=== PATIENT | female | born 1955 | race Caucasian/White ===

== ENCOUNTER 2016-10-12 06:00 | Emergency (ER) | payer BC ==
[2016-10-12] MEDS ORDERED: ONDANSETRON 4 MG/2 ML VIAL IVP STA (06:48)
[2016-10-12] MEDS ORDERED: SODIUM CHLORIDE 0.9% 500 ML IV STA (06:48)
[2016-10-12] MEDS ORDERED: MORPHINE SULFATE 4 MG/ML SYRINGE IV STA (06:48)
--- NOTE | 2016-10-12 06:53 | ED ---
Abdominal Pain HPI - General Chief Complaint: Abdominal Pain Stated Complaint: abd pain, back pain Source: patient Mode of arrival: ambulatory Limitations: no limitations - History of Present Illness MD Complaint: abdominal pain Onset/Timin -: days(s) Location: epigastric Radiation: none Migration to: no migration Severity: severe Quality: other (Like gas) Consistency: constant Improves With: nothing Worsens With: nothing Associated Symptoms: nausea - Related Data Home Medications Medication Instructions Recorded Confirmed Aspirin EC [Ecotrin] 81 mg PO DAILY 11/12/13 11/11/14 Cholecalciferol [Vitamin D3] 1 tab PO DAILY 11/12/13 11/11/14 Cyanocobalamin [Vitamin B-12] 1,000 mcg PO DAILY@1200 11/12/13 11/11/14 Lisinopril [Prinivil] 5 mg PO DAILY 11/12/13 11/11/14 Multivitamins, Thera [Multivitamin] 1 each PO DAILY 11/12/13 11/11/14 Rosuvastatin Calcium [Crestor] 5 mg PO DAILY 11/12/13 11/11/14 metFORMIN HCL [Glucophage] 500 mg PO BID 11/12/13 11/11/14 Previous Rx's Medication Instructions Recorded Hydrocodone/Acetaminophen [[place] 1 - 2 each PO Q6HR PRN #60 tab 05/14/14 5-325] Acetaminophen-Codeine 300-30mg 1 each PO Q4H PRN #15 tablet 06/05/14 [Tylenol #3] Allergies Allergy/AdvReac Type Severity Reaction Status Date / Time latex Allergy Anaphylaxis Verified 10/12/16 06:08 Review of Systems ROS Statement: Those systems with pertinent positive or pertinent negative responses have been documented in the HPI. ROS Other: All systems not noted in ROS Statement are negative. Constitutional: Denies: fever, chills Respiratory: Denies: cough, dyspnea Cardiovascular: Denies: chest pain, palpitations, edema Gastrointestinal: Reports: as per HPI, abdominal pain, nausea. Denies: vomiting , diarrhea, melena, hematochezia Genitourinary: Denies: dysuria, hematuria Musculoskeletal: Denies: back pain Skin: Denies: rash Neurological: Denies: headache, weakness, numbness Past Medical History Past Medical History: Diabetes Mellitus, Hypertension Additional Past Medical History / Comment(s): cyst on kidney removed, aortic aneuryesm, History of Any Multi-Drug Resistant Organisms: None Reported Past Surgical History: Bariatric Surgery, Hysterectomy Additional Past Surgical History / Comment(s): lap band, R kidney tumor, sheyla carpal tunnel, bone spurs removed from neck, 05/14/14 port replacement. Past Anesthesia/Blood Transfusion Reactions: No Reported Reaction Past Psychological History: No Psychological Hx Reported Smoking Status: Former smoker Past Alcohol Use History: None Reported Past Drug Use History: None Reported - Past Family History Mother Family Medical History: Cancer Additional Family Medical History / Comment(s): Father Additional Family Medical History / Comment(s): from [facility] General Exam Limitations: no limitations General appearance: alert, in no apparent distress Head exam: Present: atraumatic, normocephalic Eye exam: Present: normal appearance. Absent: scleral icterus, conjunctival injection ENT exam: Present: normal oropharynx Respiratory exam: Present: normal lung sounds bilaterally. Absent: respiratory distress, wheezes, rales, rhonchi, stridor Cardiovascular Exam: Present: regular rate, normal rhythm, normal heart sounds. Absent: systolic murmur, diastolic murmur, rubs, gallop GI/Abdominal exam: Present: soft, tenderness (There is mild tenderness in the epigastric area to deep palpation), guarding, normal bowel sounds. Absent: distended, rebound, rigid, organomegaly, pulsatile mass, hernia Extremities exam: Present: normal inspection, normal capillary refill. Absent: pedal edema, calf tenderness Back exam: Present: normal inspection. Absent: CVA tenderness (R), CVA tenderness (L) Neurological exam: Present: alert Skin exam: Present: warm, dry, intact, normal color. Absent: rash Course Vital Signs 10/12/16 06:04 Temperature 98 F Pulse Rate 80 Respiratory 16 Rate Blood Pressure 131/63 O2 Sat by Pulse 98 Oximetry
[2016-10-12 07:20] VITALS: RESP 18
[2016-10-12 07:33] LABS: Basophils # (A) 0.1 k/uL (0-0.2); Basophils % (A) 1 %; CH 28.5; CHCM 33.4; Eosinophils # (A) 0.1 k/uL (0-0.7); Eosinophils % (A) 1 %; HCT 40.6 % (34.0-46.0); HDW 2.58; HGB 13.4 gm/dL (11.4-16.0); Luc # (Auto) 0.24; Luc % (Auto) 3; Lymphocytes % (A) 21 %; MCH 28.4 pg (25.0-35.0); MCHC 33.1 g/dL (31.0-37.0); MCV 85.6 fL (80.0-100.0); Monocytes # (A) 0.6 k/uL (0-1.0); Monocytes % (A) 6 %; Neutrophils # (A) 6.6 k/uL (1.3-7.7); Neutrophils % (A) 68 %; RBC 4.74 m/uL (3.80-5.40); RDW 12.8 % (11.5-15.5); WBC 9.6 k/uL (3.8-10.6); WBC (Perox) 9.71
[2016-10-12 07:45] LABS: ALT 23 U/L (9-52); AST 20 U/L (14-36); Alkaline Phosphatase 68 U/L (38-126); Amylase 80 U/L (30-110); Anion Gap 11 mmol/L; Blood Urea Nitrogen 15 mg/dL (7-17); Calcium 9.6 mg/dL (8.4-10.2); Carbon Dioxide 26 mmol/L (22-30); Chloride 104 mmol/L (98-107); Glucose 91 mg/dL (74-99); Non-African American GFR(MDRD) >60 (>60 ml/min/1.73 sqM); Potassium 5.2 mmol/L (3.5-5.1); Sodium 141 mmol/L (137-145); Total Bilirubin 0.5 mg/dL (0.2-1.3); Total Protein 8.1 g/dL (6.3-8.2)
[2016-10-12 08:27] LABS: Appearance,Urine Cloudy (Clear); Bacteria,Urine Occasional /hpf; Bilirubin,Urine Negative (Negative); Glucose,Urine (UA) Negative (Negative); Ketones,Urine Negative (Negative); Leukocyte Esterase,Urine Small (Negative); Mucus,Urine Rare /hpf; Nitrite,Urine Negative (Negative); Particle Count 15725; Protein,Urine Negative (Negative); RBC,Urine <1 /hpf (0-5); Specific Gravity,Urine 1.012 (1.001-1.035); Squamous Epithelial Cell,Urine 8 /hpf (0-4); UA Billing (MACRO vs. MICRO) MICRO; Urobilinogen,Urine <2.0 mg/dL (<2.0); WBC,Urine 4 /hpf (0-5)
--- NOTE | 2016-10-12 08:36 | CT ---
EXAMINATION TYPE: CT abdomen pelvis wo con DATE OF EXAM: 10/12/2016 8:02 AM COMPARISON: Previous study dated 01/18/2006. HISTORY: upper abd pain, radiating around back CT DLP: 1020 mGycm Automated exposure control for dose reduction was used. FINDINGS: There is a 4.7 mm noncalcified pulmonary nodule in the anterior aspect of the right middle lobe, best seen on image 7. This was not visualized on the previous study of the study did not extend as high as this. There is some scarring or atelectasis at the lung bases. There is no pleural or per icardial fluid. The heart is not enlarged. There is a lap band in place. There is evidence of mature pouch. The liver and spleen appear normal. The gallbladder is been removed. Both adrenal glands are normal. There is scarring in the upper pole of the right kidney. The left kidney is unremarkable. I do not se e evidence of hydronephrosis or nephrolithiasis. The pancreas is unremarkable. There is moderate atheromatous calcification of the arterial structures. There is no significant retr operitoneal, iliac or inguinal adenopathy. The bladder is unremarkable. The uterus and ovaries are not visualized. There is diverticulosis scattered throughout the entire colon without radiographic evidence of divert iculitis. There is inflammatory change surrounding the cecum. The appendix is not visualized with cer tainty. Small bowel loops appear normal. There is no evidence of free fluid or free air. There is mild facet arthropathy in the lower lumbar spine. IMPRESSION: 1. INFLAMMATORY CHANGE AROUND THE CECUM MAY REFLECT TYPHILITIS. ALTERNATIVELY, THIS MAY REPRESENT DIV ERTICULITIS. 2. STATUS POST LAP BAND. 3. SOLITARY RIGHT-SIDED PULMONARY NODULE. A CT SCAN OF THE CHEST WOULD BE SUGGESTED. 4. CHRONIC SCARRING OF THE RIGHT KIDNEY.
--- NOTE | 2016-10-12 08:46 | ED ---
Medical Decision Making - Medical Decision Making CAT scan shows inflammation of the cecum with associated with diverticulitis This is a 60-year-old female went back in and reinterviewed her after I got the CAT scan results she stated she felt much better and she wanted try treatment for diverticulitis at home. I also told her that she needed to follow-up with her doctor to make sure that diverticulitis resolves and that there is no other underlying problem that we can't see at this time. - Lab Data Result diagrams: 10/12/16 07:10 10/12/16 07:10 Lab Results 10/12/16 10/12/16 10/12/16 Range/Units 07:10 07:10 07:10 WBC 9.6 (3.8-10.6) k/uL RBC 4.74 (3.80-5.40) m/uL Hgb 13.4 (11.4-16.0) gm/dL Hct 40.6 (34.0-46.0) % MCV 85.6 (80.0-100.0) fL MCH 28.4 (25.0-35.0) pg MCHC 33.1 (31.0-37.0) g/dL RDW 12.8 (11.5-15.5) % Plt Count 194 (150-450) k/uL Neutrophils % 68 % Lymphocytes % 21 % Monocytes % 6 % Eosinophils % 1 % Basophils % 1 % Neutrophils # 6.6 (1.3-7.7) k/uL Lymphocytes # 2.0 (1.0-4.8) k/uL Monocytes # 0.6 (0-1.0) k/uL Eosinophils # 0.1 (0-0.7) k/uL Basophils # 0.1 (0-0.2) k/uL Sodium 141 (137-145) mmol/L Potassium 5.2 H (3.5-5.1) mmol/L Chloride 104 (98-107) mmol/L Carbon Dioxide 26 (22-30) mmol/L Anion Gap 11 mmol/L BUN 15 (7-17) mg/dL Creatinine 0.87 (0.52-1.04) mg/dL Est GFR (MDRD) Af Amer >60 (>60 ml/min/1.73 sqM) Est GFR (MDRD) Non-Af >60 (>60 ml/min/1.73 sqM) Glucose 91 (74-99) mg/dL Plasma Lactic Acid Ej 1.7 (0.7-2.0) mmol/L Calcium 9.6 (8.4-10.2) mg/dL Total Bilirubin 0.5 (0.2-1.3) mg/dL AST 20 (14-36) U/L ALT 23 (9-52) U/L Alkaline Phosphatase 68 (38-126) U/L Total Protein 8.1 (6.3-8.2) g/dL Albumin 4.5 (3.5-5.0) g/dL Amylase 80 (30-110) U/L Lipase 59 (23-300) U/L Urine Color Urine Appearance (Clear) Urine pH (5.0-8.0) Ur Specific [place] (1.001-1.035) Urine Protein (Negative) Urine Glucose (UA) (Negative) Urine Ketones (Negative) Urine Blood (Negative) Urine Nitrite (Negative) Urine Bilirubin (Negative) Urine Urobilinogen (<2.0) mg/dL Ur Leukocyte Esterase (Negative) Urine RBC (0-5) /hpf Urine WBC (0-5) /hpf Ur Squamous Epith Cells (0-4) /hpf Urine Bacteria (None) /hpf Urine Mucus (None) /hpf 10/12/16 Range/Units 07:58 WBC (3.8-10.6) k/uL RBC (3.80-5.40) m/uL Hgb (11.4-16.0) gm/dL Hct (34.0-46.0) % MCV (80.0-100.0) fL MCH (25.0-35.0) pg MCHC (31.0-37.0) g/dL RDW (11.5-15.5) % Plt Count (150-450) k/uL Neutrophils % % Lymphocytes % % Monocytes % % Eosinophils % % Basophils % % Neutrophils # (1.3-7.7) k/uL Lymphocytes # (1.0-4.8) k/uL Monocytes # (0-1.0) k/uL Eosinophils # (0-0.7) k/uL Basophils # (0-0.2) k/uL Sodium (137-145) mmol/L Potassium (3.5-5.1) mmol/L Chloride (98-107) mmol/L Carbon Dioxide (22-30) mmol/L Anion Gap mmol/L BUN (7-17) mg/dL Creatinine (0.52-1.04) mg/dL Est GFR (MDRD) Af Amer (>60 ml/min/1.73 sqM) Est GFR (MDRD) Non-Af (>60 ml/min/1.73 sqM) Glucose (74-99) mg/dL Plasma Lactic Acid Ej (0.7-2.0) mmol/L Calcium (8.4-10.2) mg/dL Total Bilirubin (0.2-1.3) mg/dL AST (14-36) U/L ALT (9-52) U/L Alkaline Phosphatase (38-126) U/L Total Protein (6.3-8.2) g/dL Albumin (3.5-5.0) g/dL Amylase (30-110) U/L Lipase (23-300) U/L Urine Color Yellow Urine Appearance Cloudy H (Clear) Urine pH 6.0 (5.0-8.0) Ur Specific [place] 1.012 (1.001-1.035) Urine Protein Negative (Negative) Urine Glucose (UA) Negative (Negative) Urine Ketones Negative (Negative) Urine Blood Negative (Negative) Urine Nitrite Negative (Negative) Urine Bilirubin Negative (Negative) Urine Urobilinogen <2.0 (<2.0) mg/dL Ur Leukocyte Esterase Small H (Negative) Urine RBC <1 (0-5) /hpf Urine WBC 4 (0-5) /hpf Ur Squamous Epith Cells 8 H (0-4) /hpf Urine Bacteria Occasional H (None) /hpf Urine Mucus Rare H (None) /hpf Disposition Clinical Impression: Diverticulitis Disposition: HOME SELF-CARE Condition: Good Instructions: Diverticulitis (ED) Prescriptions: Hydrocodone/Acetaminophen [[place] 5-325] 1 each PO Q4HR PRN #20 tab PRN Reason: Pain Levofloxacin [Levaquin] 750 mg PO DAILY #10 tab metroNIDAZOLE [Flagyl] 500 mg PO QID 10 Days Referrals: Yolanda Young MD [Primary Care Provider] - 1-2 days Time of Disposition: 08:45
[2016-10-12 08:56] VITALS: BP 113/57; PULSE 79; TEMP 98.1
== END 2016-10-12 08:58 | disposition home or self-care (01) ==
LOC: EC 06:00
DX: K57.92 Diverticulitis of intestine, part unspecified, without perforation or abscess without bleeding (principal); R11.0 Nausea; E11.9 Type 2 diabetes mellitus without complications; I10 Essential (primary) hypertension; Z87.891 Personal history of nicotine dependence; Z79.82 Long term (current) use of aspirin; Z79.899 Other long term (current) drug therapy; Z79.84 Long term (current) use of oral hypoglycemic drugs; Z91.040 Latex allergy status; Z98.84 Bariatric surgery status
CPT/HCPCS: 36415; 80053; 82150; 83605; 83690; 85025; 81001; 74176; 99284; 96374; 96375; J2270; J2405

== ENCOUNTER 2016-12-04 07:09 | Day surgery (SDC) | payer BC ==
[2016-11-30 12:07] VITALS: BMI 29.2
[~2016-12-04 07:09] MED LIST: LACTATED RINGERS 1,000 ML IV SCH
[2016-12-04 07:22] VITALS: TEMP 97.6
[2016-12-04 07:31] LABS: Glucose,Whole Blood 104 mg/dL (75-99)
[2016-12-04] MEDS ORDERED: PROPOFOL 10 MG/ML 20 ML VIAL IV ONE (08:16)
[2016-12-04] MEDS ORDERED: LIDOCAINE 1% INJ 10MG/ML (20 ML MDV) ONE (08:16)
[2016-12-04] MEDS ORDERED: MIDAZOLAM 2 MG/2 ML VIAL ONE (08:16)
[2016-12-04] MEDS ORDERED: fentaNYL (PF) 50 MCG/ML 2 ML AMP ONE (08:16)
--- NOTE | 2016-12-04 09:07 | P.PCN ---
Date of Procedure: 12/04/16 Preoperative Diagnosis: Postoperative Diagnosis: Procedure(s) Performed: Procedures: 1. Esophagogastroduodenoscopy and biopsy. 2. Total colonoscopy. Preoperative diagnosis: Chronic reflux and recent colon diverticulitis. Postoperative diagnosis: 1. Sliding hiatal hernia with short segment of Wilson' s esophagus. 2. Mild antral gastritis. 3. Sigmoid diverticulosis with no evidence of acute diverticulitis, strictures, polyps or cancer. Preparation: HalfLytely prep. Sedation: Was provided by anesthesia. Brief clinical history: The patient is a 60-year-old female who I have evaluated in the office last month after a recent bout of diverticulitis. The patient has chronic reflux disease. Her last colonoscopy was around 5 years ago and she had no prior upper endoscopy.. Procedure: With the patient on her left lateral decubitus position and after informed consent and adequate sedation, I passed the Olympus-GIF 160 video upper endoscope through the cricopharyngeus down the esophagus. The stephani-GE junction was irregular and was at around 31-32 cm from the incisors and the tubular esophagus continues for another 3 cm or so defining a segment of Wilson 's esophagus. The esophagus proximal to the GE junction did not show any erosions, ulcers or strictures. The endoscope was then passed through a 2-3 cm hiatal hernia to the rest of the stomach which was insufflated with air and inspected in detail including the retroflex view in the cardia. There was some mottling and erythema in the antrum but no ulcers or erosions. Pyloric channel , duodenal bulb, post bulbar area and descending duodenum appeared within normal limits. Because of her symptoms, I obtained biopsies from the duodenum, antrum and esophagus then I proceeded with the colonoscopy. Perianal area did not show any fissures or fistulas. There were no masses felt on digital rectal examination. The Olympus CFQ 160L video colonoscope was then inserted in the rectum in the usual fashion and advanced to the cecum. The preparation was less than ideal and there was thick fecal debris and fecal secretions that I could not suction or wash off totally. The mucosa, where visualized, appeared healthy. Multiple diverticular orifices were seen scattered in the sigmoid but I saw no evidence of acute diverticulitis or strictures. No polyps or tumors were seen or any other pathology. I retroflexed the endoscope in the rectum before the endoscope was withdrawn. The patient tolerated the procedure well. Plan: The patient was reassured. Discussed dietary measures. I anticipate repeating her upper endoscopy in around 2 years and in light of her less than ideal preparation today, I would suggest repeat colonoscopy in 5 years before going to a 10-year schedule. She will follow-up with you as planned. Implants: Indications for Procedure: Operative Findings: Description of Procedure:
[2016-12-04 09:24] VITALS: BP 114/54; PULSE 62; RESP 20
== END 2016-12-04 09:48 | disposition home or self-care (01) ==
LOC: ORWHC2ENDO 07:09
DX: K29.50 Unspecified chronic gastritis without bleeding (principal); K44.9 Diaphragmatic hernia without obstruction or gangrene; K57.30 Diverticulosis of large intestine without perforation or abscess without bleeding; E11.9 Type 2 diabetes mellitus without complications; Z79.84 Long term (current) use of oral hypoglycemic drugs; F32.9 Major depressive disorder, single episode, unspecified; Z79.891 Long term (current) use of opiate analgesic; Z79.899 Other long term (current) drug therapy; Z91.030 Bee allergy status; Z91.040 Latex allergy status
CPT/HCPCS: 88305; 88342; 45378; 43239; J2250; J2001; J3010; J2704

== ENCOUNTER → 2017-04-18 | Outpatient (CLI) | payer BC ==
[2017-04-18 10:44] VITALS: BP 120/60; PULSE 66; RESP 16; TEMP 98.4; BMI 31.3
--- NOTE | 2017-04-18 14:52 | XR ---
EXAMINATION TYPE: XR abdomen complete w decub DATE OF EXAM: 04/18/2017 COMPARISON: CT abdomen pelvis 10/12/2016, abdomen series 06/05/2014 HISTORY: Abdominal pain TECHNIQUE: Supine, upright, and left side down lateral decubitus views of the abdomen are obtained. FINDINGS: There is a lap band in place which shows a stable orientation. Surgical clips present in t he right hemiabdomen. There is no evidence for pneumoperitoneum. The bowel gas pattern is unremarkable as there is air throughout nondilated small and large bowel. No sizeable air fluid levels. No mass effects are seen. No unusual calcifications. Probable vascular calcifications in the pelvis. IMPRESSION: Postop changes.
--- NOTE | 2017-06-22 11:41 | P.PN ---
Subjective Progress Note Date: 04/18/17 DATE OF SERVICE: 04/18/2017 CHIEF COMPLAINT: Bariatric assessment. HISTORY OF PRESENT ILLNESS: Gi Bingham is a 61-year-old female with a prior history of adjustable gastric band. She was last seen in the bariatric Center 2 years ago. She has weighed as much as 207 pounds for a 5-foot, 1.5-inch frame. Her initial body mass index was 38.6. Her lowest weight was 148 pounds back in March 2014. She has past history of open port revision. She has now regained 20 pounds in the past 3 years. She now comes in with troubles with persistent epigastric abdominal pain. She also complains of severe gastroesophageal reflux disease. Despite having the adjustable gastric band, she has troubles with her band. Her percent excess weight loss is 51%. Her body mass index is down to 31.3. Her total maintained weight loss is 39 pounds. She has gained 9 pounds in2 years. Separately, she is complaining of left lower quadrant abdominal pain. PAST MEDICAL HISTORY: 1. Hypertension. 2. Diabetes type 2. 3. Dyslipidemia. 4. Morbid obesity. PAST SURGICAL HISTORY: 1. Adjustable gastric band placement in March, 2. Revision of adjustable gastric band port, 2014. 3. Colonoscopy, 2016. MEDICATIONS: 1. Aspirin 81 mg. 2. Crestor 5 mg. 3. Zestoretic 10-12.5 mg 4. Vitamin B12 500 mcg daily. 5. Vitamin D tablet daily. 6. Glucophage 500 mg BID. 7. Zoloft 50 mg BID. 8. Biotin. 9. Multivitamin. ALLERGIES: LATEX, metronidazole, Bee pollen SOCIAL HISTORY: Prior tobacco use. Denies any active alcohol use. FAMILY HISTORY: Significant for morbid obesity. REVIEW OF SYSTEMS: CONSTITUTIONAL: She has gained 20 pounds in 3 years. She has weighed as much as 207 pounds for a 5-foot, 1.5-inch frame. Her initial body mass index was 38.6. Her lowest weight was 148 pounds back in March 2014. Her percent excess weight loss is 51%. Her body mass index is down to 31.3. Her total maintained weight loss is 39 pounds. HEENT: Denies any trouble with hearing. No reports of dysphagia. ENDOCRINE: No reports of thyroid disorders; however, she does have diabetes type 2 which is well controlled with oral hypoglycemics. RESPIRATORY: No reports of pneumonia or asthma. CARDIOVASCULAR: No reports of chest pain or heart attack. GI: Had reported increased eructation including heartburn and reflux with adjustable gastric band. No blood in the stool. Recent change in bowel habits. Colonoscopy early in the year. MUSCULOSKELETAL: Has occasional joint arthritis. Denies any bilateral lower extremity edema. NEURO: No history of migraines or headaches. PSYCH: No reports of depression and suicidal ideation. HEMATOLOGIC: No reports of easy bruising or bleeding. SKIN: Has no history of rash. No skin cancer. PHYSICAL EXAM: VITAL SIGNS: 5 foot 2, 168 pounds. Body mass index of 31.3 Vital Signs Temp 98.4 F 04/18/17 11:02 Pulse 66 04/18/17 11:02 Resp 16 04/18/17 11:02 BP 120/60 04/18/17 11:02 Pulse Ox GENERAL: Well-developed female in no acute distress. ABDOMEN: Soft, nondistended. Tenderness on the epigastrium. Palpable lap band port via left upper quadrant, without erythema or swelling. MUSCULOSKELETAL: No clubbing, cyanosis, or edema. HEENT: No scleral icterus. Extraocular movements grossly intact. Moist buccal mucosa. NECK: Supple without lymphadenopathy. CHEST: Unlabored respirations. Equal bilateral excursions. CARDIOVASCULAR: Regular rate and rhythm. Pulses 2+. NEURO: No focal or lateralizing signs. Cranial nerves II-12 grossly intact. PSYCH: Appropriate affect. Alert and oriented to person, place and time. SKIN: Well perfused. Good skin turgor. STUDIES: Colonoscopy report reviewed demonstrating no evidence of colon malignancies. Features consistent with diverticulosis. ASSESSMENT: 1. History of adjustable gastric band. 2. Morbid obesity. 3. Body mass index reduced from 38.6 down to 31.3 4. Complications from adjustable gastric band. 5. Diabetes type 2, [id number]. 6. Hypertension. 7. Epigastric abdominal pain. 8. Left lower quadrant abdominal pain. 9. Gastroesophageal reflux disease. PLAN: 1. She's had prolonged problems with her adjustable gastric band. Recommend removal of adjustable gastric band and all components. 2. With a history of left lower quadrant abdominal pain and change in bowel habits, recommend CT of the abdomen pelvis to evaluate for diverticulitis. She just completed a colonoscopy demonstrating no evidence of colon malignancies. 3. She has moderate epigastric discomfort also likely from her adjustable gastric band. Also abdominal x-ray and recommend CT of the abdomen pelvis for evaluation of the band orientation. 4. Recommend full bariatric metabolic panel. 5. Alternatively, evaluation for other bariatric procedures such as sleeve or bypass may be feasible. Objective - Vital Signs Vital signs: Vital Signs Temp 98.4 F 04/18/17 11:02 Pulse 66 04/18/17 11:02 Resp 16 04/18/17 11:02 BP 120/60 04/18/17 11:02 Pulse Ox Intake & Output 04/17/17 04/18/17 04/18/17 18:59 06:59 18:59 Weight 76.374 kg
== END | disposition home or self-care (01) ==
LOC: BARWHC3 09:35
PROVIDERS: ATTEND Surgery Plastic and Reconstructive Surgery
DX: Z48.815 Encounter for surgical aftercare following surgery on the digestive system (principal); E66.01 Morbid (severe) obesity due to excess calories; K95.09 Other complications of gastric band procedure; E11.9 Type 2 diabetes mellitus without complications; I10 Essential (primary) hypertension; K21.9 Gastro-esophageal reflux disease without esophagitis; E78.5 Hyperlipidemia, unspecified; R10.84 Generalized abdominal pain; Z68.31 Body mass index [BMI] 31.0-31.9, adult; Z98.84 Bariatric surgery status; Z79.82 Long term (current) use of aspirin; Z79.899 Other long term (current) drug therapy; Z91.040 Latex allergy status; Z91.030 Bee allergy status; Z87.891 Personal history of nicotine dependence; Z98.890 Other specified postprocedural states
CPT/HCPCS: 74020; 99213

== ENCOUNTER 2017-04-29 08:48 | Inpatient (IN) | payer BC ==
[2017-04-29] MEDS ORDERED: ONDANSETRON 4 MG/2 ML VIAL IVP STA (09:37)
[2017-04-29] MEDS ORDERED: HYDROmorphone 0.5 MG/0.5 ML SYRINGE IVP STA (09:37)
--- NOTE | 2017-04-29 09:48 | ED ---
General Adult HPI - General Source: patient, RN notes reviewed Mode of arrival: ambulatory Limitations: no limitations <Lai Wesley - Last Filed: 04/29/17 14:00> <Vito Whitney - Last Filed: 04/29/17 14:14> - General Chief complaint: Abdominal Pain Stated complaint: ABDOMINAL PAIN Time Seen by Provider: 04/29/17 09:27 - History of Present Illness Initial comments: Patient 61-year-old female who presents emergency room today with lower abdominal pain over the last 10 days. Patient does admit that she's been expressing abdominal pain off-and-on over the last several months. States she has follow-up at a recent CT performed. States that today she feels like she is having some lower abdominal pain and pressure. She states she feels that she 's . Patient denies any other complaints or symptoms. Denies any vaginal bleeding or discharge. Patient denies any recent fever, chills, shortness of breath, chest pain, back pain, vomiting, numbness or tingling, dysuria or hematuria, constipation or diarrhea, headaches or visual changes, or any other complaints. (Lai Wesley) - Related Data Home Medications Medication Instructions Recorded Confirmed Aspirin EC [Ecotrin] 81 mg PO DAILY 11/12/13 04/29/17 Cholecalciferol [Vitamin D3] 1,000 unit PO DAILY 11/12/13 04/29/17 Cyanocobalamin [Vitamin B-12] 500 mcg PO DAILY 11/12/13 04/29/17 Multivitamins, Thera [Multivitamin] 1 tab PO DAILY 11/12/13 04/29/17 metFORMIN HCL [Glucophage] 500 mg PO BID 11/12/13 04/29/17 Biotin 10,000 mcg PO DAILY 10/12/16 04/29/17 Lisinopril-Hctz 10-12.5 mg 1 tab PO DAILY 10/12/16 04/29/17 [Zestoretic 10-12.5] Rosuvastatin Calcium [Crestor] 5 mg PO HS 10/12/16 04/29/17 Sertraline HCl [Zoloft] 50 mg PO BID 10/12/16 04/29/17 Hydrocodone/Acetaminophen [[place] 1 tab PO HS PRN 11/30/16 04/29/17 5-325] Allergies Allergy/AdvReac Type Severity Reaction Status Date / Time bee pollen Allergy Anaphylaxis Verified 04/29/17 09:23 latex Allergy Anaphylaxis Verified 04/29/17 09:23 Review of Systems ROS Other: All systems not noted in ROS Statement are negative. <Lai Wesley - Last Filed: 04/29/17 14:00> ROS Other: All systems not noted in ROS Statement are negative. <Vito Whitney - Last Filed: 04/29/17 14:14> ROS Statement: Those systems with pertinent positive or pertinent negative responses have been documented in the HPI. Past Medical History Past Medical History: Diabetes Mellitus, Hyperlipidemia, Hypertension Additional Past Medical History / Comment(s): diverticulitis, aortic aneuryesm, History of Any Multi-Drug Resistant Organisms: None Reported Past Surgical History: Bariatric Surgery, Hysterectomy Additional Past Surgical History / Comment(s): lap band 2010 () , R kidney tumor, sheyla carpal tunnel, bone spurs removed from neck, 05/14/14 lap band port replacement (Dr. Jenkins). Past Anesthesia/Blood Transfusion Reactions: No Reported Reaction Additional Past Anesthesia/Blood Transfusion Reaction / Comment(s): no hx blood transfusion Past Psychological History: No Psychological Hx Reported Smoking Status: Former smoker Past Alcohol Use History: None Reported Past Drug Use History: None Reported - Past Family History Mother Family Medical History: Cancer Additional Family Medical History / Comment(s): at age 67 Father Additional Family Medical History / Comment(s): from [facility] at age 62 <Lai Wesley - Last Filed: 04/29/17 14:00> General Exam Limitations: no limitations <Lai Wesley - Last Filed: 04/29/17 14:00> <Vito Whitney - Last Filed: 04/29/17 14:14> - General Exam Comments Initial Comments: General: The patient is awake and alert, in no distress, and does not appear acutely ill. Eye: Pupils are equal, round and reactive to light, extra-ocular movements are intact. No nystagmus. There is normal conjunctiva bilaterally. No signs of icterus. Ears, nose, mouth and throat: There are moist mucous membranes and no oral lesions. Neck: The neck is supple, there is no tenderness or JVD. Cardiovascular: There is a regular rate and rhythm. No murmur, rub or gallop is appreciated. Respiratory: Lungs are clear to auscultation, respirations are non-labored, breath sounds are equal. No wheezes, stridor, rales, or rhonchi. Gastrointestinal: Normal appearance abdomen. Normal bowel sounds. Abdomen soft on palpation. Patient does have mild tenderness epigastric. No rebound tenderness. no guarding. No CVA tenderness. Musculoskeletal: Normal ROM, no tenderness. Strength 5/5. Sensation intact. Pulses equal bilaterally 2+. Neurological: A&O x 3. CN II-XII intact, There are no obvious motor or sensory deficits. Coordination appears grossly intact. Speech is normal. Skin: Skin is warm and dry and no rashes or lesions are noted. Psychiatric: Cooperative, appropriate mood & affect, normal judgment. (Lai Wesley) Vital Signs 04/29/17 04/29/17 04/29/17 08:58 11:59 13:33 Temperature 98.0 F Pulse Rate 91 85 82 Respiratory 20 16 18 Rate Blood Pressure 142/65 113/56 112/54 O2 Sat by Pulse 99 95 96 Oximetry Medical Decision Making - Lab Data Result diagrams: 04/29/17 10:12 04/29/17 10:12 <Lai Wesley - Last Filed: 04/29/17 14:00> - Lab Data Result diagrams: 04/29/17 10:12 04/29/17 10:12 <Vito Whitney - Last Filed: 04/29/17 14:14> - Medical Decision Making Patient's CT reviewed does show normal limits. Sigmoid diverticulitis with intramural abscess. Sigmoid inflammatory changes. Abscess measuring 9 mm. patient's labs reviewed. Case discussed and seen by attending physician Dr. Whitney did discuss case with admitting physician Dr. Jenkins. Patient started on Zosyn here in the emergency room. (Lai Wesley) The patient was seen and examined. All diagnostics were reviewed. I have discussed the case with the PA and I agree with the findings as documented. ( Vito Whitney) - Lab Data Lab Results 04/29/17 04/29/17 04/29/17 Range/Units 10:12 10:12 10:12 WBC 8.9 (3.8-10.6) k/uL RBC 4.49 (3.80-5.40) m/uL Hgb 12.5 (11.4-16.0) gm/dL Hct 37.9 (34.0-46.0) % MCV 84.4 (80.0-100.0) fL MCH 27.8 (25.0-35.0) pg MCHC 32.9 (31.0-37.0) g/dL RDW 14.2 (11.5-15.5) % Plt Count 225 (150-450) k/uL Neutrophils % 69 % Lymphocytes % 22 % Monocytes % 6 % Eosinophils % 1 % Basophils % 0 % Neutrophils # 6.2 (1.3-7.7) k/uL Lymphocytes # 2.0 (1.0-4.8) k/uL Monocytes # 0.5 (0-1.0) k/uL Eosinophils # 0.1 (0-0.7) k/uL Basophils # 0.0 (0-0.2) k/uL PT (9.0-12.0) sec INR (<1.2) APTT (22.0-30.0) sec Sodium 141 (137-145) mmol/L Potassium 4.6 (3.5-5.1) mmol/L Chloride 102 (98-107) mmol/L Carbon Dioxide 28 (22-30) mmol/L Anion Gap 11 mmol/L BUN 14 (7-17) mg/dL Creatinine 0.90 (0.52-1.04) mg/dL Est GFR (MDRD) Af Amer >60 (>60 ml/min/1.73 sqM) Est GFR (MDRD) Non-Af >60 (>60 ml/min/1.73 sqM) Glucose 94 (74-99) mg/dL Calcium 9.7 (8.4-10.2) mg/dL Total Bilirubin 0.3 (0.2-1.3) mg/dL AST 20 (14-36) U/L ALT 30 (9-52) U/L Alkaline Phosphatase 70 (38-126) U/L Total Protein 7.5 (6.3-8.2) g/dL Albumin 4.1 (3.5-5.0) g/dL Amylase 43 (30-110) U/L Lipase 42 (23-300) U/L Urine Color Yellow Urine Appearance Clear (Clear) Urine pH 7.5 (5.0-8.0) Ur Specific [place] 1.013 (1.001-1.035) Urine Protein Negative (Negative) Urine Glucose (UA) Negative (Negative) Urine Ketones Negative (Negative) Urine Blood Negative (Negative) Urine Nitrite Negative (Negative) Urine Bilirubin Negative (Negative) Urine Urobilinogen <2.0 (<2.0) mg/dL Ur Leukocyte Esterase Negative (Negative) 04/29/17 Range/Units 10:12 WBC (3.8-10.6) k/uL RBC (3.80-5.40) m/uL Hgb (11.4-16.0) gm/dL Hct (34.0-46.0) % MCV (80.0-100.0) fL MCH (25.0-35.0) pg MCHC (31.0-37.0) g/dL RDW (11.5-15.5) % Plt Count (150-450) k/uL Neutrophils % % Lymphocytes % % Monocytes % % Eosinophils % % Basophils % % Neutrophils # (1.3-7.7) k/uL Lymphocytes # (1.0-4.8) k/uL Monocytes # (0-1.0) k/uL Eosinophils # (0-0.7) k/uL Basophils # (0-0.2) k/uL PT 10.2 (9.0-12.0) sec INR 1.0 (<1.2) APTT 23.4 (22.0-30.0) sec Sodium (137-145) mmol/L Potassium (3.5-5.1) mmol/L Chloride (98-107) mmol/L Carbon Dioxide (22-30) mmol/L Anion Gap mmol/L BUN (7-17) mg/dL Creatinine (0.52-1.04) mg/dL Est GFR (MDRD) Af Amer (>60 ml/min/1.73 sqM) Est GFR (MDRD) Non-Af (>60 ml/min/1.73 sqM) Glucose (74-99) mg/dL Calcium (8.4-10.2) mg/dL Total Bilirubin (0.2-1.3) mg/dL AST (14-36) U/L ALT (9-52) U/L Alkaline Phosphatase (38-126) U/L Total Protein (6.3-8.2) g/dL Albumin (3.5-5.0) g/dL Amylase (30-110) U/L Lipase (23-300) U/L Urine Color Urine Appearance (Clear) Urine pH (5.0-8.0) Ur Specific [place] (1.001-1.035) Urine Protein (Negative) Urine Glucose (UA) (Negative) Urine Ketones (Negative) Urine Blood (Negative) Urine Nitrite (Negative) Urine Bilirubin (Negative) Urine Urobilinogen (<2.0) mg/dL Ur Leukocyte Esterase (Negative) Disposition Time of Disposition: 14:04 <Lai Wesley - Last Filed: 04/29/17 14:00> <Vito Whitney - Last Filed: 04/29/17 14:14> Clinical Impression: Sigmoid diverticulitis, Abdominal abscess Disposition: ADMITTED IP TO THIS HOSP Condition: Stable Referrals: Yolanda Young MD [Primary Care Provider] - 1-2 days
[2017-04-29 10:41] LABS: Basophils % (A) 0 %; CHCM 33.3; Eosinophils # (A) 0.1 k/uL (0-0.7); Eosinophils % (A) 1 %; HCT 37.9 % (34.0-46.0); HDW 2.63; HGB 12.5 gm/dL (11.4-16.0); Luc # (Auto) 0.15; Luc % (Auto) 2; Lymphocytes % (A) 22 %; MCH 27.8 pg (25.0-35.0); MCHC 32.9 g/dL (31.0-37.0); MCV 84.4 fL (80.0-100.0); Mean Platelet Volume 7.8; Monocytes # (A) 0.5 k/uL (0-1.0); Monocytes % (A) 6 %; Neutrophils # (A) 6.2 k/uL (1.3-7.7); Neutrophils % (A) 69 %; RBC 4.49 m/uL (3.80-5.40); RDW 14.2 % (11.5-15.5); WBC 8.9 k/uL (3.8-10.6); WBC (Perox) 9.16
[2017-04-29 10:42] LABS: Appearance,Urine Clear (Clear); Bilirubin,Urine Negative (Negative); Glucose,Urine (UA) Negative (Negative); Ketones,Urine Negative (Negative); Leukocyte Esterase,Urine Negative (Negative); Nitrite,Urine Negative (Negative); PH, Urine 7.5 (5.0-8.0); Protein,Urine Negative (Negative); Specific Gravity,Urine 1.013 (1.001-1.035); UA Billing (MACRO vs. MICRO) CHEM; Urobilinogen,Urine <2.0 mg/dL (<2.0)
[2017-04-29 10:48] LABS: Partial Thromboplastin Time 23.4 sec (22.0-30.0); Prothrombin Time 10.2 sec (9.0-12.0)
[2017-04-29 10:54] LABS: ALT 30 U/L (9-52); AST 20 U/L (14-36); Alkaline Phosphatase 70 U/L (38-126); Amylase 43 U/L (30-110); Anion Gap 11 mmol/L; Blood Urea Nitrogen 14 mg/dL (7-17); Calcium 9.7 mg/dL (8.4-10.2); Carbon Dioxide 28 mmol/L (22-30); Chloride 102 mmol/L (98-107); Glucose 94 mg/dL (74-99); Non-African American GFR(MDRD) >60 (>60 ml/min/1.73 sqM); Potassium 4.6 mmol/L (3.5-5.1); Sodium 141 mmol/L (137-145); Total Bilirubin 0.3 mg/dL (0.2-1.3); Total Protein 7.5 g/dL (6.3-8.2)
--- NOTE | 2017-04-29 12:53 | US ---
EXAMINATION TYPE: US transvaginal DATE OF EXAM: 04/29/2017 COMPARISON: CLINICAL HISTORY: pain. Left side pain. Patient states uterus and one ovary was removed at age 26-- she believes it was her left ovary that was removed. TECHNIQUE: Transvaginal (TV) EXAM MEASUREMENTS: Left Ovary: Not seen 1. Uterus: Surgically absent 2. Endometrium: Surgically absent 3. Right Ovary: Surgically absent 4. Left Ovary: Obscured by overlying bowel gas 5. Bilateral Adnexa: Within the left adnexa there is likely a focus of bowel present. 6. Posterior cul-de-sac: no free fluid IMPRESSION: Finding of prominent bowel in the left hemipelvis, correlate to exclude inflammatory archer ge
[2017-04-29] MEDS ORDERED: RX INFO: IV CONTRAST WAS GIVEN 1 EACH MISC MISCELLANE PRN (12:58)
--- NOTE | 2017-04-29 13:39 | CT ---
EXAMINATION TYPE: CT abdomen pelvis w con DATE OF EXAM: 04/29/2017 COMPARISON: NONE HISTORY: Pelvic pain with nausea CT DLP: 620.2 mGycm CONTRAST: CT scan of the abdomen and pelvis is performed without Oral Contrast and with IV Contrast, patient in jected with 100 mL of Omnipaque 300. FINDINGS: LUNG BASES-: No visible nodule. No infiltrate. LIVER/GB: No calcified gallstones. No space occupying hepatic lesion. Biliary tree is of normal ca liber. PANCREAS: No inflammation. No distinct mass. SPLEEN: No splenic enlargement. No lesion seen. ADRENALS: No nodule. No thickening. KIDNEYS/BLADDER: No hydronephrosis. No nephrolithiasis. No disctinct renal mass. Urinary bladder g rossly unremarkable. Atrophic changes right kidney. BOWEL: Gastric banding device changes. Thickening distal esophagus. Wall thickening of the sigmoid co mellissa with perisigmoid inflammatory change. Intramural Abscess noted measuring 9 mm. Findings are consi stent with diverticulitis. No evidence for perforation at this time. Small bowel is of normal caliber . GENITAL ORGANS: No gross abnormality. LYMPH NODES: No greater than 1cm abdominal or pelvic lymph nodes are appreciated. AORTA: No significant abnormality. OSSEOUS STRUCTURES: No significant abnormality is seen. OTHER: No significant additional abnormality is seen. IMPRESSION: 1. Moderately severe sigmoid diverticulitis with intramural abscess and perisigmoid inflammatory archer ge. No evidence for free air or perforation.
[2017-04-29] MEDS ORDERED: PIPERACILLIN-TAZOBACTAM 3.375 GM in DEXTROSE/WATER 1 50ML.BAG IVPB STA (14:00)
[2017-04-29] MEDS ORDERED: NALOXONE 0.4 MG/ML 1 ML VIAL IV PRN (14:05)
[2017-04-29] MEDS ORDERED: ONDANSETRON 4 MG/2 ML VIAL IVP PRN (14:05)
[2017-04-29] MEDS: HYDROmorphone 0.5 MG/0.5 ML SYRINGE IVP PRN ×3 (14:59→22:52)
[2017-04-29 15:43] VITALS: BMI 31.7
[2017-04-29 17:13] LABS: Glucose,Whole Blood 103 mg/dL (75-99)
[2017-04-29 20:00] LABS: Glucose,Whole Blood 109 mg/dL (75-99)
[2017-04-29] MEDS ORDERED: diphenhydrAMINE 50 MG/ML 1 ML VIAL IVP PRN (20:26)
--- NOTE | 2017-04-29 21:14 | P.GSHP ---
History of Present Illness H&P Date: 04/29/17 CHIEF COMPLAINT: Bilateral lower abdominal pain over one week. HISTORY OF PRESENT ILLNESS: The patient is 61-year-old female who was recently seen in the bariatric Center less than 3 weeks ago initially complaining of epigastric abdominal pain with occasional lower abdominal pain. She does report having recent upper and lower endoscopy in October 2016 with findings of diverticulosis including lesions or esophagitis. No evidence of malignancy was found. She reports at least 3 prior episodes of diverticulitis attack in less than 1 year. She had a CT of the abdomen pelvis now demonstrating a localized intramural abscess involving the sigmoid colon. Since admission, she reports abdominal pain has improved. She does report diarrhea. PAST MEDICAL HISTORY: See list. PAST SURGICAL HISTORY: See list. CURRENT MEDICATIONS: See list. ALLERGIES: See list. SOCIAL HISTORY: Past tobacco user. FAMILY HISTORY: Pertinent for diverticulosis. REVIEW OF ORGAN SYSTEMS: CONSTITUTIONAL: Denies any fever or chills. Recent weight gain over 20 pounds in 2 years. HEENT: Denies any trouble with vision, hearing or nosebleeds. LYMPHATIC: The patient denies any lumps and bumps around the neck. ENDOCRINE: Denies any thyroid disorders. Has blood sugar glucose intolerance. RESPIRATORY: Denies shortness of breath. No dyspnea on exertion. CARDIOVASCULAR: Denies history of chest pain with exertion. No palpitations. GASTROINTESTINAL: History of diarrhea constipation including diverticulosis. GENITOURINARY: Denies any blood in urine or increased urinary frequency. Previous history of kidney tumor per CT. MUSCULOSKELETAL: Has osteoarthritis including pain along the joints. NEUROLOGIC: Denies any numbness or tingling along the distal extremities. No seizure disorders or headaches. PSYCHIATRIC: Denies any depression or suicidal ideation. HEMATOLOGIC: Denies any abnormal bleeding or bruising. PHYSICAL EXAMINATION: GENERAL: Well developed and in no acute distress. Pleasant. HEENT: No sclera icterus. Extraocular movements grossly intact. Moist buccal mucosa. Head is atraumatic, normocephalic. Hears conversational speech. No nasal drainage. NECK: Supple without lymphadenopathy. No JV distention. CHEST: Non-labored respirations and equal bilateral excursions. CARDIOVASCULAR: Regular rate and rhythm. Palpable 2+ radial pulses. ABDOMEN: Soft, tender at the bilateral lower abdomen. No peritonitis. MUSCULOSKELETAL: No clubbing, cyanosis or edema. NEUROLOGIC: No focal or lateralizing signs. PSYCH: Appropriate affect. Alert and oriented to person, place and time. SKIN: Well perfused. Good skin turgor. LABS: Reviewed. STUDIES: CT of the abdomen and pelvis reviewed demonstrating sigmoid thickening without free perforation. Incidental finding of hiatal hernia. Upper and lower endoscopy results were reviewed demonstrating Wilson's esophagus including symptomatic 3 cm diaphragmatic hernia. Moderate diverticulosis identified without large tumors as she had severe constipation at the time of her procedure. ASSESSMENT: 1. Acute diverticulitis involving the sigmoid colon with multiple prior attacks. 2. Bilateral lower abdominal pain. 3. History of epigastric abdominal pain. 4. Wilson's esophagus due to gastroesophageal reflux disease. 5. History of adjustable gastric band now with weight regain. 6. Reports dysphagia with adjustable gastric band now complications. 7. Hypertensive heart disease. 8. Diabetes type 2, [id number]. 9. Chronic constipation. PLAN: 1. Recommend IV antibiotics. Potential switch to oral antibiotics as abdominal pain improves. 2. Liquid diet only. 3. With her multiple attacks, surgical intervention with sigmoid colectomy as an elective procedure was described. 4. Will need at minimum 4-6 weeks of recovery prior to sigmoid resection. 5. Separately, patient has symptoms from her adjustable gastric band and may benefit from removal she also has Wilson's esophagus. 6. GI prophylaxis recommended. Thank you very much for allowing me to participate in the care of your patient. Past Medical History Past Medical History: Diabetes Mellitus, Hyperlipidemia, Hypertension Additional Past Medical History / Comment(s): diverticulitis, aortic aneuryesm, History of Any Multi-Drug Resistant Organisms: None Reported Past Surgical History: Bariatric Surgery, Hysterectomy Additional Past Surgical History / Comment(s): lap band 2010 () , R kidney tumor removed, sheyla carpal tunnel, bone spurs removed from neck, 05/14/14 lap band port replacement (Dr. Jenkins). Past Anesthesia/Blood Transfusion Reactions: No Reported Reaction Additional Past Anesthesia/Blood Transfusion Reaction / Comment(s): no hx blood transfusion Past Psychological History: No Psychological Hx Reported Smoking Status: Former smoker Past Alcohol Use History: None Reported Additional Past Alcohol Use History / Comment(s): quit smoking ,smoked approx 25 yrs 1 1/2 ppd Past Drug Use History: None Reported - Past Family History Mother Family Medical History: Cancer Additional Family Medical History / Comment(s): at age 67 Father Additional Family Medical History / Comment(s): from [facility] ([place] at age 62 Medications and Allergies Home Medications Medication Instructions Recorded Confirmed Type Aspirin EC [Ecotrin] 81 mg PO DAILY 11/12/13 04/29/17 History Cholecalciferol [Vitamin D3] 1,000 unit PO DAILY 11/12/13 04/29/17 History Cyanocobalamin [Vitamin B-12] 500 mcg PO DAILY 11/12/13 04/29/17 History Multivitamins, Thera [Multivitamin] 1 tab PO DAILY 11/12/13 04/29/17 History metFORMIN HCL [Glucophage] 500 mg PO BID 11/12/13 04/29/17 History Biotin 10,000 mcg PO DAILY 10/12/16 04/29/17 History Lisinopril-Hctz 10-12.5 mg 1 tab PO DAILY 10/12/16 04/29/17 History [Zestoretic 10-12.5] Rosuvastatin Calcium [Crestor] 5 mg PO HS 10/12/16 04/29/17 History Sertraline HCl [Zoloft] 50 mg PO BID 10/12/16 04/29/17 History Hydrocodone/Acetaminophen [[place] 1 tab PO HS PRN 11/30/16 04/29/17 History 5-325] Allergies Allergy/AdvReac Type Severity Reaction Status Date / Time bee pollen Allergy Anaphylaxis Verified 04/29/17 09:23 latex Allergy Anaphylaxis Verified 04/29/17 09:23 Surgical - Exam Vital Signs Temp Pulse Resp BP Pulse Ox 98.0 F 91 20 142/65 99 04/29/17 08:58 04/29/17 08:58 04/29/17 08:58 04/29/17 08:58 04/29/17 08:58 Results - Labs 04/29/17 10:12 04/29/17 10:12 Abnormal Lab Results - Last 24 Hours (Table) 04/29/17 04/29/17 Range/Units 16:43 19:53 POC Glucose (mg/dL) 103 H 109 H (75-99) mg/dL Diabetes panel 04/29/17 Range/Units 10:12 Sodium 141 (137-145) mmol/L Potassium 4.6 (3.5-5.1) mmol/L Chloride 102 (98-107) mmol/L Carbon Dioxide 28 (22-30) mmol/L BUN 14 (7-17) mg/dL Creatinine 0.90 (0.52-1.04) mg/dL Glucose 94 (74-99) mg/dL Calcium 9.7 (8.4-10.2) mg/dL AST 20 (14-36) U/L ALT 30 (9-52) U/L Alkaline Phosphatase 70 (38-126) U/L Total Protein 7.5 (6.3-8.2) g/dL Albumin 4.1 (3.5-5.0) g/dL Calcium panel 04/29/17 Range/Units 10:12 Calcium 9.7 (8.4-10.2) mg/dL Albumin 4.1 (3.5-5.0) g/dL Pituitary panel 04/29/17 Range/Units 10:12 Sodium 141 (137-145) mmol/L Potassium 4.6 (3.5-5.1) mmol/L Chloride 102 (98-107) mmol/L Carbon Dioxide 28 (22-30) mmol/L BUN 14 (7-17) mg/dL Creatinine 0.90 (0.52-1.04) mg/dL Glucose 94 (74-99) mg/dL Calcium 9.7 (8.4-10.2) mg/dL Adrenal panel 04/29/17 Range/Units 10:12 Sodium 141 (137-145) mmol/L Potassium 4.6 (3.5-5.1) mmol/L Chloride 102 (98-107) mmol/L Carbon Dioxide 28 (22-30) mmol/L BUN 14 (7-17) mg/dL Creatinine 0.90 (0.52-1.04) mg/dL Glucose 94 (74-99) mg/dL Calcium 9.7 (8.4-10.2) mg/dL Total Bilirubin 0.3 (0.2-1.3) mg/dL AST 20 (14-36) U/L ALT 30 (9-52) U/L Alkaline Phosphatase 70 (38-126) U/L Total Protein 7.5 (6.3-8.2) g/dL Albumin 4.1 (3.5-5.0) g/dL
[2017-04-29] MEDS ORDERED: HYDROcodone/APAP 5-325MG 1 EACH TAB PO PRN (21:16)
[2017-04-29] MEDS ORDERED: ACETAMINOPHEN TAB 325 MG TAB PO PRN (21:16)
[2017-04-29] MEDS ORDERED: LORazepam 2 MG/ML INJ IV PRN (21:16)
[2017-04-29] MEDS ORDERED: MAG HYDROX/AL HYDROX/SIMETH 30 ML CUP PO PRN (21:16)
[2017-04-29] MEDS ORDERED: MAGNESIUM HYDROXIDE 2,400 MG/10 ML CUP PO PRN (21:16)
[2017-04-29] MEDS ORDERED: HYDROmorphone 1 MG/ML 1 ML SYRINGE IV PRN (21:16)
[2017-04-29] MEDS ORDERED: LACTULOSE 20 GM/30 ML CUP PO PRN (21:16)
[2017-04-29] MEDS ORDERED: TEMAZEPAM 15 MG CAP PO PRN (21:16)
[2017-04-29] MEDS: ENOXAPARIN 40 MG/0.4 ML SYRINGE SQ SCH (22:50)
[2017-04-29] MEDS: SODIUM CHLORIDE 0.9% 1,000 ML IV SCH (22:50)
[2017-04-30] MEDS: PIPERACILLIN-TAZOBACTAM 3.375 GM in DEXTROSE/WATER 1 50ML.BAG IVPB SCH ×4 (01:14→23:13)
[2017-04-30] MEDS: HYDROmorphone 2 MG/ML 1 ML SYRINGE IV PRN ×3 (04:42→11:29)
[2017-04-30] MEDS: SODIUM CHLORIDE 0.9% 1,000 ML IV SCH ×2 (06:16→20:19)
[2017-04-30 07:04] LABS: Glucose,Whole Blood 86 mg/dL (75-99)
[2017-04-30] MEDS: INSULIN ASPART 100 UNIT/ML 1 ML 10 ML VIAL SQ SCH ×4 (07:24→20:30)
[2017-04-30 07:25] LABS: Basophils # (A) 0.1 k/uL (0-0.2); Basophils % (A) 1 %; CH 27.8; CHCM 32.1; Eosinophils # (A) 0.1 k/uL (0-0.7); Eosinophils % (A) 2 %; HCT 37.1 % (34.0-46.0); HDW 2.63; HGB 11.7 gm/dL (11.4-16.0); Luc # (Auto) 0.16; Luc % (Auto) 3; Lymphocytes # (A) 2.5 k/uL (1.0-4.8); Lymphocytes % (A) 39 %; MCH 27.4 pg (25.0-35.0); MCHC 31.5 g/dL (31.0-37.0); MCV 87.2 fL (80.0-100.0); Mean Platelet Volume 7.6; Monocytes # (A) 0.4 k/uL (0-1.0); Monocytes % (A) 6 %; Neutrophils # (A) 3.2 k/uL (1.3-7.7); Neutrophils % (A) 50 %; RBC 4.25 m/uL (3.80-5.40); RDW 13.7 % (11.5-15.5); WBC 6.4 k/uL (3.8-10.6); WBC (Perox) 6.41
[2017-04-30 07:40] LABS: ALT 27 U/L (9-52); AST 18 U/L (14-36); Alkaline Phosphatase 61 U/L (38-126); Anion Gap 9 mmol/L; Blood Urea Nitrogen 14 mg/dL (7-17); Carbon Dioxide 26 mmol/L (22-30); Chloride 105 mmol/L (98-107); Glucose 91 mg/dL (74-99); Non-African American GFR(MDRD) 52 (>60 ml/min/1.73 sqM); Potassium 4.4 mmol/L (3.5-5.1); Sodium 140 mmol/L (137-145); Total Bilirubin 0.4 mg/dL (0.2-1.3); Total Protein 6.6 g/dL (6.3-8.2)
[2017-04-30] MEDS: PANTOPRAZOLE 40 MG TABLET PO SCH (08:04)
[2017-04-30] MEDS: SERTRALINE 50 MG TAB PO SCH ×2 (08:04→20:29)
[2017-04-30] MEDS: ASPIRIN 81 MG PO SCH (08:04)
[2017-04-30] MEDS: LISINOPRIL-HCTZ 10-12.5 MG 1 EACH TAB PO SCH (08:05)
[2017-04-30 11:27] LABS: Glucose,Whole Blood 128 mg/dL (75-99)
--- NOTE | 2017-04-30 15:19 | P.PN ---
Subjective Progress Note Date: 04/30/17 61-year-old female seen and examined at the bedside. Patient continues to report having episodes of lower abdominal pain. Patient is receiving iv dilaudid for pain control patient's tolerating clear liquid diet reports a nausea sensation no active emesis Objective - Vital Signs Vital signs: Vital Signs Temp 97.8 F 04/30/17 14:56 Pulse 69 04/30/17 14:56 Resp 16 04/30/17 14:56 BP 100/41 04/30/17 14:56 Pulse Ox 93 L 04/30/17 14:56 Intake & Output 04/29/17 04/30/17 04/30/17 18:59 06:59 18:59 Intake Total 340 500 Balance 340 500 Weight 76.204 kg 76.204 kg Intake: IV 500 Sodium Chloride 0.9% 1, 500 000 ml @ 100 mls/hr IV . Q10H SOY Rx#:[id number] Oral 340 Other: # Voids 1 2 - Exam Physical exam 61-year-old female sitting up in bed taking a popsicle continues to report having lower abdominal pain. Reports no nausea no vomiting no frequent stooling Lungs essentially clear adequate air movement Heart S1-S2 audible regular Abdomen tenderness to the bilateral lower quadrant bowel tones present not distended Extremities no edema noted - Labs CBC & Chem 7: 04/30/17 06:42 04/30/17 06:42 Labs: Abnormal Lab Results - Last 24 Hours (Table) 04/29/17 04/29/17 04/30/17 Range/Units 16:43 19:53 06:42 Creatinine 1.08 H (0.52-1.04) mg/dL POC Glucose (mg/dL) 103 H 109 H (75-99) mg/dL 04/30/17 Range/Units 11:10 Creatinine (0.52-1.04) mg/dL POC Glucose (mg/dL) 128 H (75-99) mg/dL Assessment and Plan Assessment: Impression Present on admission lower abdominal pain likely due to acute diverticulitis involving the sigmoid colon History of multiple episodes of diverticulitis Type 2 diabetes non-insulin Chronic constipation Hypertensive heart disease Wilson's esophagus due to gastroesophageal reflux disease. History of adjustable gastric band now with weight regain. Reports dysphagia with adjustable gastric band now complications. Plan IV antibiotics as ordered liquid diet only Pain control Will need at least 4-6 weeks of recovery prior to sigmoid resection given the patient's multiple attacks surgical intervention with a sigmoid colectomy an elective procedure is recommended DVT and GI prophylaxis The above impression and plan of care have been discussed and directed by signing physician. Linnea Thomas nurse practitioner acting as scribe for signing physician.
[2017-04-30 17:02] LABS: Glucose,Whole Blood 128 mg/dL (75-99)
[2017-04-30] MEDS: HYDROcodone/APAP 7.5-325MG 1 EACH TAB PO PRN ×2 (18:32→23:09)
[2017-04-30] MEDS: ENOXAPARIN 40 MG/0.4 ML SYRINGE SQ SCH (20:30)
[2017-04-30] MEDS: HYDROmorphone 0.5 MG/0.5 ML SYRINGE IVP PRN (20:34)
[2017-04-30 20:36] LABS: Glucose,Whole Blood 125 mg/dL (75-99)
[2017-04-30] MEDS ORDERED: ATORVASTATIN 10 MG TAB PO SCH (21:00)
[2017-05-01 01:27] VITALS: RESP 16
[2017-05-01] MEDS: SODIUM CHLORIDE 0.9% 1,000 ML IV SCH ×2 (03:06→07:34)
[2017-05-01] MEDS: HYDROcodone/APAP 7.5-325MG 1 EACH TAB PO PRN ×2 (03:11→07:35)
[2017-05-01 06:59] LABS: Glucose,Whole Blood 94 mg/dL (75-99)
[2017-05-01] MEDS: PANTOPRAZOLE 40 MG TABLET PO SCH (07:33)
[2017-05-01] MEDS: INSULIN ASPART 100 UNIT/ML 1 ML 10 ML VIAL SQ SCH ×2 (07:33→15:44)
[2017-05-01] MEDS: SERTRALINE 50 MG TAB PO SCH (07:34)
[2017-05-01] MEDS: LISINOPRIL-HCTZ 10-12.5 MG 1 EACH TAB PO SCH (07:34)
[2017-05-01] MEDS: ASPIRIN 81 MG PO SCH (07:34)
[2017-05-01 07:45] VITALS: BP 125/60; PULSE 60; TEMP 98.6
[2017-05-01] MEDS: PIPERACILLIN-TAZOBACTAM 3.375 GM in DEXTROSE/WATER 1 50ML.BAG IVPB SCH (07:51)
[2017-05-01 11:27] LABS: Glucose,Whole Blood 94 mg/dL (75-99)
--- NOTE | 2017-05-01 11:32 | P.DS ---
Providers Date of admission: 04/29/17 14:55 Expected date of discharge: 05/01/17 Attending physician: Alana Jenkins Primary care physician: Yolanda Chandler [facility]: 61-year-old female who presented with a chief complaint of developing persistent epigastric abdominal pain occasionally radiated to the lower abdomen. Patient was seen in the bariatric center 3 weeks prior with the above- mentioned symptoms. Patient had a recent upper and lower endoscopic in October 2016 it did show findings of diverticulosis . CAT scan of the abdomen and pelvis this admission demonstrated a localized intramural abscess involving the sigmoid colon. Patient reports she's had at least 3 prior episodes of diverticulitis attack less than 1 year Patient was admitted to the hospital started on IV antibiotics diet was advanced pain contro l on the day of discharge patient was up ambulatory on the unit stated the abdominal pain had improved. No nausea no vomiting pain medication effective for pain control patient was felt to be appropriate to be discharged home Patient was aware of the plan patient will need at least 4-6 weeks of recovery prior to a sigmoid resection given the patient's multiple attacks with diverticulitis surgical intervention with a sigmoid colectomy has been recommended patient has agreed Impression Present on admission lower abdominal pain likely due to acute diverticulitis involving the sigmoid colon History of multiple episodes of diverticulitis Type 2 diabetes non-insulin Chronic constipation Hypertensive heart disease Wilson's esophagus due to gastroesophageal reflux disease. History of adjustable gastric band now with weight regain. Reports dysphagia with adjustable gastric band now complications. The above impression and plan of care have been discussed and directed by signing physician. Linnea Thomas nurse practitioner acting as scribe for signing physician. Patient Condition at Discharge: Stable Plan - Discharge Summary Discharge Rx Participant: Yes New Discharge Prescriptions: New Omeprazole 40 mg PO DAILY #90 capsule. Levofloxacin [Levaquin] 750 mg PO DAILY #14 tab metroNIDAZOLE [Flagyl] 500 mg PO TID #63 tab Docusate [Colace] 100 mg PO DAILY PRN #30 capsule PRN Reason: Constipation Continue Cyanocobalamin [Vitamin B-12] 500 mcg PO DAILY Aspirin EC [Ecotrin Low Dose] 81 mg PO DAILY metFORMIN HCL [Glucophage] 500 mg PO BID Multivitamins, Thera [Multivitamin (formulary)] 1 tab PO DAILY Cholecalciferol [Vitamin D3] 1,000 unit PO DAILY Biotin 10,000 mcg PO DAILY Lisinopril-Hctz 10-12.5 mg [Zestoretic 10-12.5] 1 tab PO DAILY Rosuvastatin Calcium [Crestor] 5 mg PO HS Sertraline HCl [Zoloft] 50 mg PO BID Hydrocodone/Acetaminophen [[place] 5-325] 1 tab PO HS PRN #30 tablet PRN Reason: Pain Discharge Medication List Aspirin EC [Ecotrin Low Dose] 81 mg PO DAILY 11/12/13 [History] Cholecalciferol [Vitamin D3] 1,000 unit PO DAILY 11/12/13 [History] Cyanocobalamin [Vitamin B-12] 500 mcg PO DAILY 11/12/13 [History] Multivitamins, Thera [Multivitamin (formulary)] 1 tab PO DAILY 11/12/13 [History ] metFORMIN HCL [Glucophage] 500 mg PO BID 11/12/13 [History] Biotin 10,000 mcg PO DAILY 10/12/16 [History] Lisinopril-Hctz 10-12.5 mg [Zestoretic 10-12.5] 1 tab PO DAILY 10/12/16 [History ] Rosuvastatin Calcium [Crestor] 5 mg PO HS 10/12/16 [History] Sertraline HCl [Zoloft] 50 mg PO BID 10/12/16 [History] Omeprazole 40 mg PO DAILY #90 capsule. 04/29/17 [Rx] Docusate [Colace] 100 mg PO DAILY PRN #30 capsule 05/01/17 [Rx] Hydrocodone/Acetaminophen [[place] 5-325] 1 tab PO HS PRN #30 tablet 05/01/17 [Rx] Levofloxacin [Levaquin] 750 mg PO DAILY #14 tab 05/01/17 [Rx] metroNIDAZOLE [Flagyl] 500 mg PO TID #63 tab 05/01/17 [Rx] Follow up Appointment(s)/Referral(s): Alana Jenkins MD [STAFF PHYSICIAN] - 05/14/17 Yolanda Young MD [Primary Care Provider] - 1 Week Patient Instructions/Handouts: Diverticulitis (DC), Diverticulitis (GEN), Diverticulitis Diet (DC), Full Liquid Diet (DC) Activity/Diet/Wound Care/Special Instructions: Dietary instructions diverticulitis provided Soft diet advanced as tolerated Discharge Disposition: HOME SELF-CARE
--- NOTE | 2017-05-03 12:52 | P.EN ---
Patient called stating she has hives from Flagyl. She has no difficulty in breathing. Took Benadryl and feels better. SHe had similar reaction earlier this year with Flagyl. Recommended stopping Flagul and continue with Levaquin only. She has appointment with Dr Stephan Michelle on May 14, 2017 . PAtient instructed to call [facility] on Saturday for earlier appointment. Also , she was instructed to come to ER if difficulty with breathing, worsening abdominal pain or fever.
== END 2017-05-01 13:58 | disposition home or self-care (01) | DRG 392 ==
LOC: EC 08:48 → 3SUR 14:55
PROVIDERS: ADMIT Surgery Plastic and Reconstructive Surgery; ATTEND Surgery Plastic and Reconstructive Surgery
DX: K57.32 Diverticulitis of large intestine without perforation or abscess without bleeding (principal); I11.9 Hypertensive heart disease without heart failure; R13.10 Dysphagia, unspecified; K22.70 Barrett's esophagus without dysplasia; K21.9 Gastro-esophageal reflux disease without esophagitis; E78.5 Hyperlipidemia, unspecified; E11.9 Type 2 diabetes mellitus without complications; K59.09 Other constipation; I71.9 Aortic aneurysm of unspecified site, without rupture; Z79.82 Long term (current) use of aspirin; Z79.84 Long term (current) use of oral hypoglycemic drugs; Z79.899 Other long term (current) drug therapy; Z91.030 Bee allergy status; Z91.040 Latex allergy status; Z87.891 Personal history of nicotine dependence; Z98.84 Bariatric surgery status
CPT/HCPCS: 36415; 74177; 76830; 80053; 81003; 82150; 83036; 83690; 85025; 85610; 85730; 93976; 96365; 96374; 96375; 96376; 99285

== ENCOUNTER 2017-05-09 05:31 | Emergency (ER) | payer BC ==
[2017-05-09 05:48] VITALS: RESP 18
--- NOTE | 2017-05-09 05:56 | ED ---
Abdominal Pain HPI - General Source: patient Mode of arrival: ambulatory Limitations: no limitations <Ryan Dela Cruz - Last Filed: 05/09/17 07:18> <Vito Szymanski - Last Filed: 05/09/17 08:15> - General Chief Complaint: Abdominal Pain Stated Complaint: vomiting Time Seen by Provider: 05/09/17 05:41 - History of Present Illness Initial Comments: This is a 61-year-old female who presents emergency department for epigastric abdominal pain, nausea and lightheadedness. Patient has a history of bariatric surgery and was recently admitted to the hospital for sigmoid diverticulitis with an intramural abscess. The patient states that she's been on Levaquin since her discharge however over the last couple of days has developed the epigastric abdominal pain again. She states that this epigastric abdominal pain is similar to when she previously presented however she also had left lower quadrant pain at the time. She denies any fevers or chills. No chest pain or shortness of breath. Denies any dysuria or hematuria. She denies any other acute complaints. (Ryan Dela Cruz) - Related Data Home Medications Medication Instructions Recorded Confirmed Aspirin EC [Ecotrin Low Dose] 81 mg PO DAILY 11/12/13 05/09/17 Cholecalciferol [Vitamin D3] 1,000 unit PO DAILY 11/12/13 05/09/17 Cyanocobalamin [Vitamin B-12] 500 mcg PO DAILY 11/12/13 05/09/17 Multivitamins, Thera [Multivitamin 1 tab PO DAILY 11/12/13 05/09/17 (formulary)] metFORMIN HCL [Glucophage] 500 mg PO BID 11/12/13 05/09/17 Biotin 10,000 mcg PO DAILY 10/12/16 05/09/17 Lisinopril-Hctz 10-12.5 mg 1 tab PO DAILY 10/12/16 05/09/17 [Zestoretic 10-12.5] Rosuvastatin Calcium [Crestor] 5 mg PO HS 10/12/16 05/09/17 Sertraline HCl [Zoloft] 50 mg PO BID 10/12/16 05/09/17 Previous Rx's Medication Instructions Recorded Omeprazole 40 mg PO DAILY #90 capsule. 04/29/17 Docusate [Colace] 100 mg PO DAILY PRN #30 capsule 05/01/17 Hydrocodone/Acetaminophen [[place] 1 tab PO HS PRN #30 tablet 05/01/17 5-325] Levofloxacin [Levaquin] 750 mg PO DAILY #14 tab 05/01/17 metroNIDAZOLE [Flagyl] 500 mg PO TID #63 tab 05/01/17 Ondansetron Odt [Zofran Odt] 4 mg PO Q8HR PRN #10 tab 05/09/17 Allergies Allergy/AdvReac Type Severity Reaction Status Date / Time bee pollen Allergy Anaphylaxis Verified 05/09/17 07:41 latex Allergy Anaphylaxis Verified 05/09/17 07:41 Review of Systems ROS Other: All systems not noted in ROS Statement are negative. <Ryan Dela Cruz - Last Filed: 05/09/17 07:18> ROS Other: All systems not noted in ROS Statement are negative. <Vito Szymanski - Last Filed: 05/09/17 08:15> ROS Statement: Those systems with pertinent positive or pertinent negative responses have been documented in the HPI. Past Medical History Past Medical History: Diabetes Mellitus, Hyperlipidemia, Hypertension Additional Past Medical History / Comment(s): diverticulitis, aortic aneuryesm, History of Any Multi-Drug Resistant Organisms: None Reported Past Surgical History: Bariatric Surgery, Hysterectomy Additional Past Surgical History / Comment(s): lap band 2010 () , R kidney tumor removed, sheyla carpal tunnel, bone spurs removed from neck, 05/14/14 lap band port replacement (Dr. Jenkins). Past Anesthesia/Blood Transfusion Reactions: No Reported Reaction Additional Past Anesthesia/Blood Transfusion Reaction / Comment(s): no hx blood transfusion Past Psychological History: No Psychological Hx Reported Smoking Status: Former smoker Past Alcohol Use History: None Reported Past Drug Use History: None Reported - Past Family History Mother Family Medical History: Cancer Additional Family Medical History / Comment(s): at age 67 Father Additional Family Medical History / Comment(s): from [facility] at age 62 <Ryan Dela Cruz - Last Filed: 05/09/17 07:18> General Exam Limitations: no limitations <Ryan Dela Cruz - Last Filed: 05/09/17 07:18> <Vito Szymanski - Last Filed: 05/09/17 08:15> - General Exam Comments Initial Comments: Constitutional: Awake alert Appears comfortable Head: Normocephalic atraumatic Eyes: no conjunctival injection No scleral icterus EOMI Neck: No JVD Supple Heart: Regular rate rhythm normal S1-S2 no murmurs Lungs: Clear to auscultation bilaterally No wheezing No rales Abdomen: Soft nondistended very mild tenderness in the epigastric area without rebound or guarding Extremities: Non edematous DP pulses intact Radial pulses intact Neuro: A&Ox3 No focal neurologic deficits Psych: Appropriate mood and affect (Ryan Dela Cruz) Course <Ryan Dela Cruz - Last Filed: 05/09/17 07:18> <Vito Szymanski - Last Filed: 05/09/17 08:15> Vital Signs 05/09/17 05/09/17 05:43 08:00 Temperature 97.6 F Pulse Rate 100 72 Respiratory 18 18 Rate Blood Pressure 142/74 110/53 O2 Sat by Pulse 96 98 Oximetry - Reevaluation(s) Reevaluation #1: 05/09/17 06:17 EKG showing normal sinus rhythm with a rate 75. No abnormal ST segment changes or T-wave inversions. QTC is 453. Other intervals normal. No ectopy. (Ryan Dela Cruz) Medical Decision Making - Lab Data Result diagrams: 05/09/17 06:02 05/09/17 06:02 <Ryan Dela Cruz - Last Filed: 05/09/17 07:18> - Lab Data Result diagrams: 05/09/17 06:02 05/09/17 06:02 <Vito Szymanski - Last Filed: 05/09/17 08:15> - Medical Decision Making Patient signed out to Dr. Szymanski to follow-up computed tomography scan. (Ryan Dela Cruz) Patient's care was signed out awaiting computed tomography scan. Patient had recent history of sigmoid abscess which was treated with antibiotics. She was discharged proximally 5 days ago. Patient has had nausea with some mild pain. On reevaluation, patient is pain-free, nausea resolved. Abdominal exam is within normal limits. Laboratory studies are reviewed, normal white blood cell count elevation, hemoglobin stable 13.3, there is acute kidney injury consistent with her dehydration. Creatinine 2.0 from baseline 1. Patient is given IV hydration in the emergency department and she is instructed on oral rehydration. Urinalysis is negative. Computed tomography scan shows minimal fat stranding in the area adjacent to previous diverticulitis with intramural abscess. Abscess is resolved. Patient's vital signs remained stable. She has an appointment with her surgeon in 4 days. She will maintain that appointment. She will continue antibiotics. She is also instructed to maintain oral hydration, patient is comfortable with this and will follow-up with her doctor. Diagnosis: Improving sigmoid diverticulitis with resolved intramural abscess, dehydration, acute kidney injury secondary to dehydration, nausea. (Vito Szymanski) - Lab Data Lab Results 05/09/17 05/09/17 05/09/17 Range/Units 06:02 06:02 06:02 WBC 6.5 (3.8-10.6) k/uL RBC 4.97 (3.80-5.40) m/uL Hgb 13.3 (11.4-16.0) gm/dL Hct 41.1 (34.0-46.0) % MCV 82.6 (80.0-100.0) fL MCH 26.8 (25.0-35.0) pg MCHC 32.5 (31.0-37.0) g/dL RDW 12.6 (11.5-15.5) % Plt Count 287 (150-450) k/uL Neutrophils % 65 % Lymphocytes % 24 % Monocytes % 6 % Eosinophils % 1 % Basophils % 1 % Neutrophils # 4.2 (1.3-7.7) k/uL Lymphocytes # 1.6 (1.0-4.8) k/uL Monocytes # 0.4 (0-1.0) k/uL Eosinophils # 0.1 (0-0.7) k/uL Basophils # 0.1 (0-0.2) k/uL Sodium 137 (137-145) mmol/L Potassium 4.2 (3.5-5.1) mmol/L Chloride 102 (98-107) mmol/L Carbon Dioxide 21 L (22-30) mmol/L Anion Gap 14 mmol/L BUN 31 H (7-17) mg/dL Creatinine 2.00 H (0.52-1.04) mg/dL Est GFR (MDRD) Af Amer 31 (>60 ml/min/1.73 sqM) Est GFR (MDRD) Non-Af 25 (>60 ml/min/1.73 sqM) Glucose 97 (74-99) mg/dL Calcium 9.7 (8.4-10.2) mg/dL Magnesium 1.7 (1.6-2.3) mg/dL Total Bilirubin 0.4 (0.2-1.3) mg/dL AST 19 (14-36) U/L ALT 30 (9-52) U/L Alkaline Phosphatase 60 (38-126) U/L Total Protein 7.5 (6.3-8.2) g/dL Albumin 4.2 (3.5-5.0) g/dL Lipase 36 (23-300) U/L Urine Color Yellow Urine Appearance Slightly Cloudy H (Clear) Urine pH 5.0 (5.0-8.0) Ur Specific [place] 1.020 (1.001-1.035) Urine Protein 1+ H (Negative) Urine Glucose (UA) Negative (Negative) Urine Ketones Negative (Negative) Urine Blood Negative (Negative) Urine Nitrite Negative (Negative) Urine Bilirubin Negative (Negative) Urine Urobilinogen <2.0 (<2.0) mg/dL Ur Leukocyte Esterase Moderate (Negative) Disposition <Ryan Dela Cruz - Last Filed: 05/09/17 07:18> Time of Disposition: 08:15 <Vito Szymanski - Last Filed: 05/09/17 08:15> Clinical Impression: Diverticulitis, Nausea, SHARITA (acute kidney injury) Disposition: HOME SELF-CARE Condition: Good Instructions: Dehydration (ED), Acute Nausea and Vomiting (ED) Prescriptions: Ondansetron Odt [Zofran Odt] 4 mg PO Q8HR PRN #10 tab PRN Reason: Vomiting Referrals: Yolanda Young MD [Primary Care Provider] - 1-2 days Alaan Jenkins MD [STAFF PHYSICIAN] - 1-2 days
[2017-05-09] MEDS ORDERED: MAG HYDROX/AL HYDROX/SIMETH 30 ML, HYOSCYAMINE ELIXIR 10 ML, CIMETIDINE HCL 300 MG, LID... PO STA ×4 (05:57)
[2017-05-09] MEDS ORDERED: FAMOTIDINE 20 MG/2 ML VIAL IV STA (05:57)
[2017-05-09] MEDS ORDERED: SODIUM CHLORIDE 0.9% 1,000 ML IV ONE (05:57)
[2017-05-09] MEDS ORDERED: ONDANSETRON 4 MG/2 ML VIAL IVP STA (05:57)
[2017-05-09] MEDS ORDERED: RX INFO: IV CONTRAST WAS GIVEN 1 EACH MISC MISCELLANE PRN (06:15)
[2017-05-09 06:24] LABS: Basophils # (A) 0.1 k/uL (0-0.2); Basophils % (A) 1 %; CH 27.9; CHCM 33.9; Eosinophils # (A) 0.1 k/uL (0-0.7); Eosinophils % (A) 1 %; HCT 41.1 % (34.0-46.0); HDW 2.97; HGB 13.3 gm/dL (11.4-16.0); Luc % (Auto) 3; Lymphocytes # (A) 1.6 k/uL (1.0-4.8); Lymphocytes % (A) 24 %; MCH 26.8 pg (25.0-35.0); MCHC 32.5 g/dL (31.0-37.0); MCV 82.6 fL (80.0-100.0); Mean Platelet Volume 6.6; Monocytes # (A) 0.4 k/uL (0-1.0); Monocytes % (A) 6 %; Neutrophils # (A) 4.2 k/uL (1.3-7.7); Neutrophils % (A) 65 %; RBC 4.97 m/uL (3.80-5.40); RDW 12.6 % (11.5-15.5); WBC 6.5 k/uL (3.8-10.6); WBC (Perox) 6.43
[2017-05-09 06:38] LABS: Calcium 9.7 mg/dL (8.4-10.2); Magnesium 1.7 mg/dL (1.6-2.3); Potassium 4.2 mmol/L (3.5-5.1); Total Bilirubin 0.4 mg/dL (0.2-1.3); Total Protein 7.5 g/dL (6.3-8.2)
[2017-05-09 06:49] LABS: Appearance,Urine Slightly Cloudy (Clear)
[2017-05-09 06:54] LABS: Bilirubin,Urine Negative (Negative); Glucose,Urine (UA) Negative (Negative); Ketones,Urine Negative (Negative); Protein,Urine 1+ (Negative); Urobilinogen,Urine <2.0 mg/dL (<2.0)
[2017-05-09 06:55] LABS: Leukocyte Esterase,Urine Moderate (Negative); Nitrite,Urine Negative (Negative)
[2017-05-09 06:56] LABS: UA Billing (MACRO vs. MICRO) CHEM
[2017-05-09 08:04] VITALS: BP 110/53; PULSE 72
--- NOTE | 2017-05-09 08:04 | CT ---
EXAMINATION TYPE: CT abdomen pelvis wo con DATE OF EXAM: 05/09/2017 COMPARISON: 04/29/2017 HISTORY: 61-year-old female epigastric pain, diverticulitis last week CT DLP: 880 mGycm. Automated exposure control for dose reduction was used. TECHNIQUE: Contiguous axial scanning of the abdomen and pelvis without IV contrast. Coronal and sagit guillaume reconstructions performed. FINDINGS: Heart is normal size without pericardial effusion. Dependent atelectasis posterior lung bases. The left than device is present and appears appropriately positioned. There may be a tiny hiatal jimenez ia. Noncontrast appearance of the liver, adrenal glands, left kidney, spleen, and pancreas shows no gross abnormality. Cholecystectomy clips. The right kidney shows an atretic upper pole, stable from prior exam. There is fusiform ectasia of the infrarenal abdominal aorta measuring up to 2.4 cm. Otherwise, modera te atherosclerotic calcifications in the infrarenal abdominal aorta. No dilated small bowel, free fluid, or free air. No mesenteric or retroperitoneal lymphadenopathy see n. Sigmoid diverticulosis and occasional diverticula within the remainder of the left colon. There may b e minimal residual pericolonic fat stranding along the superior margin of the mid sigmoid, coronal im age 49 but with significantly improved inflammation as compared to prior exam. Uterus surgically absent. No abnormal fluid collection seen in the pelvis or pelvic lymphadenopathy. Bones: Degenerative changes lower lumbar spine. No osseous destructive process. IMPRESSION: Left hemicolonic diverticulosis. The previous acute diverticulitis along the midsigmoid shows interva l improvement. There is only minimal residual inflammatory fat stranding here. No abscess or free air .
[2017-05-09 08:30] VITALS: TEMP 97.4
== END 2017-05-09 08:30 | disposition home or self-care (01) ==
LOC: EC 05:31
DX: N17.9 Acute kidney failure, unspecified (principal); K57.92 Diverticulitis of intestine, part unspecified, without perforation or abscess without bleeding; E11.9 Type 2 diabetes mellitus without complications; E78.5 Hyperlipidemia, unspecified; I10 Essential (primary) hypertension; Z98.84 Bariatric surgery status; Z87.891 Personal history of nicotine dependence; Z79.82 Long term (current) use of aspirin; Z79.84 Long term (current) use of oral hypoglycemic drugs; Z79.899 Other long term (current) drug therapy; Z91.030 Bee allergy status; Z91.040 Latex allergy status
CPT/HCPCS: 96361 ×2; 96374 ×2; 96375 ×2; 99284 ×2; 36415; 93005; 80053; 83690; 83735; 85025; 81003; 74176; J2405

== ENCOUNTER 2017-07-08 09:35 | Day surgery (SDC) | payer BC ==
[2017-07-02 10:25] VITALS: BMI 30.1
--- NOTE | 2017-07-08 05:25 | P.GSHP ---
History of Present Illness H&P Date: 07/08/17 DATE OF SERVICE: 07/08/2017 CHIEF COMPLAINT: Complications of adjustable gastric band. HISTORY OF PRESENT ILLNESS: Gi Bingham is a 61-year-old female with a prior history of adjustable gastric band. She has weighed as much as 207 pounds for a 5-foot, 1.5-inch frame. Her initial body mass index was 38.6. Her lowest weight was 148 pounds in March 2014. She has past history of open port revision. She has now regained 20+ pounds in the past 3 years. She now comes in with troubles with persistent epigastric abdominal pain. She also complains of severe gastroesophageal reflux disease. Despite having the adjustable gastric band, she has troubles with her band. Her percent excess weight loss is 59%. Her body mass index is down to 30.1. Her total maintained weight loss is 45 pounds. PAST MEDICAL HISTORY: 1. Hypertension. 2. Diabetes type 2. 3. Dyslipidemia. 4. Morbid obesity. PAST SURGICAL HISTORY: 1. Adjustable gastric band placement in March, 2. Revision of adjustable gastric band port, 2014. 3. Colonoscopy, 2016. MEDICATIONS: 1. Aspirin 81 mg. 2. Crestor 5 mg. 3. Zestoretic 10-12.5 mg 4. Vitamin B12 500 mcg daily. 5. Vitamin D tablet daily. 6. Glucophage 500 mg BID. 7. Zoloft 50 mg BID. 8. Biotin. 9. Multivitamin. ALLERGIES: LATEX, metronidazole, Bee pollen SOCIAL HISTORY: Prior tobacco use. Denies any active alcohol use. FAMILY HISTORY: Significant for morbid obesity. REVIEW OF SYSTEMS: CONSTITUTIONAL: She has weighed as much as 207 pounds for a 5-foot, 1.5-inch frame. Her initial body mass index was 38.6. Her lowest weight was 148 pounds in March 2014. HEENT: Denies any trouble with hearing. No reports of dysphagia. ENDOCRINE: No reports of thyroid disorders; however, she does have diabetes type 2 which is well controlled with oral hypoglycemics. RESPIRATORY: No reports of pneumonia or asthma. CARDIOVASCULAR: No reports of chest pain or heart attack. GI: Had reported increased eructation including heartburn and reflux with adjustable gastric band. No blood in the stool. Recent change in bowel habits. Colonoscopy early in the year. MUSCULOSKELETAL: Has occasional joint arthritis. Denies any bilateral lower extremity edema. NEURO: No history of migraines or headaches. PSYCH: No reports of depression and suicidal ideation. HEMATOLOGIC: No reports of easy bruising or bleeding. SKIN: Has no history of rash. No skin cancer. PHYSICAL EXAM: VITAL SIGNS: 5 foot 2, 162 pounds. Body mass index of 30.1. GENERAL: Well-developed female in no acute distress. ABDOMEN: Soft, nondistended. Tenderness on the epigastrium. Palpable lap band port via left upper quadrant, without erythema or swelling. MUSCULOSKELETAL: No clubbing, cyanosis, or edema. HEENT: No scleral icterus. Extraocular movements grossly intact. Moist buccal mucosa. NECK: Supple without lymphadenopathy. CHEST: Unlabored respirations. Equal bilateral excursions. CARDIOVASCULAR: Regular rate and rhythm. Pulses 2+. NEURO: No focal or lateralizing signs. Cranial nerves II-12 grossly intact. PSYCH: Appropriate affect. Alert and oriented to person, place and time. SKIN: Well perfused. Good skin turgor. STUDIES: Colonoscopy report reviewed demonstrating no evidence of colon malignancies. Features consistent with diverticulosis. ASSESSMENT: 1. History of adjustable gastric band. 2. Morbid obesity. 3. Body mass index reduced from 38.6 down to 30.1. 4. Complications from adjustable gastric band. 5. Diabetes type 2, [id number]. 6. Hypertension. 7. Epigastric abdominal pain. 8. Left lower quadrant abdominal pain. 9. Gastroesophageal reflux disease. PLAN: 1. She's had prolonged problems with her adjustable gastric band. Recommend removal of adjustable gastric band and all components. Laparoscopic versus robotic approach feasible. 2. DVT prophylaxis. 3. Antibiotic prophylaxis. 4. Will need intraoperative EGD for severity of epigastric abdominal pain. 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 History of Any Multi-Drug Resistant Organisms: None Reported Past Surgical History: Bariatric Surgery, Hysterectomy Additional Past Surgical History / Comment(s): lap band 2010 () , R kidney tumor removed, sheyla carpal tunnel, bone spurs removed from hip and neck, 05/14/14 lap band port replacement (Dr. Jenkins). Past Anesthesia/Blood Transfusion Reactions: No Reported Reaction Additional Past Anesthesia/Blood Transfusion Reaction / Comment(s): no hx blood transfusion Past Psychological History: Anxiety, Depression Smoking Status: Former smoker Past Alcohol Use History: None Reported Additional Past Alcohol Use History / Comment(s): quit smoking ,smoked approx 25 yrs 1 1/2 ppd Past Drug Use History: None Reported - Past Family History Mother Family Medical History: Cancer Additional Family Medical History / Comment(s): at age 67 Father Family Medical History: CVA/TIA, Deep Vein Thrombosis (DVT) Additional Family Medical History / Comment(s): from [facility] at age 62 Medications and Allergies Home Medications Medication Instructions Recorded Confirmed Type Aspirin EC [Ecotrin Low Dose] 81 mg PO DAILY 11/12/13 07/02/17 History Cholecalciferol [Vitamin D3] 1,000 unit PO DAILY 11/12/13 07/02/17 History Cyanocobalamin [Vitamin B-12] 500 mcg PO DAILY 11/12/13 07/02/17 History Multivitamins, Thera [Multivitamin 1 tab PO DAILY 11/12/13 07/02/17 History (formulary)] metFORMIN HCL [Glucophage] 500 mg PO DAILY 11/12/13 07/02/17 History Biotin 10,000 mcg PO DAILY 10/12/16 07/02/17 History Lisinopril-Hctz 10-12.5 mg 1 tab PO QAM 10/12/16 07/02/17 History [Zestoretic 10-12.5] Rosuvastatin Calcium [Crestor] 5 mg PO HS 10/12/16 07/02/17 History Sertraline HCl [Zoloft] 50 mg PO BID 10/12/16 07/02/17 History Hydrocodone/Acetaminophen [[place] 1 tab PO HS PRN #30 tablet 05/01/17 07/02/17 Rx 5-325] Docusate [Colace] 100 mg PO Q48H PRN 07/02/17 07/02/17 History Omeprazole 40 mg PO QAM 07/02/17 07/02/17 History Allergies Allergy/AdvReac Type Severity Reaction Status Date / Time bee pollen Allergy Anaphylaxis Verified 07/02/17 10:04 latex Allergy Anaphylaxis Verified 07/02/17 10:04 metronidazole [From Flagyl] Allergy Rash/Hives Verified 07/02/17 10:04
[~2017-07-08 09:35] MED LIST changes: +DEXAMETHASONE SOD PHOSPHATE 10 MG/ML 1 ML VIAL IV ONE; +HYDROmorphone 0.5 MG/0.5 ML SYRINGE IVP PRN; +MORPHINE SULFATE 4 MG/ML SYRINGE IV PRN; +ONDANSETRON 4 MG/2 ML VIAL IVP ONE; +ONDANSETRON 4 MG/2 ML VIAL IVP PRN; +ceFAZolin IN SWFI 2 GM/20 ML SYRINGE IVP ONE
[2017-07-08] MEDS ORDERED: CHLORHEXIDINE GLUCONATE 15 ML CUP MUCOUS MEM ONE (09:44)
[2017-07-08] MEDS ORDERED: PANTOPRAZOLE 40 MG/10 ML VIAL IV STA (09:44)
[2017-07-08] MEDS ORDERED: ENOXAPARIN 40 MG/0.4 ML SYRINGE SQ STA (09:44)
[2017-07-08] MEDS ORDERED: SCOPOLAMINE 1.5MG/72HR PATCH TRANSDERM STA (09:44)
[2017-07-08] MEDS ORDERED: LIDOCAINE 1% 20 ML VIAL (10MG/ML) FOR IV START INTRADERMA ONE (10:10)
[2017-07-08 10:18] LABS: Glucose,Whole Blood 88 mg/dL (75-99)
[2017-07-08] MEDS ORDERED: LIDOCAINE 1% INJ 10MG/ML (20 ML MDV) ONE (11:53)
[2017-07-08] MEDS ORDERED: MIDAZOLAM 2 MG/2 ML VIAL ONE (11:53)
[2017-07-08] MEDS ORDERED: NEOSTIGMINE 1 MG/ML 10 ML VIAL ONE (11:53)
[2017-07-08] MEDS ORDERED: SUCCINYLCHOLINE CHLORIDE 100 MG/5 ML SYR IV ONE (11:53)
[2017-07-08] MEDS ORDERED: GLYCOPYRROLATE 0.2 MG/ML 2 ML VIAL ONE (11:53)
[2017-07-08] MEDS ORDERED: PROPOFOL 10 MG/ML 20 ML VIAL IV ONE (11:53)
[2017-07-08] MEDS ORDERED: ROCURONIUM BROMIDE 10 MG/ML 10 ML VIAL IV ONE (11:53)
[2017-07-08] MEDS ORDERED: fentaNYL (PF) 50 MCG/ML 2 ML AMP ONE (11:53)
[2017-07-08] MEDS ORDERED: BUPIVACAINE (PF) 0.5% 30 ML VIAL SQ ONE (12:12)
[2017-07-08] MEDS ORDERED: LACTATED RINGERS 1,000 ML IV ONE (12:13)
[2017-07-08 13:27] VITALS: TEMP 97.2
[2017-07-08] MEDS ORDERED: HYDROmorphone 2 MG/ML 1 ML SYRINGE IVP ONE ×2 (13:41→14:00)
[2017-07-08] MEDS ORDERED: NALOXONE 0.4 MG/ML 1 ML VIAL IV PRN (13:52)
[2017-07-08] MEDS ORDERED: HYDROcodone/APAP 5-325MG 1 EACH TAB PO PRN (13:52)
[2017-07-08 13:56] LABS: Glucose,Whole Blood 117 mg/dL (75-99)
--- NOTE | 2017-07-08 13:57 | P.PCN ---
Date of Procedure: 07/08/17 Preoperative Diagnosis: Complications from adjustable gastric band, epigastric abdominal pain Postoperative Diagnosis: Complications from adjustable gastric band, epigastric abdominal pain Procedure(s) Performed: Laparoscopic removal of adjustable gastric band and all components, intraoperative EGD with biopsies of the antrum Anesthesia: ORALIAA, local Surgeon: Alana Jenkins Estimated Blood Loss (ml): 20 Pathology: other (Antrum, adjustable gastric band components) Condition: stable Disposition: same day Operative Findings: 1. Moderate omental adhesions involving the right upper quadrant from previous open cholecystectomy 2. Full encasement of adjustable gastric band without full tissue necrosis or erosion into the stomach. 3. Diaphragmatic hiatal hernia between 35-38 cm from the incisors 4. Erosive esophagitis, LA grade C 5. Early acute and chronic gastritis of the antrum with biopsies obtained 6. Port removal with mesh extraction. 7. Left upper quadrant incision closed using 0 Vicryl for 15 mm port
[2017-07-08 14:15] VITALS: RESP 16
[2017-07-08 15:59] VITALS: BP 142/64; PULSE 81
--- NOTE | 2017-08-07 06:51 | P.OP ---
Date of Procedure: 07/08/17 Description of Procedure: Date of Procedure: 07/08/17 SURGEON: MARIA DEL CARMEN FOY MD PRODUCT DEVELOPMENT WORKER: BOBBY ZUNIGA. PREOPERATIVE DIAGNOSES: 1. Obesity due to excess calories. 2. Body mass index 30.1. 3. Complications from adjustable gastric band. 4. Diabetes type 2, non-insulin dependent. 5. Hypertensive heart disease. 6. Hyperlipidemia. 7. Depression. 8. Gastroesophageal reflux disease. 9. Epigastric abdominal pain. 10. Dysphagia. POSTOPERATIVE DIAGNOSES: 1. Obesity due to excess calories. 2. Body mass index 30.1. 3. Complications from adjustable gastric band. 4. Diabetes type 2, non-insulin dependent. 5. Hypertensive heart disease. 6. Hyperlipidemia. 7. Depression. 8. Gastroesophageal reflux disease. 9. Epigastric abdominal pain. 10. Peritoneal adhesions, right upper quadrant. 11. Diaphragmatic hiatal hernia 12. Erosive esophagitis 13. Acute and chronic gastritis 14. Gastric band anterior prolapse. 15. Dysphagia. OPERATION: 1. Laparoscopic removal of adjustable gastric band and all components. 2. Intraoperative esophagogastroduodenoscopy with cold forceps biopsy of the antrum ANESTHESIA: GETA, local ESTIMATED BLOOD LOSS: 20 mL SPECIMENS REMOVED: 1. Adjustable gastric band and components. 2. Gastric antrum. COMPLICATIONS: None. Condition: stable Disposition: same day Operative Findings: 1. Moderate omental adhesions involving the right upper quadrant from previous open cholecystectomy 2. Full encasement of adjustable gastric band without full tissue necrosis or erosion into the stomach. 3. Diaphragmatic hiatal hernia between 35-38 cm from the incisors 4. Erosive esophagitis, LA grade C 5. Early acute and chronic gastritis of the antrum with biopsies obtained 6. Port removal with mesh extraction. 7. Left upper quadrant incision closed using 0 Vicryl for 15 mm port 8. Gastric band anterior prolapse. INDICATIONS: The patient is a 61-year-old female who presents with prior history of adjustable gastric band. She reports worsening gastroesophageal reflux disease including epigastric abdominal pain over the last several years with her adjustable gastric band. Despite using medications her symptoms have progressed including with dysphagia. Benefits and risks of the procedure were described. Informed consent was obtained. DESCRIPTION: Patient was brought into the operating room, transferred a split- leg table. After general induction, the abdomen was prepped and draped in standard sterile fashion. The abdomen was prepped and draped in standard sterile fashion using ChloraPrep as well as Ioban draping. Prior to incision, a timeout protocol was confirmed with the surgical team regarding patient's name, procedure to be performed, including preoperative medications. A transverse incision was made approximately 15 cm distal to the xiphoid off to the left of the midline. A 0 degree 5 mm trocar entry was performed and entered into the peritoneal cavity at the left upper quadrant. The abdomen was insufflated to 15 mmHg pressure, which she tolerated well. Diagnostic laparoscopy demonstrated moderate omental adhesions involving the right upper quadrant from previous open cholecystectomy. Full encasement of the adjustable gastric band was found over an old generation high pressure low volume ALLERGAN lap band. No hepatomegaly was found. A 15 mm port was placed along the left costal margin. Next a 5 mm port was placed at the left midclavicular line equidistant between a 5-mm trocar epigastric port and the left anterior axillary port. A medium-sized Krystina liver retractor was placed into the abdominal cavity and used to elevate the left lobe of the liver. The liver retractor was held in place using an iron internal combustion engine subassembler. The patient was placed in steep reverse Trendelenburg position. The port was followed with its tubing to the actual band. The gastrohepatic ligament was actually scarred from her prior surgery. The anterior portion of the stomach appeared to prolapse around the band. Additionally, a thick fibrous band was found completely encircling the adjustable gastric band highly suspicious of ingrowth into the stomach. Using electro-Bovie cautery, the cicatrix of the band was incised and released without any gastrostomy. With the dense adhesions about the band, the band was cut. Closer inspection of the band was consistent the early generation high pressure Allergan lap band system of the early without its ALLERGAN label. The band was cut and divided using endoscopic curved scissors. The band was then freed. The band buckle was cut. The tubing was cut approximately 5 cm distal to the actual adapter. The band was removed in 2 pieces without injury to the stomach. The band was removed through a 15 mm port. Hemostasis was excellent. I then went to the head of the bed to perform intraoperative esophagogastroduodenoscopy to evaluate for gastritis and any full thickness injury to the stomach. The patient was flattened. An Olympus gastroscope was passed from the posterior oropharynx down to the esophagus. At the squamocolumnar junction, 35 cm distal to the incisors was LA grade C erosive esophagitis, chronic changes. The stomach was entered and bile reflux was evacuated from the stomach. Chronic gastritis was found along the antrum without gastric ulcers or duodenitis or duodenal ulcers. Retroflexion of the scope confirmed a Hill grade 3 lower esophageal valve. No full-thickness erosion from the prior band was encountered. A cold forcep biopsy was used to obtain of the gastric antrum. The stomach was desufflated. The patient tolerated the endoscopic portion of the procedure well. I then went back to the patient's bedside after re-scrubbing. Next, attention was brought to the abdominal wall where the lap band port was buried in deep subcutaneous tissue. A transverse incision was made over the previous cicatrix over her port. This was done with a #11 blade. Skin was localized with anesthetic. Electro-Bovie cautery was used to enter the capsule around the port. The sutures were cut and the port including mesh was removed in total along with the tubing. Diagnostic laparoscopy demonstrated complete removal of all foreign body. All instruments and pneumoperitoneum were evacuated from the abdominal cavity. The port extraction site was hemostatic and irrigated with normal saline solution including dilute hydrogen peroxide. The incision was closed in layers using 3-0 Vicryl for the deep dermis and subcutaneous tissue. The 15 mm port was also closed in layers using using 0 Vicryl for the fascia. The rest of the incisions were reapproximated using 4-0 Monocryl in a subcuticular interrupted fashion. Dermabond was applied to the skin. All local anesthetis was infiltrated in all wounds for postoperative analgesia. An Optiform antibiotic dressing was placed over the port site removal. At the end of the procedure, needle, sponge and instrument count was verified correct by the master automotive technician. The patient had tolerated the procedure well. She was extubated. The patient was transferred to Postanesthesia Care Unit in stable condition. Plan - Discharge Summary Discharge Rx Participant: Yes New Discharge Prescriptions: New HYDROcodone/APAP 5-325MG [Casco 5-325] 1 tab PO Q6HR PRN #15 tab PRN Reason: Pain Continue Cyanocobalamin [Vitamin B-12] 500 mcg PO DAILY Aspirin EC [Ecotrin Low Dose] 81 mg PO DAILY metFORMIN HCL [Glucophage] 500 mg PO DAILY Multivitamins, Thera [Multivitamin (formulary)] 1 tab PO DAILY Cholecalciferol [Vitamin D3] 1,000 unit PO DAILY Biotin 10,000 mcg PO DAILY Lisinopril-Hctz 10-12.5 mg [Zestoretic 10-12.5] 1 tab PO QAM Rosuvastatin Calcium [Crestor] 5 mg PO HS Sertraline HCl [Zoloft] 50 mg PO BID Docusate [Colace] 100 mg PO Q48H PRN PRN Reason: Constipation Omeprazole 40 mg PO QAM Discontinued Hydrocodone/Acetaminophen [Casco 5-325] 1 tab PO HS PRN #30 tablet PRN Reason: Pain Discharge Medication List Aspirin EC [Ecotrin Low Dose] 81 mg PO DAILY 11/12/13 [History] Cholecalciferol [Vitamin D3] 1,000 unit PO DAILY 11/12/13 [History] Cyanocobalamin [Vitamin B-12] 500 mcg PO DAILY 11/12/13 [History] Multivitamins, Thera [Multivitamin (formulary)] 1 tab PO DAILY 11/12/13 [History ] metFORMIN HCL [Glucophage] 500 mg PO DAILY 11/12/13 [History] Biotin 10,000 mcg PO DAILY 10/12/16 [History] Lisinopril-Hctz 10-12.5 mg [Zestoretic 10-12.5] 1 tab PO QAM 10/12/16 [History] Rosuvastatin Calcium [Crestor] 5 mg PO HS 10/12/16 [History] Sertraline HCl [Zoloft] 50 mg PO BID 10/12/16 [History] Docusate [Colace] 100 mg PO Q48H PRN 07/02/17 [History] Omeprazole 40 mg PO QAM 07/02/17 [History] HYDROcodone/APAP 5-325MG [Casco 5-325] 1 tab PO Q6HR PRN #15 tab 07/08/17 [Rx] Follow up Appointment(s)/Referral(s): [facility],. [NON-STAFF] - 07/10/17 1:00 pm Patient Instructions/Handouts: *Surgery [facility] - (Anesthesia) Discharge Instructions Outpatient Surgery, Abdominal Binder (GEN) Activity/Diet/Wound Care/Special Instructions: Do not remove dressing. No lifting over 4 pounds in 2 weeks. May shower. No bath tub soaks. Discharge Disposition: HOME SELF-CARE
== END 2017-07-08 16:10 | disposition home or self-care (01) ==
LOC: OR 09:35
PROVIDERS: ATTEND Surgery Plastic and Reconstructive Surgery
DX: T85.9XXA Unspecified complication of internal prosthetic device, implant and graft, initial encounter (principal); K29.50 Unspecified chronic gastritis without bleeding; K29.00 Acute gastritis without bleeding; K66.0 Peritoneal adhesions (postprocedural) (postinfection); K22.10 Ulcer of esophagus without bleeding; K44.9 Diaphragmatic hernia without obstruction or gangrene; K21.9 Gastro-esophageal reflux disease without esophagitis; I11.9 Hypertensive heart disease without heart failure; F32.9 Major depressive disorder, single episode, unspecified; E11.9 Type 2 diabetes mellitus without complications; Z79.84 Long term (current) use of oral hypoglycemic drugs; E78.5 Hyperlipidemia, unspecified; E66.01 Morbid (severe) obesity due to excess calories; Z68.30 Body mass index [BMI] 30.0-30.9, adult; Z79.82 Long term (current) use of aspirin; Z79.899 Other long term (current) drug therapy; Z88.1 Allergy status to other antibiotic agents; Z91.030 Bee allergy status; Z91.040 Latex allergy status
CPT/HCPCS: 43774; 43239; 88305; 88342; J2250; J1170; J2710; J2405; J2001; J1650; J3010; J0330; J2704; C9113; J0690; 12002; 99283

== ENCOUNTER 2017-07-08 21:34 | Emergency (ER) | payer BC ==
[2017-07-08] MEDS ORDERED: HYDROcodone/APAP 7.5-325MG 1 EACH TAB PO ONE (22:09)
[2017-07-08 22:24] VITALS: BP 141/60; PULSE 66; RESP 17; TEMP 97.9
--- NOTE | 2017-07-08 22:36 | ED ---
General Adult HPI - General Source: patient Mode of arrival: ambulatory Limitations: no limitations <Nova Ribeiro - Last Filed: 07/08/17 23:55> <Florian Pimentel - Last Filed: 07/10/17 10:53> - General Chief complaint: Recheck/Abnormal Lab/Rx Stated complaint: post op lap band incision bleeding Time Seen by Provider: 07/08/17 21:48 - History of Present Illness Initial comments: 61-year-old female patient presents to the emergency department today for evaluation of bleeding from an incision site. Patient states that she had a removal of her lap band apparatus earlier today with Dr. Jenkins. She states that when she arrived home around 6 PM her abdominal binder had a large area of blood on it. She states that she washed that and reapplied the binder and rested in bed, states that she again had leaking of blood from the dressing. She states that she is having some abdominal pain however states it is not severe. She denies any nausea or vomiting. States she was able to tolerate oral intake. Patient denies any recent rash, fever, chills, shortness breath, chest pain, nausea, vomiting, diarrhea, constipation, back pain, numbness, tingling, dizziness, weakness, hematuria, dysuria, urinary urgency, urinary frequency, headache, visual changes, or any other complaints. (Nova Ribeiro) - Related Data Home Medications Medication Instructions Recorded Confirmed Aspirin EC [Ecotrin Low Dose] 81 mg PO DAILY 11/12/13 07/08/17 Cholecalciferol [Vitamin D3] 1,000 unit PO DAILY 11/12/13 07/08/17 Cyanocobalamin [Vitamin B-12] 500 mcg PO DAILY 11/12/13 07/08/17 Multivitamins, Thera [Multivitamin 1 tab PO DAILY 11/12/13 07/08/17 (formulary)] metFORMIN HCL [Glucophage] 500 mg PO DAILY 11/12/13 07/08/17 Biotin 10,000 mcg PO DAILY 10/12/16 07/08/17 Lisinopril-Hctz 10-12.5 mg 1 tab PO QAM 10/12/16 07/08/17 [Zestoretic 10-12.5] Rosuvastatin Calcium [Crestor] 5 mg PO HS 10/12/16 07/08/17 Sertraline HCl [Zoloft] 50 mg PO BID 10/12/16 07/08/17 Docusate [Colace] 100 mg PO Q48H PRN 07/02/17 07/08/17 Omeprazole 40 mg PO QAM 07/02/17 07/08/17 Previous Rx's Medication Instructions Recorded HYDROcodone/APAP 5-325MG [Becker 1 tab PO Q6HR PRN #15 tab 07/08/17 5-325] Allergies Allergy/AdvReac Type Severity Reaction Status Date / Time bee pollen Allergy Anaphylaxis Verified 07/08/17 22:05 latex Allergy Anaphylaxis Verified 07/08/17 22:05 metronidazole [From Flagyl] Allergy Rash/Hives Verified 07/08/17 22:05 Review of Systems ROS Other: All systems not noted in ROS Statement are negative. <Nova Ribeiro - Last Filed: 07/08/17 23:55> ROS Other: All systems not noted in ROS Statement are negative. <Florian Pimentel - Last Filed: 07/10/17 10:53> ROS Statement: Those systems with pertinent positive or pertinent negative responses have been documented in the HPI. 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 History of Any Multi-Drug Resistant Organisms: None Reported Past Surgical History: Bariatric Surgery, Hysterectomy Additional Past Surgical History / Comment(s): lap band 2009 () , R kidney tumor removed, sheyla carpal tunnel, bone spurs removed from hip and neck, 05/14/14 lap band port replacement (Dr. Jenkins). Lap band removal in 2017 Past Anesthesia/Blood Transfusion Reactions: No Reported Reaction Additional Past Anesthesia/Blood Transfusion Reaction / Comment(s): no hx blood transfusion Past Psychological History: Anxiety, Depression Smoking Status: Former smoker Past Alcohol Use History: None Reported Past Drug Use History: None Reported - Past Family History Mother Family Medical History: Cancer Additional Family Medical History / Comment(s): at age 67 Father Family Medical History: CVA/TIA, Deep Vein Thrombosis (DVT) Additional Family Medical History / Comment(s): from [facility] at age 62 <Nova Ribeiro - Last Filed: 07/08/17 23:55> General Exam Limitations: no limitations General appearance: alert, in no apparent distress, other (this is a well- developed, well-nourished adult female patient in no acute distress. Vital signs upon presentation were temperature 98.7F, pulse 78, respirations 18, blood pressure 139/65, pulse ox 98% on room air.) Eye exam: Present: normal appearance, PERRL, EOMI. Absent: scleral icterus, conjunctival injection, periorbital swelling ENT exam: Present: normal exam, normal oropharynx, mucous membranes moist Respiratory exam: Present: normal lung sounds bilaterally. Absent: respiratory distress, wheezes, rales, rhonchi, stridor Cardiovascular Exam: Present: regular rate, normal rhythm, normal heart sounds. Absent: systolic murmur, diastolic murmur, rubs, gallop, clicks GI/Abdominal exam: Present: soft, tenderness (incisional), normal bowel sounds, other (Patient has a 4 cm horizontal abdominal incision, skin is loosely approximated, there is oozing of blood from the right side of the incision. ). Absent: distended, guarding, rebound, rigid Neurological exam: Present: alert, oriented X3, CN II-XII intact Psychiatric exam: Present: normal affect, normal mood Skin exam: Present: warm, dry, intact, normal color. Absent: rash <Nova Ribeiro - Last Filed: 07/08/17 23:55> Vital Signs 07/08/17 07/08/17 21:41 22:22 Temperature 98.7 F 97.9 F Pulse Rate 78 66 Respiratory 18 17 Rate Blood Pressure 139/65 141/60 O2 Sat by Pulse 98 94 L Oximetry Medical Decision Making <Nova Ribeiro - Last Filed: 07/08/17 23:55> <Florian Pimentel - Last Filed: 07/10/17 10:53> - Medical Decision Making 61-year-old female patient presents to the emergency department today for evaluation of blood seepage from her abdominal incision. Physical examination did reveal a saturated abdominal dressing with oozing of blood from the right inferior corner of the dressing. Patient did have a horizontal mid supra umbilical abdominal incision measuring approximate 4 cm. There was oozing of bright red blood from the right side of the incision. We did attempt to cauterize this with silver nitrate however oozing continued. My attending Dr. Pimentel did speak to Dr. Jenkins who recommended placing a pressure dressing over the area and wrapping the abdominal binder tightly. She will see patient in the office tomorrow. Patient was given instructions to return immediate he should the bleeding increase. She is instructed to keep her appointment tomorrow with Dr. Jenkins. She is instructed to return here immediate for any new, worsening, or concerning symptoms. She verbalizes understanding and agrees with this plan. (Nova Ribeiro) I saw this patient in conjunction with the physician assistant director of plant operations. I performed independent history and physical exam. Agree with case management. There did appear to be one small subcutaneous bleeder that we applied silver nitrate cautery over radial there did continue to be some bleeding from another source that we are not able to observe. Discussed case with Dr. Ng who requested the pressure dressing and patient to see her in clinic. (Florian Pimentel ) Disposition Time of Disposition: 22:36 <Nova Ribeiro - Last Filed: 07/08/17 23:55> <Florian Pimentel - Last Filed: 07/10/17 10:53> Clinical Impression: Postoperative bleeding from incision Disposition: HOME SELF-CARE Condition: Good Instructions: Acute Wound Care (ED) Additional Instructions: Leave abdominal binder in place until follow up with Dr. Jenkins tomorrow. Return immediately if bleeding persists. Call surgeons office in the morning for an appointment, she states she will see you in the office tomorrow. Referrals: Yolanda Young MD [Primary Care Provider] - 1-2 days Alana Jenkins MD [STAFF PHYSICIAN] - 1-2 days
== END 2017-07-08 22:43 | disposition home or self-care (01) ==
LOC: EC 21:34
DX: K95.09 Other complications of gastric band procedure (principal); E78.5 Hyperlipidemia, unspecified; I10 Essential (primary) hypertension; K21.9 Gastro-esophageal reflux disease without esophagitis; E11.9 Type 2 diabetes mellitus without complications; F41.9 Anxiety disorder, unspecified; F32.9 Major depressive disorder, single episode, unspecified; Z87.891 Personal history of nicotine dependence; Z79.82 Long term (current) use of aspirin; Z79.84 Long term (current) use of oral hypoglycemic drugs; Z79.899 Other long term (current) drug therapy; Z88.1 Allergy status to other antibiotic agents; Z91.030 Bee allergy status; Z91.040 Latex allergy status; Z98.84 Bariatric surgery status
CPT/HCPCS: 12002; 99283

== ENCOUNTER → 2017-07-10 | Outpatient (CLI) | payer BC ==
[2017-07-10 12:08] VITALS: BP 123/58; PULSE 77; TEMP 97.9; BMI 30.8
--- NOTE | 2017-08-11 16:09 | P.PN ---
Subjective Progress Note Date: 07/10/17 DATE OF SERVICE: 07/10/2017 CHIEF COMPLAINT: Status post band removal. HISTORY OF PRESENT ILLNESS: Gi Bingham is a 61-year-old female with a prior history of adjustable gastric band. She had complications of her band which required removal on 07/08/2017. Her previous epigastric abdominal pain is now resolved. She went to the emergency room following her procedure after bleeding from the site. Otherwise no further bleeding since her visit to the hospital 2 days ago. Her highest weight was 207 pounds for a 5-foot, 1.5-inch frame. Her initial body mass index was 38.6. Her lowest weight was 148 pounds back in March 2014. She has lost 2 pounds in 3 months. She comes in 166 pounds. She is 35 pounds overweight. Her percent excess weight loss is 54%. Her body mass index is down to 30.9. PHYSICAL EXAM: VITAL SIGNS: 5 foot 1.5, 166 pounds. Body mass index of 30.9. Vital Signs Temp 97.9 F 07/10/17 11:57 Pulse 77 07/10/17 11:57 Resp BP 123/58 07/10/17 11:57 Pulse Ox GENERAL: Well-developed female in no acute distress. ABDOMEN: Soft, nondistended. Dressing discontinued. No signs of infection. No palpable hematoma or seroma. MUSCULOSKELETAL: No clubbing, cyanosis, or edema. HEENT: No scleral icterus. Extraocular movements grossly intact. Moist buccal mucosa. NECK: Supple without lymphadenopathy. CHEST: Unlabored respirations. Equal bilateral excursions. CARDIOVASCULAR: Regular rate and rhythm. Pulses 2+. NEURO: No focal or lateralizing signs. Cranial nerves II-12 grossly intact. PSYCH: Appropriate affect. Alert and oriented to person, place and time. SKIN: Well perfused. Good skin turgor. ASSESSMENT: 1. History of adjustable gastric band. 2. Morbid obesity. 3. Body mass index reduced from 38.6 down to 30.9. 4. Epigastric abdominal pain, resolved 5. Complications from adjustable gastric band. PLAN: 1. Recommend continue her abdominal binder at all times. 2. Recommend timed off at least 1-2 weeks. 3. Options for revision were briefly discussed however follow-up upon complete recovery. Objective - Vital Signs Vital signs: Vital Signs Temp 97.9 F 07/10/17 11:57 Pulse 77 07/10/17 11:57 Resp BP 123/58 07/10/17 11:57 Pulse Ox Intake & Output 07/09/17 07/10/17 07/10/17 18:59 06:59 18:59 Weight 75.296 kg
== END | disposition home or self-care (01) ==
LOC: BARWHC3 11:17
PROVIDERS: ATTEND Surgery Plastic and Reconstructive Surgery
DX: Z48.815 Encounter for surgical aftercare following surgery on the digestive system (principal); E66.01 Morbid (severe) obesity due to excess calories; K95.09 Other complications of gastric band procedure; Z68.30 Body mass index [BMI] 30.0-30.9, adult
CPT/HCPCS: 99211

== ENCOUNTER 2017-10-23 19:19 | Emergency (ER) | payer BC ==
[2017-10-23] MEDS ORDERED: SODIUM CHLORIDE 0.9% 1,000 ML IV STA (19:52)
--- NOTE | 2017-10-23 19:55 | ED ---
General Adult HPI - General Chief complaint: Abdominal Pain Stated complaint: Abd pain Time Seen by Provider: 10/23/17 19:40 Source: patient, RN notes reviewed Mode of arrival: ambulatory Limitations: no limitations - History of Present Illness Initial comments: This is a 61-year-old female who presents to the emergency department with chief complaint of diarrhea. Patient states that she has had diarrhea for the past 3 days. She states that she is going approximately every 3 hours. She states she is having difficulty keeping down even water as it goes right through her. Admits to associated nausea and does state that she had a fever about 102 yesterday. No fevers or chills today. She also complains of generalized abdominal cramping. She reports a history of diverticulitis but states that this feels different. She states that she has been so dehydrated that she hasn't urinated in 2 days and she does not have urge to urinate. He denies shortness of breath or chest pain, vomiting, headache or dizziness. - Related Data Home Medications Medication Instructions Recorded Confirmed Aspirin EC [Ecotrin Low Dose] 81 mg PO DAILY 11/12/13 10/23/17 Cholecalciferol [Vitamin D3] 1,000 unit PO DAILY 11/12/13 10/23/17 Cyanocobalamin [Vitamin B-12] 500 mcg PO DAILY 11/12/13 10/23/17 Multivitamins, Thera [Multivitamin 1 tab PO DAILY 11/12/13 10/23/17 (formulary)] metFORMIN HCL [Glucophage] 500 mg PO DAILY 11/12/13 10/23/17 Biotin 10,000 mcg PO DAILY 10/12/16 10/23/17 Lisinopril-Hctz 10-12.5 mg 1 tab PO QAM 10/12/16 10/23/17 [Zestoretic 10-12.5] Rosuvastatin Calcium [Crestor] 5 mg PO HS 10/12/16 10/23/17 Sertraline HCl [Zoloft] 50 mg PO BID 10/12/16 10/23/17 Allergies Allergy/AdvReac Type Severity Reaction Status Date / Time banana Allergy Unknown Verified 10/23/17 19:57 bee pollen Allergy Anaphylaxis Verified 10/23/17 19:57 kiwi Allergy Unknown Verified 10/23/17 19:57 latex Allergy Anaphylaxis Verified 10/23/17 19:57 metronidazole [From Flagyl] Allergy Rash/Hives Verified 10/23/17 19:57 Review of Systems ROS Statement: Those systems with pertinent positive or pertinent negative responses have been documented in the HPI. ROS Other: All systems not noted in ROS Statement are negative. 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 History of Any Multi-Drug Resistant Organisms: None Reported Past Surgical History: Bariatric Surgery, Hysterectomy Additional Past Surgical History / Comment(s): lap band 2009 () , R kidney tumor removed, sheyla carpal tunnel, bone spurs removed from hip and neck, 05/14/14 lap band port replacement (Dr. Jenkins). Lap band removal in 2017 Past Anesthesia/Blood Transfusion Reactions: No Reported Reaction Additional Past Anesthesia/Blood Transfusion Reaction / Comment(s): no hx blood transfusion Past Psychological History: Anxiety, Depression Smoking Status: Former smoker Past Alcohol Use History: None Reported Past Drug Use History: None Reported - Past Family History Mother Family Medical History: Cancer Additional Family Medical History / Comment(s): at age 67 Father Family Medical History: CVA/TIA, Deep Vein Thrombosis (DVT) Additional Family Medical History / Comment(s): from [facility] at age 62 General Exam - General Exam Comments Initial Comments: General: Awake and alert, well-developed; in no apparent distress. Does not appear acutely ill. HEENT: Head atraumatic, normocephalic. Pupils are equal, round and reactive to light. Extraocular movements intact. Oropharynx dry without erythema or exudate. Neck: Supple. Normal ROM. Cardiovascular: Regular rate and rhythm. No murmurs, rubs or gallops. Chest symmetrical. Respiratory: Lungs clear to auscultation bilaterally. No wheezes, rales or rhonchi. Normal respiratory effort with no use of accessory muscles. Abdomen: Soft, non-distended. Generalized mild tenderness on palpation. No rigidity, rebound or guarding. Normal bowel sounds in all 4 quadrants. Musculoskeletal: Normal ROM, no tenderness bilateral upper and lower extremities. Ambulating normally. Skin: [place], warm and dry without rashes or lesions. Neurological: Alert and oriented x3. CN II-XII grossly intact. Speech is fluent and answers are appropriate. No focal neuro deficits. Psychiatric: Normal mood and affect. No overt signs of depression or anxiety noted. Limitations: no limitations Course Vital Signs 10/23/17 19:36 Temperature 97.9 F Pulse Rate 90 Respiratory 20 Rate Blood Pressure 164/75 O2 Sat by Pulse 98 Oximetry Medical Decision Making - Medical Decision Making This is a 61-year-old female who presents to the emergency department of diarrhea. Patient states that she has been having diarrhea for the past 3 days. Admits to associated nausea. Abdomen is soft and non-tender. CBC was unremarkable. CMP revealed increased BUN and creatinine, however patient is dehydrated. C diff was negative. Stool cultures are pending. Patient given a liter of normal saline while in the emergency department. Her vital signs are stable and she is in no acute distress. UA was contaminated and culture is pending. Recommended increasing fluid intake. Patient is in no acute distress and will be discharged home at this time. She is in agreement with plan and voices understanding. All questions answered. - Lab Data Result diagrams: 10/23/17 20:11 10/23/17 20:11 Lab Results 10/23/17 10/23/17 10/23/17 Range/Units 20:11 20:11 20:22 WBC 4.2 (3.8-10.6) k/uL RBC 5.20 (3.80-5.40) m/uL Hgb 13.3 (11.4-16.0) gm/dL Hct 40.3 (34.0-46.0) % MCV 77.5 L (80.0-100.0) fL MCH 25.6 (25.0-35.0) pg MCHC 33.0 (31.0-37.0) g/dL RDW 14.4 (11.5-15.5) % Plt Count 196 (150-450) k/uL Neutrophils % (Manual) 66 % Lymphocytes % (Manual) 24 % Monocytes % (Manual) 7 % Eosinophils % (Manual) 3 % Neutrophils # (Manual) 2.77 (1.3-7.7) k/uL Lymphocytes # (Manual) 1.01 (1.0-4.8) k/uL Monocytes # (Manual) 0.29 (0-1.0) k/uL Eosinophils # (Manual) 0.13 (0-0.7) k/uL Nucleated RBCs 0 (0-0) /100 WBC Polychromasia Present Sodium 144 (137-145) mmol/L Potassium 4.1 (3.5-5.1) mmol/L Chloride 106 (98-107) mmol/L Carbon Dioxide 20 L (22-30) mmol/L Anion Gap 18 mmol/L BUN 35 H (7-17) mg/dL Creatinine 1.26 H (0.52-1.04) mg/dL Est GFR (CKD-EPI)AfAm 53 (>60 ml/min/1.73 sqM) Est GFR (CKD-EPI)NonAf 46 (>60 ml/min/1.73 sqM) Glucose 119 H (74-99) mg/dL Calcium 9.2 (8.4-10.2) mg/dL Total Bilirubin 0.3 (0.2-1.3) mg/dL AST 33 (14-36) U/L ALT 49 (9-52) U/L Alkaline Phosphatase 74 (38-126) U/L Total Protein 7.9 (6.3-8.2) g/dL Albumin 4.5 (3.5-5.0) g/dL Amylase 62 (30-110) U/L Lipase 52 (23-300) U/L Urine Color Urine Appearance (Clear) Urine pH (5.0-8.0) Ur Specific [place] (1.001-1.035) Urine Protein (Negative) Urine Glucose (UA) (Negative) Urine Ketones (Negative) Urine Blood (Negative) Urine Nitrite (Negative) Urine Bilirubin (Negative) Urine Urobilinogen (<2.0) mg/dL Ur Leukocyte Esterase (Negative) Urine RBC (0-5) /hpf Urine WBC (0-5) /hpf Ur Squamous Epith Cells (0-4) /hpf Urine Bacteria (None) /hpf Hyaline Casts (0-2) /lpf Urine Mucus (None) /hpf Urine Yeast (Budding) (None) /hpf C. difficile (EIA) Intrp Negative (Negative) 10/23/17 Range/Units 21:25 WBC (3.8-10.6) k/uL RBC (3.80-5.40) m/uL Hgb (11.4-16.0) gm/dL Hct (34.0-46.0) % MCV (80.0-100.0) fL MCH (25.0-35.0) pg MCHC (31.0-37.0) g/dL RDW (11.5-15.5) % Plt Count (150-450) k/uL Neutrophils % (Manual) % Lymphocytes % (Manual) % Monocytes % (Manual) % Eosinophils % (Manual) % Neutrophils # (Manual) (1.3-7.7) k/uL Lymphocytes # (Manual) (1.0-4.8) k/uL Monocytes # (Manual) (0-1.0) k/uL Eosinophils # (Manual) (0-0.7) k/uL Nucleated RBCs (0-0) /100 WBC Polychromasia Sodium (137-145) mmol/L Potassium (3.5-5.1) mmol/L Chloride (98-107) mmol/L Carbon Dioxide (22-30) mmol/L Anion Gap mmol/L BUN (7-17) mg/dL Creatinine (0.52-1.04) mg/dL Est GFR (CKD-EPI)AfAm (>60 ml/min/1.73 sqM) Est GFR (CKD-EPI)NonAf (>60 ml/min/1.73 sqM) Glucose (74-99) mg/dL Calcium (8.4-10.2) mg/dL Total Bilirubin (0.2-1.3) mg/dL AST (14-36) U/L ALT (9-52) U/L Alkaline Phosphatase (38-126) U/L Total Protein (6.3-8.2) g/dL Albumin (3.5-5.0) g/dL Amylase (30-110) U/L Lipase (23-300) U/L Urine Color Yellow Urine Appearance Cloudy H (Clear) Urine pH 5.5 (5.0-8.0) Ur Specific [place] 1.022 (1.001-1.035) Urine Protein 1+ H (Negative) Urine Glucose (UA) Negative (Negative) Urine Ketones Trace H (Negative) Urine Blood Trace H (Negative) Urine Nitrite Negative (Negative) Urine Bilirubin Negative (Negative) Urine Urobilinogen <2.0 (<2.0) mg/dL Ur Leukocyte Esterase Small H (Negative) Urine RBC 8 H (0-5) /hpf Urine WBC 4 (0-5) /hpf Ur Squamous Epith Cells 16 H (0-4) /hpf Urine Bacteria Occasional H (None) /hpf Hyaline Casts 17 H (0-2) /lpf Urine Mucus Rare H (None) /hpf Urine Yeast (Budding) Rare H (None) /hpf C. difficile (EIA) Intrp (Negative) - Radiology Data Radiology results: report reviewed, image reviewed X-ray KUB impression: Overall nonobstructive bowel gas pattern. Disposition Clinical Impression: Diarrhea Disposition: HOME SELF-CARE Condition: Good Instructions: Acute Diarrhea (ED) Additional Instructions: Please increase fluid intake. Please follow up with primary care provider within 1-2 days. Return to emergency department if symptoms should worsen or any concerns arise. Is patient prescribed a controlled substance at d/c from ED?: No Referrals: Yolanda Young MD [Primary Care Provider] - 1-2 days Time of Disposition: 21:42
--- NOTE | 2017-10-23 20:16 | XR ---
EXAMINATION TYPE: XR KUB DATE OF EXAM: 10/23/2017 COMPARISON: NONE HISTORY: Pain TECHNIQUE: Single supine KUB image of the abdomen is obtained FINDINGS: Small bowel demonstrates no evidence for dilatation or air fluid levels. Gas and fecal material is seen in non-distended colon. No convincing evidence for pneumoperitoneum. No unusual calcifications. The lung bases are clear. The osseous structures are intact. IMPRESSION: 1. Overall nonobstructive bowel gas pattern.
[2017-10-23 20:26] LABS: HCT 40.3 % (34.0-46.0); HGB 13.3 gm/dL (11.4-16.0); MCH 25.6 pg (25.0-35.0); MCV 77.5 fL (80.0-100.0); Mean Platelet Volume 7.2; Platelet Count 196 k/uL (150-450); RDW 14.4 % (11.5-15.5); WBC 4.2 k/uL (3.8-10.6)
[2017-10-23 20:28] LABS: Albumin 4.5 g/dL (3.5-5.0); Calcium 9.2 mg/dL (8.4-10.2); Potassium 4.1 mmol/L (3.5-5.1); Total Bilirubin 0.3 mg/dL (0.2-1.3); Total Protein 7.9 g/dL (6.3-8.2)
[2017-10-23 20:41] LABS: Eosinophils # (M) 0.13 k/uL (0-0.7); Lymphocytes # (M) 1.01 k/uL (1.0-4.8); Monocytes # (M) 0.29 k/uL (0-1.0); Neutrophils # (M) 2.77 k/uL (1.3-7.7); Neutrophils % (M) 66 %; Nucleated Red Blood Cells 0 /100 WBC (0-0); Polychromasia Present; Total Cells Counted 100
[2017-10-23 21:36] LABS: Appearance,Urine Cloudy (Clear); Bacteria,Urine Occasional /hpf; Bilirubin,Urine Negative (Negative); Blood,Urine Trace (Negative); Budding Yeast,Urine Rare /hpf; Color,Urine Yellow; Glucose,Urine (UA) Negative (Negative); Hyaline Casts,Urine 17 /lpf (0-2); Ketones,Urine Trace (Negative); Leukocyte Esterase,Urine Small (Negative); Mucus,Urine Rare /hpf; Nitrite,Urine Negative (Negative); PH, Urine 5.5 (5.0-8.0); Protein,Urine 1+ (Negative); RBC,Urine 8 /hpf (0-5); Specific Gravity,Urine 1.022 (1.001-1.035); Squamous Epithelial Cell,Urine 16 /hpf (0-4); Urobilinogen,Urine <2.0 mg/dL (<2.0); WBC,Urine 4 /hpf (0-5)
[2017-10-23 22:08] VITALS: BP 159/85; PULSE 96; RESP 16; TEMP 98.6
== END 2017-10-23 22:06 | disposition home or self-care (01) ==
LOC: EC 19:19
DX: R19.7 Diarrhea, unspecified (principal); R10.84 Generalized abdominal pain; R11.0 Nausea; E11.9 Type 2 diabetes mellitus without complications; E78.5 Hyperlipidemia, unspecified; I10 Essential (primary) hypertension; F41.9 Anxiety disorder, unspecified; F32.9 Major depressive disorder, single episode, unspecified; Z98.84 Bariatric surgery status; Z90.710 Acquired absence of both cervix and uterus; Z87.891 Personal history of nicotine dependence; Z87.19 Personal history of other diseases of the digestive system; Z79.82 Long term (current) use of aspirin; Z79.84 Long term (current) use of oral hypoglycemic drugs; Z79.899 Other long term (current) drug therapy; Z91.018 Allergy to other foods; Z91.030 Bee allergy status; Z91.040 Latex allergy status; Z88.1 Allergy status to other antibiotic agents
CPT/HCPCS: 36415; 74018; 80053; 81001; 82150; 83690; 85025; 87045; 87046; 87086; 87324; 96360; 99284

== ENCOUNTER → 2018-10-15 | Outpatient (CLI) | payer BC ==
--- NOTE | 2018-10-15 18:46 | CONS ---
CONSULTATION DATE OF SERVICE: 10/15/2018 This patient is a 62-year-old lady who has been evaluated in the sleep center for possible obstructive sleep apnea-hypopnea syndrome. HISTORY OF PRESENT ILLNESS/SLEEP-WAKE EVALUATION: Patient's usual sleep schedule is from 8 p.m. until around 3 or 4 a.m. On weekends it is from 9 or 10 p.m. to 6 a.m. Sometimes she has problems with falling asleep, although no TV in bedroom. She sleeps on the side position by herself; no information about her snoring. She wakes up from sleep once with nocturia. She denies any significant excessive daytime sleepiness and does not take any naps. [place] Sleepiness Scale is 0. PAST MEDICAL HISTORY: 1. Diabetes mellitus. 2. Hypertension. 3. Sinus problems. PAST SURGICAL HISTORY: 1. Cholecystectomy. 2. Partial hysterectomy. 3. Lap band surgery. MEDICATIONS: 1. Metformin. 2. Vitamin D3 supplement. 3. Vitamin B12. 4. Baby aspirin. 5. Polyvitamins. 6. Medication for blood pressure; probably lisinopril. FAMILY HISTORY: Hypertension, sinus problems, diabetes, sinus headaches. ALLERGIES: LATEX. SOCIAL HISTORY: Positive for smoking many years ago; quit 28 years ago. Alcohol consumption none. REVIEW OF SYSTEMS: Awakening from sleep with nocturia. PHYSICAL EXAMINATION: GENERAL: A pleasant lady without no distress. VITAL SIGNS: BP 149/78, HR 78, RR 16, height 5 feet 1-1/2 inches, weight 190 pounds, body mass index 35.3. HEENT: PERRLA, EOMI. Evaluation of oropharynx showed tongue protrudes midline. Mallampati II to III. Moderately low position of soft palate. Slight restriction of nasal breathing. NECK: Supple. No JVD. Thyroid is not palpable. Neck measures 15-1/2 inches in circumference. LUNGS: Clear to percussion and to auscultation. Good air exchange. No wheezing or rhonchi. HEART: S1, S2 regular. No murmurs, gallops or rubs. ABDOMEN: Slightly obese. EXTREMITIES: No clubbing or cyanosis. ACLS SPECIALIST: Awake, alert, and oriented X3. Cranial nerves 2 to 7 intact. There is no fasciculation or atrophy. noted. No focal deficits observed. IMPRESSION: 1. Moderately low position of soft palate, slight restriction of nasal breathing, neck 15-1/2 inches in circumference; possible obstructive sleep apnea-hypopnea syndrome. 2. Diabetes mellitus. 3. Hypertension. 4. Obesity; body mass index 35.3. 5. History of sinusitis. 6. Status post lap band surgery. 7. Status post cholecystectomy. 8. Status post partial hysterectomy. 9. ALLERGY to LATEX. PLAN: 1. Home sleep apnea test for evaluation of patient's breathing during sleep. 2. CPAP/BiPAP titration if sleep study confirms obstructive sleep apnea-hypopnea syndrome. 3. Preferable position during sleep on the side. 4. No driving if patient feels any sleepiness. 5. I will see patient for follow up visit to explain results of testing and following plan. Thank you very much for referring this patient for consultation. Sincerely, Tim Blake MD, PhD, FAASM Diplomat of [place] [place] [employer] [facility] [employer] [facility] [place] MMODL / IJN: [id number] /
== END | disposition home or self-care (01) ==
LOC: SLEEP 13:17
PROVIDERS: ATTEND Internal Medicine
DX: M27.8 Other specified diseases of jaws (principal); R06.89 Other abnormalities of breathing; R35.1 Nocturia; R06.83 Snoring; E11.9 Type 2 diabetes mellitus without complications; I10 Essential (primary) hypertension; J32.9 Chronic sinusitis, unspecified; E66.9 Obesity, unspecified; Z68.35 Body mass index [BMI] 35.0-35.9, adult; Z79.84 Long term (current) use of oral hypoglycemic drugs; Z98.84 Bariatric surgery status; Z90.49 Acquired absence of other specified parts of digestive tract; Z90.711 Acquired absence of uterus with remaining cervical stump; Z91.040 Latex allergy status; Z87.891 Personal history of nicotine dependence; Z79.82 Long term (current) use of aspirin; Z79.899 Other long term (current) drug therapy
CPT/HCPCS: 99211

== ENCOUNTER 2018-12-31 09:59 | Emergency (ER) | payer BC ==
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
--- NOTE | 2018-12-31 12:19 | XR ---
Left knee HISTORY: Left knee pain 3 views of the left knee No comparisons Bone mineralization, joint spaces and alignment are maintained. Suprapatellar increased density noted . No fracture or dislocation. IMPRESSION: Joint effusion.
[2018-12-31 13:23] VITALS: BP 134/68; PULSE 86; RESP 18; TEMP 98.6
== END 2018-12-31 13:15 | disposition home or self-care (01) ==
LOC: EC 09:59
DX: M25.562 Pain in left knee (principal); E11.9 Type 2 diabetes mellitus without complications; K21.9 Gastro-esophageal reflux disease without esophagitis; E78.5 Hyperlipidemia, unspecified; I10 Essential (primary) hypertension; F32.9 Major depressive disorder, single episode, unspecified; F41.9 Anxiety disorder, unspecified; Z87.891 Personal history of nicotine dependence; Z79.82 Long term (current) use of aspirin; Z79.84 Long term (current) use of oral hypoglycemic drugs; Z79.899 Other long term (current) drug therapy; Z88.1 Allergy status to other antibiotic agents; Z91.040 Latex allergy status; Z91.018 Allergy to other foods; Z91.030 Bee allergy status; Z98.84 Bariatric surgery status
CPT/HCPCS: 99283

== ENCOUNTER → 2019-01-28 | Outpatient (CLI) | payer BC ==
[2019-01-28 14:58] VITALS: BP 148/79; PULSE 77; RESP 16; TEMP 98.4; BMI 35.5
--- NOTE | 2019-01-28 15:45 | P.PN ---
Subjective Progress Note Date: 01/28/19 She reports worsening reflux. She has re-gained moderate weigh. She is here for conversion. Her blood sugars is also up. She is eating healthy but has moderate weight regain ABDOMEN:No hernia ASSESSMENT: 1. Morbid obesity PLAN: 1. Sleeve vs bypass reviewed. 2. MBSC reviewed. 3. Need labs 4. Upper endoscopy advised Objective - Vital Signs Vital signs: Vital Signs Temp 98.4 F 01/28/19 14:51 Pulse 77 01/28/19 14:51 Resp 16 01/28/19 14:51 BP 148/79 01/28/19 14:51 Pulse Ox Intake & Output 01/27/19 01/28/19 01/28/19 18:59 06:59 18:59 Weight 86.806 kg
== END | disposition home or self-care (01) ==
LOC: BARWHC3 14:21
PROVIDERS: ATTEND Surgery Plastic and Reconstructive Surgery
DX: E66.01 Morbid (severe) obesity due to excess calories (principal); Z68.35 Body mass index [BMI] 35.0-35.9, adult
CPT/HCPCS: 99211

== ENCOUNTER → 2019-01-28 | Outpatient (CLI) | payer BC ==
[2019-01-28 16:37] LABS: HCT 42.7 % (34.0-46.0); MCH 29.6 pg (25.0-35.0); MCHC 32.9 g/dL (31.0-37.0); MCV 90.1 fL (80.0-100.0); Mean Platelet Volume 7.7; Platelet Count 198 k/uL (150-450); RBC 4.73 m/uL (3.80-5.40); RDW 14.4 % (11.5-15.5); WBC 6.5 k/uL (3.8-10.6)
[2019-01-28 16:48] LABS: INR 0.9 (<1.2); Partial Thromboplastin Time 23.7 sec (22.0-30.0); Prothrombin Time 9.6 sec (9.0-12.0)
[2019-01-29 00:33] LABS: African American GFR (CKD) 55.7 (60.0-200.0); Albumin 4.6 g/dL (3.80-4.90); Albumin/Globulin Ratio 1.77 (1.60-3.17); Anion Gap 10.1 mmol/L (4.00-12.00); BUN/Creat Ratio 10.83 Ratio (12.00-20.00); Calcium 9.7 mg/dL (8.7-10.3); Carbon Dioxide 27.9 mmol/L (21.6-31.8); Chol/HDL Ratio 3.05; Globulin 2.6 g/dL (1.6-3.3); Magnesium 1.8 mg/dL (1.5-2.4); Non-African American GFR(CKD) 48.1 (60.0-200.0); Phosphorus 3.9 mg/dL (2.4-5.1); Potassium 4.6 mmol/L (3.5-5.5); Total Bilirubin 0.2 mg/dL (0.3-1.2); Total Protein 7.2 g/dL (6.2-8.2)
[2019-01-29 00:34] LABS: Iron Saturation 17.92 (12.00-45.00)
[2019-01-29 00:46] LABS: Vitamin D 25 Hydroxy 35.3 ng/mL (30.0-100.0)
[2019-01-29 00:47] LABS: Ferritin 85.7 ng/mL (10.0-291.0)
[2019-01-29 01:39] LABS: Folate, Serum 10.2 ng/mL
[2019-01-29 02:04] LABS: Hemoglobin A1C 7.2 % (4.0-6.0)
[2019-01-29 14:43] LABS: Zinc, Serum 73 ug/dL (60-130)
[2019-01-29 15:12] LABS: Vitamin A 71 ug/dL (38-106)
[2019-02-03 17:06] LABS: Selenium 119 mcg/L (63-160)
[2019-02-09 18:26] LABS: Vit B1(Thiamine) 62 ug/L (38-122)
== END | disposition home or self-care (01) ==
LOC: LABWHC1 15:55
PROVIDERS: ATTEND Surgery Plastic and Reconstructive Surgery
DX: E21.1 Secondary hyperparathyroidism, not elsewhere classified (principal); D50.9 Iron deficiency anemia, unspecified; K90.9 Intestinal malabsorption, unspecified; E55.9 Vitamin D deficiency, unspecified; N19 Unspecified kidney failure; K50.90 Crohn's disease, unspecified, without complications
CPT/HCPCS: 36415; 80053; 80061; 82306; 82525; 82607; 82728; 82746; 83036; 83540; 83550; 83735; 83970; 84100; 84134; 84255; 84425; 84443; 84590; 84630; 85027; 85610; 85730

== ENCOUNTER → 2019-02-14 | Outpatient (CLI) | payer BC ==
--- NOTE | 2019-02-14 16:52 | MR ---
EXAMINATION TYPE: MR knee LT wo con DATE OF EXAM: 02/14/2019 COMPARISON: None HISTORY: Pain in left knee TECHNIQUE: Multiplanar, multisequence imaging of the left knee is performed without IV contrast. FINDINGS: There is a mild knee joint effusion. There is subcutaneous edema anterior to the knee joint and proxi mal tibia. The posterior cruciate ligament is intact. There is some thinning of the anterior cruciate ligament at the attachment on the distal femur. There is probably a complete tear. The medial and lateral menisci appear intact. The joint spaces are fairly normal. The collateral liga ments appear intact. There is some mild increased signal in the posterior aspect of the lateral tibia l condyle consistent with a bone bruise. IMPRESSION: Mild bone bruise of the posterior aspect lateral tibial condyle. Knee joint effusion. Subcutaneous edema. No evidence of meniscal tear. Complete tear anterior cruciate ligament.
== END | disposition home or self-care (01) ==
LOC: RADMRIMAIN 09:04
PROVIDERS: ATTEND Orthopaedic Surgery
DX: S83.512A Sprain of anterior cruciate ligament of left knee, initial encounter (principal); S80.02XA Contusion of left knee, initial encounter

== ENCOUNTER 2019-03-09 06:06 | Day surgery (SDC) | payer BC ==
[2019-03-05 11:20] VITALS: BMI 35.1
--- NOTE | 2019-03-08 20:27 | P.GSHP ---
History of Present Illness H&P Date: 03/09/19 CHIEF COMPLAINT: GERD HISTORY OF PRESENT ILLNESS: The patient is a 63-year-old female who presents reports gastroesophageal reflux disease. Upper endoscopy was offered for further evaluation and management. PAST MEDICAL HISTORY: Please see list. PAST SURGICAL HISTORY: Please see list. MEDICATIONS: Please see list. ALLERGIES: Please see list. SOCIAL HISTORY: No illicit drug use FAMILY HISTORY: No reports of Crohn disease or ulcerative colitis. REVIEW OF ORGAN SYSTEMS: CONSTITUTIONAL: No reports of fevers or chills. GI: Denies any blood in stools or constipation. PHYSICAL EXAM: VITAL SIGNS: Stable GENERAL: Well-developed and pleasant in no acute distress. HEENT: No scleral icterus. Extraocular movements grossly intact. Moist buccal mucosa. NECK: Supple without lymphadenopathy. CHEST: Unlabored respirations. Equal bilateral excursions. CARDIOVASCULAR: Regular rate and rhythm. Distal 2+ pulses. ABDOMEN: Soft, nondistended. MUSCULOSKELETAL: No clubbing, cyanosis, or edema. ASSESSMENT: 1. Gastroesophageal reflux disease PLAN: 1. Recommend proceeding with an upper endoscopy Past Medical History Past Medical History: Diabetes Mellitus, GERD/Reflux, Hyperlipidemia, Hypertension, Musculoskeletal Disorder, Sleep Apnea/CPAP/BIPAP Additional Past Medical History / Comment(s): Hx constipation, diverticulitis, Aortic Aneurysm in stomach, being checked q6 months, told not visible 10/2018. H x UTI's. Minimal sleep apnea. Lt knee pain. History of Any Multi-Drug Resistant Organisms: None Reported Past Surgical History: Bariatric Surgery, Hysterectomy Additional Past Surgical History / Comment(s): Lap Band 2010 () , R kidney tumor removed, sheyla carpal tunnel, bone spurs removed from hip and neck, 05/14/14 lap band port replacement (Dr. Jenkins). Lap band removal in 07/08/2017. Rt elbow tendonitis surg. Past Anesthesia/Blood Transfusion Reactions: No Reported Reaction Additional Past Anesthesia/Blood Transfusion Reaction / Comment(s): no hx blood transfusion Smoking Status: Former smoker - Past Family History Mother Family Medical History: Cancer Additional Family Medical History / Comment(s): Poss CA, at age 67 Father Family Medical History: CVA/TIA, Deep Vein Thrombosis (DVT) Additional Family Medical History / Comment(s): [facility] age 62 Medications and Allergies Home Medications Medication Instructions Recorded Confirmed Type Aspirin EC [Ecotrin Low Dose] 81 mg PO DAILY 11/12/13 03/05/19 History Cholecalciferol [Vitamin D3 (25 1,000 unit PO DAILY 11/12/13 03/05/19 History Mcg = 1000 Iu)] Cyanocobalamin [Vitamin B-12] 500 mcg PO DAILY 11/12/13 03/05/19 History Multivitamins, Thera [Multivitamin 1 tab PO DAILY 11/12/13 03/05/19 History (formulary)] metFORMIN HCL [Glucophage] 500 mg PO DAILY 11/12/13 03/05/19 History Biotin 10,000 mcg PO DAILY 10/12/16 03/05/19 History Lisinopril-Hctz 10-12.5 mg 1 tab PO QAM 10/12/16 03/05/19 History [Zestoretic 10-12.5] Rosuvastatin Calcium [Crestor] 5 mg PO HS 10/12/16 03/05/19 History Sertraline HCl [Zoloft] 50 mg PO BID 10/12/16 03/05/19 History Allopurinol [Zyloprim] 100 mg PO BID 12/31/18 03/05/19 History Magnesium 200 mg PO DAILY 12/31/18 03/05/19 History Allergies Allergy/AdvReac Type Severity Reaction Status Date / Time banana Allergy BLISTERS Verified 03/05/19 10:59 IN MOUTH bee pollen Allergy Anaphylaxis Verified 03/05/19 10:59 kiwi Allergy BLISTERS Verified 03/05/19 10:59 IN MOUTH latex Allergy Anaphylaxis, Verified 03/05/19 11:16 Blisters metronidazole [From Flagyl] Allergy Rash/Hives Verified 03/05/19 10:59
[~2019-03-09 06:06] MED LIST changes: -DEXAMETHASONE SOD PHOSPHATE 10 MG/ML 1 ML VIAL IV ONE; -HYDROmorphone 0.5 MG/0.5 ML SYRINGE IVP PRN; +LIDOCAINE 1% 20 ML VIAL (10MG/ML) FOR IV START INTRADERMA PRN; -MORPHINE SULFATE 4 MG/ML SYRINGE IV PRN; -ONDANSETRON 4 MG/2 ML VIAL IVP ONE; -ONDANSETRON 4 MG/2 ML VIAL IVP PRN; -ceFAZolin IN SWFI 2 GM/20 ML SYRINGE IVP ONE
[2019-03-09 06:58] VITALS: TEMP 97.9
[2019-03-09 07:01] LABS: Glucose,Whole Blood 164 mg/dL (75-99)
[2019-03-09] MEDS ORDERED: LIDOCAINE 1% INJ 10MG/ML (20 ML MDV) ONE (07:09)
[2019-03-09] MEDS ORDERED: PROPOFOL 10 MG/ML 20 ML VIAL IV ONE (07:09)
--- NOTE | 2019-03-09 07:42 | P.PCN ---
Date of Procedure: 03/09/19 Description of Procedure: PREOPERATIVE DIAGNOSIS: Gastroesophageal reflux disease. Morbid obesity. POSTOPERATIVE DIAGNOSIS: Morbid obesity. Gastritis. Gastroesophageal reflux disease. Diaphragmatic hiatal hernia Wilson's esophagus OPERATION: Esophagogastroduodenoscopy with biopsies along antrum and distal esophagus SURGEON: Alana Jenknis MD ANESTHESIA: MAC. INDICATIONS: The patient is a 63-year-old female who presents with a history of reflux disease. Benefits and risks of the procedure were described. Informed consent was obtained. DESCRIPTION: The patient was brought into the endoscopy suite and laid in the left lateral decubitus position. An Olympus gastroscope was passed along the posterior oropharynx down to the distal esophagus where the squamocolumnar junction was encountered at 35 cm from the incisors. The stomach was entered and no bile reflux was found. Additional findings are listed below. Biopsies with cold forceps were obtained of the antrum. The first through third portion of the duodenum was examined and unremarkable. Retroflexion of the scope confirmed Hill grade 3 lower esophageal valve. The squamocolumnar junction demonstrated LA grade D erosive esophagitis with cold forceps biopsies obtained. The stomach was desufflated. The patient tolerated the procedure well. FINDINGS: Squamocolumnar junction 35 cm from the incisors. Diaphragmatic hiatus at 38 cm. Hiatal hernia, 3 cm Hill grade 3 lower esophageal valve. LA grade D erosive esophagitis which short segment 3 cm erosions No active duodenitis. Chronic gastritis without RECOMMENDATIONS: Features highly suspicious for Wilson's and will need repeat upper endoscopy in one year Start an antacid therapy Plan - Discharge Summary Discharge Rx Participant: No New Discharge Prescriptions: New Omeprazole 40 mg PO DAILY #90 capsule. No Action Cyanocobalamin [Vitamin B-12] 500 mcg PO DAILY Aspirin EC [Ecotrin Low Dose] 81 mg PO DAILY metFORMIN HCL [Glucophage] 500 mg PO DAILY Multivitamins, Thera [Multivitamin (formulary)] 1 tab PO DAILY Cholecalciferol [Vitamin D3 (25 Mcg = 1000 Iu)] 1,000 unit PO DAILY Biotin 10,000 mcg PO DAILY Lisinopril-Hctz 10-12.5 mg [Zestoretic 10-12.5] 1 tab PO QAM Rosuvastatin Calcium [Crestor] 5 mg PO HS Sertraline HCl [Zoloft] 50 mg PO BID Magnesium 200 mg PO DAILY Allopurinol [Zyloprim] 100 mg PO BID Discharge Medication List Aspirin EC [Ecotrin Low Dose] 81 mg PO DAILY 11/12/13 [History] Cholecalciferol [Vitamin D3 (25 Mcg = 1000 Iu)] 1,000 unit PO DAILY 11/12/13 [History] Cyanocobalamin [Vitamin B-12] 500 mcg PO DAILY 11/12/13 [History] Multivitamins, Thera [Multivitamin (formulary)] 1 tab PO DAILY 11/12/13 [History] metFORMIN HCL [Glucophage] 500 mg PO DAILY 11/12/13 [History] Biotin 10,000 mcg PO DAILY 10/12/16 [History] Lisinopril-Hctz 10-12.5 mg [Zestoretic 10-12.5] 1 tab PO QAM 10/12/16 [History] Rosuvastatin Calcium [Crestor] 5 mg PO HS 10/12/16 [History] Sertraline HCl [Zoloft] 50 mg PO BID 10/12/16 [History] Allopurinol [Zyloprim] 100 mg PO BID 12/31/18 [History] Magnesium 200 mg PO DAILY 12/31/18 [History] Omeprazole 40 mg PO DAILY #90 capsule. 03/09/19 [Rx] Follow up Appointment(s)/Referral(s): [facility] [place], [place] [NON-STAFF] - 03/18/19 Patient Instructions/Handouts: Gastroesophageal Reflux Disease (DC), Hiatal Her lexi (DC) Discharge Disposition: HOME SELF-CARE
[2019-03-09 08:01] VITALS: BP 121/65; PULSE 65; RESP 17
== END 2019-03-09 08:18 | disposition home or self-care (01) ==
LOC: ORWHC2ENDO 06:06
PROVIDERS: ATTEND Surgery Plastic and Reconstructive Surgery
DX: K21.0 Gastro-esophageal reflux disease with esophagitis (principal); K29.50 Unspecified chronic gastritis without bleeding; E66.01 Morbid (severe) obesity due to excess calories; Z68.31 Body mass index [BMI] 31.0-31.9, adult; K22.70 Barrett's esophagus without dysplasia; K44.9 Diaphragmatic hernia without obstruction or gangrene; E11.9 Type 2 diabetes mellitus without complications; E78.5 Hyperlipidemia, unspecified; I10 Essential (primary) hypertension; Z98.84 Bariatric surgery status; Z87.891 Personal history of nicotine dependence; Z88.1 Allergy status to other antibiotic agents; Z91.030 Bee allergy status; Z91.040 Latex allergy status; Z91.018 Allergy to other foods; G47.33 Obstructive sleep apnea (adult) (pediatric); F32.9 Major depressive disorder, single episode, unspecified; F41.9 Anxiety disorder, unspecified; Z79.899 Other long term (current) drug therapy; Z79.84 Long term (current) use of oral hypoglycemic drugs; Z79.82 Long term (current) use of aspirin
CPT/HCPCS: 88305; 88341; 43239; J2001; J2704; 88342

== ENCOUNTER 2019-03-19 19:50 | Emergency (ER) | payer BC ==
[2019-03-19] MEDS ORDERED: IBUPROFEN 600 MG TAB PO STA (20:34)
[2019-03-19 21:31] LABS: Appearance,Urine Cloudy (Clear); Bilirubin,Urine Negative (Negative); Blood,Urine Negative (Negative); Color,Urine Yellow; Glucose,Urine (UA) 3+ (Negative); Ketones,Urine Negative (Negative); Leukocyte Esterase,Urine Negative (Negative); Mucus,Urine Rare /hpf; Nitrite,Urine Negative (Negative); Protein,Urine Trace (Negative); RBC,Urine 1 /hpf (0-5); Squamous Epithelial Cell,Urine 2 /hpf (0-4); Urobilinogen,Urine <2.0 mg/dL (<2.0); WBC,Urine <1 /hpf (0-5)
--- NOTE | 2019-03-19 21:51 | XR ---
EXAMINATION TYPE: XR chest 2V DATE OF EXAM: 03/19/2019 COMPARISON: NONE HISTORY: Cough and fever TECHNIQUE: Frontal and lateral views of the chest are obtained. FINDINGS: There is some linear density in the lingula left upper lobe. The other lung quigley are dayna ar. Heart and mediastinum are normal. There is no pleural effusion. Bony thorax is intact. IMPRESSION: There is some mild lingula pneumonia and atelectasis. Normal heart. No heart failure.
[2019-03-19] MEDS ORDERED: AZITHROMYCIN 500 MG TAB PO STA (22:22)
[2019-03-19 22:40] VITALS: BP 149/70; PULSE 83; RESP 18; TEMP 101.4
[2019-03-19] MEDS ORDERED: ACETAMINOPHEN TAB 325 MG TAB PO STA (22:42)
--- NOTE | 2019-03-19 22:48 | ED ---
General Adult HPI - General Chief complaint: Upper Respiratory Infection Stated complaint: FEVER, DIZZINESS, SORES ALL OVER Time Seen by Provider: 03/19/19 20:24 Source: patient, RN notes reviewed, old records reviewed Mode of arrival: ambulatory - History of Present Illness Initial comments: 63-year-old female patient past history significant for type 2 diabetes, hypertension hyperlipidemia presents chief complaint of 2 days of productive cough cough, fever, rhinitis waxing and waning headache. Patient denies any other complaints at this time. Systemic: Pt denies fatigue, fever/chills, rash. Pt denies weakness, night sweats, weight loss. Neuro: Pt denies visual disturbances, syncope or pre-syncope. HEENT: Pt denies ocular discharge or irritation, otalgia, rhinorrhea, p haryngitis or notable lymphadenopathy. Cardiopulmonary: Pt denies chest pain, SOB, heart palpitations, dyspnea on exertion. Abdominal/GI: Pt denies abdominal pain, n/v/d. : Pt denies dysuria, burning w/ urination, frequency/urgency. Denies new onset urinary or bowel incontinence. MSK: Pt denies myalgia, loss of strength or function in extremities. Neuro: Pt denies new onset weakness, paresthesias. - Related Data Home Medications Medication Instructions Recorded Confirmed Aspirin EC [Ecotrin Low Dose] 81 mg PO DAILY 11/12/13 03/05/19 Cholecalciferol [Vitamin D3 (25 1,000 unit PO DAILY 11/12/13 03/05/19 Mcg = 1000 Iu)] Cyanocobalamin [Vitamin B-12] 500 mcg PO DAILY 11/12/13 03/05/19 Multivitamins, Thera [Multivitamin 1 tab PO DAILY 11/12/13 03/05/19 (formulary)] metFORMIN HCL [Glucophage] 500 mg PO DAILY 11/12/13 03/09/19 Biotin 10,000 mcg PO DAILY 10/12/16 03/05/19 Lisinopril-Hctz 10-12.5 mg 1 tab PO QAM 10/12/16 03/09/19 [Zestoretic 10-12.5] Rosuvastatin Calcium [Crestor] 5 mg PO HS 10/12/16 03/09/19 Sertraline HCl [Zoloft] 50 mg PO BID 10/12/16 03/09/19 Allopurinol [Zyloprim] 100 mg PO BID 12/31/18 03/09/19 Magnesium 200 mg PO DAILY 12/31/18 03/05/19 Previous Rx's Medication Instructions Recorded Omeprazole 40 mg PO DAILY #90 capsule. 03/09/19 Azithromycin [Zithromax Z-pack] 0 mg PO DIRECTED #6 tab 03/19/19 Allergies Allergy/AdvReac Type Severity Reaction Status Date / Time banana Allergy BLISTERS Verified 03/19/19 19:55 IN MOUTH bee pollen Allergy Anaphylaxis Verified 03/19/19 19:55 kiwi Allergy BLISTERS Verified 03/19/19 19:55 IN MOUTH latex Allergy Anaphylaxis, Verified 03/19/19 19:55 Blisters metronidazole [From Flagyl] Allergy Rash/Hives Verified 03/19/19 19:55 Review of Systems ROS Statement: Those systems with pertinent positive or pertinent negative responses have been documented in the HPI. ROS Other: All systems not noted in ROS Statement are negative. 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 History of Any Multi-Drug Resistant Organisms: None Reported Past Surgical History: Bariatric Surgery, Hysterectomy Additional Past Surgical History / Comment(s): lap band 2010 () , R kidney tumor removed, sheyla carpal tunnel, bone spurs removed from hip and neck, 05/14/14 lap band port replacement (Dr. Jenkins). Lap band removal in 07/08/2017 Past Anesthesia/Blood Transfusion Reactions: No Reported Reaction Additional Past Anesthesia/Blood Transfusion Reaction / Comment(s): no hx blood transfusion Past Psychological History: Anxiety, Depression Smoking Status: Former smoker Past Alcohol Use History: None Reported Past Drug Use History: None Reported - Past Family History Mother Family Medical History: Cancer Additional Family Medical History / Comment(s): Poss CA, at age 67 Father Family Medical History: CVA/TIA, Deep Vein Thrombosis (DVT) Additional Family Medical History / Comment(s): from [facility] at age 62 General Exam - General Exam Comments Initial Comments: Constitutional: NAD, AOX3, Pt has pleasant affect. HEENT: NC/AT, trachea midline, neck supple, no lymphadenopathy. Posterior pharynx non erythematous, without exudates. External ears appear normal, without discharge. Mucous membranes moist. Eyes PERRLA, EOM intact. There is no scleral icterus. No pallor noted. Cardiopulmonary: RRR, no murmurs, rubs or gallops, no JVD noted. Lungs CTAB in anterior and posterior quigley. No peripheral edema. Abdominal exam: Abdomen soft and non-distended. Abdomen non-tender to palpation in all 4 quadrants. Bowel sounds active in LLQ. No hepatosplenomegaly. No ecchymosis Neuro: CN II-XII intact. No nuchal rigidity. No raccon eyes, no moya sign, no hemotympanum. No cervical spinal tenderness. MSK: No posterior calf tenderness bilaterally, homans sign negative bilaterally. Posterior tibialis and radial pulse +2 bilaterally. Sensation intact in upper and lower extremities. Full active ROM in upper and lower extremities, 5/5 stregnth. Course Vital Signs 03/19/19 03/19/19 03/19/19 19:53 21:39 22:39 Temperature 100.2 F H 101.4 F H Pulse Rate 101 H 83 Respiratory 16 20 18 Rate Blood Pressure 170/72 149/70 O2 Sat by Pulse 94 L 98 Oximetry Medical Decision Making - Medical Decision Making 63-year-old female patient past history significant for type 2 diabetes, hypertension hyperlipidemia presents chief complaint of 2 days of productive cough cough, fever, rhinitis waxing and waning headache. Patient denies any other complaints at this time. Patient vital signs displayed mild fever. Patient had recently taken Tylenol, denied taking any other form antepyretic staying at a upset her stomach. Physical exam did not display acute pathology. UA displayed +3 glucose. Influenza negative. Chest x-ray displayed mild pneumonia. Patient shade on azithromycin. Patient will be discharged with close outpatient follow-up with primary care provider. Case discussed with Dr. Thomas. - Lab Data Lab Results 03/19/19 03/19/19 Range/Units 21:10 21:10 Urine Color Yellow Urine Appearance Cloudy H (Clear) Urine pH 7.0 (5.0-8.0) Ur Specific [place] 1.020 (1.001-1.035) Urine Protein Trace H (Negative) Urine Glucose (UA) 3+ H (Negative) Urine Ketones Negative (Negative) Urine Blood Negative (Negative) Urine Nitrite Negative (Negative) Urine Bilirubin Negative (Negative) Urine Urobilinogen <2.0 (<2.0) mg/dL Ur Leukocyte Esterase Negative (Negative) Urine RBC 1 (0-5) /hpf Urine WBC <1 (0-5) /hpf Ur Squamous Epith Cells 2 (0-4) /hpf Urine Mucus Rare H (None) /hpf Influenza Type A RNA Not Detected (Not Detectd) Influenza Type B (PCR) Not Detected (Not Detectd) Disposition Clinical Impression: Community acquired pneumonia Disposition: HOME SELF-CARE Condition: Stable Instructions (If sedation given, give patient instructions): Community Acquired Pneumonia (ED) Additional Instructions: Patient to adhere to previously discussed treatment plan and will take medication(s) as directed. Patient to follow up with PCP in 1-2 days. Patient to return to ED if symptoms do not improve. follow-up with primary care provider tomorrow. Take medications directed. Return to ER if condition worsens in any way. Prescriptions: Azithromycin [Zithromax Z-pack] 0 mg PO DIRECTED #6 tab Is patient prescribed a controlled substance at d/c from ED?: No Referrals: Yolanda Young MD [Primary Care Provider] - 1-2 days
--- NOTE | 2019-03-19 23:33 | ED ---
Medical Decision Making - Medical Decision Making patient declined CT of brain. - Lab Data Lab Results 03/19/19 03/19/19 Range/Units 21:10 21:10 Urine Color Yellow Urine Appearance Cloudy H (Clear) Urine pH 7.0 (5.0-8.0) Ur Specific [place] 1.020 (1.001-1.035) Urine Protein Trace H (Negative) Urine Glucose (UA) 3+ H (Negative) Urine Ketones Negative (Negative) Urine Blood Negative (Negative) Urine Nitrite Negative (Negative) Urine Bilirubin Negative (Negative) Urine Urobilinogen <2.0 (<2.0) mg/dL Ur Leukocyte Esterase Negative (Negative) Urine RBC 1 (0-5) /hpf Urine WBC <1 (0-5) /hpf Ur Squamous Epith Cells 2 (0-4) /hpf Urine Mucus Rare H (None) /hpf Influenza Type A RNA Not Detected (Not Detectd) Influenza Type B (PCR) Not Detected (Not Detectd) Disposition Clinical Impression: Community acquired pneumonia Disposition: HOME SELF-CARE Condition: Stable Instructions (If sedation given, give patient instructions): Community Acquired Pneumonia (ED) Additional Instructions: Patient to adhere to previously discussed treatment plan and will take medication(s) as directed. Patient to follow up with PCP in 1-2 days. Patient to return to ED if symptoms do not improve. follow-up with primary care provider tomorrow. Take medications directed. Return to ER if condition worsens in any way. Prescriptions: Azithromycin [Zithromax Z-pack] 0 mg PO DIRECTED #6 tab Is patient prescribed a controlled substance at d/c from ED?: No Referrals: Yolanda Young MD [Primary Care Provider] - 1-2 days
== END 2019-03-19 23:02 | disposition home or self-care (01) ==
LOC: EC 19:50
DX: J18.8 Other pneumonia, unspecified organism (principal); R51 Headache; E11.9 Type 2 diabetes mellitus without complications; I10 Essential (primary) hypertension; E78.5 Hyperlipidemia, unspecified; F41.9 Anxiety disorder, unspecified; F32.9 Major depressive disorder, single episode, unspecified; K21.9 Gastro-esophageal reflux disease without esophagitis; Z79.82 Long term (current) use of aspirin; Z79.84 Long term (current) use of oral hypoglycemic drugs; Z79.899 Other long term (current) drug therapy; Z91.040 Latex allergy status; Z91.030 Bee allergy status; Z91.018 Allergy to other foods; Z88.1 Allergy status to other antibiotic agents; Z87.891 Personal history of nicotine dependence
CPT/HCPCS: 71046; 81001; 87502; 99284

== ENCOUNTER → 2019-03-24 | Outpatient (CLI) | payer BC ==
[2019-03-24 16:58] LABS: HGB 12.6 gm/dL (11.4-16.0); MCH 29.7 pg (25.0-35.0); MCHC 33.2 g/dL (31.0-37.0); MCV 89.2 fL (80.0-100.0); Mean Platelet Volume 6.7; Platelet Count 216 k/uL (150-450); RBC 4.25 m/uL (3.80-5.40); RDW 13.3 % (11.5-15.5); WBC 6.6 k/uL (3.8-10.6)
--- NOTE | 2019-03-24 17:05 | XR ---
EXAMINATION: XR chest 2V DATE AND TIME: 03/24/2019 4:59 PM CLINICAL INDICATION: PHH; J18.9 TECHNIQUE: Departmental protocol COMPARISON: 03/19/2019 FINDINGS: The overlying soft tissues are prominent. Lungs are clear. The pleural spaces are negative. The cardiac silhouette is not enlarged. The remainder of the mediastinal silhouette is unremarkable. The skeletal structures and soft tissues are negative for acute findings. IMPRESSION: NO ACUTE PROCESS.
== END | disposition home or self-care (01) ==
LOC: LABPAT 16:15
PROVIDERS: ATTEND Family Medicine
DX: J18.9 Pneumonia, unspecified organism (principal); Z01.812 Encounter for preprocedural laboratory examination
CPT/HCPCS: 71046; 85027

== ENCOUNTER 2019-03-27 07:18 | Day surgery (SDC) | payer BC ==
[2019-03-20 11:12] VITALS: BMI 35.6
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
[~2019-03-27 07:18] MED LIST changes: +DEXAMETHASONE SOD PHOSPHATE 10 MG/ML 1 ML VIAL IV ONE; +ONDANSETRON 4 MG/2 ML VIAL IVP ONE; +ONDANSETRON 4 MG/2 ML VIAL IVP PRN
[2019-03-27 08:25] LABS: Glucose,Whole Blood 193 mg/dL (75-99)
[2019-03-27] MEDS ORDERED: LIDOCAINE 1% INJ 10MG/ML (20 ML MDV) ONE (09:27)
[2019-03-27] MEDS ORDERED: fentaNYL (PF) 50 MCG/ML 2 ML AMP ONE (09:27)
[2019-03-27] MEDS ORDERED: SUCCINYLCHOLINE CHLORIDE 100 MG/5 ML SYR IV ONE (09:27)
[2019-03-27] MEDS ORDERED: MIDAZOLAM 2 MG/2 ML VIAL ONE (09:27)
[2019-03-27] MEDS ORDERED: PROPOFOL 10 MG/ML 20 ML VIAL IV ONE (09:27)
[2019-03-27] MEDS ORDERED: ceFAZolin 1,000 MG VIAL IVPB ONE (09:38)
--- NOTE | 2019-03-27 10:23 | P.OP ---
Date of Procedure: 03/27/19 Preoperative Diagnosis: Left knee internal derangement Postoperative Diagnosis: Left knee posterior medial meniscal tear/grade 3 chondral injury distal medial femoral condyle Procedure(s) Performed: Left knee arthroscopic partial medial meniscectomy/medial femoral chondrectomy/microfracture medial femoral condyle Anesthesia: CINDY Surgeon: Miguelito De La Rosa Estimated Blood Loss (ml): 10 Pathology: none sent Condition: stable Disposition: PACU Indications for Procedure: The patient is a 63-year-old female who presents with progressive left knee pain and mechanical symptoms despite conservative measures. A discussion of the risks and benefits of operative intervention versus continued conservative measures was made with the patient. She opted to proceed with surgery. Operative risks to include infection, neurovascular injury, development of blood clots, possible incomplete resolution of symptoms, possible worsening symptoms and need for subsequent procedures was discussed. Informed consent was obtained. Operative Findings: As below Description of Procedure: The patient was brought to the operating room, and after induction of general anesthesia examined the left knee. Collaterals were stable, Camilla was negative, and posterior drawer was negative. The left lower extremity was prepped and draped in a normal fashion. A superior lateral portal was made through a 3 mm skin incision superior and lateral to the patella. This was used for outflow. A lateral portal was made through a 5 mm vertical skin incision lateral to the patella tendon above the joint line. Diagnostic arthroscopy was performed. On inspection of the medial compartment, and oblique tear involving the posterior horn of the medial meniscus in the white-white junction was noted. This was debrided back to stable base with straight baskets and a motorized shaver. A corresponding grade 3 chondral injury was noted involving the distal medial femoral condyle. There was a loose chondral flap debrided back to stable base with a motorized shaver. Microfracture was performed on the medial femoral condyle breaching the subchondral surface with a chondral awl down to the bone marrow elements. On inspection of the notch, the anterior cruciate ligament appeared to be intact. On inspection of the lateral compartment no significant cartilage or meniscal pathology was noted. On inspection of the patellofemoral articulation there was grade 2 diffuse degenerative changes however no loose chondral fragments. The gutters were clear debris.. The gutters were clear debris. The knee was then thoroughly irrigated. The portals were closed with Steri-Strips. A sterile dressing was applied in addition to a compression stocking. The patient was awoken from general anesthesia and transferred to recovery room in good condition. Blood loss was estimated at 10 mL. No complications were incurred.
[2019-03-27 10:40] VITALS: TEMP 97.1
[2019-03-27 10:40] LABS: Glucose,Whole Blood 186 mg/dL (75-99)
[2019-03-27] MEDS: HYDROmorphone 0.5 MG/0.5 ML SYRINGE IVP PRN ×2 (10:40→10:55)
[2019-03-27 12:51] VITALS: BP 131/72; PULSE 79; RESP 20
== END 2019-03-27 12:57 | disposition home or self-care (01) ==
LOC: OR 07:18
PROVIDERS: ATTEND Orthopaedic Surgery
DX: S83.242A Other tear of medial meniscus, current injury, left knee, initial encounter (principal); S89.82XA Other specified injuries of left lower leg, initial encounter; M17.12 Unilateral primary osteoarthritis, left knee; E11.9 Type 2 diabetes mellitus without complications; I10 Essential (primary) hypertension; G47.33 Obstructive sleep apnea (adult) (pediatric); K76.0 Fatty (change of) liver, not elsewhere classified; K22.70 Barrett's esophagus without dysplasia; M85.80 Other specified disorders of bone density and structure, unspecified site; M50.30 Other cervical disc degeneration, unspecified cervical region; I71.4 Abdominal aortic aneurysm, without rupture; F41.9 Anxiety disorder, unspecified; F32.9 Major depressive disorder, single episode, unspecified; K21.9 Gastro-esophageal reflux disease without esophagitis; K57.92 Diverticulitis of intestine, part unspecified, without perforation or abscess without bleeding; Z91.09 Other allergy status, other than to drugs and biological substances; Z91.040 Latex allergy status; Z88.8 Allergy status to other drugs, medicaments and biological substances; Z88.6 Allergy status to analgesic agent; Z91.030 Bee allergy status; Z91.018 Allergy to other foods; Z79.899 Other long term (current) drug therapy; Z79.82 Long term (current) use of aspirin; Z79.84 Long term (current) use of oral hypoglycemic drugs; Z90.49 Acquired absence of other specified parts of digestive tract; Z98.84 Bariatric surgery status; Z90.5 Acquired absence of kidney; Z98.890 Other specified postprocedural states; Z98.1 Arthrodesis status; Z87.891 Personal history of nicotine dependence; Z97.2 Presence of dental prosthetic device (complete) (partial); Z82.49 Family history of ischemic heart disease and other diseases of the circulatory system; V18.4XXA Pedal cycle driver injured in noncollision transport accident in traffic accident, initial encounter; Y93.55 Activity, bike riding
CPT/HCPCS: 29881; 29879; J2250; J2405; J0690; J2001; J3010; J0330; J2704; J1170

== ENCOUNTER → 2019-10-02 | Outpatient (CLI) | payer BC ==
[2019-10-02 15:35] LABS: % Iron Saturation 20.72 (12.00-45.00)
[2019-10-02 15:43] LABS: Ferritin 81.8 ng/mL (10.0-291.0)
[2019-10-02 16:24] LABS: Hepatitis A Antibody IgM Non-Reactive (Non-Reactive); Hepatitis B Core IgM Non-Reactive (Non-Reactive); Hepatitis B Surface AB- Quant 63.2 mIU/mL; Hepatitis B Surface Antibody Reactive (Non-Reactive); Hepatitis B Surface Antigen Non-Reactive (Non-Reactive); Hepatitis C IgG Antibody Non-Reactive (Non-Reactive)
[2019-10-05 06:36] LABS: EBV - VCA IgM <10.0 U/mL (<36.0)
[2019-10-05 14:30] LABS: Smooth Muscle Antibody 31 UNITS (<20)
== END | disposition home or self-care (01) ==
LOC: LABWHC1 08:18
PROVIDERS: ATTEND Internal Medicine Gastroenterology
DX: R94.5 Abnormal results of liver function studies (principal)
CPT/HCPCS: 36415; 82728; 83516; 83540; 83550; 86038; 86645; 86665; 86705; 86706; 86709; 86803; 87340

== ENCOUNTER → 2019-10-14 | Outpatient (CLI) | payer BC ==
[2019-10-14 15:38] LABS: Bilirubin, Conjugated 0.2 mg/dL (0.20-0.40); Bilirubin,Unconjugated 0.1 mg/dL; Total Bilirubin 0.3 mg/dL (0.3-1.2)
== END | disposition home or self-care (01) ==
LOC: LABWHC1 08:12
PROVIDERS: ATTEND Internal Medicine Gastroenterology
DX: R19.8 Other specified symptoms and signs involving the digestive system and abdomen (principal)
CPT/HCPCS: 36415; 82248; 84075; 84450; 84460

== ENCOUNTER → 2019-11-03 | Outpatient (CLI) | payer BC | END | disposition home or self-care (01) | LOC: LABWHC1 09:06 | PROVIDERS: ATTEND Internal Medicine Gastroenterology | DX: R19.8 Other specified symptoms and signs involving the digestive system and abdomen (principal) | CPT/HCPCS: 36415; 82784 ==

== ENCOUNTER → 2019-12-18 | Outpatient (CLI) | payer BC ==
[2019-12-18 19:17] LABS: INR 0.95 (0.90-1.11); Prothrombin Time 10.2 sec (9.9-11.9)
== END | disposition home or self-care (01) ==
LOC: LABWHC1 10:51
PROVIDERS: ATTEND Internal Medicine Gastroenterology
DX: Z12.11 Encounter for screening for malignant neoplasm of colon (principal); K64.0 First degree hemorrhoids; K57.30 Diverticulosis of large intestine without perforation or abscess without bleeding
CPT/HCPCS: 36415; 84439; 84443; 84481; 85610

== ENCOUNTER → 2020-01-14 | Outpatient (CLI) | payer BC ==
[2020-01-14 18:52] LABS: ALT 78 U/L (8-44); AST 64 U/L (13-35); Albumin/Globulin Ratio 1.47 (1.60-3.17); Alkaline Phosphatase 98 U/L (41-126); Bilirubin, Conjugated <0.20 mg/dL (0.20-0.40); Globulin 3.2 g/dL (1.6-3.3); Total Bilirubin 0.4 mg/dL (0.2-1.2); Total Protein 7.9 g/dL (6.2-8.2)
[2020-01-15 00:13] LABS: INR 0.97 (0.90-1.11); Prothrombin Time 10.4 sec (9.9-11.9)
== END | disposition home or self-care (01) ==
LOC: LABWHC1 11:00
PROVIDERS: ATTEND Internal Medicine Gastroenterology
DX: K57.30 Diverticulosis of large intestine without perforation or abscess without bleeding (principal); K64.0 First degree hemorrhoids; Z12.11 Encounter for screening for malignant neoplasm of colon; Z91.040 Latex allergy status
CPT/HCPCS: 36415; 80076; 83516; 85610

== ENCOUNTER → 2020-02-08 | Outpatient (CLI) | payer BC ==
--- NOTE | 2020-02-08 13:09 | XR ---
EXAMINATION TYPE: XR bone survey limited DATE OF EXAM: 02/08/2020 COMPARISON: NONE HISTORY: Monoclonal gammopathy, D 47.2 Frontal view of the chest is unremarkable. Bony calvarium : 2 views of the bony calvarium demonstrate. No lytic lesion Spine: Two views of the cervical, thoracic and lumbar spines are submitted. No lytic lesion, postop changes are noted to the lower cervical spine status post anterior cervical fusion and discectomy C5- 6 with degenerative disc changes are noted in the lower cervical spine. Questionable calcification ov erlying the left kidney, surgical clips present in the right hemiabdomen, there is a slight spinal cu rvature, suspect postop changes at the gastroesophageal junction. Dense vascular calcifications are n oted incidentally. Degenerative disc changes are present in the lumbar spine additionally. PELVIS: Single view of the pelvis demonstrates. No lytic lesion, vascular calcifications are suspect ed, indeterminate calcification noted at the right femoral neck UPPER EXTREMITIES: Two frontal views of the proximal upper extremities. Unremarkable LOWER EXTREMITIES: 2 frontal views of the proximal lower extremities. Unremarkable IMPRESSION: No bone abnormality evident to suggest metastatic disease.
== END | disposition home or self-care (01) ==
LOC: RADXRMAIN 09:29
DX: D47.2 Monoclonal gammopathy (principal)
CPT/HCPCS: 77074

== ENCOUNTER 2020-06-07 13:34 | Emergency (ER) | payer BC ==
[2020-06-07 13:39] VITALS: BP 171/71; PULSE 67; RESP 16; TEMP 97.6
--- NOTE | 2020-06-07 13:57 | ED ---
General Adult HPI - General Chief complaint: Fall Stated complaint: Fall,R Knee Injury Time Seen by Provider: 06/07/20 13:50 Source: patient, RN notes reviewed, old records reviewed Mode of arrival: wheelchair Limitations: no limitations - History of Present Illness Initial comments: 64-year-old female presenting status post fall. Patient states she tripped on the ice twisting her right knee and falling onto her right shoulder. No head trauma, no loss consciousness. No anticoagulation. She had previous injury to the left knee requiring surgical repair. She states that this does feel similar and was associated with a twisting injury. No neck or back pain. No chest or abdominal pain. - Related Data Home Medications Medication Instructions Recorded Confirmed Aspirin EC [Ecotrin Low Dose] 81 mg PO DAILY 11/12/13 03/27/19 Cholecalciferol [Vitamin D3 (25 1,000 unit PO DAILY 11/12/13 03/27/19 Mcg = 1000 Iu)] Cyanocobalamin [Vitamin B-12] 500 mcg PO DAILY 11/12/13 03/27/19 Multivitamins, Thera [Multivitamin 1 tab PO DAILY 11/12/13 03/27/19 (formulary)] metFORMIN HCL [Glucophage] 500 mg PO BID 11/12/13 03/27/19 Biotin 10,000 mcg PO DAILY 10/12/16 03/27/19 Lisinopril-Hctz 10-12.5 mg 1 tab PO QAM 10/12/16 03/27/19 [Zestoretic 10-12.5] Rosuvastatin Calcium [Crestor] 5 mg PO HS 10/12/16 03/27/19 Sertraline HCl [Zoloft] 50 mg PO BID 10/12/16 03/27/19 Magnesium 200 mg PO DAILY 12/31/18 03/27/19 allopurinoL [Zyloprim] 100 mg PO BID 12/31/18 03/27/19 Cephalexin [Keflex] 500 mg PO Q8HR 03/24/19 03/27/19 Previous Rx's Medication Instructions Recorded Omeprazole 40 mg PO DAILY #90 capsule. 03/09/19 Hydrocodone/Acetaminophen [[place] 1 each PO Q6HR PRN #21 tab 03/27/19 5-325] Allergies Allergy/AdvReac Type Severity Reaction Status Date / Time banana Allergy BLISTERS Verified 06/07/20 13:36 IN MOUTH bee pollen Allergy Anaphylaxis Verified 06/07/20 13:36 kiwi Allergy BLISTERS Verified 06/07/20 13:36 IN MOUTH latex Allergy Anaphylaxis, Verified 06/07/20 13:36 Blisters metronidazole [From Flagyl] Allergy Rash/Hives Verified 06/07/20 13:36 ibuprofen AdvReac Unknown Upset Verified 06/07/20 13:36 Stomach Review of Systems ROS Statement: Those systems with pertinent positive or pertinent negative responses have been documented in the HPI. ROS Other: All systems not noted in ROS Statement are negative. Past Medical History Past Medical History: Diabetes Mellitus, GERD/Reflux, Hyperlipidemia, Hypertension Additional Past Medical History / Comment(s): Hx diverticulitis, Abdominal Aortic Aneurysm checked q6 months, told not visible 10/2018. Hx UTI's. ,Sleep apnea-states unable to use machine. , Lt knee pain., Gout, Flea bites on arms., Seen in ER 03/19/19- pneumonia, surgery rescheduled for 03/27/19- pt states she followed up with Dr. Young and will have repeat chest x-ray 03/24/19 and will finish her antibiotic on (03/26/19). History of Any Multi-Drug Resistant Organisms: None Reported Past Surgical History: Bariatric Surgery, Hysterectomy Additional Past Surgical History / Comment(s): lap band 2010 () , R kidney tumor removed, sheyla carpal tunnel, bone spurs removed from hip and neck, 05/14/14 lap band port replacement (Dr. Jenkins). Lap band removal in 07/08/2017 Past Anesthesia/Blood Transfusion Reactions: No Reported Reaction Additional Past Anesthesia/Blood Transfusion Reaction / Comment(s): no hx blood transfusion Past Psychological History: Anxiety, Depression Smoking Status: Never smoker Past Alcohol Use History: None Reported Past Drug Use History: None Reported - Past Family History Mother Family Medical History: Cancer Additional Family Medical History / Comment(s): Poss CA, at age 67 Father Family Medical History: CVA/TIA, Deep Vein Thrombosis (DVT) Additional Family Medical History / Comment(s): from [facility] at age 62 General Exam Limitations: no limitations General appearance: alert, in no apparent distress Head exam: Present: atraumatic, normocephalic Eye exam: Present: normal appearance, PERRL ENT exam: Present: normal exam Neck exam: Present: normal inspection. Absent: tenderness, meningismus Respiratory exam: Present: normal lung sounds bilaterally. Absent: respiratory distress Cardiovascular Exam: Present: regular rate, normal rhythm GI/Abdominal exam: Present: soft. Absent: distended, tenderness Extremities exam: Present: normal capillary refill, joint swelling (Right knee effusion, anterior ecchymosis.) Neurological exam: Present: alert, oriented X3, CN II-XII intact. Absent: motor sensory deficit Psychiatric exam: Present: normal affect, normal mood Skin exam: Present: warm, dry, intact. Absent: cyanosis, diaphoretic Course Vital Signs 06/07/20 13:36 Temperature 97.6 F Pulse Rate 67 Respiratory 16 Rate Blood Pressure 171/71 O2 Sat by Pulse 98 Oximetry Medical Decision Making - Medical Decision Making 64-year-old female with slip and fall. Right shoulder, right knee. X-rays obtained, negative for fracture dislocation. I do suspect a ligamentous injury in the right knee given the mechanism and effusion on exam. She is placed in a knee immobilizer and given orthopedic follow-up. She will ice, elevate the extremity. Disposition Clinical Impression: Fall, Knee sprain Disposition: HOME SELF-CARE Condition: Good Instructions (If sedation given, give patient instructions): Knee Sprain (ED), Knee Immobilizer (ED) Is patient prescribed a controlled substance at d/c from ED?: No Referrals: Yolanda Young MD [Primary Care Provider] - 1-2 days Time of Disposition: 14:27
--- NOTE | 2020-06-07 14:20 | XR ---
Right knee HISTORY: Trauma and pain 3 views the right knee Bone mineralization, joint spaces and alignment are maintained, possible bone island in the lateral f emoral condyle of the distal femur. There is no joint effusion. IMPRESSION: No fracture or dislocation.
--- NOTE | 2020-06-07 14:22 | XR ---
Right shoulder HISTORY: Trauma and pain 3 views of the right shoulder Postop changes are noted the lower cervical spine. Aorta shows a dense appearance. Thoracic spondylos is noted incidentally. Right lung apex as visualized is normal. Right shoulder shows normal alignment. There is a distal acromial spur. Probable pseudocysts present within the humeral head. Bone mineralization mildly reduced. Joint spaces unremarkable. IMPRESSION: No fracture or dislocation. Correlate for impingement right shoulder.
== END 2020-06-07 14:28 | disposition home or self-care (01) ==
LOC: EC 13:34
DX: S83.91XA Sprain of unspecified site of right knee, initial encounter (principal); E11.9 Type 2 diabetes mellitus without complications; I10 Essential (primary) hypertension; E78.5 Hyperlipidemia, unspecified; K21.9 Gastro-esophageal reflux disease without esophagitis; F41.9 Anxiety disorder, unspecified; F32.9 Major depressive disorder, single episode, unspecified; G47.30 Sleep apnea, unspecified; Z79.82 Long term (current) use of aspirin; Z79.84 Long term (current) use of oral hypoglycemic drugs; Z79.899 Other long term (current) drug therapy; Z91.018 Allergy to other foods; Z91.040 Latex allergy status; Z88.1 Allergy status to other antibiotic agents; Z88.6 Allergy status to analgesic agent; Z98.84 Bariatric surgery status; W01.0XXA Fall on same level from slipping, tripping and stumbling without subsequent striking against object, initial encounter
CPT/HCPCS: 99284

== ENCOUNTER → 2020-06-24 | Outpatient (CLI) | payer BC ==
--- NOTE | 2020-06-24 17:40 | MR ---
EXAMINATION TYPE: MR knee RT wo con DATE OF EXAM: 06/24/2020 COMPARISON: Outside radiograph 06/15/2020 HISTORY: 64-year-old female with right KNEE PAIN TECHNIQUE: Multiplanar, multisequence imaging of the right knee is performed without IV contrast. FINDINGS: The ACL and PCL are intact. Extensive edema of the MCL with some of the superficial fibers visualized intact. There is some mild increased signal at the femoral attachment of the LCL proper. Otherwise, axial com plex appears intact. Lateral meniscus appears intact. There is focal marrow edema along the posterior peripheral aspect of the lateral femoral condyle. No fracture line is identified. Bone bruise is suspected. Mild diffuse thinning of articular cartilage in the lateral compartment. The medial meniscus is intact. Mild diffuse thinning of medial compartment articular cartilage volume . Mild diffuse thinning of trochlear articular cartilage in the patellofemoral compartment. Extensor mechanism is intact. There is some edema within Hoffa's fat located inferior and lateral to the patella, axial image 15 and sagittal image 21. Small knee joint effusion. No Knutson's cyst. There is some increased signal within the semimembranosus tendon. Some adjacent soft tissue edema is present. Nonspecific anterior soft tissue swelling. Normal popliteal artery anatomy and muscle bulk. Benign bone island within the posterior lateral femoral condyle. No suspicious bone marrow replacemen t. IMPRESSION: 1. Grade 2 sprain (partial thickness tear) of the MCL. 2. Low-grade versus old sprain of the proximal LCL proper. 3. Focal bone bruise along the posterior peripheral aspect of the lateral femoral condyle. 4. Focal edema within Hoffa's fat inferior and lateral to the patella. This can be seen in the settin g of fat pad impingement syndrome. Clinically correlate. 5. Interstitial tear of the distal semimembranosus tendon near its tibial insertion. Some mild adjace nt reactive edema. 6. Small knee joint effusion.
== END | disposition home or self-care (01) ==
LOC: RADMRIMAIN 12:23
PROVIDERS: ATTEND Orthopaedic Surgery
DX: S83.411A Sprain of medial collateral ligament of right knee, initial encounter (principal); S80.01XA Contusion of right knee, initial encounter; R60.0 Localized edema; M25.461 Effusion, right knee

== ENCOUNTER 2020-10-19 17:12 | Emergency (ER) | payer BC ==
[2020-10-19 17:27] VITALS: BP 148/71; PULSE 72; RESP 18; TEMP 97.4
[2020-10-19] MEDS ORDERED: MORPHINE SULFATE 4 MG/ML SYRINGE IVP STA (18:28)
[2020-10-19] MEDS ORDERED: MORPHINE SULFATE 4 MG/ML SYRINGE IM STA (18:33)
--- NOTE | 2020-10-19 18:34 | ED ---
Fall HPI - General Chief Complaint: Fall Stated Complaint: fall/shoulder injury/sob Time Seen by Provider: 10/19/20 18:16 Source: patient, RN notes reviewed Mode of arrival: ambulatory - History of Present Illness Initial Comments: Patient is a 64-year-old female that presents to the emergency point complaining of left-sided chest and left upper arm pain. She notes that she was [place] in [place] on the beach when she slipped fell landed on her left chest/breast/rib cage. She notes that her arm feels more bruise anything. She notes that she thought she is bruised her breast and she fell but on deep inspiration she is having some pain in the left side rib cage. She noted that her pain was a 10 out of 10 while sitting in bed during exam and interview. She denied any worse breath headache nausea vomiting diarrhea constipation fever fatigue chills - Related Data Home Medications Medication Instructions Recorded Confirmed Aspirin EC [Ecotrin Low Dose] 81 mg PO DAILY 11/12/13 03/27/19 Cholecalciferol [Vitamin D3 (25 1,000 unit PO DAILY 11/12/13 03/27/19 Mcg = 1000 Iu)] Cyanocobalamin [Vitamin B-12] 500 mcg PO DAILY 11/12/13 03/27/19 Multivitamins, Thera [Multivitamin 1 tab PO DAILY 11/12/13 03/27/19 (formulary)] metFORMIN HCL [Glucophage] 500 mg PO BID 11/12/13 03/27/19 Biotin 10,000 mcg PO DAILY 10/12/16 03/27/19 Lisinopril-Hctz 10-12.5 mg 1 tab PO QAM 10/12/16 03/27/19 [Zestoretic 10-12.5] Rosuvastatin Calcium [Crestor] 5 mg PO HS 10/12/16 03/27/19 Sertraline HCl [Zoloft] 50 mg PO BID 10/12/16 03/27/19 Magnesium 200 mg PO DAILY 12/31/18 03/27/19 allopurinoL [Zyloprim] 100 mg PO BID 12/31/18 03/27/19 cephALEXin [Keflex] 500 mg PO Q8HR 03/24/19 03/27/19 Previous Rx's Medication Instructions Recorded Omeprazole 40 mg PO DAILY #90 capsule. 03/09/19 Hydrocodone/Acetaminophen [[place] 1 each PO Q6HR PRN #21 tab 03/27/19 5-325] Allergies Allergy/AdvReac Type Severity Reaction Status Date / Time banana Allergy BLISTERS Verified 10/19/20 17:27 IN MOUTH bee pollen Allergy Anaphylaxis Verified 10/19/20 17:27 kiwi Allergy BLISTERS Verified 10/19/20 17:27 IN MOUTH latex Allergy Anaphylaxis, Verified 10/19/20 17:27 Blisters metronidazole [From Flagyl] Allergy Rash/Hives Verified 10/19/20 17:27 ibuprofen AdvReac Unknown Upset Verified 10/19/20 17:27 Stomach Review of Systems ROS Statement: Those systems with pertinent positive or pertinent negative responses have been documented in the HPI. ROS Other: All systems not noted in ROS Statement are negative. Past Medical History Past Medical History: Cancer, Diabetes Mellitus, GERD/Reflux, Hyperlipidemia, Hypertension Additional Past Medical History / Comment(s): Hx diverticulitis, Abdominal Aortic Aneurysm checked q6 months, told not visible 10/2018. Hx UTI's. ,Sleep apnea-states unable to use machine. , Lt knee pain., Gout, eshogeal cancer History of Any Multi-Drug Resistant Organisms: None Reported Past Surgical History: Bariatric Surgery, Hysterectomy Additional Past Surgical History / Comment(s): lap band 2010 () , R kidney tumor removed, sheyla carpal tunnel, bone spurs removed from hip and neck, 05/14/14 lap band port replacement (Dr. Jenkins). Lap band removal in 07/08/2017 Past Anesthesia/Blood Transfusion Reactions: No Reported Reaction Additional Past Anesthesia/Blood Transfusion Reaction / Comment(s): no hx blood transfusion Past Psychological History: Anxiety, Depression Smoking Status: Never smoker Past Alcohol Use History: None Reported Past Drug Use History: None Reported - Past Family History Mother Family Medical History: Cancer Additional Family Medical History / Comment(s): Poss CA, at age 67 Father Family Medical History: CVA/TIA, Deep Vein Thrombosis (DVT) Additional Family Medical History / Comment(s): from [facility] at age 62 General Exam Limitations: no limitations, physical limitation General appearance: alert, in no apparent distress, obese Head exam: Present: atraumatic, normocephalic, normal inspection Eye exam: Present: normal appearance, PERRL, EOMI. Absent: scleral icterus, conjunctival injection, periorbital swelling Neck exam: Present: normal inspection Respiratory exam: Present: normal lung sounds bilaterally. Absent: respiratory distress, wheezes, rales, rhonchi, stridor Cardiovascular Exam: Present: regular rate, normal rhythm, normal heart sounds. Absent: systolic murmur, diastolic murmur, rubs, gallop, clicks GI/Abdominal exam: Present: soft, normal bowel sounds. Absent: distended, tenderness, guarding, rebound, rigid Extremities exam: Present: normal inspection, full ROM, normal capillary refill. Absent: tenderness, pedal edema, joint swelling, calf tenderness Neurological exam: Present: alert, oriented X3, CN II-XII intact Psychiatric exam: Present: normal affect, normal mood Skin exam: Present: warm, dry, intact, normal color. Absent: rash Course Vital Signs 10/19/20 17:24 Temperature 97.4 F L Pulse Rate 72 Respiratory 18 Rate Blood Pressure 148/71 O2 Sat by Pulse 96 Oximetry Medical Decision Making - Medical Decision Making 64-year-old female 2 days status post fall complaining of left-sided chest/rib cage and left arm pain. X-rays of the chest and humerus ordered. 4 mg morphine ordered for pain. Imaging negative for any acute fractures or dislocations. Case discussed with Dr. Szymanski, patient can discharge home. - Radiology Data Radiology results: report reviewed, image reviewed Left humerus x-ray: Negative left humerus exam. Line chest x-ray: There is some mild atelectasis in the lingula left upper lobe that is new compared to old exam normal heart. No pneumothorax. Disposition Clinical Impression: Contusion of rib on left side, Contusion of left upper arm Disposition: HOME SELF-CARE Condition: Stable Instructions (If sedation given, give patient instructions): Fall Prevention for Older Adults (ED) Additional Instructions: Please return to the Emergency Department if symptoms worsen or any other concerns. Follow-up with primary care in 3-5 days. Can take [id number] pain medication for symptom control. Continue take deep breaths Is patient prescribed a controlled substance at d/c from ED?: No Referrals: Yolanda Young MD [Primary Care Provider] - 1-2 days Time of Disposition: 19:22
--- NOTE | 2020-10-19 19:01 | XR ---
EXAMINATION TYPE: XR chest 2V DATE OF EXAM: 10/19/2020 COMPARISON: 03/24/2019 HISTORY: Pain. Fall. TECHNIQUE: 2 views FINDINGS: There is some linear density in the lingula left upper lobe. Heart size is normal. There is no heart failure. There are no hilar masses. There is cervical spine fusion surgery. Thoracic spine is intact. IMPRESSION: There is some mild atelectasis in the lingula left upper lobe that is new compared to old exam. Normal heart. No pneumothorax.
--- NOTE | 2020-10-19 19:02 | XR ---
EXAMINATION TYPE: XR humerus LT DATE OF EXAM: 10/19/2020 COMPARISON: NONE HISTORY: Fall. Pain. TECHNIQUE: 3 views FINDINGS: Elbow joint and shoulder joint appear intact. I see no fracture nor dislocation. IMPRESSION: Negative left humerus exam.
== END 2020-10-19 19:35 | disposition home or self-care (01) ==
LOC: EC 17:12
DX: S20.212A Contusion of left front wall of thorax, initial encounter (principal); S40.022A Contusion of left upper arm, initial encounter; E11.9 Type 2 diabetes mellitus without complications; E78.5 Hyperlipidemia, unspecified; F32.9 Major depressive disorder, single episode, unspecified; G47.30 Sleep apnea, unspecified; I10 Essential (primary) hypertension; F41.9 Anxiety disorder, unspecified; K21.9 Gastro-esophageal reflux disease without esophagitis; Z79.82 Long term (current) use of aspirin; Z79.84 Long term (current) use of oral hypoglycemic drugs; Z98.84 Bariatric surgery status; Z90.710 Acquired absence of both cervix and uterus; W01.0XXA Fall on same level from slipping, tripping and stumbling without subsequent striking against object, initial encounter; Y93.01 Activity, walking, marching and hiking; Y92.832 Beach as the place of occurrence of the external cause
CPT/HCPCS: 73060; 71046; 99284; 96372; J2270

== ENCOUNTER → 2020-11-01 | Outpatient (CLI) | payer BC ==
--- NOTE | 2020-11-01 11:53 | XR ---
Left RIBS HISTORY: Pain, trauma October 19 5 views of left ribs, comparison chest x-ray 10/19/2020 There are minimally displaced left 5th and 6th rib fractures. Bone mineralization is maintained. Left lung as visualized shows a stable bandlike area of increased attenuation towards the lingula. Bone s can could be performed for additional evaluation versus CT for further evaluation. Impression: Left-sided rib fractures additional findings above
== END | disposition home or self-care (01) ==
LOC: RADXRMAIN 11:10
PROVIDERS: ATTEND Family Medicine
DX: S22.42XA Multiple fractures of ribs, left side, initial encounter for closed fracture (principal)

== ENCOUNTER 2021-03-23 11:20 | Emergency (ER) | payer MEDICARE ==
[2021-03-23] MEDS ORDERED: SODIUM CHLORIDE 0.9% 1,000 ML IV STA (12:19)
[2021-03-23] MEDS ORDERED: MORPHINE SULFATE 4 MG/ML SYRINGE IVP STA (12:19)
[2021-03-23] MEDS ORDERED: ONDANSETRON 4 MG/2 ML VIAL IVP STA (12:19)
--- NOTE | 2021-03-23 12:38 | ED ---
General Adult HPI - General Chief complaint: Abdominal Pain Stated complaint: abd pain Time Seen by Provider: 03/23/21 11:56 Source: patient Mode of arrival: ambulatory Limitations: no limitations - History of Present Illness Initial comments: 65-year-old female with a past medical history of diverticulitis, abdominal aortic aneurysm esophageal cancer, gout, diabetes mellitus, hyperlipidemia, hypertension presents to the emergency room for a chief complaint of abdominal pain. Patient has had abdominal pain for the past several days, she predicts 8 days. States it is in the mid abdomen. Patient states it feels like diverticulitis which she has had in the past. She denies fevers or chills. Denies nausea vomiting but does admit to diarrhea.Patient has no other complaints at this time including shortness of breath, chest pain, nausea or vomiting, headache, or visual changes. - Related Data Home Medications Medication Instructions Recorded Confirmed Aspirin EC [Ecotrin Low Dose] 81 mg PO DAILY 11/12/13 03/27/19 Cholecalciferol [Vitamin D3 (25 1,000 unit PO DAILY 11/12/13 03/27/19 Mcg = 1000 Iu)] Cyanocobalamin [Vitamin B-12] 500 mcg PO DAILY 11/12/13 03/27/19 Multivitamins, Thera [Multivitamin 1 tab PO DAILY 11/12/13 03/27/19 (formulary)] metFORMIN HCL [Glucophage] 500 mg PO BID 11/12/13 03/27/19 Biotin 10,000 mcg PO DAILY 10/12/16 03/27/19 Lisinopril-Hctz 10-12.5 mg 1 tab PO QAM 10/12/16 03/27/19 [Zestoretic 10-12.5] Rosuvastatin Calcium [Crestor] 5 mg PO HS 10/12/16 03/27/19 Sertraline HCl [Zoloft] 50 mg PO BID 10/12/16 03/27/19 Magnesium 200 mg PO DAILY 12/31/18 03/27/19 allopurinoL [Zyloprim] 100 mg PO BID 12/31/18 03/27/19 cephALEXin [Keflex] 500 mg PO Q8HR 03/24/19 03/27/19 Previous Rx's Medication Instructions Recorded Omeprazole 40 mg PO DAILY #90 capsule. 03/09/19 Hydrocodone/Acetaminophen [[place] 1 each PO Q6HR PRN #21 tab 03/27/19 5-325] Dicyclomine [Bentyl] 10 mg PO TID PRN #20 cap 03/23/21 Allergies Allergy/AdvReac Type Severity Reaction Status Date / Time banana Allergy BLISTERS Verified 03/23/21 11:53 IN MOUTH bee pollen Allergy Anaphylaxis Verified 03/23/21 11:53 kiwi Allergy BLISTERS Verified 03/23/21 11:53 IN MOUTH latex Allergy Anaphylaxis, Verified 03/23/21 11:53 Blisters metronidazole [From Flagyl] Allergy Rash/Hives Verified 03/23/21 11:53 ibuprofen AdvReac Unknown Upset Verified 03/23/21 11:53 Stomach Review of Systems ROS Statement: Those systems with pertinent positive or pertinent negative responses have been documented in the HPI. ROS Other: All systems not noted in ROS Statement are negative. Past Medical History Past Medical History: Cancer, Diabetes Mellitus, GERD/Reflux, Hyperlipidemia, Hypertension Additional Past Medical History / Comment(s): Hx diverticulitis, Abdominal Aortic Aneurysm checked q6 months, told not visible 10/2018. Hx UTI's. ,Sleep apnea-states unable to use machine. , Lt knee pain., Gout, eshogeal cancer History of Any Multi-Drug Resistant Organisms: None Reported Past Surgical History: Bariatric Surgery, Hysterectomy Additional Past Surgical History / Comment(s): lap band 2010 () , R kidney tumor removed, sheyla carpal tunnel, bone spurs removed from hip and neck, 05/14/14 lap band port replacement (Dr. Jenkins). Lap band removal in 2017 Past Anesthesia/Blood Transfusion Reactions: No Reported Reaction Additional Past Anesthesia/Blood Transfusion Reaction / Comment(s): no hx blood transfusion Past Psychological History: Anxiety, Depression Smoking Status: Never smoker Past Alcohol Use History: None Reported Past Drug Use History: None Reported - Past Family History Mother Family Medical History: Cancer Additional Family Medical History / Comment(s): Poss CA, at age 67 Father Family Medical History: CVA/TIA, Deep Vein Thrombosis (DVT) Additional Family Medical History / Comment(s): from [place] at age 62 General Exam Limitations: no limitations General appearance: alert, in no apparent distress Head exam: Present: atraumatic Eye exam: Present: normal appearance, PERRL, EOMI. Absent: scleral icterus, conjunctival injection ENT exam: Present: normal exam, mucous membranes moist Neck exam: Present: normal inspection, full ROM. Absent: tenderness Respiratory exam: Present: normal lung sounds bilaterally. Absent: respiratory distress, wheezes Cardiovascular Exam: Present: regular rate, normal rhythm, normal heart sounds GI/Abdominal exam: Present: soft, normal bowel sounds. Absent: distended, tenderness Neurological exam: Present: alert Course Vital Signs 03/23/21 11:48 Temperature 97.7 F Pulse Rate 65 Respiratory 18 Rate Blood Pressure 116/63 O2 Sat by Pulse 95 Oximetry Medical Decision Making - Medical Decision Making Vitals are stable. Patient is well-appearing. CBC unremarkable. CMP does show some mild evidence of dehydration, patient was given fluids. Urinalysis unremarkable. CT abdomen and pelvis shows diverticulosis without evidence of diverticulitis. At this time patient can follow up outpatient with her surgeon or primary care. We will try Bentyl for pain. She will return here for any wor sening symptoms. - Lab Data Result diagrams: 03/23/21 12:34 03/23/21 12:34 Lab Results 03/23/21 03/23/21 03/23/21 Range/Units 12:34 12:34 12:34 WBC 5.1 (3.8-10.6) k/uL RBC 4.79 (3.80-5.40) m/uL Hgb 14.0 (11.4-16.0) gm/dL Hct 43.3 (34.0-46.0) % MCV 90.3 (80.0-100.0) fL MCH 29.3 (25.0-35.0) pg MCHC 32.5 (31.0-37.0) g/dL RDW 14.2 (11.5-15.5) % Plt Count 169 (150-450) k/uL MPV 8.3 Neutrophils % 51 % Lymphocytes % 40 % Monocytes % 5 % Eosinophils % 1 % Basophils % 1 % Neutrophils # 2.6 (1.3-7.7) k/uL Lymphocytes # 2.0 (1.0-4.8) k/uL Monocytes # 0.2 (0-1.0) k/uL Eosinophils # 0.1 (0-0.7) k/uL Basophils # 0.1 (0-0.2) k/uL Sodium 137 (137-145) mmol/L Potassium 5.3 H (3.5-5.1) mmol/L Chloride 100 (98-107) mmol/L Carbon Dioxide 27 (22-30) mmol/L Anion Gap 10 mmol/L BUN 29 H (7-17) mg/dL Creatinine 1.06 H (0.52-1.04) mg/dL Est GFR (CKD-EPI)AfAm 64 (>60 ml/min/1.73 sqM) Est GFR (CKD-EPI)NonAf 55 (>60 ml/min/1.73 sqM) Glucose 173 H (74-99) mg/dL Plasma Lactic Acid Ej 1.3 (0.7-2.0) mmol/L Calcium 10.1 (8.4-10.2) mg/dL Total Bilirubin 0.5 (0.2-1.3) mg/dL AST 67 H (14-36) U/L ALT 45 H (4-34) U/L Alkaline Phosphatase 84 (38-126) U/L Total Protein 8.5 H (6.3-8.2) g/dL Albumin 4.4 (3.5-5.0) g/dL Amylase 67 (30-110) U/L Lipase 96 (23-300) U/L Urine Color Urine Appearance (Clear) Urine pH (5.0-8.0) Ur Specific [place] (1.001-1.035) Urine Protein (Negative) Urine Glucose (UA) (Negative) Urine Ketones (Negative) Urine Blood (Negative) Urine Nitrite (Negative) Urine Bilirubin (Negative) Urine Urobilinogen (<2.0) mg/dL Ur Leukocyte Esterase (Negative) Urine RBC (0-5) /hpf Urine WBC (0-5) /hpf Ur Squamous Epith Cells (0-4) /hpf Hyaline Casts (0-2) /lpf Urine Mucus (None) /hpf 03/23/21 Range/Units 13:01 WBC (3.8-10.6) k/uL RBC (3.80-5.40) m/uL Hgb (11.4-16.0) gm/dL Hct (34.0-46.0) % MCV (80.0-100.0) fL MCH (25.0-35.0) pg MCHC (31.0-37.0) g/dL RDW (11.5-15.5) % Plt Count (150-450) k/uL MPV Neutrophils % % Lymphocytes % % Monocytes % % Eosinophils % % Basophils % % Neutrophils # (1.3-7.7) k/uL Lymphocytes # (1.0-4.8) k/uL Monocytes # (0-1.0) k/uL Eosinophils # (0-0.7) k/uL Basophils # (0-0.2) k/uL Sodium (137-145) mmol/L Potassium (3.5-5.1) mmol/L Chloride (98-107) mmol/L Carbon Dioxide (22-30) mmol/L Anion Gap mmol/L BUN (7-17) mg/dL Creatinine (0.52-1.04) mg/dL Est GFR (CKD-EPI)AfAm (>60 ml/min/1.73 sqM) Est GFR (CKD-EPI)NonAf (>60 ml/min/1.73 sqM) Glucose (74-99) mg/dL Plasma Lactic Acid Ej (0.7-2.0) mmol/L Calcium (8.4-10.2) mg/dL Total Bilirubin (0.2-1.3) mg/dL AST (14-36) U/L ALT (4-34) U/L Alkaline Phosphatase (38-126) U/L Total Protein (6.3-8.2) g/dL Albumin (3.5-5.0) g/dL Amylase (30-110) U/L Lipase (23-300) U/L Urine Color Yellow Urine Appearance Cloudy H (Clear) Urine pH 5.5 (5.0-8.0) Ur Specific [place] 1.018 (1.001-1.035) Urine Protein Negative (Negative) Urine Glucose (UA) Negative (Negative) Urine Ketones Negative (Negative) Urine Blood Negative (Negative) Urine Nitrite Negative (Negative) Urine Bilirubin Negative (Negative) Urine Urobilinogen <2.0 (<2.0) mg/dL Ur Leukocyte Esterase Negative (Negative) Urine RBC 1 (0-5) /hpf Urine WBC 1 (0-5) /hpf Ur Squamous Epith Cells 10 H (0-4) /hpf Hyaline Casts 4 H (0-2) /lpf Urine Mucus Rare H (None) /hpf Disposition Clinical Impression: Abdominal pain Disposition: HOME SELF-CARE Condition: Good Instructions (If sedation given, give patient instructions): Abdominal Pain (ED) Additional Instructions: Please take bentyl as needed for pain and continue to take your antacid. Follow up with your surgeon or primary care in 1-2 days. Return to the ER for any worsening symptoms. Prescriptions: Dicyclomine [Bentyl] 10 mg PO TID PRN #20 cap PRN Reason: abdominal pain Is patient prescribed a controlled substance at d/c from ED?: No Referrals: Yolanda Young MD [Primary Care Provider] - 1-2 days Bernie Sandoval MD [REFERRING] - 1-2 days Time of Disposition: 15:05
[2021-03-23 12:43] LABS: Basophils # (A) 0.1 k/uL (0-0.2); Basophils % (A) 1 %; Eosinophils # (A) 0.1 k/uL (0-0.7); Eosinophils % (A) 1 %; HCT 43.3 % (34.0-46.0); Lymphocytes % (A) 40 %; MCH 29.3 pg (25.0-35.0); MCHC 32.5 g/dL (31.0-37.0); MCV 90.3 fL (80.0-100.0); Mean Platelet Volume 8.3; Monocytes # (A) 0.2 k/uL (0-1.0); Monocytes % (A) 5 %; Neutrophils # (A) 2.6 k/uL (1.3-7.7); Neutrophils % (A) 51 %; Platelet Count 169 k/uL (150-450); RBC 4.79 m/uL (3.80-5.40); RDW 14.2 % (11.5-15.5); WBC 5.1 k/uL (3.8-10.6)
[2021-03-23 13:07] LABS: Albumin 4.4 g/dL (3.5-5.0); Calcium 10.1 mg/dL (8.4-10.2); Potassium 5.3 mmol/L (3.5-5.1); Total Bilirubin 0.5 mg/dL (0.2-1.3); Total Protein 8.5 g/dL (6.3-8.2)
[2021-03-23 13:58] LABS: Appearance,Urine Cloudy (Clear); Bilirubin,Urine Negative (Negative); Blood,Urine Negative (Negative); Color,Urine Yellow; Glucose,Urine (UA) Negative (Negative); Hyaline Casts,Urine 4 /lpf (0-2); Ketones,Urine Negative (Negative); Leukocyte Esterase,Urine Negative (Negative); Mucus,Urine Rare /hpf; Nitrite,Urine Negative (Negative); PH, Urine 5.5 (5.0-8.0); Protein,Urine Negative (Negative); RBC,Urine 1 /hpf (0-5); Specific Gravity,Urine 1.018 (1.001-1.035); Squamous Epithelial Cell,Urine 10 /hpf (0-4); Urobilinogen,Urine <2.0 mg/dL (<2.0); WBC,Urine 1 /hpf (0-5)
--- NOTE | 2021-03-23 14:17 | CT ---
EXAMINATION TYPE: CT abdomen pelvis w con DATE OF EXAM: 03/23/2021 COMPARISON: 05/09/2017 INDICATION: Generalized pain DLP: 1043.7 mGycm, Automated exposure control for dose reduction was used. CONTRAST: 80 mL of Isovue 300. Study performed without Oral Contrast TECHNIQUE: Axial images were obtained from above the diaphragm to the pubic rami in the axial plane a t 5 mm thick sections. Reconstructed images are reviewed on the computer in the coronal plane. FINDINGS: Limited CT sections are obtained the lung bases. The lung bases are clear. CT ABDOMEN: Liver: Normal Spleen: Normal Pancreas: Normal Adrenal glands: The adrenal glands are normal. Gallbladder: Surgically absent Kidneys: Right kidney is smaller than the left. No masses are evident. No hydronephrosis is present. No cysts are present. Delayed images were obtained through the kidneys, which remain unremarkable. Aorta: Vascular calcification is within the aorta. Inferior vena cava: Normal. CT PELVIS: Loops of bowel within the abdomen and pelvis are normal. Scattered diverticuli are within the sigmoid colon. There are loops of bowel which are incompletely distended or lack oral contrast limiting t heir evaluation. Appendix: Not identified. No dilated tubular structure or inflammatory changes are evident. Urinary bladder: Normal. Genitourinary structures: Uterus and ovaries are not identified. Osseous structures: No suspicious lytic or sclerotic lesions. IMPRESSIONS: 1. Diverticulosis without evidence of acute diverticulitis.
[2021-03-23 15:44] VITALS: BP 114/53; PULSE 71; RESP 20; TEMP 98
== END 2021-03-23 15:43 | disposition home or self-care (01) ==
LOC: EC 11:20
DX: R10.9 Unspecified abdominal pain (principal); I10 Essential (primary) hypertension; E11.9 Type 2 diabetes mellitus without complications; E78.5 Hyperlipidemia, unspecified; F41.9 Anxiety disorder, unspecified; F32.9 Major depressive disorder, single episode, unspecified; Z79.82 Long term (current) use of aspirin; Z79.84 Long term (current) use of oral hypoglycemic drugs; Z91.040 Latex allergy status; Z88.1 Allergy status to other antibiotic agents; Z85.01 Personal history of malignant neoplasm of esophagus; Z90.710 Acquired absence of both cervix and uterus; Z98.84 Bariatric surgery status
CPT/HCPCS: 99284; 96374; 96375; 96361 ×3; 36415; 80053; 82150; 83605; 83690; 85025; 81001; 74177; J2270; J2405; Q9967

== ENCOUNTER → 2021-12-29 | Outpatient (CLI) | payer MEDICARE, BC ==
[2021-12-29 18:12] LABS: Chol/HDL Ratio 3.88 Ratio; LDL Cholesterol,Calculated 129.4 mg/dL (0.0-131.0); VLDL Calculation 19.02 mg/dL (5.00-40.00)
[2021-12-30 01:34] LABS: Microalbumin Creatinine Ratio <30 mg/g Creat (0-30)
== END | disposition home or self-care (01) ==
LOC: LABWHC1 10:35
PROVIDERS: ATTEND Internal Medicine Endocrinology, Diabetes & Metabolism
DX: E11.8 Type 2 diabetes mellitus with unspecified complications (principal)
CPT/HCPCS: 36415; 80061; 82043; 82306; 82570

== ENCOUNTER → 2022-07-31 | Outpatient (CLI) | payer MEDICARE | END | disposition home or self-care (01) | LOC: LABPAT 09:03 | PROVIDERS: ATTEND Surgery | DX: Z53.9 Procedure and treatment not carried out, unspecified reason (principal) ==

== ENCOUNTER 2022-08-08 09:03 | Inpatient (IN) | payer MEDICARE ==
[2022-07-31 12:03] LABS: Basophils % (A) 1 %; Eosinophils % (A) 1 %; HCT 42.3 % (34.0-46.0); HGB 13.4 gm/dL (11.4-16.0); Lymphocytes # (A) 1.7 k/uL (1.0-4.8); Lymphocytes % (A) 50 %; MCH 28.7 pg (25.0-35.0); MCHC 31.7 g/dL (31.0-37.0); MCV 90.6 fL (80.0-100.0); Mean Platelet Volume 7.8; Monocytes # (A) 0.3 k/uL (0-1.0); Monocytes % (A) 7 %; Neutrophils # (A) 1.3 k/uL (1.3-7.7); Neutrophils % (A) 39 %; Platelet Count 230 k/uL (150-450); RBC 4.67 m/uL (3.80-5.40); RDW 13.9 % (11.5-15.5); WBC 3.4 k/uL (3.8-10.6)
[2022-07-31 12:18] LABS: Potassium 4.5 mmol/L (3.5-5.1)
[~2022-08-08 09:03] MED LIST changes: +ACETAMINOPHEN TAB 500 MG TAB PO PRN; -DEXAMETHASONE SOD PHOSPHATE 10 MG/ML 1 ML VIAL IV ONE; +DEXAMETHASONE SOD PHOSPHATE 4 MG/ML 1 ML VIAL IV ONE; +HYDROmorphone 0.5 MG/0.5 ML SYRINGE IVP PRN; -LACTATED RINGERS 1,000 ML IV SCH; -LIDOCAINE 1% 20 ML VIAL (10MG/ML) FOR IV START INTRADERMA PRN; +MIDAZOLAM 2 MG/2 ML VIAL IV PRN; -ONDANSETRON 4 MG/2 ML VIAL IVP PRN; +metroNIDAZOLE-NS PMX 500 MG in SALINE 1 100ML.BAG IVPB PRN
[2022-08-08] MEDS ORDERED: LACTATED RINGERS 1,000 ML IV ONE ×6 (09:40→14:32)
[2022-08-08 10:00] LABS: Glucose,Whole Blood 107 mg/dL (70-110)
[2022-08-08] MEDS: HEPARIN SODIUM,PORCINE/PF 5,000 UNIT/0.5 ML SYRINGE SQ PRN ×2 (10:05→10:48)
[2022-08-08] MEDS ORDERED: fentaNYL (PF) 50 MCG/1 ML VIAL IVP ONE ×2 (10:25→10:26)
[2022-08-08] MEDS ORDERED: MIDAZOLAM 2 MG/2 ML VIAL IVP ONE ×2 (10:25→10:26)
[2022-08-08] MEDS ORDERED: ALVIMOPAN 12 MG CAPSULE PO ONE (10:48)
--- NOTE | 2022-08-08 10:57 | P.GSHP ---
History of Present Illness H&P Date: 08/08/22 Chief Complaint: Diverticulitis This a 66-year-old female with history of chronic diverticulitis. Patient presents today for low anterior resection. Past Medical History Past Medical History: Cancer, Diabetes Mellitus, GERD/Reflux, Hyperlipidemia, Hypertension Additional Past Medical History / Comment(s): Hx diverticulitis., AAA- states not visible now., UTI's., mild sleep apnea-no machine., Gout., barretts esophagus (egd 2018)., herniated discs with neck and back pain., uterine cancer with partial hysterectomy., recent vertigo-improved with antibiotic. History of Any Multi-Drug Resistant Organisms: None Reported Past Surgical History: Bariatric Surgery, Heart Catheterization, Hysterectomy Additional Past Surgical History / Comment(s): lap band 2009 () , R kidney tumor removed, sheyla carpal tunnel, bone spurs removed from hip and neck, 05/14/14 lap band port replacement (Dr. Jenkins). Lap band removal in 8., egd & colonoscopy (07/16/22)., Heart cath (2006) Past Anesthesia/Blood Transfusion Reactions: No Reported Reaction Additional Past Anesthesia/Blood Transfusion Reaction / Comment(s): no hx blood transfusion Past Psychological History: Anxiety Additional Psychological History / Comment(s): mood swings Smoking Status: Former smoker Past Alcohol Use History: None Reported Additional Past Alcohol Use History / Comment(s): quit smoking ,smoked approx 25 yrs , 1 1/2 ppd Past Drug Use History: None Reported - Past Family History Mother Family Medical History: Cancer Additional Family Medical History / Comment(s): Poss CA, at age 67 Father Family Medical History: CVA/TIA, Deep Vein Thrombosis (DVT) Additional Family Medical History / Comment(s): from aneurysm at age 62 Medications and Allergies Home Medications Medication Instructions Recorded Confirmed Type Aspirin EC [Ecotrin Low Dose] 81 mg PO DAILY 11/12/13 08/08/22 History Cholecalciferol [Vitamin D3 (25 50 mcg PO DAILY 11/12/13 08/08/22 History Mcg = 1000 Iu)] Lisinopril-Hctz 10-12.5 mg 1 tab PO DAILY 10/12/16 08/08/22 History [Zestoretic 10-12.5] Sertraline HCl [Zoloft] 50 mg PO BID 10/12/16 08/08/22 History ALPRAZolam [Xanax] 0.25 mg PO DAILY PRN 07/14/22 08/08/22 History Ezetimibe [Zetia] 10 mg PO DAILY 07/14/22 08/08/22 History Pioglitazone [Actos] 30 mg PO DAILY 07/14/22 08/08/22 History Semaglutide [Ozempic] 1 mg SQ WEEKLY 07/14/22 08/08/22 History Meclizine [Antivert] 25 mg PO TID PRN #90 tab 07/18/22 08/08/22 Rx Amoxic-Pot Clav 875-125Mg 1 tab PO Q12HR 10 Days #20 tab 07/19/22 08/08/22 Rx [Augmentin 875-125] Ascorbic Acid [Vitamin C] 500 mg PO DAILY 08/02/22 08/08/22 History Biotin [Czar-Hszw-Ujdvx] 10,000 mcg PO DAILY 08/02/22 08/08/22 History Famotidine [Pepcid] 20 mg PO BID 08/02/22 08/08/22 History HYDROcodone/APAP 5-325MG [[place] 1 each PO DIRECTED PRN 08/02/22 08/08/22 History 5-325] Levofloxacin [Levaquin] 500 mg PO DAILY 08/02/22 08/08/22 History Multivitamins, Thera [Multivitamin 1 tab PO DAILY 08/02/22 08/08/22 History (formulary)] Allergies Allergy/AdvReac Type Severity Reaction Status Date / Time banana Allergy BLISTERS Verified 08/08/22 09:47 IN MOUTH bee pollen Allergy Anaphylaxis Verified 08/08/22 09:47 bee venom protein (honey bee) Allergy Anaphylaxis Verified 08/08/22 09:47 kiwi Allergy BLISTERS Verified 08/08/22 09:47 IN MOUTH latex Allergy Anaphylaxis, Verified 08/08/22 09:47 Blisters ibuprofen AdvReac Unknown Upset Verified 08/08/22 09:47 Stomach metronidazole [From Flagyl] AdvReac Nausea & Verified 08/08/22 09:47 Vomiting & Diarrhea Surgical - Exam - General well developed, well nourished, no distress - Eyes PERRL - ENT normal pinna - Neck no masses - Respiratory normal expansion - Cardiovascular Rhythm: regular - Abdomen Mild left lower quadrant pain Abdomen: soft Results - Labs 07/31/22 09:37 07/31/22 09:37 Assessment and Plan Assessment: History of chronic diverticulitis. Patient will undergo low anterior resection. Patient with risk of colostomy, wound infection bleeding.
[2022-08-08] MEDS ORDERED: ROPIVACAINE 250 MG, HYDROMORPHONE (PF) 5 MG in SODIUM CHLORIDE 0.9% 200 ML EPIDURAL PRN (11:06)
[2022-08-08] MEDS ORDERED: ONDANSETRON 4 MG/2 ML VIAL IVP PRN (11:06)
[2022-08-08] MEDS ORDERED: NALOXONE 0.4 MG/ML 1 ML VIAL IV PRN (11:06)
[2022-08-08] MEDS ORDERED: NALBUPHINE 10 MG/ML (1 ML AMP) IV PRN (11:06)
--- NOTE | 2022-08-08 11:06 | P.ANPRN ---
Procedure Note - Anesthesia - Epidural/Spinal Epidural Continuous Time Out Performed: Yes Date of Procedure: 08/08/22 Procedure Start Time: 10:26 Procedure Stop Time: 10:33 Location of Patient: PreOp Indication: Acute Post-Operative Pain, Requested by Surgeon (noah) Sedation Type: Sedate with meaningful contact maintained Preparation: Sterile Dressing Number of Attempts: 1 Position: Sitting Catheter Depth at Skin (cm): 11 Catheter: Indwelling Needle Guage: 18 Injectate: test dose negative Blood Aspirated: No Pain Paresthesia on Injection Noted: No Events: Uneventful and Well Tolerated
[2022-08-08] MEDS ORDERED: diphenhydrAMINE 50 MG/ML 1 ML VIAL ONE (11:14)
[2022-08-08] MEDS ORDERED: SUCCINYLCHOLINE CHLORIDE 200 MG/10 ML VIAL IV ONE (11:14)
[2022-08-08] MEDS ORDERED: PHENYLEPHRINE-0.9% NACL SYG 1,000 MCG/10 ML SYRINGE ONE (11:14)
[2022-08-08] MEDS ORDERED: PROPOFOL 10 MG/ML 20 ML VIAL IV ONE (11:14)
[2022-08-08] MEDS ORDERED: NEOSTIGMINE 1 MG/ML 10 ML VIAL ONE (11:14)
[2022-08-08] MEDS ORDERED: fentaNYL (PF) 50 MCG/ML 2 ML AMP ONE (11:14)
[2022-08-08] MEDS ORDERED: ROCURONIUM 10 MG/ML (5 ML VIAL) IV ONE (11:14)
[2022-08-08] MEDS ORDERED: GLYCOPYRROLATE 0.2 MG/ML 2 ML VIAL ONE (11:14)
[2022-08-08] MEDS ORDERED: LIDOCAINE 2% INJ 20 MG/ML (2 ML VIAL) ONE (11:14)
--- NOTE | 2022-08-08 12:45 | P.OP ---
Date of Procedure: 08/08/22 Preoperative Diagnosis: Diverticulitis Postoperative Diagnosis: Diverticulitis Procedure(s) Performed: Low anterior section Lysis of adhesions Partial omentectomy Anesthesia: CINDY Surgeon: Cristopher Browne Estimated Blood Loss (ml): 20 Pathology: other (Sigmoid colon, omentum) Condition: stable Disposition: PACU Description of Procedure: ThDESCRIPTION OF PROCEDURE: The patient was placed on the operating table in the supine position. Patient received a general anesthesia. Patient was then placed in the dorsal lithotomy position. The patients abdomen was prepped and draped in the usual sterile fashion. Through a low midline incision, the abdomen was entered. The Horacio wound protector was used. The Bookwalter retractor was placed in the wound. The stomach appeared normal. The small bowel appeared normal. The liver appeared normal. The right colon and transverse colon appeared normal. The omentum was stuck to the left abdominal wall. This was lysed with sharp dissection. A portion of omentum was sent to pathology. The adhesions to the small bowel and colon were lysed. The adhesions to the sigmoid colon abdominal wall were lysed. On the left colon, there was an extensive diverticulosis noted. The sigmoid colon was then mobilized by dividing the white line of [place] with electrocautery. At this point, the proximal sigmoid colon was transected with a GI stapler after a window had been made in the mesentery. The distal sigmoid colon was then dissected. Mesentery was taken down with the Enseal device. The rectum was then transected with the contour stapler. Next, a enterotomy is made in the proximal colon. The anvil for the EEA stapler was placed into the colon. The colon was then transected with the JAGDISH stapler. And then the anvil spike was driven through the staple line. Using the Enseal device the mesentery the bowel was divided and the specimen sent to pathology. The EEA stapler device was then placed in the patient'ss anus and passed into the rectum. The nail for the EEA was then brought out through the distal rectum and then attached to the anvil. The EEA stapler device was then fired. The anastomosis was inspected. There were 2 good donuts of tissue removed from the EEA stapler. The anastomosis was then tested under water and there was no air leak seen. At this point the abdomen was then irrigated. There was no bleeding seen. The patient had a pelvic appendix. His HIDA perform an incidental appendectomy. The mesentery of the appendix was divided with the Enseal device. And then using the GI stapler Was performed. The omentum was visualized. There appeared to be nonviable portion of omentum. This was decided with the Enseal device. This was sent to pathology. The fascia was closed clean instruments. The fascia was then closed with double stranded #1 PDS. The skin was closed with marivel. The patient tolerated the procedure well.
[2022-08-08] MEDS ORDERED: METOCLOPRAMIDE 5 MG/ML 2 ML VIAL IVP PRN (12:46)
[2022-08-08] MEDS ORDERED: BENZOCAINE/MENTHOL LOZENG 1 EACH LOZENGE MUCOUS MEM PRN (12:46)
[2022-08-08 13:34] LABS: Glucose,Whole Blood 135 mg/dL (70-110)
[2022-08-08] MEDS: LACTATED RINGERS 1,000 ML IV SCH ×2 (13:38→17:17)
[2022-08-08] MEDS ORDERED: ALBUMIN HUMAN 5% (12.5gm) 250 ML BOTTLE IVPB ONE (14:41)
[2022-08-08] MEDS ORDERED: ALPRAZolam 0.25 MG TAB PO PRN (16:38)
[2022-08-08] MEDS ORDERED: MECLIZINE 25 MG TAB PO PRN (16:38)
[2022-08-08] MEDS: HEPARIN SODIUM,PORCINE/PF 5,000 UNIT/0.5 ML SYRINGE SQ SCH ×2 (17:17→23:37)
[2022-08-08 18:10] LABS: Basophils % (A) 0 %; Eosinophils % (A) 0 %; HCT 34.9 % (34.0-46.0); HGB 11.4 gm/dL (11.4-16.0); Lymphocytes # (A) 0.5 k/uL (1.0-4.8); Lymphocytes % (A) 9 %; MCHC 32.7 g/dL (31.0-37.0); MCV 88.8 fL (80.0-100.0); Mean Platelet Volume 8.2; Monocytes # (A) 0.2 k/uL (0-1.0); Monocytes % (A) 4 %; Neutrophils # (A) 4.7 k/uL (1.3-7.7); Neutrophils % (A) 85 %; Platelet Count 142 k/uL (150-450); RBC 3.93 m/uL (3.80-5.40); RDW 13.6 % (11.5-15.5); WBC 5.6 k/uL (3.8-10.6)
[2022-08-08] MEDS: D5-0.45% NACL WITH KCL 20MEQ/L 1,000 ML IV SCH ×2 (18:23→23:39)
[2022-08-08 18:27] LABS: ALT 22 U/L (4-34); AST 30 U/L (14-36); African American GFR (CKD) 67 (>60 ml/min/1.73 sqM); Albumin 3.4 g/dL (3.5-5.0); Albumin/Globulin Ratio 1.2; Alkaline Phosphatase 56 U/L (38-126); Anion Gap 5 mmol/L; Blood Urea Nitrogen 18 mg/dL (7-17); Calcium 8.3 mg/dL (8.4-10.2); Carbon Dioxide 35 mmol/L (22-30); Chloride 100 mmol/L (98-107); Globulin 2.9 g/dL; Glucose 141 mg/dL (74-99); Non-African American GFR(CKD) 58 (>60 ml/min/1.73 sqM); Sodium 140 mmol/L (137-145); Total Bilirubin 0.4 mg/dL (0.2-1.3); Total Protein 6.3 g/dL (6.3-8.2)
[2022-08-08] MEDS: PANTOPRAZOLE 40 MG/10 ML VIAL IVP SCH (18:35)
[2022-08-08] MEDS: diphenhydrAMINE 50 MG/ML 1 ML VIAL IVP PRN (19:36)
[2022-08-08] MEDS: FAMOTIDINE 20 MG/2 ML VIAL IV SCH (20:28)
[2022-08-08] MEDS: SERTRALINE 50 MG TAB PO SCH (20:28)
[2022-08-08 20:52] LABS: Glucose,Whole Blood 240 mg/dL (70-110)
[2022-08-08] MEDS ORDERED: SODIUM CHLORIDE 0.9% 500 ML 500 ML IV ONE (23:22)
[2022-08-09] MEDS ORDERED: SODIUM CHLORIDE 0.9% 500 ML 500 ML IV ONE ×2 (01:37→05:03)
[2022-08-09] MEDS: ONDANSETRON 4 MG/2 ML VIAL IVP PRN (04:30)
--- NOTE | 2022-08-09 04:38 | CONS ---
CONSULTATION REASON FOR CONSULTATION: Advice regarding hypotension and multiple other medical issues requested by Dr. Browne. HISTORY OF PRESENT ILLNESS: This is a 66-year-old woman with a past medical history of multiple medical problems admitted after low anterior resection, lysis of adhesions, partial omentectomy for diverticulitis. Possibly, the patient was noted to have some hypotension. Blood pressure is in the low 90s and the epidural drip has been slowed down and the patient is giving bolus fluids at this time. There is no history of any fever, rigors, or chills. The patient is still drowsy after surgery. PAST MEDICAL HISTORY: Reviewed, include diabetes mellitus, GERD, hypertension, hyperlipidemia. Rest of the history and rest of the chart are also reviewed. HOME MEDICATIONS: Reviewed include Zoloft. The dose and rest of medication noted. ALLERGIES: Reviewed include banana. Rest of the allergies noted and reviewed. FAMILY HISTORY: History of cancer. SOCIAL HISTORY: Previous history of smoking. REVIEW OF SYSTEMS: A 14-point review is negative except as mentioned earlier. PHYSICAL EXAMINATION: VITAL SIGNS: Pulse is 68, blood pressure is 91/51, respirations 16. HEENT: Conjunctivae normal. NECK: No jugular venous distention. CARDIOVASCULAR: S1, S2 muffled. RESPIRATORY: Breath sounds diminished at the bases. No rhonchi. No crackles. ABDOMEN: Soft, status post surgery. LEGS: No edema. NERVOUS SYSTEM: No focal deficits. SKIN: No ulcer, rash, bleeding. JOINTS: No active deforming arthropathy. LABORATORY DATA: Reviewed. ASSESSMENT: 1. Status post low anterior resection. 2. Postoperative hypotension. 3. Diabetes mellitus, type 2. 4. Gastroesophageal reflux disease. 5. History of hypertension. 6. History of hyperlipidemia. RECOMMENDATIONS: This is a 66-year-old woman who presented with multiple complex medical issues. At this time, I recommend to continue current management and symptomatic treatment. Otherwise at this time, I recommend bolus fluid if the blood pressure is not improving. Otherwise, we will hold the antihypertensive medications. We will monitor closely. Basic labs. We will reorder the rest of medications. Once the patient is stabilized, DVT prophylaxis, incentive spirometry. We will follow the patient closely. Thank you, Pavan. MMODL / NASREENN: [id number] /
[2022-08-09 06:11] LABS: Glucose,Whole Blood 155 mg/dL (70-110)
[2022-08-09] MEDS: LACTATED RINGERS 1,000 ML IV SCH (08:05)
[2022-08-09] MEDS: PANTOPRAZOLE 40 MG/10 ML VIAL IVP SCH ×2 (08:17→20:45)
[2022-08-09] MEDS: HEPARIN SODIUM,PORCINE/PF 5,000 UNIT/0.5 ML SYRINGE SQ SCH ×3 (08:17→23:48)
[2022-08-09] MEDS: SERTRALINE 50 MG TAB PO SCH ×2 (08:18→20:46)
[2022-08-09] MEDS: D5-0.45% NACL WITH KCL 20MEQ/L 1,000 ML IV SCH (08:18)
[2022-08-09] MEDS: FAMOTIDINE 20 MG/2 ML VIAL IV SCH (08:18)
[2022-08-09] MEDS: ALVIMOPAN 12 MG CAPSULE PO SCH ×2 (08:18→20:46)
[2022-08-09] MEDS ORDERED: NALOXONE 0.4 MG/ML 1 ML VIAL IV PRN (08:36)
[2022-08-09] MEDS ORDERED: LISINOPRIL-HCTZ 10-12.5 MG 1 EACH TAB PO SCH (09:00)
[2022-08-09] MEDS ORDERED: ROPIVACAINE EPIDURAL PRN (09:22)
[2022-08-09] MEDS ORDERED: FENTANYL EPIDURAL PRN (09:22)
[2022-08-09] MEDS ORDERED: SODIUM CHLORIDE 0.9% EPIDURAL PRN (09:22)
[2022-08-09] MEDS ORDERED: SODIUM CHLORIDE 0.9% 1,000 ML IV ONE (09:25)
[2022-08-09] MEDS: diphenhydrAMINE 50 MG/ML 1 ML VIAL IVP PRN ×3 (09:29→20:45)
--- NOTE | 2022-08-09 09:37 | P.PN ---
Progress Note - Text Progress Note Date: 08/09/22 Postop day 1 from low anterior resection, epidural catheter inserted for postop pain control. Epidural solution: Ropivacaine 0.1 % with Dilaudid 20 mcgs/ml running at 2 mL an hour. Epidural was stopped last night because of hypotension. Restarted this morning at a lower rate. Currently blood pressure is hovering over 90 systolic. Patient reports a 8 out of 10 in intensity VAS scale pain. No nausea vomiting, itching, weakness or numbness in the legs or headache reported by the patient. Plan: Change the epidural solution to 0.05% bupivacaine + fentanyl combination and started at a rate of 5 mL per hour and titrate according to the pain relief requirement.
[2022-08-09 11:01] VITALS: BMI 27.3
[2022-08-09 11:47] LABS: Glucose,Whole Blood 111 mg/dL (70-110)
--- NOTE | 2022-08-09 11:49 | P.PN ---
Subjective Progress Note Date: 08/09/22 CHIEF COMPLAINT: Diverticulitis HISTORY OF PRESENT ILLNESS: Patient is postop day #1 status post lower anterior resection, lysis of adhesions and partial omentectomy. Patient has been hypotensive with low urine output. Epidural stopped last night because of hypotension. It's been restarted L lower rate this morning. They are adjusting the medication. She is complaining of itching. Patient did receive 1500 mL fluid boluses through the night. She denies any nausea vomiting. Does complain of abdominal pain. No bowel activity. Afebrile. BP 96/58. Labs pending PHYSICAL EXAM: VITAL SIGNS: Reviewed. GENERAL: Well-developed in no acute distress. HEENT: No sclera icterus. Extraocular movements grossly intact. Moist buccal mucosa. Head is atraumatic, normocephalic. ABDOMEN: Soft. Nondistended. Prevana wound vac intact. Mild incisional tenderness. NEUROLOGIC: Alert and oriented. Cranial nerves II through XII grossly intact. ASSESSMENT: 1. Diverticulitis. Status post lower anterior resection, lysis of adhesions and partial omentectomy 2. Postoperative hypotension PLAN: -We'll give another 1 L fluid bolus -Continue to monitor BP -Epidural being adjusted by anesthesia service -Continue Benadryl as needed for itching -Continue IV fluids -Repeat labs today -Encourage incentive spirometer use -GI prophylaxis Protonix and DVT prophylaxis Lovenox Physician Deputy Director Of Nursing note has been reviewed by physician. Signing provider agrees with the documented findings, assessment, and plan of care. Objective - Vital Signs Vital signs: Vital Signs Temp 98.7 F 08/09/22 07:07 Pulse 88 08/09/22 07:07 Resp 17 08/09/22 07:07 BP 96/58 08/09/22 09:41 Pulse Ox 98 08/09/22 08:41 FiO2 Intake & Output 08/08/22 08/09/22 08/09/22 18:59 06:59 18:59 Intake Total 5250.6 16 0 Output Total 150 Balance 5250.6 -134 0 Weight 66.7 kg Intake: IV 5132.6 D5-0.45% NaCl with KCl 250 20Meq/l 1,000 ml @ 125 mls/hr IV .Q8H [facility] Rx#: [id number] Intake, IV Titration 16 0 Amount Ropivacaine 250 mg 16 0 Hydromorphone (Pf) 5 mg In Sodium Chloride 0.9% 200 ml @ Per Protocol EPIDURAL .Q0M PRN Rx#: [id number] Oral 118 Output: Urine 150 Other: Voiding Method Indwelling Catheter Indwelling Catheter - Labs CBC & Chem 7: 08/08/22 17:29 08/08/22 17:29 Labs: Abnormal Lab Results - Last 24 Hours (Table) 08/08/22 08/08/22 08/08/22 Range/Units 13:30 17:29 17:29 Plt Count 142 L (150-450) k/uL Lymphocytes # 0.5 L (1.0-4.8) k/uL Carbon Dioxide 35 H (22-30) mmol/L BUN 18 H (7-17) mg/dL Glucose 141 H (74-99) mg/dL POC Glucose (mg/dL) 135 H (70-110) mg/dL Calcium 8.3 L (8.4-10.2) mg/dL Albumin 3.4 L (3.5-5.0) g/dL 08/08/22 08/09/22 Range/Units 20:50 06:10 Plt Count (150-450) k/uL Lymphocytes # (1.0-4.8) k/uL Carbon Dioxide (22-30) mmol/L BUN (7-17) mg/dL Glucose (74-99) mg/dL POC Glucose (mg/dL) 240 H 155 H (70-110) mg/dL Calcium (8.4-10.2) mg/dL Albumin (3.5-5.0) g/dL
[2022-08-09 12:03] LABS: Basophils % (A) 1 %; Eosinophils # (A) 0.2 k/uL (0-0.7); Eosinophils % (A) 3 %; HCT 33.2 % (34.0-46.0); HGB 10.6 gm/dL (11.4-16.0); Lymphocytes # (A) 1.8 k/uL (1.0-4.8); Lymphocytes % (A) 21 %; MCH 28.3 pg (25.0-35.0); MCV 88.5 fL (80.0-100.0); Mean Platelet Volume 8.7; Monocytes # (A) 0.5 k/uL (0-1.0); Monocytes % (A) 6 %; Neutrophils # (A) 5.7 k/uL (1.3-7.7); Neutrophils % (A) 68 %; Platelet Count 158 k/uL (150-450); RBC 3.75 m/uL (3.80-5.40); WBC 8.3 k/uL (3.8-10.6)
[2022-08-09 12:05] LABS: African American GFR (CKD) 42 (>60 ml/min/1.73 sqM); Anion Gap 4 mmol/L; Blood Urea Nitrogen 17 mg/dL (7-17); Calcium 7.6 mg/dL (8.4-10.2); Carbon Dioxide 30 mmol/L (22-30); Chloride 104 mmol/L (98-107); Glucose 106 mg/dL (74-99); Non-African American GFR(CKD) 37 (>60 ml/min/1.73 sqM); Potassium 4.2 mmol/L (3.5-5.1); Sodium 138 mmol/L (137-145)
[2022-08-09] MEDS ORDERED: diphenhydrAMINE 25 MG CAP PO PRN (15:24)
[2022-08-09] MEDS: SODIUM CHLORIDE 0.9% 1,000 ML IV SCH ×2 (15:39→23:51)
[2022-08-09 16:37] LABS: Glucose,Whole Blood 122 mg/dL (70-110)
[2022-08-09 20:40] LABS: Glucose,Whole Blood 125 mg/dL (70-110)
[2022-08-09] MEDS: MORPHINE SULFATE 2 MG/ML SYRINGE IVP PRN (20:44)
[2022-08-10 05:57] LABS: Glucose,Whole Blood 117 mg/dL (70-110)
--- NOTE | 2022-08-10 05:57 | PN ---
PROGRESS NOTE DATE OF SERVICE: 08/09/2022 SUBJECTIVE: This is a 66-year-old woman who is admitted for surgery and hypotension postop. No chest pain or palpitations. The patient is still on Epidural pump. OBJECTIVE: VITAL SIGNS: Pulse is 96,, respirations 15. CHEST: Clear to auscultation. ABDOMEN: Soft, status post surgery. LABORATORY DATA: Hemoglobin 10.6. Rest of the labs are noted. ASSESSMENT: 1. Status post left low anterior resection. 2. Postoperative hypotension. 3. Diabetes mellitus, type 2. 4. GERD. 5. History of hypertension. 6. History of hyperlipidemia. RECOMMENDATIONS: Recommend to continue with IV hydration. Repeat labs in the morning. Avoid nephrotoxic medications. Closely follow with surgery. DVT prophylaxis. The rest of the recommendations per surgery. MMODL / IJN: [id number] / MTDD
--- NOTE | 2022-08-10 07:36 | CA ---
Transthoracic Echo Report Name: Gi Bingham Age: 66 Gender: F : 1955 Exam Date: 08/09/2022 13:28 Exam Location: [place] [facility] Ht (in): 61.5 Wt (lb): 147 Ordering Physician: Cyndi Gómez Attending/Referring Phys: Classifier Charlotte Ramos RDCS Procedure CPT: Indications: Hypotension Cardiac Hx: Technical Quality: Fair Contrast 1: Total Dose (mL): Contrast 2: Total Dose (mL): MEASUREMENTS (Male / Female) Normal Values DOPPLER AV Peak Velocity 207.8 cm/s AV Peak Gradient 17.3 mmHg LVOT Peak Velocity 113.1 cm/s LVOT Peak Gradient 5.1 mmHg FINDINGS Left Ventricle Mildly increased left ventricular wall thickness. Left ventricular ejection fraction is estimated at 55-60 %. Grade 1 diastolic dysfunction. Right Ventricle Right Atrium Left Atrium Mitral Valve Aortic Valve Tricuspid Valve Pulmonic Valve Pericardium Small pericardial effusion. Small pleural effusion. Aorta CONCLUSIONS Normal LV size and systolic function. Small echo free space anteriorly may be a fat pad or a trivial pericardial effusion Previewed by: Dr. Elif Diaz MD (Electronically Signed) Final Date: 10 August 2022 07:36
[2022-08-10] MEDS: PANTOPRAZOLE 40 MG/10 ML VIAL IVP SCH ×2 (08:05→20:43)
[2022-08-10] MEDS: FAMOTIDINE 20 MG/2 ML VIAL IV SCH (08:06)
[2022-08-10] MEDS: ALVIMOPAN 12 MG CAPSULE PO SCH ×2 (08:06→20:58)
[2022-08-10] MEDS: HEPARIN SODIUM,PORCINE/PF 5,000 UNIT/0.5 ML SYRINGE SQ SCH ×3 (08:06→23:19)
[2022-08-10] MEDS: SERTRALINE 50 MG TAB PO SCH ×2 (08:06→20:58)
[2022-08-10] MEDS: SODIUM CHLORIDE 0.9% 1,000 ML IV SCH ×2 (08:07→15:33)
[2022-08-10] MEDS ORDERED: ACETAMINOPHEN TAB 325 MG TAB PO PRN (08:07)
[2022-08-10 09:42] LABS: Basophils # (A) 0.02 X 10*3/uL (0.00-0.10); Basophils % (A) 0.4 %; Eosinophils # (A) 0.18 X 10*3/uL (0.04-0.35); Eosinophils % (A) 3.4 %; HCT 30.5 % (37.2-46.3); HGB 9.5 g/dL (12.0-15.0); Immature Grans, Automated 0.4 %; Lymphocytes # (A) 1.47 X 10*3/uL (0.90-5.00); Lymphocytes % (A) 27.5 %; MCH 28.1 pg (27.0-32.0); MCHC 31.1 g/dL (32.0-37.0); MCV 90.2 fL (80.0-97.0); Mean Platelet Volume 11.2 fL (9.5-12.2); Monocytes # (A) 0.45 X 10*3/uL (0.20-1.00); Monocytes % (A) 8.4 %; NRBC Per 100 WBC 0 /100 WBCS (0.0-0.0); Neutrophils # (A) 3.21 X 10*3/uL (1.80-7.70); Neutrophils % (A) 59.9 %; Platelet Count 111 X 10*3/uL (140-440); RBC 3.38 X 10*6/uL (4.10-5.20); RDW 13.8 % (11.5-14.5); WBC 5.35 X 10*3/uL (4.50-10.00)
--- NOTE | 2022-08-10 10:10 | P.PN ---
Progress Note - Text 08/10/22 651am 66-year-old female status post explore lap. Patient has an epidural catheter with the solution running at by symptoms an hour with a VAS of 8, no sensory or motor deficit noted. Plan to continue epidural infusion and DC'd tomorrow
[2022-08-10 10:17] LABS: Anion Gap 9.9 mmol/L (10.00-18.00); BUN/Creat Ratio 10.5 Ratio (12.00-20.00); Blood Urea Nitrogen 10.5 mg/dL (9.0-27.0); Calcium 7.9 mg/dL (8.7-10.3); Carbon Dioxide 25.1 mmol/L (20.0-27.5); Non-African American GFR(CKD) 58.7 (60.0-200.0); Potassium 3.6 mmol/L (3.5-5.5)
--- NOTE | 2022-08-10 11:37 | P.PN ---
Subjective Progress Note Date: 08/10/22 CHIEF COMPLAINT: Diverticulitis HISTORY OF PRESENT ILLNESS: Patient is postop day #2 status post lower anterior resection, lysis of adhesions and partial omentectomy. Patient's hypotension and low urine output did improve with IV fluids. She is currently sitting at bedside chair. She has epidural in place. She reports that her pain is tolerable. No bowel activity. Denies any nausea or vomiting. Low-grade temp 99.8 tachycardic heart rate 115 2 L satting 88%. WBC is 5.35 Hgb 9.5 platelets 111 sodium 142 potassium 3.6 creatinine improved from 1.49-1.0 PHYSICAL EXAM: VITAL SIGNS: Reviewed. GENERAL: Well-developed in no acute distress. HEENT: No sclera icterus. Extraocular movements grossly intact. Moist buccal mucosa. Head is atraumatic, normocephalic. ABDOMEN: Soft. Nondistended. Prevana wound vac intact. Mild incisional tenderness. NEUROLOGIC: Alert and oriented. Cranial nerves II through XII grossly intact. ASSESSMENT: 1. Diverticulitis. Status post lower anterior resection, lysis of adhesions and partial omentectomy 2. Postoperative hypotension and low urine output improved with IV fluids PLAN: -Continue clear liquids -Plan for epidural and Velázquez catheter to be discontinued tomorrow -Continue IV fluids -Encouraged patient to increase activity level -Encourage incentive spirometer use -GI prophylaxis Protonix and DVT prophylaxis SC heparin Physician Dinkey Dispatcher note has been reviewed by physician. Signing provider agrees with the documented findings, assessment, and plan of care. Objective - Vital Signs Vital signs: Vital Signs Temp 99.8 F H 08/10/22 08:00 Pulse 115 H 08/10/22 08:00 Resp 16 08/10/22 08:00 BP 122/68 08/10/22 08:00 Pulse Ox 88 L 08/10/22 08:06 FiO2 Intake & Output 08/09/22 08/10/22 08/10/22 18:59 06:59 18:59 Intake Total 0 Output Total 450 800 Balance -450 -800 Weight 66.7 kg Intake: Intake, IV Titration 0 Amount Ropivacaine 250 mg 0 Hydromorphone (Pf) 5 mg In Sodium Chloride 0.9% 200 ml @ Per Protocol EPIDURAL .Q0M PRN Rx#: [id number] Output: Urine 450 800 Other: Voiding Method Indwelling Catheter Indwelling Catheter Indwelling Catheter - Labs CBC & Chem 7: 08/10/22 05:20 08/10/22 05:20 Labs: Abnormal Lab Results - Last 24 Hours (Table) 08/09/22 08/09/22 08/09/22 Range/Units 10:52 10:52 11:46 RBC 3.75 L (3.80-5.40) m/uL Hgb 10.6 L (11.4-16.0) gm/dL Hct 33.2 L (34.0-46.0) % MCHC (32.0-37.0) g/dL Plt Count (140-440) X 10*3/uL Anion Gap (10.00-18.00) mmol/L Creatinine 1.49 H (0.52-1.04) mg/dL Est GFR (CKD-EPI)NonAf (60.0-200.0) BUN/Creatinine Ratio (12.00-20.00) Ratio Glucose 106 H (74-99) mg/dL POC Glucose (mg/dL) 111 H (70-110) mg/dL Calcium 7.6 L (8.4-10.2) mg/dL 08/09/22 08/09/22 08/10/22 Range/Units 16:36 20:39 05:20 RBC 3.38 L (3.80-5.40) m/uL Hgb 9.5 L (11.4-16.0) gm/dL Hct 30.5 L (34.0-46.0) % MCHC 31.1 L (32.0-37.0) g/dL Plt Count 111 L (140-440) X 10*3/uL Anion Gap (10.00-18.00) mmol/L Creatinine (0.52-1.04) mg/dL Est GFR (CKD-EPI)NonAf (60.0-200.0) BUN/Creatinine Ratio (12.00-20.00) Ratio Glucose (74-99) mg/dL POC Glucose (mg/dL) 122 H 125 H (70-110) mg/dL Calcium (8.4-10.2) mg/dL 08/10/22 08/10/22 Range/Units 05:20 05:56 RBC (3.80-5.40) m/uL Hgb (11.4-16.0) gm/dL Hct (34.0-46.0) % MCHC (32.0-37.0) g/dL Plt Count (140-440) X 10*3/uL Anion Gap 9.90 L (10.00-18.00) mmol/L Creatinine (0.52-1.04) mg/dL Est GFR (CKD-EPI)NonAf 58.7 L (60.0-200.0) BUN/Creatinine Ratio 10.50 L (12.00-20.00) Ratio Glucose (74-99) mg/dL POC Glucose (mg/dL) 117 H (70-110) mg/dL Calcium 7.9 L (8.4-10.2) mg/dL
[2022-08-10 11:46] LABS: Glucose,Whole Blood 97 mg/dL (70-110)
[2022-08-10 16:46] LABS: Glucose,Whole Blood 125 mg/dL (70-110)
--- NOTE | 2022-08-10 17:39 | P.PN ---
Subjective Progress Note Date: 08/10/22 Patient is postop day #1 status post lower anterior resection, lysis of adhesions and partial omentectomy. Patient has been hypotensive with low urine output. Epidural stopped last night because of hypotension. It's been restarted L lower rate this morning. They are adjusting the medication. She is complaining of itching. Patient did receive 1500 mL fluid boluses through the night. She denies any nausea vomiting. Does complain of abdominal pain. No bowel activity. Afebrile. BP 96/58. Labs pending Objective - Vital Signs Vital signs: Vital Signs Temp 99.8 F H 08/10/22 08:00 Pulse 115 H 08/10/22 08:00 Resp 16 08/10/22 08:00 BP 122/68 08/10/22 08:00 Pulse Ox 88 L 08/10/22 08:06 FiO2 Intake & Output 08/09/22 08/10/22 08/10/22 18:59 06:59 18:59 Intake Total 0 Output Total 450 800 Balance -450 -800 Weight 66.7 kg Intake: Intake, IV Titration 0 Amount Ropivacaine 250 mg 0 Hydromorphone (Pf) 5 mg In Sodium Chloride 0.9% 200 ml @ Per Protocol EPIDURAL .Q0M PRN Rx#: [id number] Output: Urine 450 800 Other: Voiding Method Indwelling Catheter Indwelling Catheter Indwelling Catheter - Exam PHYSICAL EXAMINATION: GENERAL: The patient is alert and oriented x3, not in any acute distress. Well developed, well nourished. HEENT: Pupils are round and equally reacting to light. EOMI. No scleral icterus. No conjunctival pallor. Normocephalic, atraumatic. No pharyngeal erythema. No thyromegaly. CARDIOVASCULAR: S1 and S2 present. No murmurs, rubs, or gallops. PULMONARY: Chest is clear to auscultation, no wheezing or crackles. ABDOMEN: Soft, nontender, nondistended, normoactive bowel sounds. No palpable organomegaly. MUSCULOSKELETAL: No joint swelling or deformity. EXTREMITIES: No cyanosis, clubbing, or pedal edema. NEUROLOGICAL: Gross neurological examination did not reveal any focal deficits. SKIN: No rashes. - Labs CBC & Chem 7: 08/10/22 05:20 08/10/22 05:20 Labs: Abnormal Lab Results - Last 24 Hours (Table) 08/09/22 08/09/22 08/09/22 Range/Units 10:52 10:52 11:46 RBC 3.75 L (3.80-5.40) m/uL Hgb 10.6 L (11.4-16.0) gm/dL Hct 33.2 L (34.0-46.0) % MCHC (32.0-37.0) g/dL Plt Count (140-440) X 10*3/uL Anion Gap (10.00-18.00) mmol/L Creatinine 1.49 H (0.52-1.04) mg/dL Est GFR (CKD-EPI)NonAf (60.0-200.0) BUN/Creatinine Ratio (12.00-20.00) Ratio Glucose 106 H (74-99) mg/dL POC Glucose (mg/dL) 111 H (70-110) mg/dL Calcium 7.6 L (8.4-10.2) mg/dL 08/09/22 08/09/22 08/10/22 Range/Units 16:36 20:39 05:20 RBC 3.38 L (3.80-5.40) m/uL Hgb 9.5 L (11.4-16.0) gm/dL Hct 30.5 L (34.0-46.0) % MCHC 31.1 L (32.0-37.0) g/dL Plt Count 111 L (140-440) X 10*3/uL Anion Gap (10.00-18.00) mmol/L Creatinine (0.52-1.04) mg/dL Est GFR (CKD-EPI)NonAf (60.0-200.0) BUN/Creatinine Ratio (12.00-20.00) Ratio Glucose (74-99) mg/dL POC Glucose (mg/dL) 122 H 125 H (70-110) mg/dL Calcium (8.4-10.2) mg/dL 08/10/22 08/10/22 Range/Units 05:20 05:56 RBC (3.80-5.40) m/uL Hgb (11.4-16.0) gm/dL Hct (34.0-46.0) % MCHC (32.0-37.0) g/dL Plt Count (140-440) X 10*3/uL Anion Gap 9.90 L (10.00-18.00) mmol/L Creatinine (0.52-1.04) mg/dL Est GFR (CKD-EPI)NonAf 58.7 L (60.0-200.0) BUN/Creatinine Ratio 10.50 L (12.00-20.00) Ratio Glucose (74-99) mg/dL POC Glucose (mg/dL) 117 H (70-110) mg/dL Calcium 7.9 L (8.4-10.2) mg/dL Assessment and Plan Assessment: 1. Diverticulitis. Status post lower anterior resection, lysis of adhesions and partial omentectomy 2. Postoperative hypotension and low urine output improved with IV fluids 3. Hyperlipidemia 4. Diabetes mellitus 5. Hypertension 6. Depression PLAN: -Continue clear liquids -Plan for epidural and Velázquez catheter to be discontinued tomorrow -Continue IV fluids -Encouraged patient to increase activity level -Encourage incentive spirometer use -GI prophylaxis Protonix and DVT prophylaxis SC heparin
[2022-08-10 20:37] LABS: Glucose,Whole Blood 110 mg/dL (70-110)
[2022-08-10] MEDS: MORPHINE SULFATE 2 MG/ML SYRINGE IVP PRN (20:44)
[2022-08-10] MEDS: diphenhydrAMINE 50 MG/ML 1 ML VIAL IVP PRN (20:44)
[2022-08-11] MEDS: SODIUM CHLORIDE 0.9% 1,000 ML IV SCH ×4 (01:43→23:12)
[2022-08-11 05:44] LABS: Glucose,Whole Blood 96 mg/dL (70-110)
--- NOTE | 2022-08-11 07:23 | P.PN ---
Progress Note - Text Progress Note Date: 08/11/22 (400) Anesthesia Postop day #3 Status post low anterior resection with epidural day #4 Patient seen and examined. Doing well without complaint. VAS less than 4. No nausea or vomiting. Mild pruritus. Ropivacaine 0.05% with 2 mcg/mL at I cc an hour. Objective: Vital signs reviewed Lungs: Good chest excursion Abdomen: Appears nondistended Other: Epidural Site Intact without induration. Dressing intact Neuro: No apparent motor block. Sensory within normal limits. Assessment: Status post low anterior resection postop day #3 Plan: Continue current care with your medical management. Anticipate discontinue catheter today. Discussed with nurse. Order placed.
[2022-08-11] MEDS: FAMOTIDINE 20 MG/2 ML VIAL IV SCH (08:31)
[2022-08-11] MEDS: SERTRALINE 50 MG TAB PO SCH ×2 (08:31→20:30)
[2022-08-11] MEDS: ALVIMOPAN 12 MG CAPSULE PO SCH ×2 (08:31→20:30)
[2022-08-11] MEDS: PANTOPRAZOLE 40 MG/10 ML VIAL IVP SCH ×2 (08:31→20:30)
[2022-08-11] MEDS: HEPARIN SODIUM,PORCINE/PF 5,000 UNIT/0.5 ML SYRINGE SQ SCH ×3 (08:32→23:56)
[2022-08-11] MEDS: LACTATED RINGERS 1,000 ML IV SCH (08:32)
[2022-08-11 09:21] LABS: Anion Gap 11.9 mmol/L (10.00-18.00); BUN/Creat Ratio 7.5 Ratio (12.00-20.00); Calcium 7.6 mg/dL (8.7-10.3); Carbon Dioxide 20.1 mmol/L (20.0-27.5); Non-African American GFR(CKD) 76.8 (60.0-200.0); Potassium 3.2 mmol/L (3.5-5.5)
[2022-08-11 09:27] LABS: Basophils # (A) 0.01 X 10*3/uL (0.00-0.10); Basophils % (A) 0.2 %; Eosinophils # (A) 0.21 X 10*3/uL (0.04-0.35); Eosinophils % (A) 4.3 %; HCT 29.7 % (37.2-46.3); HGB 9.4 g/dL (12.0-15.0); Immature Grans, Automated 0.6 %; Lymphocytes # (A) 1.65 X 10*3/uL (0.90-5.00); Lymphocytes % (A) 33.7 %; MCH 28.5 pg (27.0-32.0); MCHC 31.6 g/dL (32.0-37.0); Mean Platelet Volume 10.8 fL (9.5-12.2); Monocytes # (A) 0.38 X 10*3/uL (0.20-1.00); Monocytes % (A) 7.8 %; NRBC Per 100 WBC 0 /100 WBCS (0.0-0.0); Neutrophils # (A) 2.61 X 10*3/uL (1.80-7.70); Neutrophils % (A) 53.4 %; Platelet Count 115 X 10*3/uL (140-440); RDW 13.4 % (11.5-14.5); WBC 4.89 X 10*3/uL (4.50-10.00)
[2022-08-11] MEDS: MORPHINE SULFATE 2 MG/ML SYRINGE IVP PRN ×3 (10:25→20:30)
--- NOTE | 2022-08-11 10:37 | P.PN ---
Progress Note - Text Progress Note Date: 08/11/22 The patient feels better today. She's had some flatus. On exam vital signs are stable. Abdomen soft. Patient will have the epidural and Velázquez cath removed today. She'll remain on full liquid diet.
[2022-08-11] MEDS ORDERED: POTASSIUM CHLORIDE ER 10 MEQ TAB.ER.PRT PO STA (10:52)
[2022-08-11 11:48] LABS: Glucose,Whole Blood 94 mg/dL (70-110)
[2022-08-11 16:42] LABS: Glucose,Whole Blood 100 mg/dL (70-110)
--- NOTE | 2022-08-11 20:47 | P.PN ---
Subjective Progress Note Date: 08/11/22 Patient is postop day #1 status post lower anterior resection, lysis of adhesions and partial omentectomy. Patient has been hypotensive with low urine output. Epidural stopped last night because of hypotension. It's been restarted L lower rate this morning. They are adjusting the medication. She is complaining of itching. Patient did receive 1500 mL fluid boluses through the night. She denies any nausea vomiting. Does complain of abdominal pain. No bowel activity. Afebrile. BP 96/58. Labs pending 08/11/2022 Patient is seen and evaluated in room at bedside; reports improving somewhat better; reports passing flatus but no bowel movement. Vital signs are reviewed and remained stable Blood work reveals a WBC of 4.89, hemoglobin of 9.4 and platelet count of 1:15, sodium 143, potassium 3.2, BUN/creatinine of 6.0/0.8 We will plan to supplement with potassium 30 mEq 1 and continue to monitor electrolytes closely General surgery planning to remove Velázquez catheter and epidural catheter today Objective - Vital Signs Vital signs: Vital Signs Temp 97.8 F 08/11/22 07:38 Pulse 92 08/11/22 07:38 Resp 18 08/11/22 07:38 BP 151/74 08/11/22 07:38 Pulse Ox 94 L 08/11/22 08:06 FiO2 Intake & Output 08/10/22 08/11/22 08/11/22 18:59 06:59 18:59 Output Total 650 1000 Balance -650 -1000 Output: Urine 650 1000 Other: Voiding Method Indwelling Catheter Indwelling Catheter Indwelling Catheter - Exam PHYSICAL EXAMINATION: GENERAL: The patient is alert and oriented x3, not in any acute distress. Well developed, well nourished. HEENT: Pupils are round and equally reacting to light. EOMI. No scleral icterus. No conjunctival pallor. Normocephalic, atraumatic. No pharyngeal erythema. No thyromegaly. CARDIOVASCULAR: S1 and S2 present. No murmurs, rubs, or gallops. PULMONARY: Chest is clear to auscultation, no wheezing or crackles. ABDOMEN: Soft, nontender, nondistended, normoactive bowel sounds. No palpable organomegaly. MUSCULOSKELETAL: No joint swelling or deformity. EXTREMITIES: No cyanosis, clubbing, or pedal edema. NEUROLOGICAL: Gross neurological examination did not reveal any focal deficits. SKIN: No rashes. - Labs CBC & Chem 7: 08/11/22 06:37 08/11/22 06:37 Labs: Abnormal Lab Results - Last 24 Hours (Table) 08/10/22 08/11/22 08/11/22 Range/Units 16:45 06:37 06:37 RBC 3.30 L (4.10-5.20) X 10*6/uL Hgb 9.4 L (12.0-15.0) g/dL Hct 29.7 L (37.2-46.3) % MCHC 31.6 L (32.0-37.0) g/dL Plt Count 115 L (140-440) X 10*3/uL Potassium 3.2 L (3.5-5.5) mmol/L Chloride 111 H (96-109) mmol/L BUN 6.0 L (9.0-27.0) mg/dL BUN/Creatinine Ratio 7.50 L (12.00-20.00) Ratio POC Glucose (mg/dL) 125 H (70-110) mg/dL Calcium 7.6 L (8.7-10.3) mg/dL Assessment and Plan Assessment: 1. Diverticulitis. Status post lower anterior resection, lysis of adhesions and partial omentectomy 2. Postoperative hypotension and low urine output improved with IV fluids 3. Hyperlipidemia 4. Diabetes mellitus 5. Hypertension 6. Depression PLAN: -Continue clear liquids -Plan for epidural and Velázquez catheter to be discontinued tomorrow -Continue IV fluids -Encouraged patient to increase activity level -Encourage incentive spirometer use -GI prophylaxis Protonix and DVT prophylaxis SC heparin
[2022-08-12] MEDS: MORPHINE SULFATE 2 MG/ML SYRINGE IVP PRN ×2 (03:14→07:43)
[2022-08-12] MEDS: SODIUM CHLORIDE 0.9% 1,000 ML IV SCH (06:26)
[2022-08-12] MEDS: LACTATED RINGERS 1,000 ML IV SCH (07:48)
[2022-08-12] MEDS: PANTOPRAZOLE 40 MG/10 ML VIAL IVP SCH ×2 (07:49→21:35)
[2022-08-12] MEDS: ALVIMOPAN 12 MG CAPSULE PO SCH ×2 (07:49→21:00)
[2022-08-12] MEDS: SERTRALINE 50 MG TAB PO SCH ×2 (07:49→21:00)
[2022-08-12] MEDS: FAMOTIDINE 20 MG/2 ML VIAL IV SCH (07:49)
[2022-08-12] MEDS: HEPARIN SODIUM,PORCINE/PF 5,000 UNIT/0.5 ML SYRINGE SQ SCH ×3 (07:49→23:33)
[2022-08-12 08:54] LABS: Basophils # (A) 0.02 X 10*3/uL (0.00-0.10); Basophils % (A) 0.4 %; Eosinophils # (A) 0.23 X 10*3/uL (0.04-0.35); HCT 29.8 % (37.2-46.3); HGB 9.5 g/dL (12.0-15.0); Immature Grans, Automated 1.1 %; Lymphocytes # (A) 1.66 X 10*3/uL (0.90-5.00); Lymphocytes % (A) 35.9 %; MCH 28.4 pg (27.0-32.0); MCHC 31.9 g/dL (32.0-37.0); Mean Platelet Volume 11.3 fL (9.5-12.2); Monocytes # (A) 0.38 X 10*3/uL (0.20-1.00); Monocytes % (A) 8.2 %; NRBC Per 100 WBC 0 /100 WBCS (0.0-0.0); Neutrophils # (A) 2.28 X 10*3/uL (1.80-7.70); Neutrophils % (A) 49.4 %; Platelet Count 132 X 10*3/uL (140-440); RBC 3.35 X 10*6/uL (4.10-5.20); RDW 13.6 % (11.5-14.5); WBC 4.62 X 10*3/uL (4.50-10.00)
[2022-08-12 09:02] LABS: African American GFR (CKD) 105.6 (60.0-200.0); BUN/Creat Ratio 5.61 Ratio (12.00-20.00); Blood Urea Nitrogen 3.8 mg/dL (9.0-27.0); Calcium 7.5 mg/dL (8.7-10.3); Carbon Dioxide 22.1 mmol/L (20.0-27.5); Non-African American GFR(CKD) 91.1 (60.0-200.0); Potassium 3.7 mmol/L (3.5-5.5)
--- NOTE | 2022-08-12 10:38 | P.PN ---
Progress Note - Text Progress Note Date: 08/12/22 Patient feels better today. She has passed some gas. On exam vital signs are stable. Abdomen soft. Incision is clean dry intact Status post low anterior resection for diverticular is. Patient will have her diet advanced once she has a bowel movement.
[2022-08-12 11:49] LABS: Glucose,Whole Blood 103 mg/dL (70-110)
[2022-08-12] MEDS: HYDROcodone/APAP 5-325MG 1 EACH TAB PO PRN ×3 (12:22→23:37)
[2022-08-12 16:51] LABS: Glucose,Whole Blood 111 mg/dL (70-110)
--- NOTE | 2022-08-12 17:19 | P.PN ---
Subjective Progress Note Date: 08/12/22 Patient is postop day #1 status post lower anterior resection, lysis of adhesions and partial omentectomy. Patient has been hypotensive with low urine output. Epidural stopped last night because of hypotension. It's been restarted L lower rate this morning. They are adjusting the medication. She is complaining of itching. Patient did receive 1500 mL fluid boluses through the night. She denies any nausea vomiting. Does complain of abdominal pain. No bowel activity. Afebrile. BP 96/58. Labs pending 08/12/2022 Patient is seen and evaluated in room at bedside; reports improving somewhat better; reports passing flatus but no bowel movement. Patient is status post anterior resection for diverticulitis Vital signs are reviewed and remained stable Blood work reveals a WBC of 4.89, hemoglobin of 9.4 and platelet count of 1:15, sodium 143, potassium 3.2, BUN/creatinine of 6.0/0.8 We will plan to supplement with potassium 30 mEq 1 and continue to monitor electrolytes closely General surgery planning to remove Velázquez catheter and epidural catheter today - Gen. surgery recommending to advance diet once bowel movement is established Objective - Vital Signs Vital signs: Vital Signs Temp 98.2 F 08/12/22 06:58 Pulse 84 08/12/22 06:58 Resp 19 08/12/22 06:58 BP 135/62 08/12/22 06:58 Pulse Ox 95 08/12/22 06:58 FiO2 Intake & Output 08/11/22 08/12/22 08/12/22 18:59 06:59 18:59 Other: Voiding Method Indwelling Catheter Toilet Bedside Commode # Voids 1 2 - Exam PHYSICAL EXAMINATION: GENERAL: The patient is alert and oriented x3, not in any acute distress. Well developed, well nourished. HEENT: Pupils are round and equally reacting to light. EOMI. No scleral icterus. No conjunctival pallor. Normocephalic, atraumatic. No pharyngeal erythema. No thyromegaly. CARDIOVASCULAR: S1 and S2 present. No murmurs, rubs, or gallops. PULMONARY: Chest is clear to auscultation, no wheezing or crackles. ABDOMEN: Soft, nontender, nondistended, normoactive bowel sounds. No palpable organomegaly. MUSCULOSKELETAL: No joint swelling or deformity. EXTREMITIES: No cyanosis, clubbing, or pedal edema. NEUROLOGICAL: Gross neurological examination did not reveal any focal deficits. SKIN: No rashes. - Labs CBC & Chem 7: 08/12/22 06:31 08/12/22 06:31 Labs: Abnormal Lab Results - Last 24 Hours (Table) 08/12/22 08/12/22 Range/Units 06:31 06:31 RBC 3.35 L (4.10-5.20) X 10*6/uL Hgb 9.5 L (12.0-15.0) g/dL Hct 29.8 L (37.2-46.3) % MCHC 31.9 L (32.0-37.0) g/dL Plt Count 132 L (140-440) X 10*3/uL Immature Gran # 0.05 H (0.00-0.04) X 10*3/uL Chloride 111 H (96-109) mmol/L Anion Gap 9.00 L (10.00-18.00) mmol/L BUN 3.8 L (9.0-27.0) mg/dL BUN/Creatinine Ratio 5.61 L (12.00-20.00) Ratio Calcium 7.5 L (8.7-10.3) mg/dL Assessment and Plan Assessment: 1. Diverticulitis. Status post lower anterior resection, lysis of adhesions and partial omentectomy 2. Postoperative hypotension and low urine output improved with IV fluids 3. Hyperlipidemia 4. Diabetes mellitus 5. Hypertension 6. Depression PLAN: -Continue clear liquids -Plan for epidural and Velázquez catheter to be discontinued tomorrow -Continue IV fluids -Encouraged patient to increase activity level -Encourage incentive spirometer use -GI prophylaxis Protonix and DVT prophylaxis SC heparin
[2022-08-12 20:40] LABS: Glucose,Whole Blood 103 mg/dL (70-110)
[2022-08-13] MEDS: HYDROcodone/APAP 5-325MG 1 EACH TAB PO PRN ×4 (05:27→23:14)
[2022-08-13] MEDS: ONDANSETRON 4 MG/2 ML VIAL IVP PRN (05:27)
[2022-08-13 06:06] LABS: Glucose,Whole Blood 96 mg/dL (70-110)
[2022-08-13] MEDS: SODIUM CHLORIDE 0.9% 1,000 ML IV SCH ×3 (08:42→13:44)
[2022-08-13] MEDS: LACTATED RINGERS 1,000 ML IV SCH ×2 (08:43→23:16)
[2022-08-13 09:17] LABS: African American GFR (CKD) 104.6 (60.0-200.0); Anion Gap 13.4 mmol/L (10.00-18.00); Blood Urea Nitrogen 3.5 mg/dL (9.0-27.0); Calcium 7.8 mg/dL (8.7-10.3); Carbon Dioxide 17.6 mmol/L (20.0-27.5); Non-African American GFR(CKD) 90.3 (60.0-200.0); Potassium 3.7 mmol/L (3.5-5.5)
[2022-08-13] MEDS: ALVIMOPAN 12 MG CAPSULE PO SCH (09:53)
[2022-08-13] MEDS: FAMOTIDINE 20 MG/2 ML VIAL IV SCH (10:02)
[2022-08-13] MEDS: SERTRALINE 50 MG TAB PO SCH ×2 (10:03→20:48)
[2022-08-13] MEDS: PANTOPRAZOLE 40 MG/10 ML VIAL IVP SCH ×2 (10:03→20:49)
[2022-08-13] MEDS: HEPARIN SODIUM,PORCINE/PF 5,000 UNIT/0.5 ML SYRINGE SQ SCH ×3 (10:03→23:15)
[2022-08-13 11:33] LABS: Glucose,Whole Blood 91 mg/dL (70-110)
--- NOTE | 2022-08-13 12:40 | P.PN ---
Subjective Progress Note Date: 08/13/22 CHIEF COMPLAINT: Diverticulitis HISTORY OF PRESENT ILLNESS: Patient is postop day #5 status post lower anterior resection, lysis of adhesions and partial omentectomy. Patient's hypotension and low urine output did improve with IV fluids. Patient reports that she has been having bowel movements. She did have nausea last night and this has improved. Her pain is controlled. Afebrile. Sodium 142 potassium 3.7 CO2 17.6 creatinine 0.7 PHYSICAL EXAM: VITAL SIGNS: Reviewed. GENERAL: Well-developed in no acute distress. HEENT: No sclera icterus. Extraocular movements grossly intact. Moist buccal mucosa. Head is atraumatic, normocephalic. ABDOMEN: Soft. Nondistended. Prevana wound vac intact. NEUROLOGIC: Alert and oriented. Cranial nerves II through XII grossly intact. ASSESSMENT: 1. Diverticulitis. Status post lower anterior resection, lysis of adhesions and partial omentectomy 2. Postoperative hypotension and low urine output improved with IV fluids PLAN: -Advance diet to low fiber -Encourage patient to ambulate -Discontinue IV fluids -Encourage incentive spirometer use -GI prophylaxis Protonix and DVT prophylaxis SC heparin Physician Strategy Consultant note has been reviewed by physician. Signing provider agrees with the documented findings, assessment, and plan of care. Objective - Vital Signs Vital signs: Vital Signs Temp 98.7 F 08/13/22 07:12 Pulse 87 08/13/22 07:12 Resp 18 08/13/22 07:12 BP 154/66 08/13/22 07:12 Pulse Ox 95 08/13/22 07:12 FiO2 Intake & Output 08/12/22 08/13/22 08/13/22 18:59 06:59 18:59 Weight 66.7 kg Other: Voiding Method Toilet Toilet Bedside Commode Bedside Commode # Voids 3 3 - Labs CBC & Chem 7: 08/12/22 06:31 08/13/22 03:56 Labs: Abnormal Lab Results - Last 24 Hours (Table) 08/12/22 08/13/22 Range/Units 16:49 03:56 Chloride 111 H (96-109) mmol/L Carbon Dioxide 17.6 L (20.0-27.5) mmol/L BUN 3.5 L (9.0-27.0) mg/dL BUN/Creatinine Ratio 5.00 L (12.00-20.00) Ratio POC Glucose (mg/dL) 111 H (70-110) mg/dL Calcium 7.8 L (8.7-10.3) mg/dL
[2022-08-13 17:13] LABS: Glucose,Whole Blood 102 mg/dL (70-110)
[2022-08-13 20:14] LABS: Glucose,Whole Blood 109 mg/dL (70-110)
--- NOTE | 2022-08-13 22:03 | P.PN ---
Subjective From records Patient is postop day #1 status post lower anterior resection, lysis of adhesions and partial omentectomy. Patient has been hypotensive with low urine output. Epidural stopped last night because of hypotension. It's been restarted L lower rate this morning. They are adjusting the medication. She is complaining of itching. Patient did receive 1500 mL fluid boluses through the night. She denies any nausea vomiting. Does complain of abdominal pain. No bowel activity. Afebrile. BP 96/58. Labs pending 08/12/2022 Patient is seen and evaluated in room at bedside; reports improving somewhat better; reports passing flatus but no bowel movement. Patient is status post anterior resection for diverticulitis Vital signs are reviewed and remained stable Blood work reveals a WBC of 4.89, hemoglobin of 9.4 and platelet count of 1:15, sodium 143, potassium 3.2, BUN/creatinine of 6.0/0.8 We will plan to supplement with potassium 30 mEq 1 and continue to monitor electrolytes closely General surgery planning to remove Velá[place]uez catheter and epidural catheter today - Gen. surgery recommending to advance diet once bowel movement is established 08/13/2022 Patient is awake and alert, she is not in distress, she was started on clear liquid diet today and later on advance to low fiber diet, she had a little bowel movement in the morning, she was prepped abdominal pain as 5-6/10 in severity which is expected. Pathology still pending IV fluid was discontinued Clinically patient is improving Objective - Vital Signs Vital signs: Vital Signs Temp 98.7 F 08/13/22 07:12 Pulse 87 08/13/22 07:12 Resp 18 08/13/22 07:12 BP 154/66 08/13/22 07:12 Pulse Ox 95 08/13/22 07:12 FiO2 Intake & Output 08/12/22 08/13/22 08/13/22 18:59 06:59 18:59 Weight 66.7 kg Other: Voiding Method Toilet Toilet Bedside Commode Bedside Commode # Voids 3 3 - Exam GENERAL: The patient is alert and oriented x3, not in any acute distress. Well developed, well nourished. HEENT: Pupils are round and equally reacting to light. EOMI. No scleral icterus. No conjunctival pallor. Normocephalic, atraumatic. No pharyngeal erythema. No thyromegaly. CARDIOVASCULAR: S1 and S2 present. No murmurs, rubs, or gallops. PULMONARY: Chest is clear to auscultation, no wheezing or crackles. ABDOMEN: Soft, nontender, nondistended, normoactive bowel sounds. No palpable organomegaly. MUSCULOSKELETAL: No joint swelling or deformity. EXTREMITIES: No cyanosis, clubbing, or pedal edema. NEUROLOGICAL: Gross neurological examination did not reveal any focal deficits. SKIN: No rashes. - Labs CBC & Chem 7: 08/12/22 06:31 08/13/22 03:56 Labs: Abnormal Lab Results - Last 24 Hours (Table) 08/12/22 08/13/22 Range/Units 16:49 03:56 Chloride 111 H (96-109) mmol/L Carbon Dioxide 17.6 L (20.0-27.5) mmol/L BUN 3.5 L (9.0-27.0) mg/dL BUN/Creatinine Ratio 5.00 L (12.00-20.00) Ratio POC Glucose (mg/dL) 111 H (70-110) mg/dL Calcium 7.8 L (8.7-10.3) mg/dL Assessment and Plan Assessment: 1. Diverticulitis. Status post lower anterior resection, lysis of adhesions and partial omentectomy 2. Postoperative hypotension , resolved 3. Hyperlipidemia 4. Diabetes mellitus 5. Hypertension 6. Depression Plan: Advance diet per Surgery team Pain management Follow-up pathology results Labs and medication were reviewed.. Continue same treatment. Continue with symptomatic treatment. Resume home medication. Monitor labs and vitals. DVT and GI prophylaxis. Further recommendations as per clinical course of the patient DVT prophylaxis: Subcutaneous heparin GI Prophylaxis: Pepcid For consulting us
[2022-08-14 03:25] VITALS: RESP 16
[2022-08-14] MEDS: HYDROcodone/APAP 5-325MG 1 EACH TAB PO PRN ×2 (05:23→11:18)
[2022-08-14 08:03] VITALS: BP 123/67; PULSE 90; TEMP 98.6
[2022-08-14] MEDS: FAMOTIDINE 20 MG/2 ML VIAL IV SCH (08:43)
[2022-08-14] MEDS: HEPARIN SODIUM,PORCINE/PF 5,000 UNIT/0.5 ML SYRINGE SQ SCH (08:43)
[2022-08-14] MEDS: SERTRALINE 50 MG TAB PO SCH (08:44)
[2022-08-14] MEDS: PANTOPRAZOLE 40 MG/10 ML VIAL IVP SCH (08:44)
--- NOTE | 2022-08-14 11:27 | P.PN ---
Subjective From records Patient is postop day #1 status post lower anterior resection, lysis of adhesions and partial omentectomy. Patient has been hypotensive with low urine output. Epidural stopped last night because of hypotension. It's been restarted L lower rate this morning. They are adjusting the medication. She is complaining of itching. Patient did receive 1500 mL fluid boluses through the night. She denies any nausea vomiting. Does complain of abdominal pain. No bowel activity. Afebrile. BP 96/58. Labs pending 08/12/2022 Patient is seen and evaluated in room at bedside; reports improving somewhat better; reports passing flatus but no bowel movement. Patient is status post anterior resection for diverticulitis Vital signs are reviewed and remained stable Blood work reveals a WBC of 4.89, hemoglobin of 9.4 and platelet count of 1:15, sodium 143, potassium 3.2, BUN/creatinine of 6.0/0.8 We will plan to supplement with potassium 30 mEq 1 and continue to monitor electrolytes closely General surgery planning to remove Velázquez catheter and epidural catheter today - Gen. surgery recommending to advance diet once bowel movement is established 08/13/2022 Patient is awake and alert, she is not in distress, she was started on clear liquid diet today and later on advance to low fiber diet, she had a little bowel movement in the morning, she was prepped abdominal pain as 5-6/10 in severity which is expected. Pathology still pending IV fluid was discontinued Clinically patient is improving 08/14/2022 Patient tolerates diet well, she is eating 50-00% of her meals. She is still complaining of from some abdominal pain about 5/10, with some mild back pain. She has a bowel movement yesterday. No other new complaints. She is hemodynamically stable and labs reviewed. No new labs from today. Sugar controlled. Patient states that she feels well and she wants to be considered for discharge. Objective - Vital Signs Vital signs: Vital Signs Temp 98.6 F 08/14/22 07:04 Pulse 90 08/14/22 07:04 Resp 16 08/14/22 07:04 BP 123/67 08/14/22 07:04 Pulse Ox 95 08/14/22 09:10 FiO2 Intake & Output 08/13/22 08/14/22 08/14/22 18:59 06:59 18:59 Intake Total 800 Balance 800 Weight 66.7 kg Intake: Intake, IV Titration 800 Amount Sodium Chloride 0.9% 1, 800 000 ml @ 130 mls/hr IV . Q7H42M [facility] Rx#:[id number] Other: # Voids 2 # Bowel Movements 1 - Exam GENERAL: The patient is alert and oriented x3, not in any acute distress. Well developed, well nourished. HEENT: Pupils are round and equally reacting to light. EOMI. No scleral icterus. No conjunctival pallor. Normocephalic, atraumatic. No pharyngeal erythema. No thyromegaly. CARDIOVASCULAR: S1 and S2 present. No murmurs, rubs, or gallops. PULMONARY: Chest is clear to auscultation, no wheezing or crackles. ABDOMEN: Soft, nontender, nondistended, normoactive bowel sounds. No palpable organomegaly. MUSCULOSKELETAL: No joint swelling or deformity. EXTREMITIES: No cyanosis, clubbing, or pedal edema. NEUROLOGICAL: Gross neurological examination did not reveal any focal deficits. SKIN: No rashes. - Labs CBC & Chem 7: 08/12/22 06:31 08/13/22 03:56 Assessment and Plan Assessment: 1. Diverticulitis. Status post lower anterior resection, lysis of adhesions and partial omentectomy 2. Postoperative hypotension , resolved 3. Hyperlipidemia 4. Diabetes mellitus 5. Hypertension 6. Depression Plan: Continue with diet per Surgery team Pain management Follow-up pathology results Labs and medication were reviewed.. Continue same treatment. Continue with symptomatic treatment. Resume home medication. Monitor labs and vitals. DVT and GI prophylaxis. Further recommendations as per clinical course of the patient DVT prophylaxis: Subcutaneous heparin GI Prophylaxis: Pepcid For consulting us
[2022-08-14 11:36] LABS: Glucose,Whole Blood 100 mg/dL (70-110)
[2022-08-14 11:37] LABS: African American GFR (CKD) 104.7 (60.0-200.0); Anion Gap 10.8 mmol/L (10.00-18.00); BUN/Creat Ratio 4.83 Ratio (12.00-20.00); Blood Urea Nitrogen 3.4 mg/dL (9.0-27.0); Carbon Dioxide 21.2 mmol/L (20.0-27.5); Non-African American GFR(CKD) 90.4 (60.0-200.0); Potassium 3.6 mmol/L (3.5-5.5)
--- NOTE | 2022-08-14 11:56 | P.DS ---
Providers Date of admission: 08/08/22 09:03 Expected date of discharge: 08/14/22 Attending physician: Cristopher Browne Consults: 08/08/22 12:46 Consult Physician Routine Consulting Provider: Carlitos Holbrook Consult Reason/Comments: Medical management Do you want consulting provider notified?: Yes Primary care physician: Yolanda Chandler [facility] Course: Discharge diagnosis 1. Diverticulitis. Status post lower anterior resection, lysis of adhesions and partial omentectomy 2. Postoperative hypotension and low urine output improved with IV fluids Hospital course This is a 66-year-old female with a known history of diverticulitis. She is status post lower anterior resection, lysis of adhesions and partial omentectomy. Patient's pain is controlled. She is tolerating diet. She is having bowel movements. She has been up and ambulating. She denies any difficulty urinating. She is afebrile. She is stable for discharge. Please refer to chart for any further details. Physician Machine Maintenance Repairer note has been reviewed by physician. Signing provider agrees with the documented findings, assessment, and plan of care. Patient Condition at Discharge: Stable Plan - Discharge Summary Discharge Rx Participant: Yes New Discharge Prescriptions: New HYDROcodone/APAP 5-325MG [[place] 5-325] 1 tab PO Q6HR PRN 3 Days #12 tab PRN Reason: Pain No Action Aspirin EC [Ecotrin Low Dose] 81 mg PO DAILY Cholecalciferol [Vitamin D3 (25 Mcg = 1000 Iu)] 50 mcg PO DAILY Lisinopril-Hctz 10-12.5 mg [Zestoretic 10-12.5] 1 tab PO DAILY Sertraline HCl [Zoloft] 50 mg PO BID Pioglitazone [Actos] 30 mg PO DAILY Ezetimibe [Zetia] 10 mg PO DAILY Meclizine [Antivert] 25 mg PO TID PRN #90 tab PRN Reason: Vertigo Amoxic-Pot Clav 875-125Mg [Augmentin 875-125] 1 tab PO Q12HR 10 Days #20 tab Ascorbic Acid [Vitamin C] 500 mg PO DAILY Levofloxacin [Levaquin] 500 mg PO DAILY Famotidine [Pepcid] 20 mg PO BID Biotin [Ybnj-Yyff-Omylq] 10,000 mcg PO DAILY ALPRAZolam [Xanax] 0.25 mg PO DAILY PRN PRN Reason: Anxiety Semaglutide [Ozempic] 1 mg SQ WEEKLY HYDROcodone/APAP 5-325MG [[place] 5-325] 1 each PO DIRECTED PRN PRN Reason: Pain Multivitamins, Thera [Multivitamin (formulary)] 1 tab PO DAILY Discharge Medication List Aspirin EC [Ecotrin Low Dose] 81 mg PO DAILY 11/12/13 [History] Cholecalciferol [Vitamin D3 (25 Mcg = 1000 Iu)] 50 mcg PO DAILY 11/12/13 [History] Lisinopril-Hctz 10-12.5 mg [Zestoretic 10-12.5] 1 tab PO DAILY 10/12/16 [History] Sertraline HCl [Zoloft] 50 mg PO BID 10/12/16 [History] ALPRAZolam [Xanax] 0.25 mg PO DAILY PRN 07/14/22 [History] Ezetimibe [Zetia] 10 mg PO DAILY 07/14/22 [History] Pioglitazone [Actos] 30 mg PO DAILY 07/14/22 [History] Semaglutide [Ozempic] 1 mg SQ WEEKLY 07/14/22 [History] Meclizine [Antivert] 25 mg PO TID PRN #90 tab 07/18/22 [Rx] Amoxic-Pot Clav 875-125Mg [Augmentin 875-125] 1 tab PO Q12HR 10 Days #20 tab 07/19/22 [Rx] Ascorbic Acid [Vitamin C] 500 mg PO DAILY 08/02/22 [History] Biotin [Skfq-Abkk-Tziay] 10,000 mcg PO DAILY 08/02/22 [History] Famotidine [Pepcid] 20 mg PO BID 08/02/22 [History] HYDROcodone/APAP 5-325MG [[place] 5-325] 1 each PO DIRECTED PRN 08/02/22 [History] Levofloxacin [Levaquin] 500 mg PO DAILY 08/02/22 [History] Multivitamins, Thera [Multivitamin (formulary)] 1 tab PO DAILY 08/02/22 [History] HYDROcodone/APAP 5-325MG [[place] 5-325] 1 tab PO Q6HR PRN 3 Days #12 tab 08/14/22 [Rx] Follow up Appointment(s)/Referral(s): [facility], [NON-STAFF] - 1 Week ([facility] will call you to arrange a visit) Cristopher Browne MD [STAFF PHYSICIAN] - 1 Week Activity/Diet/Wound Care/Special Instructions: Medicine service to complete discharge med rec No driving while taking [place] No lifting over 10 pounds Shower daily. No soaking or tub baths for 2 weeks Very light activity until you are reevaluated at your follow up appointment with your surgeon Discharge Disposition: HOME WITH HOME HEALTH SERVICES
--- NOTE | 2022-08-21 11:00 | CDI ---
Documentation Clarification Form Date: 08/21/2022 10:51:11 AM From: Deandra Juarez RN, CCDS Email: [email or web address] Admit Date: 08/08/2022 9:03:00 AM Patient Name: Gi Bingham Visit Number: [id number] Discharge Date: 08/14/2022 3:57:00 PM ATTENTION: The Clinical Documentation Specialists (CDI) and [facility] Coding Staff appreciate your assistance in clarifying documentation. Please respond to the clarification below the line at the bottom and electronically sign. The CDI & [facility] Coding staff will review the response and follow-up if needed. Please note: Queries are made part of the Legal Health Record. If you have any questions, please contact the author of this message via ITS. Dr. Cristopher Browne Postoperative hypotension is documented in the progress notes. Additional clarification regarding this diagnosis is requested. History/Risk Factors: Diverticulitis - s/p LAR of sigmoid colon and partial omentectomy. Other past medical history of hypertension, DM and GERD Clinical Indicators: 3 Surgery: "Patient has been hypotensive with low urine output. Epidural stopped last night because of hypotension. It's been restarted with lower rate this morning. They are adjusting the medication. She is complaining of itching. Assessment: Postoperative hypotension." 08/09 Anesthesia: "Epidural was stopped last night because of hypotension. Restarted this morning at a lower rate." VS: 08/08 BP @12:53 92/44 08/08 BP @ 17:40 86/37 3/2 BP @ 04:57 89/52 3 BP @ 08:00 122/68 Treatment: Epidural dose held and dose adjusted. Per nursing note: total of 4L 0.9 NS IV bolus on 08/08 0.9 NS @130/hr 08/08 IM consult: "Postoperative hypotension. We will hold the antihypertensive medications." Please clarify if the postoperative hypotension is due to: [ ] Complication of the surgical procedure [ xx ] Epidural medications [ ] Other Condition, please specify [ ] Unable to determine MTDD
== END 2022-08-14 15:57 | disposition home health service (06) | DRG 331 ==
LOC: 2ORMAIN 09:03 → 4SSUR 14:42
PROVIDERS: ADMIT Surgery; ATTEND Surgery
PROC: 0DNU0ZZ Release Omentum, Open Approach (ICD-10-PCS; 2022-08-08)
PROC: 0DBU0ZZ Excision of Omentum, Open Approach (ICD-10-PCS; 2022-08-08)
PROC: 3E0R3BZ Introduction of Anesthetic Agent into Spinal Canal, Percutaneous Approach (ICD-10-PCS; 2022-08-08)
PROC: 00HU33Z Insertion of Infusion Device into Spinal Canal, Percutaneous Approach (ICD-10-PCS; 2022-08-08)
PROC: 0DTN0ZZ Resection of Sigmoid Colon, Open Approach (ICD-10-PCS; principal; 2022-08-08 11:10)
DX: K57.32 Diverticulitis of large intestine without perforation or abscess without bleeding (principal); I95.2 Hypotension due to drugs; M50.20 Other cervical disc displacement, unspecified cervical region; F32.A Depression, unspecified; I71.40 Abdominal aortic aneurysm, without rupture, unspecified; I10 Essential (primary) hypertension; E11.9 Type 2 diabetes mellitus without complications; K57.30 Diverticulosis of large intestine without perforation or abscess without bleeding; E78.5 Hyperlipidemia, unspecified; K21.9 Gastro-esophageal reflux disease without esophagitis; G47.30 Sleep apnea, unspecified; M54.9 Dorsalgia, unspecified; L29.9 Pruritus, unspecified; T41.3X5A Adverse effect of local anesthetics, initial encounter; Y84.8 Other medical procedures as the cause of abnormal reaction of the patient, or of later complication, without mention of misadventure at the time of the procedure; R00.0 Tachycardia, unspecified; Z87.891 Personal history of nicotine dependence; Z85.42 Personal history of malignant neoplasm of other parts of uterus; Z98.84 Bariatric surgery status; Z87.19 Personal history of other diseases of the digestive system; Z79.82 Long term (current) use of aspirin; Z79.84 Long term (current) use of oral hypoglycemic drugs; Z79.899 Other long term (current) drug therapy; Z79.85 Long-term (current) use of injectable non-insulin antidiabetic drugs; Z91.018 Allergy to other foods; Z91.030 Bee allergy status; Z91.040 Latex allergy status; Z88.1 Allergy status to other antibiotic agents; Z88.6 Allergy status to analgesic agent
CPT/HCPCS: 80048; 80051; 80053; 84484; 85025; 86850; 86900; 86901; 88305; 88307; 93005; 93308; 94760

== ENCOUNTER 2022-09-18 10:51 | Observation (INO) | payer MEDICARE ==
[2022-09-18] MEDS ORDERED: PANTOPRAZOLE 40 MG/10 ML VIAL IVP STA (11:42)
[2022-09-18] MEDS ORDERED: SODIUM CHLORIDE 0.9% 1,000 ML IV STA ×3 (11:42→14:50)
[2022-09-18] MEDS ORDERED: ONDANSETRON 4 MG/2 ML VIAL IVP STA (11:42)
[2022-09-18] MEDS ORDERED: MORPHINE SULFATE 4 MG/ML SYRINGE IVP STA ×2 (11:43→14:29)
--- NOTE | 2022-09-18 11:59 | ED ---
General Adult HPI - General Chief complaint: Abdominal Pain Stated complaint: Diarrhea x 4days Time Seen by Provider: 09/18/22 11:00 Source: patient, RN notes reviewed, old records reviewed Mode of arrival: ambulatory Limitations: no limitations - History of Present Illness Initial comments: Patient is a 66-year-old female with past medical history multiple for diverticulitis status post bowel or anterior wall resection, lysis of adhesions, partial omentectomy done by Dr. Browne in early August 2022, cholecystectomy, appendectomy,, AAA who presents emergency Department complaining of abdominal pain. Has been ongoing for 4 days. Has had associated nonbloody diarrhea with it going multiple times per day. Endorses decreased appetite. Denies any fevers. Endorses nausea but denies vomiting. Denies any chest pain. Denies any cough or shortness of breath. Denies any dysuria, hematuria. Has no other acute lysis time. Presents over concern for possible intra-abdominal process such as diverticulitis. X-ray abdominal pain is located, generalized over her abdomen, in the left side of her abdomen worse than right. Does not believe she is constipated. - Related Data Home Medications Medication Instructions Recorded Confirmed Aspirin EC [Ecotrin Low Dose] 81 mg PO DAILY 11/12/13 09/18/22 Lisinopril-Hctz 10-12.5 mg 1 tab PO DAILY 10/12/16 09/18/22 [Zestoretic 10-12.5] Ezetimibe [Zetia] 10 mg PO DAILY 07/14/22 09/18/22 Pioglitazone [Actos] 30 mg PO DAILY 07/14/22 09/18/22 Semaglutide [Ozempic] 1 mg SQ OLEA 07/14/22 09/18/22 Ascorbic Acid [Vitamin C] 500 mg PO DAILY 08/02/22 09/18/22 Biotin [Phhu-Sarl-Qxmjc] 10,000 mcg PO DAILY 08/02/22 09/18/22 Multivitamins, Thera [Multivitamin 1 tab PO DAILY 08/02/22 09/18/22 (formulary)] ALPRAZolam [Xanax] 0.25 mg PO DAILY PRN 09/18/22 09/18/22 Cholecalciferol [Vitamin D3 (25 50 mcg PO DAILY 09/18/22 09/18/22 Mcg = 1000 Iu)] Famotidine [Pepcid] 20 mg PO BID 09/18/22 09/18/22 HYDROcodone/APAP 5-325MG [[place] 1 tab PO HS 09/18/22 09/18/22 5-325] Previous Rx's Medication Instructions Recorded Omeprazole 20 mg PO BID 30 Days #60 cap 08/14/22 Allergies Allergy/AdvReac Type Severity Reaction Status Date / Time banana Allergy BLISTERS Verified 09/18/22 12:42 IN MOUTH bee pollen Allergy Anaphylaxis Verified 09/18/22 12:42 bee venom protein (honey bee) Allergy Anaphylaxis Verified 09/18/22 12:42 kiwi Allergy BLISTERS Verified 09/18/22 12:42 IN MOUTH latex Allergy Anaphylaxis, Verified 09/18/22 12:42 Blisters ibuprofen AdvReac Unknown Upset Verified 09/18/22 12:42 Stomach metronidazole [From Flagyl] AdvReac Nausea & Verified 09/18/22 12:42 Vomiting & Diarrhea Review of Systems ROS Statement: Those systems with pertinent positive or pertinent negative responses have been documented in the HPI. Review of Systems: CONST: Denies fever EYES: Denies blurry vision ENT: Denies nasal congestion C/V: Denies Chest pain RESP: Denies shortness of breath GI: Endorses abdominal pain : Denies dysuria SKIN: Denies rash. MSK: Denies joint pain. NEURO: Denies headache ROS Other: All systems not noted in ROS Statement are negative. Past Medical History Past Medical History: Cancer, Diabetes Mellitus, GERD/Reflux, Hyperlipidemia, Hypertension Additional Past Medical History / Comment(s): Hx diverticulitis., AAA- states not visible now., UTI's., mild sleep apnea-no machine., Gout., barretts esophagus (egd 2019)., herniated discs with neck and back pain., uterine cancer with partial hysterectomy., recent vertigo-improved with antibiotic. History of Any Multi-Drug Resistant Organisms: None Reported Past Surgical History: Bariatric Surgery, Heart Catheterization, Hysterectomy Additional Past Surgical History / Comment(s): lap band 2009 () , R kidney tumor removed, sheyla carpal tunnel, bone spurs removed from hip and neck, 05/14/14 lap band port replacement (Dr. Jenkins). Lap band removal in 07/08/2017., egd & colonoscopy (07/16/22)., Heart cath (2006) Past Anesthesia/Blood Transfusion Reactions: No Reported Reaction Additional Past Anesthesia/Blood Transfusion Reaction / Comment(s): no hx blood transfusion Past Psychological History: Anxiety Smoking Status: Former smoker Past Alcohol Use History: None Reported Past Drug Use History: None Reported - Past Family History Mother Family Medical History: Cancer Additional Family Medical History / Comment(s): Poss CA, at age 67 Father Family Medical History: CVA/TIA, Deep Vein Thrombosis (DVT) Additional Family Medical History / Comment(s): from aneurysm at age 62 General Exam - General Exam Comments Initial Comments: General: Appears in mild distress secondary to abdominal pain. HEAD: Normal with no signs of head trauma. EYES: EOMI ENT: Hearing grossly intact, normal oropharynx. RESPIRATORY: Clear breath sounds bilaterally. No wheezes, rales, or rhonchi. C/V: Regular rate and rhythm. S1 and S2 auscultated, peripheral pulses 2+ and intact throughout ABD: Abdomen is soft, nondistended. Tender to palpation of the left side of her abdomen, as well as epigastric region. No guarding. No peritoneal signs. No rebound tenderness. No CVA tenderness to percussion. EXT: Normal range of motion, no obvious deformity SKIN: No rashes or lesions observed on exposed skin. NEURO: Alert and oriented 4. Limitations: no limitations Course Vital Signs 09/18/22 09/18/22 09/18/22 10:54 10:56 11:53 Temperature 98.1 F Pulse Rate 87 82 80 Respiratory 20 20 16 Rate Blood Pressure 107/62 119/56 114/57 O2 Sat by Pulse 97 98 98 Oximetry 09/18/22 09/18/22 09/18/22 13:00 14:00 14:51 Temperature 98 F Pulse Rate 83 87 83 Respiratory 16 16 20 Rate Blood Pressure 122/51 110/57 104/59 O2 Sat by Pulse 98 98 97 Oximetry Medical Decision Making - Medical Decision Making Was pt. sent in by a medical professional or institution (, PA, [employer], urgent care, hospital, or snf...) When possible be specific @ -No Did you speak to anyone other than the patient for history (EMS, parent, family, police, friend...)? What history was obtained from this source @ -No Did you review nursing and triage notes (agree or disagree)? Why? @ -I reviewed and agree with nursing and triage notes Were old charts reviewed (outside hosp., previous admission, EMS record, old EKG, old radiological studies, urgent care reports/EKG's, snf records)? Report findings @ -Charts reviewed from August 2022 Differential Diagnosis (chest pain, altered mental status, abdominal pain women, abdominal pain men, vaginal bleeding, weakness, fever, dyspnea, syncope, headache, dizziness, GI bleed, back pain, seizure, CVA, palpatations, mental health, musculoskeletal)? @ -Differential Abdominal Pain Women: Appendicitis, Cholecystitis, diverticulosis, ischemic bowel, pancreatitis, hepatitis, UTI, gastroenteritis, AAA, incarcerated hernia, bowel obstruction, constipation, inflammatory bowel, hepatitis, peptic ulcer disease, splenic infarction, perforated viscus, vulvitis, ovarian torsion, PID, kidney stone, placenta abruption, this is not meant to be an all-inclusive list EKG interpreted by me (3pts min.). @ -As above X-rays interpreted by me (1pt min.). @ -Chest x-ray shows no obvious acute cardio pulmonary process. CT interpreted by me (1pt min.). @ -CT angiogram of the pelvis reveals no evidence of AAA. Patient does appear to have nonspecific colitis. No evidence of diverticulitis. U/S interpreted by me (1pt. min.). @ -None done What testing was considered but not performed or refused? (CT, X-rays, U/S, labs)? Why? @ -None What meds were considered but not given or refused? Why? @ -None Did you discuss the management of the patient with other professionals (professionals i.e. , PA, [employer], lab, RT, psych nurse, social work lecturer, rn forensic, teacher, information security officer, child support case officer)? Give summary @ -No Was smoking cessation discussed for >3mins.? @ -No Was critical care preformed (if so, how long)? @ -No Were there social determinants of health that impacted care today? How? (Homelessness, low income, unemployed, alcoholism, drug addiction, transportation, low edu. Level, literacy, decrease access to med. care, longterm, rehab)? @ -No Was there de-escalation of care discussed even if they declined (Discuss DNR or withdrawal of care, Hospice)? DNR status @ -No What co-morbidities impacted this encounter? (DM, HTN, Smoking, COPD, CAD, Cancer, CVA, ARF, Chemo, Hep., AIDS, mental health diagnosis, sleep apnea, morbid obesity)? @ -History of AAA, status post bowel resection for diverticulitis Was patient admitted / discharged? Hospital course, mention meds given and route, prescriptions, significant lab abnormalities, going to OR and other pertinent info. @ -Based on the patient's presentation and physical exam, I do suspect she is having acute abdominal pathology for current symptoms. We will obtain abdominal laboratory studies, screening EKG, CTA of the abdomen and pelvis due to her history of AAA, as well as a screening chest x-ray. Vital signs also be obtained. She was in agreement this plan. She'll be sent medically treated with IV fluids, morphine, Zofran, and Protonix. Patient's imaging remarkable for nonspecific colitis. EKG unremarkable. Patient's laboratory studies are remarkable for hyperkalemia 5.8. Likely secondary to her dehydration and diarrhea. Patient's urinalysis is contaminated. No other focal findings on exam. Imaging. I updated the patient. She still has intractable abdominal pain and will be administered additional pain meds. No evidence of hyperkalemia on EKG. I did discuss her workup and imaging. She will be admitted for dehydration, hyperkalemia, intractable abdominal pain. We'll continue IV fluids. She was in agreement this plan. I spoke with the admitting physician, Dr. Vergara who accepted the admission. Undiagnosed new problem with uncertain prognosis? @ -No Drug Therapy requiring intensive monitoring for toxicity (Heparin, Nitro, Insulin, Cardizem)? @ -No Were any procedures done? @ -No Diagnosis/symptom? @ -Intractable abdominal pain Acute, or Chronic, or Acute on Chronic? @ -Acute Uncomplicated (without systemic symptoms) or Complicated (systemic symptoms)? @ -Uncomplicated Side effects of treatment? @ -none Exacerbation, Progression, or Severe Exacerbation] @ -no Poses a threat to life or bodily function? @ -no Diagnosis/symptom? @ -Diarrhea, dehydration Acute, or Chronic, or Acute on Chronic? @ -Acute Uncomplicated (without systemic symptoms) or Complicated (systemic symptoms)? @ -Complicated Side effects of treatment? @ -none Exacerbation, Progression, or Severe Exacerbation] @ -no Poses a threat to life or bodily function? @ -Yes, if untreated can result in significant morbidity and mortality. Diagnosis/symptom? @ -Hyperkalemia Acute, or Chronic, or Acute on Chronic? @ -Acute Uncomplicated (without systemic symptoms) or Complicated (systemic symptoms)? @ -Uncomplicated Side effects of treatment? @ -none Exacerbation, Progression, or Severe Exacerbation] @ -no Poses a threat to life or bodily function? @ -Yes, if untreated can result in arrhythmias. - Lab Data Result diagrams: 09/18/22 11:42 09/18/22 11:42 Lab Results 09/18/22 09/18/22 09/18/22 Range/Units 11:42 11:42 11:42 WBC 10.0 (3.8-10.6) k/uL RBC 4.78 (3.80-5.40) m/uL Hgb 13.2 (11.4-16.0) gm/dL Hct 39.9 (34.0-46.0) % MCV 83.4 D (80.0-100.0) fL MCH 27.5 (25.0-35.0) pg MCHC 33.0 (31.0-37.0) g/dL RDW 13.5 (11.5-15.5) % Plt Count 244 (150-450) k/uL MPV 8.3 Neutrophils % 69 % Lymphocytes % 22 % Monocytes % 4 % Eosinophils % 2 % Basophils % 0 % Neutrophils # 6.9 (1.3-7.7) k/uL Lymphocytes # 2.2 (1.0-4.8) k/uL Monocytes # 0.4 (0-1.0) k/uL Eosinophils # 0.2 (0-0.7) k/uL Basophils # 0.0 (0-0.2) k/uL PT 10.5 (9.0-12.0) sec INR 1.0 (<1.2) APTT 25.0 (22.0-30.0) sec Sodium (137-145) mmol/L Potassium (3.5-5.1) mmol/L Chloride (98-107) mmol/L Carbon Dioxide (22-30) mmol/L Anion Gap mmol/L BUN (7-17) mg/dL Creatinine (0.52-1.04) mg/dL Est GFR (CKD-EPI)AfAm (>60 ml/min/1.73 sqM) Est GFR (CKD-EPI)NonAf (>60 ml/min/1.73 sqM) Glucose (74-99) mg/dL Plasma Lactic Acid Ej (0.7-2.0) mmol/L Calcium (8.4-10.2) mg/dL Total Bilirubin (0.2-1.3) mg/dL AST (14-36) U/L ALT (4-34) U/L Alkaline Phosphatase (38-126) U/L Total Protein (6.3-8.2) g/dL Albumin (3.5-5.0) g/dL Amylase (30-110) U/L Lipase (23-300) U/L Urine Color Yellow Urine Appearance Turbid H (Clear) Urine pH 5.5 (5.0-8.0) Ur Specific [place] 1.026 (1.001-1.035) Urine Protein 1+ H (Negative) Urine Glucose (UA) Negative (Negative) Urine Ketones 1+ H (Negative) Urine Blood Trace H (Negative) Urine Nitrite Negative (Negative) Urine Bilirubin 1+ H (Negative) Urine Urobilinogen 2.0 (<2.0) mg/dL Ur Leukocyte Esterase Small H (Negative) Urine RBC 4 (0-5) /hpf Urine WBC 5 (0-5) /hpf Ur Squamous Epith Cells 29 H (0-4) /hpf Urine Bacteria Many H (None) /hpf Hyaline Casts 6 H (0-2) /lpf Urine Mucus Occasional H (None) /hpf Influenza Type A (PCR) (Not Detectd) Influenza Type B (PCR) (Not Detectd) RSV (PCR) (Not Detectd) SARS-CoV-2 (PCR) (Not Detectd) 09/18/22 09/18/22 09/18/22 Range/Units 11:42 11:42 11:43 WBC (3.8-10.6) k/uL RBC (3.80-5.40) m/uL Hgb (11.4-16.0) gm/dL Hct (34.0-46.0) % MCV (80.0-100.0) fL MCH (25.0-35.0) pg MCHC (31.0-37.0) g/dL RDW (11.5-15.5) % Plt Count (150-450) k/uL MPV Neutrophils % % Lymphocytes % % Monocytes % % Eosinophils % % Basophils % % Neutrophils # (1.3-7.7) k/uL Lymphocytes # (1.0-4.8) k/uL Monocytes # (0-1.0) k/uL Eosinophils # (0-0.7) k/uL Basophils # (0-0.2) k/uL PT (9.0-12.0) sec INR (<1.2) APTT (22.0-30.0) sec Sodium 137 (137-145) mmol/L Potassium 5.8 H (3.5-5.1) mmol/L Chloride 98 (98-107) mmol/L Carbon Dioxide 27 (22-30) mmol/L Anion Gap 12 mmol/L BUN 30 H (7-17) mg/dL Creatinine 1.09 H (0.52-1.04) mg/dL Est GFR (CKD-EPI)AfAm 61 (>60 ml/min/1.73 sqM) Est GFR (CKD-EPI)NonAf 53 (>60 ml/min/1.73 sqM) Glucose 102 H (74-99) mg/dL Plasma Lactic Acid Ej 1.5 (0.7-2.0) mmol/L Calcium 9.7 (8.4-10.2) mg/dL Total Bilirubin 0.5 (0.2-1.3) mg/dL AST 26 (14-36) U/L ALT 20 (4-34) U/L Alkaline Phosphatase 147 H (38-126) U/L Total Protein 8.6 H (6.3-8.2) g/dL Albumin 4.3 (3.5-5.0) g/dL Amylase 55 (30-110) U/L Lipase 41 (23-300) U/L Urine Color Urine Appearance (Clear) Urine pH (5.0-8.0) Ur Specific [place] (1.001-1.035) Urine Protein (Negative) Urine Glucose (UA) (Negative) Urine Ketones (Negative) Urine Blood (Negative) Urine Nitrite (Negative) Urine Bilirubin (Negative) Urine Urobilinogen (<2.0) mg/dL Ur Leukocyte Esterase (Negative) Urine RBC (0-5) /hpf Urine WBC (0-5) /hpf Ur Squamous Epith Cells (0-4) /hpf Urine Bacteria (None) /hpf Hyaline Casts (0-2) /lpf Urine Mucus (None) /hpf Influenza Type A (PCR) Not Detected (Not Detectd) Influenza Type B (PCR) Not Detected (Not Detectd) RSV (PCR) Not Detected (Not Detectd) SARS-CoV-2 (PCR) Not Detected (Not Detectd) - EKG Data -: EKG Interpreted by Me EKG Comments: 12-lead Electrocardiogram Interpretation Note EKG was reviewed and interpreted by myself. 12-lead ECG performed at 1216 is i nterpreted by me as revealing normal sinus rhythm at a rate of 77 beats per minute. [place] is normal. MS interval is 137 ms, QRS duration 100 ms, QTc is 397 ms.. There were no ST or T wave abnormalities to suggest myocardial ischemia or injury. R wave progression across the precordium was satisfactory. By my interpretation this EKG is non-diagnostic for acute ischemia. Disposition Clinical Impression: Diarrhea, Colitis, Intractable abdominal pain, Hyperkalemia Disposition: ADMITTED IP TO THIS HOSP Condition: Stable Referrals: None,Stated [Primary Care Provider] - 1-2 days Time of Disposition: 14:35
[2022-09-18 12:31] LABS: Appearance,Urine Turbid (Clear); Bacteria,Urine Many /hpf; Bilirubin,Urine 1+ (Negative); Blood,Urine Trace (Negative); Color,Urine Yellow; Glucose,Urine (UA) Negative (Negative); Hyaline Casts,Urine 6 /lpf (0-2); Ketones,Urine 1+ (Negative); Leukocyte Esterase,Urine Small (Negative); Mucus,Urine Occasional /hpf; Nitrite,Urine Negative (Negative); PH, Urine 5.5 (5.0-8.0); Protein,Urine 1+ (Negative); RBC,Urine 4 /hpf (0-5); Specific Gravity,Urine 1.026 (1.001-1.035); Squamous Epithelial Cell,Urine 29 /hpf (0-4); WBC,Urine 5 /hpf (0-5)
[2022-09-18 12:34] LABS: Albumin 4.3 g/dL (3.5-5.0); Calcium 9.7 mg/dL (8.4-10.2); Potassium 5.8 mmol/L (3.5-5.1); Total Bilirubin 0.5 mg/dL (0.2-1.3); Total Protein 8.6 g/dL (6.3-8.2)
[2022-09-18 12:50] LABS: Basophils % (A) 0 %; Eosinophils # (A) 0.2 k/uL (0-0.7); Eosinophils % (A) 2 %; HCT 39.9 % (34.0-46.0); HGB 13.2 gm/dL (11.4-16.0); Lymphocytes # (A) 2.2 k/uL (1.0-4.8); Lymphocytes % (A) 22 %; MCH 27.5 pg (25.0-35.0); Mean Platelet Volume 8.3; Monocytes # (A) 0.4 k/uL (0-1.0); Monocytes % (A) 4 %; Neutrophils # (A) 6.9 k/uL (1.3-7.7); Neutrophils % (A) 69 %; Platelet Count 244 k/uL (150-450); RBC 4.78 m/uL (3.80-5.40); RDW 13.5 % (11.5-15.5)
[2022-09-18 12:51] LABS: Prothrombin Time 10.5 sec (9.0-12.0)
[2022-09-18 13:09] LABS: MCV 83.4 fL (80.0-100.0)
--- NOTE | 2022-09-18 13:42 | CT ---
EXAMINATION TYPE: CT angio abdomen pelvis DATE OF EXAM: 09/18/2022 COMPARISON: 07/14/2022 HISTORY: c/o abdominal pain and diarrhea, hx of AAA CT DLP: 872.3 mGycm CONTRAST: CTA abdominal aorta with 3-D reconstruction is performed without Oral Contrast and without and with I V Contrast, patient injected with 100 mL of Isovue 370. Contrast CTA of the abdominal aorta was performed from the lung base through the base of the pelvis. 3-D reconstruction imaging obtained at a separate workstation. CONTRAST CT ABDOMEN AND PELVIS ABDOMINAL AORTA: No evidence for abdominal aortic aneurysm. No dissection. Iliac vessels are symmet darnell and patent. Atheromatous changes noted. Abdominal aorta measures 2.4 cm maximal AP dimension. Brianna iac axis and SMA are patent as is the inferior mesenteric artery. Decreased perfusion to the upper po le of the right kidney with atrophic changes noted. Overall appearance is stable relative to the prio r study. The left kidney is noted to perfuse normally. LIVER/GB- No significant abnormality is seen. The gallbladder is surgically absent. PANCREAS- No significant abnormality is seen. SPLEEN- No significant abnormality is seen. ADRENALS- No significant abnormality is seen. KIDNEYS/BLADDER- No significant abnormality is seen. BOWEL-there is wall thickening involving the right hemicolon which may reflect nonspecific colitis wi th differential diagnostic possibilities including infectious, inflammatory and vascular etiologies. Wall thickening continues into the transverse colon with normalization at the level of the splenic fl exure. Scattered sigmoid diverticulosis without diverticulitis. Anastomotic resection sigmoid colon. GENITAL ORGANS: No gross abnormality seen. LYMPH NODES- No greater than 1cm abdominal or pelvic lymph nodes are appreciated. OSSEOUS STRUCTURES- No significant abnormality is seen. OTHER- IMPRESSION- 1. nonspecific colitis is suspected extending from the cecum through the transverse colon. Correlate clinically. 2. Atrophic change and decreased perfusion to the upper pole of the right kidney appears to be chroni c in nature. 3. No evidence for abdominal aortic aneurysm. Mesenteric vessels appear to be patent.
--- NOTE | 2022-09-18 14:15 | XR ---
EXAMINATION TYPE: XR chest 1V portable DATE OF EXAM: 09/18/2022 HISTORY: Shortness of breath. COMPARISON: None. TECHNIQUE: Single view of the chest is submitted. FINDINGS: Demonstrated are scattered senescent parenchymal change. There is no evidence for focal infiltrate. The heart is stable. Hilar and mediastinal structures are within normal limits. Degenerative changes are seen of the dorsal spine. IMPRESSION: 1. Chronic changes without evidence for acute pulmonary disease.
[2022-09-18] MEDS ORDERED: NALOXONE 0.4 MG/ML 1 ML VIAL IV PRN (14:51)
[2022-09-18] MEDS ORDERED: ALPRAZolam 0.25 MG TAB PO PRN (15:20)
[2022-09-18] MEDS: HEPARIN SODIUM,PORCINE/PF 5,000 UNIT/0.5 ML SYRINGE SQ SCH ×2 (18:06→23:49)
[2022-09-18] MEDS: PANTOPRAZOLE 40 MG TABLET PO SCH (18:06)
[2022-09-18] MEDS: FAMOTIDINE 20 MG TAB PO SCH (19:43)
[2022-09-18] MEDS: MORPHINE SULFATE 4 MG/ML SYRINGE IV PRN ×2 (19:43→23:22)
--- NOTE | 2022-09-19 02:16 | P.HPIM ---
History of Present Illness H&P Date: 09/18/22 Chief Complaint: Abdominal pain Patient is a 66-year-old female with a known history of hypertension, hyperlipidemia, diabetes type 2, history of lap band surgery and removal, EGD and colonoscopy on 07/16/2022 and history of diverticulitis and prior history of smoking presented to ER with complaints of abdominal pain. Patient states that on August 08 she had a colectomy. She also complaining of diarrhea for the past 2 days and was dehydrated. Diarrhea is mainly nonbloody. Denied any dark stools. Patient also states that she has decreased appetite. Denied any fever or chills. No complaints of chest pain or shortness breath. No dysuria or hematuria. CT abdomen in the ER showed nonspecific colitis is suspected extending from the cecum through the transverse colon. Atrophic changes and decreased perfusion of the upper lobe of the right kidney appears to be chronic in nature. No evidence for abdominal aortic aneurysm. Recent is presently appears to be patent. Chest x-ray showed chronic changes without evidence for acute pulmonary disease. Next and EKG showed sinus rhythm x-ray and laboratory data showed WBC 10.0 hemoglobin 13.2 and platelets 244 sodium 137 potassium 5.8 chloride 98 bicarb is 27 BUN 30 and creatinine 1.09 and blood sugar is 102, alk phos 147 and lipase 41 amylase 55 Urine analysis showed turbid with 1+ ketones and trace blood and small leukocyte esterase elevators squamous epithelial cells. Review of Systems Constitutional: Patient denies any fever or chills . . Generalized weakness. No weight loss. Abdomen: Patient does have nausea and some vomiting. Complains of watery pb rrhea and abdominal pain mainly in the lower abdomen.. Cardiovascular: Patient denies any chest pain or short of breath no palpitations. Respiratory: patient denied any cough is from production. No shortness of breath Neurologic: Patient denied any numbness or tingling headache. Musculoskeletal: Patient denies any complaints of joint swelling or deformity. Skin: Negative Psychiatric: Negative Endocrine: No heat or cold intolerance. No recent weight gain. Genitourinary: No dysuria or hematuria. All other 14 point ROS negative except the above Past Medical History Past Medical History: Cancer, Diabetes Mellitus, GERD/Reflux, Hyperlipidemia, Hypertension Additional Past Medical History / Comment(s): Hx diverticulitis., AAA- states not visible now., UTI's., mild sleep apnea-no machine., Gout., barretts esophagus (egd 2018)., herniated discs with neck and back pain., uterine cancer with partial hysterectomy., recent vertigo-improved with antibiotic. History of Any Multi-Drug Resistant Organisms: None Reported Past Surgical History: Bariatric Surgery, Heart Catheterization, Hysterectomy Additional Past Surgical History / Comment(s): lap band 2009 () , R kidney tumor removed, sheyla carpal tunnel, bone spurs removed from hip and neck, 05/14/14 lap band port replacement (Dr. Jenkins). Lap band removal in 07/08/2017., egd & colonoscopy (07/16/22)., Heart cath (2006) Past Anesthesia/Blood Transfusion Reactions: No Reported Reaction Additional Past Anesthesia/Blood Transfusion Reaction / Comment(s): no hx blood transfusion Past Psychological History: Anxiety Additional Psychological History / Comment(s): mood swings Smoking Status: Former smoker Past Alcohol Use History: None Reported Additional Past Alcohol Use History / Comment(s): quit smoking ,smoked approx 25 yrs , 1 1/2 ppd Past Drug Use History: None Reported - Past Family History Mother Family Medical History: Cancer Additional Family Medical History / Comment(s): Poss CA, at age 67 Father Family Medical History: CVA/TIA, Deep Vein Thrombosis (DVT) Additional Family Medical History / Comment(s): from aneurysm at age 62 Medications and Allergies Home Medications Medication Instructions Recorded Confirmed Type Aspirin EC [Ecotrin Low Dose] 81 mg PO DAILY 11/12/13 09/18/22 History Lisinopril-Hctz 10-12.5 mg 1 tab PO DAILY 10/12/16 09/18/22 History [Zestoretic 10-12.5] Ezetimibe [Zetia] 10 mg PO DAILY 07/14/22 09/18/22 History Pioglitazone [Actos] 30 mg PO DAILY 07/14/22 09/18/22 History Semaglutide [Ozempic] 1 mg SQ OLEA 07/14/22 09/18/22 History Ascorbic Acid [Vitamin C] 500 mg PO DAILY 08/02/22 09/18/22 History Biotin [Qjdk-Yxfa-Ihmgx] 10,000 mcg PO DAILY 08/02/22 09/18/22 History Multivitamins, Thera [Multivitamin 1 tab PO DAILY 08/02/22 09/18/22 History (formulary)] Omeprazole 20 mg PO BID 30 Days #60 cap 08/14/22 09/18/22 Rx ALPRAZolam [Xanax] 0.25 mg PO DAILY PRN 09/18/22 09/18/22 History Cholecalciferol [Vitamin D3 (25 50 mcg PO DAILY 09/18/22 09/18/22 History Mcg = 1000 Iu)] Famotidine [Pepcid] 20 mg PO BID 09/18/22 09/18/22 History HYDROcodone/APAP 5-325MG [[place]burn 1 tab PO HS 09/18/22 09/18/22 History 5-325] Allergies Allergy/AdvReac Type Severity Reaction Status Date / Time banana Allergy BLISTERS Verified 09/18/22 12:42 IN MOUTH bee pollen Allergy Anaphylaxis Verified 09/18/22 12:42 bee venom protein (honey bee) Allergy Anaphylaxis Verified 09/18/22 12:42 kiwi Allergy BLISTERS Verified 09/18/22 12:42 IN MOUTH latex Allergy Anaphylaxis, Verified 09/18/22 12:42 Blisters ibuprofen AdvReac Unknown Upset Verified 09/18/22 12:42 Stomach metronidazole [From Flagyl] AdvReac Nausea & Verified 09/18/22 12:42 Vomiting & Diarrhea Physical Exam Vitals: Vital Signs Temp Pulse Pulse Resp BP BP Pulse Ox 09/18/22 17:32 98.5 F 79 18 112/58 95 09/18/22 16:22 86 16 135/68 98 09/18/22 14:51 83 20 104/59 97 09/18/22 14:00 98 F 87 16 110/57 98 09/18/22 13:00 83 16 122/51 98 09/18/22 11:53 80 16 114/57 98 09/18/22 10:56 82 20 119/56 98 09/18/22 10:54 98.1 F 87 20 107/62 97 Intake and Output 09/18/22 09/18/22 09/18/22 06:59 14:59 22:59 Other: Weight 63.957 kg 63.957 kg PHYSICAL EXAMINATION: Patient is lying in the bed comfortably, no acute distress, awake alert and oriented.. HEENT: Normocephalic. Neck is supple. Pupils reactive. Nostrils clear. Oral cavity is moist. Neck reveals no JVD, carotid bruits, or thyromegaly. CHEST EXAMINATION: Trachea is central. Symmetrical expansion. Lung quigley clear to auscultation and percussion. CARDIAC: Normal S1, S2 with no gallops. No murmurs ABDOMEN: Soft. Bowel sounds normal. No organomegaly. No abdominal bruits. Extremities: reveal no edema. No clubbing or cyanosis Neurologically awake, alert, oriented x3 with well-coordinated movements. No focal deficits noted Skin: No rash or skin lesions. Psychiatric: Coperative. Nonsuicidal Musculoskeletal: No joint swelling or deformity. Normal range of motion. Results CBC & Chem 7: 09/19/22 10:57 09/19/22 10:57 Labs: Abnormal Lab Results - Last 24 Hours (Table) 09/18/22 09/18/22 Range/Units 11:42 11:42 Potassium 5.8 H (3.5-5.1) mmol/L BUN 30 H (7-17) mg/dL Creatinine 1.09 H (0.52-1.04) mg/dL Glucose 102 H (74-99) mg/dL Alkaline Phosphatase 147 H (38-126) U/L Total Protein 8.6 H (6.3-8.2) g/dL Urine Appearance Turbid H (Clear) Urine Protein 1+ H (Negative) Urine Ketones 1+ H (Negative) Urine Blood Trace H (Negative) Urine Bilirubin 1+ H (Negative) Ur Leukocyte Esterase Small H (Negative) Ur Squamous Epith Cells 29 H (0-4) /hpf Urine Bacteria Many H (None) /hpf Hyaline Casts 6 H (0-2) /lpf Urine Mucus Occasional H (None) /hpf Thrombosis Risk Factor Assmnt - DVT/VTE Prophylaxis DVT/VTE Prophylaxis: Pharmacologic Prophylaxis ordered - Choose All That Apply Each Factor Represents 1 point: Obesity (BMI >25), Varicose veins Each Risk Factor Represents 2 Points: Age 61-74 years Thrombosis Risk Factor Assessment Total Risk Factor Score: 4 Thrombosis Risk Factor Assessment Level: Moderate Risk Assessment and Plan Assessment: Nonspecific colitis. From the cecum through the transverse colon. Infectious/inflammatory. Abdominal pain secondary to above Acute diarrhea Acute kidney injury Hyperkalemia secondary to acute kidney injury Lower anterior resection of the colon due to diverticulitis. On 08/08/2022 diverticulosis Hyperlipidemia Hypertension next and diabetes type 2 History of lap band surgery and removal next and DVT prophylaxis Plan: Patient will be continued on IV hydration and pain management. Follow-up renal function. Continue with insulin sliding scale. Started on oral diet and advance as tolerated. Can symptomatic management. Follow closely. Continue the pain management. Time with Patient: Greater than 30
[2022-09-19] MEDS: PANTOPRAZOLE 40 MG TABLET PO SCH (05:28)
[2022-09-19] MEDS: MORPHINE SULFATE 4 MG/ML SYRINGE IV PRN ×4 (05:30→21:32)
[2022-09-19] MEDS: HEPARIN SODIUM,PORCINE/PF 5,000 UNIT/0.5 ML SYRINGE SQ SCH ×3 (09:35→23:03)
[2022-09-19] MEDS: FAMOTIDINE 20 MG TAB PO SCH ×2 (09:35→21:52)
[2022-09-19] MEDS: ASPIRIN 81 MG PO SCH (09:35)
[2022-09-19] MEDS: PIOGLITAZONE 30 MG TAB PO SCH (09:36)
[2022-09-19] MEDS: LISINOPRIL-HCTZ 10-12.5 MG 1 EACH TAB PO SCH ×2 (09:36→14:48)
[2022-09-19 09:44] LABS: Glucose,Whole Blood 137 mg/dL (70-110)
[2022-09-19 11:04] VITALS: BMI 26.6
[2022-09-19 11:38] LABS: Basophils % (A) 0 %; Eosinophils # (A) 0.2 k/uL (0-0.7); Eosinophils % (A) 2 %; HCT 39.4 % (34.0-46.0); HGB 12.7 gm/dL (11.4-16.0); Hypochromasia Slight; Lymphocytes # (A) 2.7 k/uL (1.0-4.8); Lymphocytes % (A) 30 %; MCH 27.4 pg (25.0-35.0); MCHC 32.3 g/dL (31.0-37.0); Monocytes # (A) 0.4 k/uL (0-1.0); Monocytes % (A) 4 %; Neutrophils # (A) 5.5 k/uL (1.3-7.7); Neutrophils % (A) 61 %; Platelet Count 270 k/uL (150-450); RBC 4.64 m/uL (3.80-5.40); RDW 13.2 % (11.5-15.5)
[2022-09-19 12:05] LABS: African American GFR (CKD) 67 (>60 ml/min/1.73 sqM); Anion Gap 11 mmol/L; Blood Urea Nitrogen 21 mg/dL (7-17); Carbon Dioxide 25 mmol/L (22-30); Chloride 101 mmol/L (98-107); Glucose 117 mg/dL (74-99); Non-African American GFR(CKD) 58 (>60 ml/min/1.73 sqM); Potassium 3.8 mmol/L (3.5-5.1); Sodium 137 mmol/L (137-145)
[2022-09-19 12:36] LABS: Glucose,Whole Blood 122 mg/dL (70-110)
[2022-09-19 17:09] LABS: Glucose,Whole Blood 113 mg/dL (70-110)
[2022-09-19 21:36] LABS: Glucose,Whole Blood 146 mg/dL (70-110)
[2022-09-20 05:52] LABS: Glucose,Whole Blood 108 mg/dL (70-110)
[2022-09-20] MEDS: MORPHINE SULFATE 4 MG/ML SYRINGE IV PRN ×4 (06:36→20:01)
[2022-09-20] MEDS: PANTOPRAZOLE 40 MG TABLET PO SCH (06:39)
[2022-09-20] MEDS: PIOGLITAZONE 30 MG TAB PO SCH (08:33)
[2022-09-20] MEDS: HEPARIN SODIUM,PORCINE/PF 5,000 UNIT/0.5 ML SYRINGE SQ SCH ×3 (08:34→20:59)
[2022-09-20] MEDS: LISINOPRIL-HCTZ 10-12.5 MG 1 EACH TAB PO SCH (08:34)
[2022-09-20] MEDS: ASPIRIN 81 MG PO SCH (08:34)
[2022-09-20 12:09] LABS: Glucose,Whole Blood 98 mg/dL (70-110)
[2022-09-20] MEDS ORDERED: AMPICILLIN-SULBACTAM 3 GM in SODIUM CHLORIDE 0.9% 100 ML IVPB SCH (12:45)
[2022-09-20] MEDS: AMPICILLIN-SULBACTAM 3 GM in SODIUM CHLORIDE 0.9% 100 ML IVPB SCH ×2 (15:02→20:01)
[2022-09-20 17:31] LABS: Glucose,Whole Blood 107 mg/dL (70-110)
[2022-09-20] MEDS: FAMOTIDINE 20 MG TAB PO SCH (20:02)
--- NOTE | 2022-09-21 01:07 | P.PN ---
Subjective Progress Note Date: 09/19/22 Patient is a 66-year-old female with a known history of hypertension, hyperlipidemia, diabetes type 2, history of lap band surgery and removal, EGD and colonoscopy on 07/16/2022 and history of diverticulitis and prior history of smoking presented to ER with complaints of abdominal pain. Patient states that on August 08 she had a colectomy. She also complaining of diarrhea for the past 2 days and was dehydrated. Diarrhea is mainly nonbloody. Denied any dark stools. Patient also states that she has decreased appetite. Denied any fever or chills. No complaints of chest pain or shortness breath. No dysuria or hematuria. CT abdomen in the ER showed nonspecific colitis is suspected extending from the cecum through the transverse colon. Atrophic changes and decreased perfusion of the upper lobe of the right kidney appears to be chronic in nature. No evidence for abdominal aortic aneurysm. Recent is presently appears to be patent. Chest x-ray showed chronic changes without evidence for acute pulmonary disease. Next and EKG showed sinus rhythm x-ray and laboratory data showed WBC 10.0 hem oglobin 13.2 and platelets 244 sodium 137 potassium 5.8 chloride 98 bicarb is 27 BUN 30 and creatinine 1.09 and blood sugar is 102, alk phos 147 and lipase 41 amylase 55 Urine analysis showed turbid with 1+ ketones and trace blood and small leukocyte esterase elevators squamous epithelial cells. 09/19/2022 Patient is currently lying in bed. Awake alert and oriented X3. Still complains of lower abdominal pain. Also diarrhea is still present. CT was ordered. No complaints of TheraCys. No nausea vomiting. Tolerating oral diet. Lower abdominal so WBC 9.0 hemoglobin 12.7 platelets 270 BUN 21 and creatinine 1.0 creatinine calcium 9.0 blood sugar is 117. Follow-up procalcitonin level. Current with IV hydration. Current medications reviewed. Objective - Vital Signs Vital signs: Vital Signs Temp 97.7 F 09/19/22 15:00 Pulse 61 09/19/22 15:00 Resp 16 09/19/22 15:00 BP 107/64 09/19/22 15:00 Pulse Ox 96 09/19/22 15:00 FiO2 Intake & Output 09/19/22 09/19/22 09/20/22 06:59 18:59 06:59 Intake Total 298 Balance 298 Weight 63.957 kg Intake: Oral 298 Other: Voiding Method Toilet # Voids 1 2 # Bowel Movements 1 1 - Exam PHYSICAL EXAMINATION: Patient is lying in the bed comfortably, no acute distress, awake alert and oriented.. HEENT: Normocephalic. Neck is supple. Pupils reactive. Nostrils clear. Oral cavity is moist. Neck reveals no JVD, carotid bruits, or thyromegaly. CHEST EXAMINATION: Trachea is central. Symmetrical expansion. Lung quigley clear to auscultation and percussion. CARDIAC: Normal S1, S2 with no gallops. No murmurs ABDOMEN: Soft. Bowel sounds present. Patient does have lower abdominal tenderness.. No organomegaly. No abdominal bruits. Extremities: reveal no edema. No clubbing or cyanosis Neurologically awake, alert, oriented x3 with well-coordinated movements. No focal deficits noted Skin: No rash or skin lesions. Psychiatric: Coperative. Nonsuicidal, Musculoskeletal: No joint swelling or deformity. Normal range of motion. - Labs CBC & Chem 7: 09/19/22 10:57 09/19/22 10:57 Labs: Abnormal Lab Results - Last 24 Hours (Table) 09/19/22 09/19/22 09/19/22 Range/Units 09:43 10:57 12:34 BUN 21 H (7-17) mg/dL Glucose 117 H (74-99) mg/dL POC Glucose (mg/dL) 137 H 122 H (70-110) mg/dL 09/19/22 Range/Units 17:08 BUN (7-17) mg/dL Glucose (74-99) mg/dL POC Glucose (mg/dL) 113 H (70-110) mg/dL Assessment and Plan Assessment: Nonspecific colitis. From the cecum through the transverse colon. Inf ectious/inflammatory. Abdominal pain secondary to above Acute diarrhea Acute kidney injury Hyperkalemia secondary to acute kidney injury Lower anterior resection of the colon due to diverticulitis. On 08/08/2022 diverticulosis Hyperlipidemia Hypertension next and diabetes type 2 History of lap band surgery and removal next and DVT prophylaxis Plan: Patient will be continued on IV hydration and pain management. Follow-up renal function. Continue with insulin sliding scale. Started on oral diet and advance as tolerated. symptomatic management. Follow closely. Continue the pain management.Patient continues to have diarrhea. C. difficile was ordered. Follow-up procalcitonin level.
--- NOTE | 2022-09-21 01:09 | P.PN ---
Subjective Progress Note Date: 09/20/22 Patient is a 66-year-old female with a known history of hypertension, hyperlipidemia, diabetes type 2, history of lap band surgery and removal, EGD and colonoscopy on 07/16/2022 and history of diverticulitis and prior history of smoking presented to ER with complaints of abdominal pain. Patient states that on August 08 she had a colectomy. She also complaining of diarrhea for the past 2 days and was dehydrated. Diarrhea is mainly nonbloody. Denied any dark stools. Patient also states that she has decreased appetite. Denied any fever or chills. No complaints of chest pain or shortness breath. No dysuria or hematuria. CT abdomen in the ER showed nonspecific colitis is suspected extending from the cecum through the transverse colon. Atrophic changes and decreased perfusion of the upper lobe of the right kidney appears to be chronic in nature. No evidence for abdominal aortic aneurysm. Recent is presently appears to be patent. Chest x-ray showed chronic changes without evidence for acute pulmonary disease. Next and EKG showed sinus rhythm x-ray and laboratory data showed WBC 10.0 hem oglobin 13.2 and platelets 244 sodium 137 potassium 5.8 chloride 98 bicarb is 27 BUN 30 and creatinine 1.09 and blood sugar is 102, alk phos 147 and lipase 41 amylase 55 Urine analysis showed turbid with 1+ ketones and trace blood and small leukocyte esterase elevators squamous epithelial cells. 09/19/2022 Patient is currently lying in bed. Awake alert and oriented X3. Still complains of lower abdominal pain. Also diarrhea is still present. CT was ordered. No complaints of TheraCys. No nausea vomiting. Tolerating oral diet. Lower abdominal so WBC 9.0 hemoglobin 12.7 platelets 270 BUN 21 and creatinine 1.0 creatinine calcium 9.0 blood sugar is 117. Follow-up procalcitonin level. Current with IV hydration. 09/20/2022 Patient is currently resting in bed. Still having lower abdominal pain diarrhea is more formal. C. difficile is negative. Procalcitonin is slightly elevated and patient was started on antibiotics for possible infectious colitis. Otherwise patient has been afebrile. No nausea vomiting. Tolerating oral diet. No cough or sputum production. As per discharge Close with more clinical improvement. Follow-up CBC and BMP tomorrow. Current medications reviewed. Objective - Vital Signs Vital signs: Vital Signs Temp 98.5 F 09/20/22 15:27 Pulse 90 09/20/22 15:27 Resp 17 09/20/22 15:27 BP 100/62 09/20/22 15:27 Pulse Ox 99 09/20/22 15:27 FiO2 Intake & Output 09/20/22 09/20/22 09/21/22 06:59 18:59 06:59 Intake Total 420 Balance 420 Intake: Oral 420 Other: Voiding Method Toilet Toilet # Voids 1 1 # Bowel Movements 1 - Exam PHYSICAL EXAMINATION: Patient is lying in the bed comfortably, no acute distress, awake alert and oriented.. HEENT: Normocephalic. Neck is supple. Pupils reactive. Nostrils clear. Oral cavity is moist. Neck reveals no JVD, carotid bruits, or thyromegaly. CHEST EXAMINATION: Trachea is central. Symmetrical expansion. Lung quigley clear to auscultation and percussion. CARDIAC: Normal S1, S2 with no gallops. No murmurs ABDOMEN: Soft. Bowel sounds present. Patient does have lower abdominal tenderness.. No organomegaly. No abdominal bruits. Extremities: reveal no edema. No clubbing or cyanosis Neurologically awake, alert, oriented x3 with well-coordinated movements. No focal deficits noted Skin: No rash or skin lesions. Psychiatric: Coperative. Nonsuicidal, Musculoskeletal: No joint swelling or deformity. Normal range of motion. - Labs CBC & Chem 7: 09/19/22 10:57 09/19/22 10:57 Labs: Abnormal Lab Results - Last 24 Hours (Table) 09/19/22 09/20/22 Range/Units 21:34 06:39 POC Glucose (mg/dL) 146 H (70-110) mg/dL Procalcitonin 0.14 H (0.02-0.09) ng/mL Assessment and Plan Assessment: Nonspecific colitis. From the cecum through the transverse colon. Infectious/inflammatory. Abdominal pain secondary to above Acute diarrhea Acute kidney injury Hyperkalemia secondary to acute kidney injury Lower anterior resection of the colon due to diverticulitis. On 08/08/2022 diverticulosis Hyperlipidemia Hypertension next and diabetes type 2 History of lap band surgery and removal next and DVT prophylaxis Plan: Patient will be continued on IV hydration and pain management. Patient was started antibiotics and follow-up Unasyn. Follow-up renal function. Continue with insulin sliding scale. Started on oral diet and advance as tolerated. symptomatic management. Follow closely. Continue the pain management.Patient continues to have diarrhea. C. difficile negative.
[2022-09-21] MEDS: SODIUM CHLORIDE 0.9% 1,000 ML IV SCH ×2 (02:46→05:16)
[2022-09-21] MEDS: PANTOPRAZOLE 40 MG TABLET PO SCH ×2 (05:15→05:17)
[2022-09-21] MEDS: AMPICILLIN-SULBACTAM 3 GM in SODIUM CHLORIDE 0.9% 100 ML IVPB SCH ×2 (05:15→13:36)
[2022-09-21] MEDS: MORPHINE SULFATE 4 MG/ML SYRINGE IV PRN ×2 (05:22→09:40)
[2022-09-21 06:22] VITALS: RESP 16
[2022-09-21 09:06] LABS: African American GFR (CKD) 77.2 (60.0-200.0); Anion Gap 22.3 mmol/L (10.00-18.00); BUN/Creat Ratio 14.33 Ratio (12.00-20.00); Blood Urea Nitrogen 12.9 mg/dL (9.0-27.0); Calcium 6.9 mg/dL (8.7-10.3); Carbon Dioxide 21.7 mmol/L (20.0-27.5); Non-African American GFR(CKD) 66.6 (60.0-200.0); Potassium 3.3 mmol/L (3.5-5.5)
[2022-09-21] MEDS: ASPIRIN 81 MG PO SCH (09:12)
[2022-09-21] MEDS: PIOGLITAZONE 30 MG TAB PO SCH (09:12)
[2022-09-21] MEDS: LISINOPRIL-HCTZ 10-12.5 MG 1 EACH TAB PO SCH (09:12)
[2022-09-21] MEDS: HEPARIN SODIUM,PORCINE/PF 5,000 UNIT/0.5 ML SYRINGE SQ SCH (09:13)
[2022-09-21 09:48] LABS: Basophils # (A) 0.02 X 10*3/uL (0.00-0.10); Basophils % (A) 0.5 %; Eosinophils # (A) 0.11 X 10*3/uL (0.04-0.35); Eosinophils % (A) 2.6 %; HCT 25.1 % (37.2-46.3); HGB 8.1 g/dL (12.0-15.0); Immature Grans, Automated 0.2 %; Lymphocytes # (A) 1.34 X 10*3/uL (0.90-5.00); Lymphocytes % (A) 32.1 %; MCH 26.6 pg (27.0-32.0); MCHC 32.3 g/dL (32.0-37.0); MCV 82.6 fL (80.0-97.0); Mean Platelet Volume 10.4 fL (9.5-12.2); Monocytes # (A) 0.52 X 10*3/uL (0.20-1.00); Monocytes % (A) 12.5 %; NRBC Per 100 WBC 0 /100 WBCS (0.0-0.0); Neutrophils # (A) 2.17 X 10*3/uL (1.80-7.70); Neutrophils % (A) 52.1 %; Platelet Count 136 X 10*3/uL (140-440); RBC 3.04 X 10*6/uL (4.10-5.20); WBC 4.17 X 10*3/uL (4.50-10.00)
[2022-09-21] MEDS ORDERED: POTASSIUM CHLORIDE ER 20 MEQ TAB.ER PO STA (10:52)
[2022-09-21] MEDS ORDERED: DEXTROSE 5%-0.45% NACL 1,000 ML IV SCH (11:00)
[2022-09-21 12:19] LABS: Glucose,Whole Blood 82 mg/dL (70-110)
--- NOTE | 2022-09-21 13:24 | P.GSCN ---
History of Present Illness Consult date: 09/21/22 History of present illness: CHIEF COMPLAINT: Abdominal pain HISTORY OF PRESENT ILLNESS: This is a 66-year-old female with a known history of diverticulitis. She is status post lower anterior resection with lysis of adhesions and partial omentectomy on 08/08/[address] zamora. Patient presented to the hospital with complaints of abdominal pain for the last 6 days with nonbloody diarrhea. She was having multiple episodes of diarrhea a day at least greater than 4 episodes. The diarrhea has improved since admission. She reports only having 1 episode of diarrhea yesterday. She reports that her pain was on the left upper side of the abdomen. She describes it as a sharp pain. She denies any nausea or vomiting. Computed tomography scan reported a nonspe cific colitis suspected from the cecum through the transverse colon. Surgical service was consulted and regards to patient's abdominal pain and recent surgery. PAST MEDICAL HISTORY: See list. PAST SURGICAL HISTORY: See list. MEDICATIONS: See list. ALLERGIES: See list. SOCIAL HISTORY: No illicit drug use. REVIEW OF SYSTEMS: CONSTITUTIONAL: Denies fever or chills. HEENT: Denies blurred vision, vision changes, or eye pain. Denies hemoptysis ENDOCRINE: Denies heat or cold intolerance. CARDIOVASCULAR: Denies chest pain or pressure. RESPIRATORY: No shortness of breath. GASTROINTESTINAL: Denies abdominal pain. Denies nausea or vomiting. NEURO: Denies history of seizures. PSYCH: No depression or suicidal ideation HEMATOLOGIC: Denies bleeding disorders. LYMPHATIC: The patient denies any lumps and bumps around the neck. GENITOURINARY: Denies any blood in urine or increased urinary frequency. MUSCULOSKELETAL: Denies myalgias. Denies joint swelling. Denies decreased range of motion beyond patients baseline. SKIN: Denies pruitis. Denies rash. PHYSICAL EXAM: VITAL SIGNS: Reviewed GENERAL: Well-developed in no acute distress. HEENT: No sclera icterus. Extraocular movements grossly intact. Moist buccal mucosa. Head is atraumatic, normocephalic. Hears conversational speech. No nasal drainage. NECK: Supple without lymphadenopathy. CHEST: Non-labored respirations and equal bilateral excursions. CARDIOVASCULAR: Palpable 2+ radial pulses. ABDOMEN: Soft. Nondistended. No signs of peritonitis MUSCULOSKELETAL: No clubbing or cyanosis. NEUROLOGIC: No focal or lateralizing signs. Cranial nerves II through XII grossly intact. PSYCH: Appropriate affect. Alert and oriented to person, place and time. SKIN: Well perfused. Good skin turgor. LABORATORY DATA: WBC 4.17 Hgb is down from 12.7- 8.1 platelets 136 Sodium is 149 potassium 3.3 creatinine 0.9 Lactic acid 1.5 Urinalysis no infection C. diff negative Influenza, RSV and COVID-19 not detected IMAGING: Computed tomography scan abdomen and pelvis nonspecific colitis suspected extending from the cecum through the transverse colon. Correlate clinically. Atrophic change and decreased perfusion in the upper pole of the right kidney appears to be chronic in nature. No evidence for abdominal aortic aneurysm. Mesenteric vessels appear to be patent. ASSESSMENT: 1. Abdominal pain possibly due to adhesions. A computed tomography showed no evidence of free air or bowel obstruction. Did note very mild colitis. Patient's pain and diarrhea are improving. 2. Acute kidney injury 3. History of lower anterior resection for diverticulitis on 08/08/2022 4. Hyperkalemia on admission now with hypokalemia 5. Hypernatremia PLAN: -Patient is improving symptomatically. We'll advance diet to low fiber and recommend lactose-free diet as well as avoiding tomato soup -Add abdominal binder -Add lactobacillus probiotics -If patient tolerates diet and pain is controlled she is stable for discharge fr om surgical standpoint -Patient to follow-up with Dr. Zamora outpatient Thank you for this consultation Physician Publicity Person note has been reviewed by physician. Signing provider agrees with the documented findings, assessment, and plan of care. REASON FOR CONSULTATION: Abdominal pain HISTORY OF PRESENT ILLNESS: The patient is a 66 year old female reports persistent history of colitis. She is status post colectomy for sigmoid diverticulitis. She had been admitted for the past 3 days for right nonbloody diarrhea and left upper quadrant to left-sided abdominal pain. Her history is significant for recent low anterior resection, sigmoid colectomy for 1 month ago. She is pending to follow-up with her surgeon in 2 months. Since admission, patient reports persistent left upper quadrant abdominal pain. Her diarrhea has moderately resolved and she reports barely one bowel movement today. General surgery is consulted due to her abdominal pain. Reports unintentional weight loss from 190 pounds to 140 pounds. PAST MEDICAL HISTORY: See list and reviewed PAST SURGICAL HISTORY: See list and reviewed MEDICATIONS: See list and reviewed ALLERGIES: See list and reviewed SOCIAL HISTORY: See list and reviewed FAMILY HISTORY: See list and reviewed REVIEW OF ORGAN SYSTEMS: CONSTITUTIONAL: No fevers or chills. Weight loss over 40 pounds in 6 months. EYES: Glasses. HEENT: No difficulties with hearing. No nosebleeds. No difficulty swallowing. RESPIRATORY: Sleep apnea. CARDIOVASCULAR: Has hyperlipidemia and hypertension with AAA GASTROINTESTINAL: Has colitis. Has gastroesophageal reflux disease. Has Wilson's esophagus. History of lap band placement and removal. GENITOURINARY: History of uterine cancer status post hysterectomy. NEUROLOGICAL: Denies any numbness or tingling along the distal extremities. No seizure disorders or headaches. MUSCULOSKELETAL: Denies any back pain, stiffness or joint arthritis. SKIN: No current skin cancer. No rash. PSYCHIATRIC: Denies current depression or suicidal thoughts. ENDOCRINE: Denies current thyroid disorders. Diabetes type 2. HEME/LYMPHATIC: Denies any lumps and bumps around the neck. No recent deep venous thrombosis. ALLERGY/IMMUNOLOGY: No immunoglobulin therapy. No immune deficiencies. BREAST: Denies current breast lumps, pain or nipple discharge. PHYSICAL EXAM: VITALS: Reviewed CONSTITUTIONAL: Well developed and in no acute distress. EYES: Conjuctivae without sclera icterus. Extraocular movements grossly intact. HEAD, EARS, NOSE, THROAT: Moist buccal mucosa. Head is atraumatic, normocepha lic. Hears conversational speech. No nasal drainage. NECK: Supple. No JV distention. No thyroidomegaly. RESPIRATORY: Non-labored respirations and equal bilateral excursions. No gross wheezes. CARDIOVASCULAR: Palpable 2+ radial pulses. ABDOMEN: Midline incision without peritonitis. Mild tenderness in the upper quadrant left side.. Incision granulated without infection. LYMPH: No neck lymphadenopathy. MUSCULOSKELETAL: No clubbing cyanosis or edema. SKIN: Warm and well perfused with good skin turgor. NEUROLOGIC: Cranial nerves II through XII grossly intact. No focal or lateralizing signs. PSYCH: Appropriate affect. Alert and oriented to person, place and time. Displays appropriate insight. CLINCAL LABS: Reviewed. WBC normal. IMAGING: Independently reviewed. CT of the abdomen pelvis demonstrates no free air. No obstruction. No moderate colitis identified to account for patient's pain. No fluid collection or leak. This is my independent interpretation. RADIOLOGY: Report reviewed. Questionable colitis involving the ascending colon and transverse colon on CT abdomen and pelvis RECORDS: previous old records reviewed ASSESSMENT: 1. Abdominal pain 2. Colitis 3. Peritoneal adhesions PLAN: 1. Recommend low fiber diet including avoiding dairy and protonix which can exacerbate diarrhea/colitis 2. Stable for discharge once tolerating diet 3. Recommend probiotics for diarrhea 4. Recommend abdominal binder for pain management. 5. Her abdominal pain is exacerbated with movement highly suspicious for peritoneal adhesions. Follow up with primary surgeon is ADVANCE DIRECTIVE: Thank you for this kind consultation. Past Medical History Past Medical History: Cancer, Diabetes Mellitus, GERD/Reflux, Hyperlipidemia, Hypertension Additional Past Medical History / Comment(s): Hx diverticulitis., AAA- states not visible now., UTI's., mild sleep apnea-no machine., Gout., barretts esophagus (egd 2018)., herniated discs with neck and back pain., uterine cancer with partial hysterectomy., recent vertigo-improved with antibiotic. History of Any Multi-Drug Resistant Organisms: None Reported Past Surgical History: Bariatric Surgery, Heart Catheterization, Hysterectomy Additional Past Surgical History / Comment(s): lap band 2009 () , R kidney tumor removed, sheyla carpal tunnel, bone spurs removed from hip and neck, 05/14/14 lap band port replacement (Dr. Jenkins). Lap band removal in 07/08/2017., egd & colonoscopy (07/16/22)., Heart cath (2006) Past Anesthesia/Blood Transfusion Reactions: No Reported Reaction Additional Past Anesthesia/Blood Transfusion Reaction / Comm: no hx blood transfusion Past Psychological History: Anxiety Additional Psychological History / Comment(s): mood swings Smoking Status: Former smoker Past Alcohol Use History: None Reported Additional Past Alcohol Use History / Comment(s): quit smoking ,smoked approx 25 yrs , 1 1/2 ppd Past Drug Use History: None Reported - Past Family History Mother Family Medical History: Cancer Additional Family Medical History / Comment(s): Poss CA, at age 67 Father Family Medical History: CVA/TIA, Deep Vein Thrombosis (DVT) Additional Family Medical History / Comment(s): from aneurysm at age 62 Medications and Allergies Home Medications Medication Instructions Recorded Confirmed Type Aspirin EC [Ecotrin Low Dose] 81 mg PO DAILY 11/12/13 09/18/22 History Lisinopril-Hctz 10-12.5 mg 1 tab PO DAILY 10/12/16 09/18/22 History [Zestoretic 10-12.5] Ezetimibe [Zetia] 10 mg PO DAILY 07/14/22 09/18/22 History Pioglitazone [Actos] 30 mg PO DAILY 07/14/22 09/18/22 History Semaglutide [Ozempic] 1 mg SQ OLEA 07/14/22 09/18/22 History Ascorbic Acid [Vitamin C] 500 mg PO DAILY 08/02/22 09/18/22 History Biotin [Txve-Lcjc-Valyb] 10,000 mcg PO DAILY 08/02/22 09/18/22 History Multivitamins, Thera [Multivitamin 1 tab PO DAILY 08/02/22 09/18/22 History (formulary)] Omeprazole 20 mg PO BID 30 Days #60 cap 08/14/22 09/18/22 Rx ALPRAZolam [Xanax] 0.25 mg PO DAILY PRN 09/18/22 09/18/22 History Cholecalciferol [Vitamin D3 (25 50 mcg PO DAILY 09/18/22 09/18/22 History Mcg = 1000 Iu)] Famotidine [Pepcid] 20 mg PO BID 09/18/22 09/18/22 History HYDROcodone/APAP 5-325MG [[place] 1 tab PO TID PRN #9 tab 09/21/22 Rx 5-325] Lactobacillus Acidoph & Bulgar 1 each PO BID #60 packet 09/21/22 Rx [Lactinex] cefUROXime axetiL [Ceftin] 500 mg PO BID 5 Days #10 tab 09/21/22 Rx Allergies Allergy/AdvReac Type Severity Reaction Status Date / Time banana Allergy BLISTERS Verified 09/18/22 12:42 IN MOUTH bee pollen Allergy Anaphylaxis Verified 09/18/22 12:42 bee venom protein (honey bee) Allergy Anaphylaxis Verified 09/18/22 12:42 kiwi Allergy BLISTERS Verified 09/18/22 12:42 IN MOUTH latex Allergy Anaphylaxis, Verified 09/18/22 12:42 Blisters ibuprofen AdvReac Unknown Upset Verified 09/18/22 12:42 Stomach metronidazole [From Flagyl] AdvReac Nausea & Verified 09/18/22 12:42 Vomiting & Diarrhea Surgical - Exam Vital Signs Temp Pulse Resp BP Pulse Ox 98.1 F 87 20 107/62 97 09/18/22 10:54 09/18/22 10:54 09/18/22 10:54 09/18/22 10:54 09/18/22 10:54 Results - Labs 09/21/22 12:16 09/21/22 05:47 Abnormal Lab Results - Last 24 Hours (Table) 09/21/22 09/21/22 Range/Units 05:47 05:47 WBC 4.17 L (4.50-10.00) X 10*3/uL RBC 3.04 L (4.10-5.20) X 10*6/uL Hgb 8.1 L (12.0-15.0) g/dL Hct 25.1 L (37.2-46.3) % MCH 26.6 L (27.0-32.0) pg Plt Count 136 L (140-440) X 10*3/uL Sodium 149 H (135-145) mmol/L Potassium 3.3 L (3.5-5.5) mmol/L Anion Gap 22.30 H (10.00-18.00) mmol/L Calcium 6.9 L (8.7-10.3) mg/dL Diabetes panel 09/21/22 Range/Units 05:47 Sodium 149 H (135-145) mmol/L Potassium 3.3 L (3.5-5.5) mmol/L Chloride 105 (96-109) mmol/L Carbon Dioxide 21.7 (20.0-27.5) mmol/L BUN 12.9 (9.0-27.0) mg/dL Creatinine 0.9 (0.6-1.5) mg/dL Glucose 83 (70-110) mg/dL Calcium 6.9 L (8.7-10.3) mg/dL Calcium panel 09/21/22 Range/Units 05:47 Calcium 6.9 L (8.7-10.3) mg/dL Pituitary panel 09/21/22 Range/Units 05:47 Sodium 149 H (135-145) mmol/L Potassium 3.3 L (3.5-5.5) mmol/L Chloride 105 (96-109) mmol/L Carbon Dioxide 21.7 (20.0-27.5) mmol/L BUN 12.9 (9.0-27.0) mg/dL Creatinine 0.9 (0.6-1.5) mg/dL Glucose 83 (70-110) mg/dL Calcium 6.9 L (8.7-10.3) mg/dL Adrenal panel 09/21/22 Range/Units 05:47 Sodium 149 H (135-145) mmol/L Potassium 3.3 L (3.5-5.5) mmol/L Chloride 105 (96-109) mmol/L Carbon Dioxide 21.7 (20.0-27.5) mmol/L BUN 12.9 (9.0-27.0) mg/dL Creatinine 0.9 (0.6-1.5) mg/dL Glucose 83 (70-110) mg/dL Calcium 6.9 L (8.7-10.3) mg/dL
[2022-09-21 14:36] VITALS: BP 112/55; PULSE 81; TEMP 98.5
[2022-09-21 20:54] LABS: Basophils # (A) 0.04 X 10*3/uL (0.00-0.10); Basophils % (A) 0.8 %; Eosinophils # (A) 0.14 X 10*3/uL (0.04-0.35); Eosinophils % (A) 2.6 %; HCT 35.7 % (37.2-46.3); Immature Grans, Automated 0.2 %; Lymphocytes # (A) 1.94 X 10*3/uL (0.90-5.00); Lymphocytes % (A) 36.5 %; MCH 26.4 pg (27.0-32.0); MCHC 30.8 g/dL (32.0-37.0); MCV 85.6 fL (80.0-97.0); Monocytes # (A) 0.61 X 10*3/uL (0.20-1.00); Monocytes % (A) 11.5 %; NRBC Per 100 WBC 0 /100 WBCS (0.0-0.0); Neutrophils # (A) 2.57 X 10*3/uL (1.80-7.70); Neutrophils % (A) 48.4 %; Platelet Count 210 X 10*3/uL (140-440); RBC 4.17 X 10*6/uL (4.10-5.20); WBC 5.31 X 10*3/uL (4.50-10.00)
[2022-09-21] MEDS ORDERED: LACTOBACILLUS ACIDOPH & BULGAR 1 EACH PACKET PO SCH (21:00)
== END 2022-09-21 16:14 | disposition home or self-care (01) ==
LOC: EC 10:51 → 6NMEDSUR 14:51
PROVIDERS: ADMIT Internal Medicine; ATTEND Internal Medicine
DX: R10.12 Left upper quadrant pain (principal); K52.89 Other specified noninfective gastroenteritis and colitis; R19.7 Diarrhea, unspecified; Z87.19 Personal history of other diseases of the digestive system; Z90.49 Acquired absence of other specified parts of digestive tract; E87.5 Hyperkalemia; E87.6 Hypokalemia; E87.0 Hyperosmolality and hypernatremia; E11.9 Type 2 diabetes mellitus without complications; M10.9 Gout, unspecified; I71.40 Abdominal aortic aneurysm, without rupture, unspecified; Z85.42 Personal history of malignant neoplasm of other parts of uterus; Z90.710 Acquired absence of both cervix and uterus; F41.9 Anxiety disorder, unspecified; Z87.891 Personal history of nicotine dependence; Z82.3 Family history of stroke; Z79.84 Long term (current) use of oral hypoglycemic drugs; Z79.82 Long term (current) use of aspirin; Z79.891 Long term (current) use of opiate analgesic; Z79.899 Other long term (current) drug therapy; Z88.6 Allergy status to analgesic agent; Z91.030 Bee allergy status; Z91.040 Latex allergy status; Z91.018 Allergy to other foods
CPT/HCPCS: 96376 ×5; 96361 ×3; 96365; 96366 ×2; 96372 ×3; 96375; 99285; 36415; 93005; 80053; 80048 ×2; 82150; 83605; 83690; 85025 ×3; 85610; 85730; 81001; 87324; 84145; 87636; 71045; 74174; G0378 ×4; J2270 ×4; J2405; J0295 ×2; C9113; Q9967; J1644 ×3

== ENCOUNTER → 2022-09-25 | Outpatient (CLI) | payer MEDICARE ==
[2022-09-25 20:40] LABS: Basophils # (A) 0.04 X 10*3/uL (0.00-0.10); Basophils % (A) 0.7 %; Eosinophils # (A) 0.15 X 10*3/uL (0.04-0.35); Eosinophils % (A) 2.6 %; HCT 38.4 % (37.2-46.3); HGB 11.9 g/dL (12.0-15.0); Immature Grans, Automated 0.3 %; Lymphocytes # (A) 2.18 X 10*3/uL (0.90-5.00); Lymphocytes % (A) 37.8 %; MCH 26.5 pg (27.0-32.0); MCV 85.5 fL (80.0-97.0); Mean Platelet Volume 10.4 fL (9.5-12.2); Monocytes % (A) 8.7 %; NRBC Per 100 WBC 0 /100 WBCS (0.0-0.0); Neutrophils # (A) 2.88 X 10*3/uL (1.80-7.70); Neutrophils % (A) 49.9 %; Platelet Count 292 X 10*3/uL (140-440); RBC 4.49 X 10*6/uL (4.10-5.20); RDW 13.4 % (11.5-14.5); WBC 5.77 X 10*3/uL (4.50-10.00)
[2022-09-25 23:11] LABS: Magnesium 1.5 mg/dL (1.5-2.4)
[2022-09-26 00:59] LABS: African American GFR (CKD) 77.2 (60.0-200.0); Anion Gap 10.8 mmol/L (10.00-18.00); BUN/Creat Ratio 12.67 Ratio (12.00-20.00); Blood Urea Nitrogen 11.4 mg/dL (9.0-27.0); Calcium 9.4 mg/dL (8.7-10.3); Carbon Dioxide 26.9 mmol/L (20.0-27.5); Non-African American GFR(CKD) 66.6 (60.0-200.0); Potassium 5.1 mmol/L (3.5-5.5)
== END | disposition home or self-care (01) ==
LOC: LABWHC1 12:40
PROVIDERS: ATTEND Registered Nurse
DX: E87.6 Hypokalemia (principal); D64.9 Anemia, unspecified; K51.90 Ulcerative colitis, unspecified, without complications
CPT/HCPCS: 36415; 80048; 83735; 85025

== ENCOUNTER 2022-11-19 05:50 | Inpatient (IN) | payer MEDICARE ==
[2022-11-19] MEDS ORDERED: SODIUM CHLORIDE 0.9% 1,000 ML IV STA (06:10)
[2022-11-19] MEDS ORDERED: diphenhydrAMINE 50 MG/ML 1 ML VIAL IVP STA (06:10)
[2022-11-19] MEDS ORDERED: FAMOTIDINE 20 MG/2 ML VIAL IV STA (06:11)
--- NOTE | 2022-11-19 06:20 | ED ---
Abdominal Pain HPI - General Chief Complaint: Abdominal Pain Stated Complaint: Abd pain Time Seen by Provider: 11/19/22 05:57 Source: patient, RN notes reviewed Mode of arrival: wheelchair Limitations: no limitations - History of Present Illness Initial Comments: This is a 66-year-old female who presents to the emergency department for abdominal pain. Patient states that this started 3-4 days ago. Describes this as being in the middle to epigastric region of the abdomen. Describes this as feeling like an extreme acid reflux sensation. Denies any associated nausea, vomiting, or diarrhea. However, she had been constipated for 2 days until today when she had a bowel movement. She does take Pepcid daily, however this has not effectively managed her symptoms. She no longer has her gallbladder. Does report a history of multiple abdominal surgeries, most recently a bowel resection 3 months ago. Denies any fevers, chills, sore throat, cough, dyspnea, chest pain, palpitations, nausea, vomiting, diarrhea, back pain, or headaches. MD Complaint: abdominal pain Onset/Timin -: days(s) - Related Data Home Medications Medication Instructions Recorded Confirmed Aspirin EC [Ecotrin Low Dose] 81 mg PO DAILY 11/12/13 11/19/22 Ezetimibe [Zetia] 10 mg PO DAILY 07/14/22 11/19/22 Pioglitazone [Actos] 30 mg PO DAILY 07/14/22 11/19/22 Semaglutide [Ozempic] 1 mg SQ TU 07/14/22 11/19/22 Ascorbic Acid [Vitamin C] 500 mg PO DAILY 08/02/22 11/19/22 Biotin [Gxoj-Ypym-Tkmfr] 10,000 mcg PO DAILY 08/02/22 11/19/22 Multivitamins, Thera [Multivitamin 1 tab PO DAILY 08/02/22 11/19/22 (formulary)] ALPRAZolam [Xanax] 0.25 mg PO DAILY PRN 09/18/22 11/19/22 Cholecalciferol [Vitamin D3 (25 50 mcg PO DAILY 09/18/22 11/19/22 Mcg = 1000 Iu)] Famotidine [Pepcid] 20 mg PO BID 09/18/22 11/19/22 HYDROcodone/APAP 5-325MG [[place] 1 tab PO BID 11/19/22 11/19/22 5-325] Lisinopril-Hctz 20-25 mg 1 tab PO DAILY 11/19/22 11/19/22 [Zestoretic 20-25] Sertraline HCl [Zoloft] 50 mg PO BID 11/19/22 11/19/22 Previous Rx's Medication Instructions Recorded Omeprazole 20 mg PO BID 30 Days #60 cap 08/14/22 Allergies Allergy/AdvReac Type Severity Reaction Status Date / Time banana Allergy BLISTERS Verified 11/19/22 11:27 IN MOUTH bee pollen Allergy Anaphylaxis Verified 11/19/22 11:27 bee venom protein (honey bee) Allergy Anaphylaxis Verified 11/19/22 11:27 kiwi Allergy BLISTERS Verified 11/19/22 11:27 IN MOUTH latex Allergy Anaphylaxis, Verified 11/19/22 11:27 Blisters ibuprofen AdvReac Unknown Upset Verified 11/19/22 11:27 Stomach metronidazole [From Flagyl] AdvReac Nausea & Verified 11/19/22 11:27 Vomiting & Diarrhea Review of Systems ROS Statement: Those systems with pertinent positive or pertinent negative responses have been documented in the HPI. ROS Other: All systems not noted in ROS Statement are negative. Past Medical History Past Medical History: Cancer, Diabetes Mellitus, GERD/Reflux, Hyperlipidemia, Hypertension Additional Past Medical History / Comment(s): Hx diverticulitis., AAA- states not visible now., UTI's., mild sleep apnea-no machine., Gout., barretts esophagus (egd 2018)., herniated discs with neck and back pain., uterine cancer with partial hysterectomy., recent vertigo-improved with antibiotic. History of Any Multi-Drug Resistant Organisms: None Reported Past Surgical History: Bariatric Surgery, Heart Catheterization, Hysterectomy Additional Past Surgical History / Comment(s): lap band 2009 () , R kidney tumor removed, sheyla carpal tunnel, bone spurs removed from hip and neck, 05/14/14 lap band port replacement (Dr. Jenkins). Lap band removal in 07/08/2017., egd & colonoscopy (07/16/22)., Heart cath (2006) Past Anesthesia/Blood Transfusion Reactions: No Reported Reaction Additional Past Anesthesia/Blood Transfusion Reaction / Comment(s): no hx blood transfusion Past Psychological History: Anxiety Smoking Status: Former smoker Past Alcohol Use History: None Reported Past Drug Use History: None Reported - Past Family History Mother Family Medical History: Cancer Additional Family Medical History / Comment(s): Poss CA, at age 67 Father Family Medical History: CVA/TIA, Deep Vein Thrombosis (DVT) Additional Family Medical History / Comment(s): from aneurysm at age 62 General Exam Limitations: no limitations General appearance: alert, in distress Head exam: Present: atraumatic, normocephalic, normal inspection Respiratory exam: Present: normal lung sounds bilaterally. Absent: respiratory distress, wheezes, rales, rhonchi, stridor Cardiovascular Exam: Present: regular rate, normal rhythm, normal heart sounds. Absent: systolic murmur, diastolic murmur, rubs, gallop, clicks GI/Abdominal exam: Present: soft, tenderness (Epigastric), normal bowel sounds. Absent: distended Neurological exam: Present: alert, oriented X3, CN II-XII intact Psychiatric exam: Present: normal affect, normal mood Skin exam: Present: warm, dry, intact, normal color. Absent: rash Course Vital Signs 11/19/22 11/19/22 11/19/22 05:55 10:38 12:22 Temperature 97.8 F 98.6 F Pulse Rate 74 86 63 Respiratory 18 16 18 Rate Blood Pressure 119/55 123/60 107/61 O2 Sat by Pulse 95 96 95 Oximetry Medical Decision Making - Medical Decision Making This is a 66-year-old female who presents to the emergency department for abdominal pain. Was pt. sent in by a medical professional or institution? @ -No Did you speak to anyone other than the patient for history? @ -No Did you review nursing and triage notes? @ -Yes, and I agree, it is accurate with regards to the patient's symptoms. Were old charts reviewed? @ -No Differential Diagnosis? @ -Differential Abdominal Pain Women: Appendicitis, diverticulosis, ischemic bowel, pancreatitis, hepatitis, UTI, gastroenteritis, AAA, incarcerated hernia, bowel obstruction, constipation, inflammatory bowel, hepatitis, peptic ulcer disease, splenic infarction, perforated viscus, vulvitis, ovarian torsion, PID, kidney stone, placenta abruption, this is not meant to be an all-inclusive list EKG interpreted by me (3pts min.)? @ -EKG interpreted by me demonstrating the following: Sinus rhythm. Ventricular rate 64 beats per minute, MA interval 134 ms, QRS duration 102 ms, QTC 406 ms. X-rays interpreted by me (1pt min.)? @ -Not obtained CT interpreted by me (1pt min.)? @ -Computed tomography scan of the abdomen and pelvis obtained. My interpretation identifies bowel wall thickening at the hepatic flexure. There is no evidence of free air. U/S interpreted by me (1pt. min.)? @ -Not obtained What testing was considered but not performed? (CT, X-rays, U/S, labs)? Why? @ -None What meds were considered but not given? Why? @ -I recommended a GI cocktail, however the patient declined, as she does not like how they taste. Did you discuss the management of the patient with other professionals? @ -Yes, Dr. Andrade who accepts the patient for admission. Did you reconcile home meds? @ -No Was smoking cessation discussed for >3mins.? @ -No Was critical care preformed (if so, how long)? @ -No Were there social determinants of health that impacted care today? How? (Homelessness, low income, unemployed, alcoholism, drug addiction, transportation, low edu. Level, literacy, decrease access to med. care, [facility], rehab)? @ -No Was there de-escalation of care discussed even if they declined? (Discuss DNR or withdrawal of care, Hospice)? @ -No What co-morbidities impacted this encounter? (DM, HTN, Smoking, COPD, CAD, Cancer, CVA, Hep., AIDS, mental health diagnosis, sleep apnea, morbid obesity)? @ -DM, GERD, HTN, HLD Was patient admitted / discharged? @ -Admitted. Patient initially treated with IV fluids, Pepcid, and Benadryl. I recommended a GI cocktail, however the patient declined, as she states that she does not like how they taste. She was subsequently given IV fluids, Benadryl, and Pepcid, with only mild improvement in symptoms. Lab work obtained and found to be nonactionable. Given her persistent pain, computed tomography scan of the abdomen and pelvis was subsequently obtained. Findings consistent with mild diverticulitis. She was given a dose of [place], which did not effectively manage her symptoms. She already takes this at home as well. Given that her pain has not been controlled without IV medications and due to the bowel resection 3 months ago related to diverticulitis, patient admitted to medicine for IV antibiotics and pain management. Consult placed for general surgery as well. Undiagnosed new problem with uncertain prognosis? @ -None Drug Therapy requiring intensive monitoring for toxicity (Heparin, Nitro, Insulin, Cardizem)? @ -None Were any procedures done? @ -None Diagnosis/symptom? @ -Diverticulitis Acute, or Chronic, or Acute on Chronic? @ -Acute Uncomplicated (without systemic symptoms) or Complicated (systemic symptoms)? @ -Complicated Side effects of treatment? @ -None Exacerbation, Progression, or Severe Exacerbation] @ -Not applicable Poses a threat to life or bodily function? @ -The pain is having an impact on her ability to function. This case was discussed in detail with the attending ED physician, Dr. Royal. Presentation, findings, and treatment plan discussed in detail as well. - Lab Data Result diagrams: 11/19/22 06:15 11/19/22 06:15 Lab Results 11/19/22 11/19/22 11/19/22 Range/Units 06:15 06:15 06:15 WBC 4.4 (3.8-10.6) k/uL RBC 4.57 (3.80-5.40) m/uL Hgb 11.9 (11.4-16.0) gm/dL Hct 37.2 (34.0-46.0) % MCV 81.4 (80.0-100.0) fL MCH 26.0 (25.0-35.0) pg MCHC 32.0 (31.0-37.0) g/dL RDW 15.2 (11.5-15.5) % Plt Count 184 (150-450) k/uL MPV 7.8 Neutrophils % 55 % Lymphocytes % 33 % Monocytes % 6 % Eosinophils % 3 % Basophils % 0 % Neutrophils # 2.4 (1.3-7.7) k/uL Lymphocytes # 1.4 (1.0-4.8) k/uL Monocytes # 0.3 (0-1.0) k/uL Eosinophils # 0.1 (0-0.7) k/uL Basophils # 0.0 (0-0.2) k/uL Sodium 140 (137-145) mmol/L Potassium 4.9 (3.5-5.1) mmol/L Chloride 104 (98-107) mmol/L Carbon Dioxide 31 H (22-30) mmol/L Anion Gap 5 mmol/L BUN 21 H (7-17) mg/dL Creatinine 0.88 (0.52-1.04) mg/dL Est GFR (CKD-EPI)AfAm 80 (>60 ml/min/1.73 sqM) Est GFR (CKD-EPI)NonAf 69 (>60 ml/min/1.73 sqM) Glucose 116 H (74-99) mg/dL Plasma Lactic Acid Ej 0.8 (0.7-2.0) mmol/L Calcium 9.3 (8.4-10.2) mg/dL Total Bilirubin 0.3 (0.2-1.3) mg/dL AST 36 (14-36) U/L ALT 27 (4-34) U/L Alkaline Phosphatase 104 (38-126) U/L Troponin I (0.000-0.034) ng/mL Total Protein 7.7 (6.3-8.2) g/dL Albumin 3.9 (3.5-5.0) g/dL Amylase 54 (30-110) U/L Lipase 60 (23-300) U/L 11/19/22 Range/Units 06:15 WBC (3.8-10.6) k/uL RBC (3.80-5.40) m/uL Hgb (11.4-16.0) gm/dL Hct (34.0-46.0) % MCV (80.0-100.0) fL MCH (25.0-35.0) pg MCHC (31.0-37.0) g/dL RDW (11.5-15.5) % Plt Count (150-450) k/uL MPV Neutrophils % % Lymphocytes % % Monocytes % % Eosinophils % % Basophils % % Neutrophils # (1.3-7.7) k/uL Lymphocytes # (1.0-4.8) k/uL Monocytes # (0-1.0) k/uL Eosinophils # (0-0.7) k/uL Basophils # (0-0.2) k/uL Sodium (137-145) mmol/L Potassium (3.5-5.1) mmol/L Chloride (98-107) mmol/L Carbon Dioxide (22-30) mmol/L Anion Gap mmol/L BUN (7-17) mg/dL Creatinine (0.52-1.04) mg/dL Est GFR (CKD-EPI)AfAm (>60 ml/min/1.73 sqM) Est GFR (CKD-EPI)NonAf (>60 ml/min/1.73 sqM) Glucose (74-99) mg/dL Plasma Lactic Acid Ej (0.7-2.0) mmol/L Calcium (8.4-10.2) mg/dL Total Bilirubin (0.2-1.3) mg/dL AST (14-36) U/L ALT (4-34) U/L Alkaline Phosphatase (38-126) U/L Troponin I <0.012 (0.000-0.034) ng/mL Total Protein (6.3-8.2) g/dL Albumin (3.5-5.0) g/dL Amylase (30-110) U/L Lipase (23-300) U/L - Radiology Data Radiology results: report reviewed, image reviewed Disposition Clinical Impression: Diverticulitis Disposition: ADMITTED IP TO THIS HOSP
[2022-11-19 06:39] LABS: Basophils % (A) 0 %; Eosinophils # (A) 0.1 k/uL (0-0.7); Eosinophils % (A) 3 %; HCT 37.2 % (34.0-46.0); HGB 11.9 gm/dL (11.4-16.0); Lymphocytes # (A) 1.4 k/uL (1.0-4.8); Lymphocytes % (A) 33 %; MCV 81.4 fL (80.0-100.0); Mean Platelet Volume 7.8; Monocytes # (A) 0.3 k/uL (0-1.0); Monocytes % (A) 6 %; Neutrophils # (A) 2.4 k/uL (1.3-7.7); Neutrophils % (A) 55 %; Platelet Count 184 k/uL (150-450); RBC 4.57 m/uL (3.80-5.40); RDW 15.2 % (11.5-15.5); WBC 4.4 k/uL (3.8-10.6)
[2022-11-19 06:55] LABS: ALT 27 U/L (4-34); AST 36 U/L (14-36); African American GFR (CKD) 80 (>60 ml/min/1.73 sqM); Albumin 3.9 g/dL (3.5-5.0); Alkaline Phosphatase 104 U/L (38-126); Amylase 54 U/L (30-110); Anion Gap 5 mmol/L; Blood Urea Nitrogen 21 mg/dL (7-17); Calcium 9.3 mg/dL (8.4-10.2); Carbon Dioxide 31 mmol/L (22-30); Chloride 104 mmol/L (98-107); Glucose 116 mg/dL (74-99); Lipase 60 U/L (23-300); Non-African American GFR(CKD) 69 (>60 ml/min/1.73 sqM); Potassium 4.9 mmol/L (3.5-5.1); Sodium 140 mmol/L (137-145); Total Bilirubin 0.3 mg/dL (0.2-1.3); Total Protein 7.7 g/dL (6.3-8.2)
--- NOTE | 2022-11-19 09:10 | CT ---
EXAMINATION TYPE: CT abdomen pelvis w con DATE OF EXAM: 11/19/2022 COMPARISON: 09/18/2022 INDICATION: Epigastric pain DLP: 653.9 mGycm, Automated exposure control for dose reduction was used. CONTRAST: 100 ml mL of Isovue 300. Study performed without Oral Contrast TECHNIQUE: Axial images were obtained from above the diaphragm to the pubic rami in the axial plane a t 5 mm thick sections. Reconstructed images are reviewed on the computer in the coronal plane. FINDINGS: Limited CT sections are obtained the lung bases. The lung bases are clear. CT ABDOMEN: Liver: Normal Spleen: Normal Pancreas: Normal Adrenal glands: The adrenal glands are normal. Gallbladder: Surgically absent Kidneys: Right kidney is somewhat atrophic.. No hydronephrosis is present. No cysts are present. D elayed images were obtained through the kidneys, which remain unremarkable. Aorta: Vascular calcification is within the aorta. Minimal fusiform prominence is present with the g reatest AP diameter in the mid abdominal aorta 2.4 cm. Inferior vena cava: Normal. CT PELVIS: There are postsurgical changes along the anterior abdominal wall, present previously. There appears to be some mild wall thickening at the hepatic flexure. Minimal adjacent inflammatory c hange may be present. Correlate for mild diverticulitis. The study is without oral contrast limiting bowel evaluation. There is prior bowel surgery in the distal sigmoid colon. No obstruction is evident . Appendix: Not visualized. No dilated tubular structure or inflammatory change evident Urinary bladder: Normal. Genitourinary structures: Uterus and ovaries are not identified. Osseous structures: No suspicious lytic or sclerotic lesions. IMPRESSIONS: 1. Mild thickening with minimal adjacent inflammatory changes at the hepatic flexure. Couple of tiny diverticuli are present. Correlate for mild diverticulitis. 2. Stable postsurgical changes within the abdomen.
[2022-11-19] MEDS ORDERED: MORPHINE SULFATE 2 MG/ML SYRINGE IVP STA (09:15)
[2022-11-19] MEDS ORDERED: HYDROcodone/APAP 7.5-325MG 1 EACH TAB PO ONE (09:22)
[2022-11-19] MEDS ORDERED: AMOXIC-POT CLAV 875-125MG 1 EACH TAB PO STA (09:22)
[2022-11-19] MEDS ORDERED: HYDROmorphone 0.5 MG/0.5 ML SYRINGE IVP STA (10:12)
[2022-11-19] MEDS ORDERED: NALOXONE 0.4 MG/ML 1 ML VIAL IV PRN (10:27)
[2022-11-19] MEDS ORDERED: ONDANSETRON 4 MG/2 ML VIAL IVP PRN (10:27)
[2022-11-19] MEDS ORDERED: ACETAMINOPHEN TAB 325 MG TAB PO PRN (10:27)
[2022-11-19] MEDS ORDERED: PIPERACILLIN-TAZOBACTAM 3.375 GM in SODIUM CHLORIDE 0.9% 100 ML IVPB ONE (11:00)
--- NOTE | 2022-11-19 11:50 | P.HPIM ---
History of Present Illness Patient was 66-year-old female came in to visit department with complaints of right middle and lower quadrant abdominal pain mostly just just below the mid abdomen below the epigastric area going on for about 3-4 days denied any diar carl may have seen mild blood in the stools denied any nausea vomiting. Patient is found to have colitis in the hepatic flexure area. Patient's pain is severe at 9/10. Nonradiating sharp in nature REVIEW OF SYSTEMS: CONSTITUTIONAL: No fever, no malaise, no fatigue. HEENT: No recent visual problems or hearing problems. Denied any sore throat. CARDIOVASCULAR: No chest pain, orthopnea, PND, no palpitations, no syncope. PULMONARY: No shortness of breath, no cough, no hemoptysis. GASTROINTESTINAL: As mentioned in HPI NEUROLOGICAL: No headaches, no weakness, no numbness. HEMATOLOGICAL: Denies any bleeding or petechiae. GENITOURINARY: Denies any burning micturition, frequency, or urgency. MUSCULOSKELETAL/RHEUMATOLOGICAL: Denies any joint pain, swelling, or any muscle pain. ENDOCRINE: Denies any polyuria or polydipsia. The rest of the 14-point review of systems is negative. PHYSICAL EXAMINATION: GENERAL: The patient is alert and oriented x3, not in any acute distress. Well developed, well nourished. HEENT: Pupils are round and equally reacting to light. EOMI. No scleral icterus. No conjunctival pallor. Normocephalic, atraumatic. No pharyngeal erythema. No thyromegaly. CARDIOVASCULAR: S1 and S2 present. No murmurs, rubs, or gallops. PULMONARY: Chest is clear to auscultation, no wheezing or crackles. ABDOMEN: Soft, mild tenderness in the mid abdomen, nondistended, normoactive bowel sounds. No palpable organomegaly. MUSCULOSKELETAL: No joint swelling or deformity. EXTREMITIES: No cyanosis, clubbing, or pedal edema. NEUROLOGICAL: Gross neurological examination did not reveal any focal deficits. SKIN: No rashes. Assessment and plan -Acute colitis, infectious versus inflammatory: Patient will be started on antibiotics, IV fluids and pain management, patient is presently on Zosyn which will be switched to Unasyn -Type 2 diabetes mellitus -Gastroesophageal reflux disease -hyperlipidemia -Hypertension DVT prophylaxis: Lovenox Past Medical History Past Medical History: Cancer, Diabetes Mellitus, GERD/Reflux, Hyperlipidemia, Hypertension Additional Past Medical History / Comment(s): Hx diverticulitis., AAA- states not visible now., UTI's., mild sleep apnea-no machine., Gout., barretts esophagus (egd 2018)., herniated discs with neck and back pain., uterine cancer with partial hysterectomy., recent vertigo-improved with antibiotic. History of Any Multi-Drug Resistant Organisms: None Reported Past Surgical History: Bariatric Surgery, Heart Catheterization, Hysterectomy Additional Past Surgical History / Comment(s): lap band 2009 () , R kidney tumor removed, sheyla carpal tunnel, bone spurs removed from hip and neck, 05/14/14 lap band port replacement (Dr. Jenkins). Lap band removal in 07/08/19 18., egd & colonoscopy (07/16/22)., Heart cath (2006) Past Anesthesia/Blood Transfusion Reactions: No Reported Reaction Additional Past Anesthesia/Blood Transfusion Reaction / Comment(s): no hx blood transfusion Past Psychological History: Anxiety Smoking Status: Former smoker Past Alcohol Use History: None Reported Past Drug Use History: None Reported - Past Family History Mother Family Medical History: Cancer Additional Family Medical History / Comment(s): Poss CA, at age 67 Father Family Medical History: CVA/TIA, Deep Vein Thrombosis (DVT) Additional Family Medical History / Comment(s): from aneurysm at age 62 Medications and Allergies Home Medications Medication Instructions Recorded Confirmed Type Aspirin EC [Ecotrin Low Dose] 81 mg PO DAILY 11/12/13 11/19/22 History Ezetimibe [Zetia] 10 mg PO DAILY 07/14/22 11/19/22 History Pioglitazone [Actos] 30 mg PO DAILY 07/14/22 11/19/22 History Semaglutide [Ozempic] 1 mg SQ TU 07/14/22 11/19/22 History Ascorbic Acid [Vitamin C] 500 mg PO DAILY 08/02/22 11/19/22 History Biotin [Extc-Ypal-Soulr] 10,000 mcg PO DAILY 08/02/22 11/19/22 History Multivitamins, Thera [Multivitamin 1 tab PO DAILY 08/02/22 11/19/22 History (formulary)] Omeprazole 20 mg PO BID 30 Days #60 cap 08/14/22 11/19/22 Rx ALPRAZolam [Xanax] 0.25 mg PO DAILY PRN 09/18/22 11/19/22 History Cholecalciferol [Vitamin D3 (25 50 mcg PO DAILY 09/18/22 11/19/22 History Mcg = 1000 Iu)] Famotidine [Pepcid] 20 mg PO BID 09/18/22 11/19/22 History HYDROcodone/APAP 5-325MG [[place] 1 tab PO BID 11/19/22 11/19/22 History 5-325] Lisinopril-Hctz 20-25 mg 1 tab PO DAILY 11/19/22 11/19/22 History [Zestoretic 20-25] Sertraline HCl [Zoloft] 50 mg PO BID 11/19/22 11/19/22 History Allergies Allergy/AdvReac Type Severity Reaction Status Date / Time banana Allergy BLISTERS Verified 11/19/22 11:27 IN MOUTH bee pollen Allergy Anaphylaxis Verified 11/19/22 11:27 bee venom protein (honey bee) Allergy Anaphylaxis Verified 11/19/22 11:27 kiwi Allergy BLISTERS Verified 11/19/22 11:27 IN MOUTH latex Allergy Anaphylaxis, Verified 11/19/22 11:27 Blisters ibuprofen AdvReac Unknown Upset Verified 11/19/22 11:27 Stomach metronidazole [From Flagyl] AdvReac Nausea & Verified 11/19/22 11:27 Vomiting & Diarrhea Physical Exam Vitals: Vital Signs Temp Pulse Resp BP Pulse Ox 11/19/22 10:38 98.6 F 86 16 123/60 96 11/19/22 05:55 97.8 F 74 18 119/55 95 Intake and Output 11/18/22 11/19/22 11/19/22 22:59 06:59 14:59 Other: Weight 60.328 kg Results CBC & Chem 7: 11/19/22 06:15 11/19/22 06:15 Labs: Abnormal Lab Results - Last 24 Hours (Table) 11/19/22 Range/Units 06:15 Carbon Dioxide 31 H (22-30) mmol/L BUN 21 H (7-17) mg/dL Glucose 116 H (74-99) mg/dL
[2022-11-19] MEDS ORDERED: ALPRAZolam 0.25 MG TAB PO PRN (11:51)
[2022-11-19] MEDS ORDERED: KETOROLAC 15 MG/ML 1 ML VIAL IVP PRN (11:53)
[2022-11-19] MEDS: INSULIN ASPART (NovoLOG) 100 UNIT/ML VIAL SQ SCH ×3 (12:10→19:44)
[2022-11-19 12:11] LABS: Glucose,Whole Blood 95 mg/dL (70-110)
[2022-11-19] MEDS: PANTOPRAZOLE 40 MG/10 ML VIAL IVP SCH (12:18)
[2022-11-19] MEDS: PIPERACILLIN-TAZOBACTAM 3.375 GM in SODIUM CHLORIDE 0.9% 100 ML IVPB SCH ×2 (15:25→23:55)
[2022-11-19] MEDS: HYDROmorphone 0.5 MG/0.5 ML SYRINGE IVP PRN ×2 (15:25→20:08)
[2022-11-19 15:36] LABS: Glucose,Whole Blood 94 mg/dL (70-110)
[2022-11-19 19:36] LABS: Glucose,Whole Blood 124 mg/dL (70-110)
[2022-11-19] MEDS: FAMOTIDINE 20 MG TAB PO SCH (20:06)
[2022-11-19] MEDS: SERTRALINE 50 MG TAB PO SCH (20:06)
[2022-11-19] MEDS: HYDROcodone/APAP 5-325MG 1 EACH TAB PO SCH (20:09)
[2022-11-20] MEDS: HYDROmorphone 1 MG/ML 1 ML SYRINGE IVP PRN ×2 (00:09→23:06)
[2022-11-20 06:02] LABS: Glucose,Whole Blood 109 mg/dL (70-110)
[2022-11-20] MEDS: HYDROmorphone 0.5 MG/0.5 ML SYRINGE IVP PRN ×4 (06:03→19:52)
[2022-11-20] MEDS: INSULIN ASPART (NovoLOG) 100 UNIT/ML VIAL SQ SCH ×4 (06:24→20:11)
--- NOTE | 2022-11-20 07:45 | P.GSCN ---
History of Present Illness Consult date: 11/19/22 Reason for Consult: Diverticulitis History of present illness: This a 66-year-old female who presents today for abdominal pain. Patient was se en in the antrum. She was worked up found evidence of possible diverticulitis Flexure. Patient appears history of diverticulitis with low anterior section of the sigmoid colon several years ago. Past Medical History Past Medical History: Cancer, Diabetes Mellitus, GERD/Reflux, Hyperlipidemia, Hypertension Additional Past Medical History / Comment(s): Hx diverticulitis., AAA- states not visible now., UTI's., mild sleep apnea-no machine., Gout., barretts esophagus (egd 2019)., herniated discs with neck and back pain., uterine cancer with partial hysterectomy., recent vertigo-improved with antibiotic. History of Any Multi-Drug Resistant Organisms: None Reported Past Surgical History: Bariatric Surgery, Heart Catheterization, Hysterectomy Additional Past Surgical History / Comment(s): lap band 2009 () , R kidney tumor removed, sheyla carpal tunnel, bone spurs removed from hip and neck, 05/14/14 lap band port replacement (Dr. Jenkins). Lap band removal in 07/08/2017., egd & colonoscopy (07/16/22)., Heart cath (2006) Past Anesthesia/Blood Transfusion Reactions: No Reported Reaction Additional Past Anesthesia/Blood Transfusion Reaction / Comm: no hx blood transfusion Past Psychological History: Anxiety Additional Psychological History / Comment(s): mood swings Smoking Status: Former smoker Past Alcohol Use History: None Reported Additional Past Alcohol Use History / Comment(s): quit smoking ,smoked approx 25 yrs , 1 1/2 ppd Past Drug Use History: None Reported - Past Family History Mother Family Medical History: Cancer Additional Family Medical History / Comment(s): Poss CA, at age 67 Father Family Medical History: CVA/TIA, Deep Vein Thrombosis (DVT) Additional Family Medical History / Comment(s): from aneurysm at age 62 Medications and Allergies Home Medications Medication Instructions Recorded Confirmed Type Aspirin EC [Ecotrin Low Dose] 81 mg PO DAILY 11/12/13 11/19/22 History Ezetimibe [Zetia] 10 mg PO DAILY 07/14/22 11/19/22 History Pioglitazone [Actos] 30 mg PO DAILY 07/14/22 11/19/22 History Semaglutide [Ozempic] 1 mg SQ TU 07/14/22 11/19/22 History Ascorbic Acid [Vitamin C] 500 mg PO DAILY 08/02/22 11/19/22 History Biotin [[place]-Gpls-Smtww] 10,000 mcg PO DAILY 08/02/22 11/19/22 History Multivitamins, Thera [Multivitamin 1 tab PO DAILY 08/02/22 11/19/22 History (formulary)] Omeprazole 20 mg PO BID 30 Days #60 cap 08/14/22 11/19/22 Rx ALPRAZolam [Xanax] 0.25 mg PO DAILY PRN 09/18/22 11/19/22 History Cholecalciferol [Vitamin D3 (25 50 mcg PO DAILY 09/18/22 11/19/22 History Mcg = 1000 Iu)] Famotidine [Pepcid] 20 mg PO BID 09/18/22 11/19/22 History HYDROcodone/APAP 5-325MG [[place] 1 tab PO BID 11/19/22 11/19/22 History 5-325] Lisinopril-Hctz 20-25 mg 1 tab PO DAILY 11/19/22 11/19/22 History [Zestoretic 20-25] Sertraline HCl [Zoloft] 50 mg PO BID 11/19/22 11/19/22 History Allergies Allergy/AdvReac Type Severity Reaction Status Date / Time banana Allergy BLISTERS Verified 11/19/22 11:27 IN MOUTH bee pollen Allergy Anaphylaxis Verified 11/19/22 11:27 bee venom protein (honey bee) Allergy Anaphylaxis Verified 11/19/22 11:27 kiwi Allergy BLISTERS Verified 11/19/22 11:27 IN MOUTH latex Allergy Anaphylaxis, Verified 11/19/22 11:27 Blisters ibuprofen AdvReac Unknown Upset Verified 11/19/22 11:27 Stomach metronidazole [From Flagyl] AdvReac Nausea & Verified 11/19/22 11:27 Vomiting & Diarrhea Surgical - Exam Vital Signs Temp Pulse Resp BP Pulse Ox 97.8 F 74 18 119/55 95 11/19/22 05:55 11/19/22 05:55 11/19/22 05:55 11/19/22 05:55 11/19/22 05:55 - General well developed, well nourished, no distress - Eyes PERRL - ENT normal pinna - Neck no masses - Respiratory normal expansion - Cardiovascular Rhythm: regular - Abdomen Mild right-sided abdominal pain. There is no rebound or guarding. Abdomen: soft Results - Labs 11/19/22 06:15 11/19/22 06:15 Abnormal Lab Results - Last 24 Hours (Table) 11/19/22 Range/Units 19:35 POC Glucose (mg/dL) 124 H (70-110) mg/dL Assessment and Plan Assessment: Diverticula is. Patient will receive IV antibiotics. She'll remain on bowel rest.
[2022-11-20] MEDS: SERTRALINE 50 MG TAB PO SCH ×2 (09:08→19:52)
[2022-11-20] MEDS: PANTOPRAZOLE 40 MG/10 ML VIAL IVP SCH (09:08)
[2022-11-20] MEDS: FAMOTIDINE 20 MG TAB PO SCH (09:08)
[2022-11-20] MEDS: ASPIRIN 81 MG PO SCH (09:08)
[2022-11-20] MEDS: ENOXAPARIN 40 MG/0.4 ML SYRINGE SQ SCH (09:09)
[2022-11-20] MEDS: PIPERACILLIN-TAZOBACTAM 3.375 GM in SODIUM CHLORIDE 0.9% 100 ML IVPB SCH ×3 (09:09→22:17)
[2022-11-20] MEDS: HYDROcodone/APAP 5-325MG 1 EACH TAB PO SCH ×2 (11:23→21:34)
[2022-11-20] MEDS ORDERED: NON FORMULARY DRUG (Semaglutide [Ozempic] 1 MG/0.75 ML Each) SQ SCH (11:51)
[2022-11-20 12:10] LABS: Glucose,Whole Blood 102 mg/dL (70-110)
--- NOTE | 2022-11-20 14:21 | P.PN ---
Subjective Progress Note Date: 11/20/22 CHIEF COMPLAINT: Diverticulitis HISTORY OF PRESENT ILLNESS: Patient complains of upper abdominal pain. Pain is worse after eating. She is having burping. She reports the pain 8 out of 10. She's had a prior lower anterior resection for diverticulitis several years ago. She does report having bowel movements. Afebrile. WBC 4.4 computed tomography scan had shown mild thickening with minimal adjacent inflammatory changes at the hepatic flexure. Couple of tiny diverticula present correlate for mild diverticulitis. Patient seen and examined with Dr. zamora PHYSICAL EXAM: VITAL SIGNS: Reviewed. GENERAL: Well-developed in no acute distress. HEENT: No sclera icterus. Extraocular movements grossly intact. Moist buccal mucosa. Head is atraumatic, normocephalic. ABDOMEN: Soft. Nondistended. Tenderness with palpation above the umbilicus. Palpable firm area possibly scar tissue. Tenderness to palpation left lower quadrant. NEUROLOGIC: Alert and oriented. Cranial nerves II through XII grossly intact. ASSESSMENT: 1. Mild diverticulitis. Mild thickening with inflammatory changes at the hepatic flexure noted on CT 2. History of lower anterior resection of sigmoid colon PLAN: -Downgrade diet to full liquids -Continue to observe -Continue antibiotics -Repeat labs in a.m. -Continue supportive care Physician Put In Beat Adjuster note has been reviewed by physician. Signing provider agrees with the documented findings, assessment, and plan of care. Objective - Vital Signs Vital signs: Vital Signs Temp 97.7 F 11/20/22 06:47 Pulse 60 11/20/22 06:47 Resp 19 11/20/22 06:47 BP 108/71 11/20/22 06:47 Pulse Ox 96 11/20/22 06:47 FiO2 Intake & Output 11/19/22 11/20/22 11/20/22 18:59 06:59 18:59 Weight 60.328 kg Other: # Voids 1 - Labs CBC & Chem 7: 11/19/22 06:15 11/19/22 06:15 Labs: Abnormal Lab Results - Last 24 Hours (Table) 11/19/22 Range/Units 19:35 POC Glucose (mg/dL) 124 H (70-110) mg/dL
--- NOTE | 2022-11-20 15:00 | P.PN ---
Subjective Progress Note Date: 11/20/22 Patient was 66-year-old female came in to visit department with complaints of right middle and lower quadrant abdominal pain mostly just just below the mid abdomen below the epigastric area going on for about 3-4 days denied any diarrhea may have seen mild blood in the stools denied any nausea vomiting. Patient is found to have colitis in the hepatic flexure area. Patient's pain is severe at 9/10. Nonradiating sharp in nature 11/20/2022 Patient is evaluated today continues to report abdominal tenderness mostly with palpation. Has tolerated liquid diet and being advanced to full liquid diet for lunch. Patient is afebrile and on room air. Continues on IV zosyn. Review of Systems Constitutional: Denied any fatigue denied any fever. Cardio vascular: denied any chest pain, palpitations Gastrointestinal: denied any nausea, vomiting, diarrhea. Reports abdominal pain. Pulmonary: Denied any shortness of breath cough Neurologic denied any new focal deficits All inpatient medications were reviewed and appropriate changes in these medications as dictated in the interval history and assessment and plan. PHYSICAL EXAMINATION: GENERAL: The patient is alert and oriented x3, not in any acute distress. Well developed, well nourished. HEENT: Pupils are round and equally reacting to light. EOMI. No scleral icterus. No conjunctival pallor. Normocephalic, atraumatic. No pharyngeal erythema. No thyromegaly. CARDIOVASCULAR: S1 and S2 present. No murmurs, rubs, or gallops. PULMONARY: Chest is clear to auscultation, no wheezing or crackles. ABDOMEN: Soft, mild tenderness in the mid abdomen, nondistended, normoactive bowel sounds. No palpable organomegaly. MUSCULOSKELETAL: No joint swelling or deformity. EXTREMITIES: No cyanosis, clubbing, or pedal edema. NEUROLOGICAL: Gross neurological examination did not reveal any focal deficits. SKIN: No rashes. Assessment and plan -Acute diverticulitis: Patient continues on IV antibiotics -Recent low anterior resection due to bowel obstruction/diverticulitis -Type 2 diabetes mellitus -Gastroesophageal reflux disease -hyperlipidemia -Hypertension DVT prophylaxis: Lovenox GI prophylaxis Full Code Plan Continue IV fluids diet advanced to full liquid. Patient continues with abdominal discomfort and will be continued overnight on IV antibiotics. General surgery following and recommending metamucil on discharge to prevent constipati on. The impression and plan of care has been dictated by Nurse Rom Cronin as directed. Dr. Lupe MD I have performed a history and physical examination and medical decision making of this patient, discussed the same with the dictator, and agree with the dict ators assessment and plan as written, documented as a scribe. Based on total visit time, I have performed more than 50% of this visit. Objective - Vital Signs Vital signs: Vital Signs Temp 97.7 F 11/20/22 06:47 Pulse 60 11/20/22 06:47 Resp 19 11/20/22 06:47 BP 108/71 11/20/22 06:47 Pulse Ox 96 11/20/22 06:47 FiO2 Intake & Output 11/19/22 11/20/22 11/20/22 18:59 06:59 18:59 Weight 60.328 kg Other: # Voids 1 - Labs CBC & Chem 7: 11/19/22 06:15 11/19/22 06:15 Labs: Abnormal Lab Results - Last 24 Hours (Table) 11/19/22 Range/Units 19:35 POC Glucose (mg/dL) 124 H (70-110) mg/dL Assessment and Plan Time with Patient: Less than 30
[2022-11-20 17:28] LABS: Glucose,Whole Blood 100 mg/dL (70-110)
[2022-11-20 19:35] VITALS: RESP 16
[2022-11-20 20:12] LABS: Glucose,Whole Blood 96 mg/dL (70-110)
[2022-11-21 05:51] LABS: Basophils % (A) 0 %; Eosinophils # (A) 0.2 k/uL (0-0.7); Eosinophils % (A) 7 %; HCT 35.1 % (34.0-46.0); HGB 11.4 gm/dL (11.4-16.0); Lymphocytes # (A) 1.7 k/uL (1.0-4.8); Lymphocytes % (A) 49 %; MCH 26.6 pg (25.0-35.0); MCHC 32.4 g/dL (31.0-37.0); MCV 81.9 fL (80.0-100.0); Mean Platelet Volume 7.6; Monocytes # (A) 0.2 k/uL (0-1.0); Monocytes % (A) 5 %; Neutrophils # (A) 1.3 k/uL (1.3-7.7); Neutrophils % (A) 37 %; Platelet Count 135 k/uL (150-450); RBC 4.28 m/uL (3.80-5.40); RDW 15.5 % (11.5-15.5); WBC 3.5 k/uL (3.8-10.6)
[2022-11-21 06:01] LABS: African American GFR (CKD) 59 (>60 ml/min/1.73 sqM); Anion Gap 8 mmol/L; Blood Urea Nitrogen 9 mg/dL (7-17); Calcium 8.6 mg/dL (8.4-10.2); Carbon Dioxide 26 mmol/L (22-30); Chloride 106 mmol/L (98-107); Glucose 106 mg/dL (74-99); Non-African American GFR(CKD) 51 (>60 ml/min/1.73 sqM); Potassium 3.6 mmol/L (3.5-5.1); Sodium 140 mmol/L (137-145)
[2022-11-21 06:08] LABS: Glucose,Whole Blood 102 mg/dL (70-110)
[2022-11-21] MEDS: INSULIN ASPART (NovoLOG) 100 UNIT/ML VIAL SQ SCH ×4 (06:13→20:23)
[2022-11-21] MEDS: FAMOTIDINE 20 MG TAB PO SCH (08:36)
[2022-11-21] MEDS: ENOXAPARIN 40 MG/0.4 ML SYRINGE SQ SCH (08:36)
[2022-11-21] MEDS: PIPERACILLIN-TAZOBACTAM 3.375 GM in SODIUM CHLORIDE 0.9% 100 ML IVPB SCH ×2 (08:36→15:05)
[2022-11-21] MEDS: PANTOPRAZOLE 40 MG/10 ML VIAL IVP SCH ×2 (08:36→20:40)
[2022-11-21] MEDS: ASPIRIN 81 MG PO SCH (08:36)
[2022-11-21] MEDS: HYDROmorphone 0.5 MG/0.5 ML SYRINGE IVP PRN ×2 (08:37→15:05)
[2022-11-21] MEDS: SERTRALINE 50 MG TAB PO SCH ×2 (08:43→20:39)
[2022-11-21] MEDS: SODIUM CHLORIDE 0.9% 1,000 ML IV SCH ×2 (10:19→23:04)
[2022-11-21] MEDS: HYDROcodone/APAP 5-325MG 1 EACH TAB PO SCH ×2 (11:29→20:40)
[2022-11-21 12:05] LABS: Glucose,Whole Blood 105 mg/dL (70-110)
--- NOTE | 2022-11-21 15:47 | P.PN ---
Subjective Progress Note Date: 11/21/22 CHIEF COMPLAINT: Diverticulitis HISTORY OF PRESENT ILLNESS: Patient continues to complain of upper abdominal pain in the epigastric area. Her left lower quadrant pain has improved. She reports she had EGD about 2-1/2 years ago and there have been findings in the esophagus. Medicines service is trying to obtain the report. Patient does report increase in pain after eating. She did have episode of vomiting yesterday. She has been nauseous. She did have a period afebrile. WBC is 3.5 one positive blood culture possible contamination. Repeat blood culture pending Patient seen and examined with Dr. zamora PHYSICAL EXAM: VITAL SIGNS: Reviewed. GENERAL: Well-developed in no acute distress. HEENT: No sclera icterus. Extraocular movements grossly intact. Moist buccal mucosa. Head is atraumatic, normocephalic. ABDOMEN: Soft. Nondistended. Tenderness with palpation epigastric area and above the umbilicus. Palpable firm area possibly scar tissue. NEUROLOGIC: Alert and oriented. Cranial nerves II through XII grossly intact. ASSESSMENT: 1. Mild diverticulitis. Mild thickening with inflammatory changes at the hepatic flexure noted on CT 2. History of lower anterior resection of sigmoid colon 3. Epigastric pain PLAN: -Patient scheduled for EGD tomorrow with Dr. zamora -Nothing by mouth after midnight -Continue antibiotics Physician Head Cd Reactor Operator note has been reviewed by physician. Signing provider agrees with the documented findings, assessment, and plan of care. Objective - Vital Signs Vital signs: Vital Signs Temp 98.1 F 11/21/22 14:00 Pulse 63 11/21/22 14:00 Resp 16 11/21/22 14:00 BP 135/76 11/21/22 14:00 Pulse Ox 98 11/21/22 14:00 FiO2 Intake & Output 11/20/22 11/21/22 11/21/22 18:59 06:59 18:59 Intake Total 180 Balance 180 Intake: Oral 180 Other: # Voids 5 1 2 - Labs CBC & Chem 7: 11/21/22 04:59 11/21/22 04:59 Labs: Abnormal Lab Results - Last 24 Hours (Table) 11/21/22 11/21/22 Range/Units 04:59 04:59 WBC 3.5 L (3.8-10.6) k/uL Plt Count 135 L (150-450) k/uL Creatinine 1.12 H (0.52-1.04) mg/dL Glucose 106 H (74-99) mg/dL Microbiology - Last 24 Hours (Table) 11/19/22 10:41 Blood Culture - Preliminary Blood
--- NOTE | 2022-11-21 16:38 | P.PN ---
Subjective Progress Note Date: 11/21/22 Patient was 66-year-old female came in to visit department with complaints of right middle and lower quadrant abdominal pain mostly just just below the mid abdomen below the epigastric area going on for about 3-4 days denied any diarrhea may have seen mild blood in the stools denied any nausea vomiting. Patient is found to have colitis in the hepatic flexure area. Patient's pain is severe at 9/10. Nonradiating sharp in nature 11/20/2022 Patient is evaluated today continues to report abdominal tenderness mostly with palpation. Has tolerated liquid diet and being advanced to full liquid diet for lunch. Patient is afebrile and on room air. Continues on IV zosyn. 11/21/2022 Patient evaluated today continues to report abdominal pain mostly epigastric. Patient has no lower quadrant tenderness today. No white count. Tolerating the full liquid diet. Creatinine 1.12 today patient will be placed on normal saline continues on IV protonix. Discussed with surgery possible EGD due to persistent epigastric pain and patient is scheduled to undergo upper endoscopy tomorrow. Review of Systems Constitutional: Denied any fatigue denied any fever. Cardio vascular: denied any chest pain, palpitations Gastrointestinal: denied any nausea, vomiting, diarrhea. Reports abdominal pain. Pulmonary: Denied any shortness of breath cough Neurologic denied any new focal deficits All inpatient medications were reviewed and appropriate changes in these medications as dictated in the interval history and assessment and plan. PHYSICAL EXAMINATION: GENERAL: The patient is alert and oriented x3, not in any acute distress. Well developed, well nourished. HEENT: Pupils are round and equally reacting to light. EOMI. No scleral icterus. No conjunctival pallor. Normocephalic, atraumatic. No pharyngeal erythema. No thyromegaly. CARDIOVASCULAR: S1 and S2 present. No murmurs, rubs, or gallops. PULMONARY: Chest is clear to auscultation, no wheezing or crackles. ABDOMEN: Soft, mild tenderness in the mid abdomen, nondistended, normoactive bowel sounds. No palpable organomegaly. MUSCULOSKELETAL: No joint swelling or deformity. EXTREMITIES: No cyanosis, clubbing, or pedal edema. NEUROLOGICAL: Gross neurological examination did not reveal any focal deficits. SKIN: No rashes. Assessment and plan -Acute mild diverticulitis: Patient continues on IV antibiotics -Recent low anterior resection due to bowel obstruction/diverticulitis -Epigastric pain -Type 2 diabetes mellitus -Gastroesophageal reflux disease -hyperlipidemia -Hypertension DVT prophylaxis: Lovenox GI prophylaxis Full Code Plan Continue IV fluids diet advanced to full liquid. Patient continues with abdominal discomfort and will be continued overnight on IV antibiotics. General surgery following and recommending metamucil on discharge to prevent constipation. Patient scheduled to undergo EGD tomorrow. The impression and plan of care has been dictated by Natalee Traore, Nurse Practitioner as directed. Dr. Lupe MD I have performed a history and physical examination and medical decision making of this patient, discussed the same with the dictator, and agree with the dictators assessment and plan as written, documented as a scribe. Based on total visit time, I have performed more than 50% of this visit. Objective - Vital Signs Vital signs: Vital Signs Temp 98.1 F 11/21/22 14:00 Pulse 63 11/21/22 14:00 Resp 16 11/21/22 14:00 BP 135/76 11/21/22 14:00 Pulse Ox 98 11/21/22 14:00 FiO2 Intake & Output 11/20/22 11/21/22 11/21/22 18:59 06:59 18:59 Intake Total 180 Balance 180 Intake: Oral 180 Other: # Voids 5 1 2 - Labs CBC & Chem 7: 11/21/22 04:59 11/21/22 04:59 Labs: Abnormal Lab Results - Last 24 Hours (Table) 11/21/22 11/21/22 Range/Units 04:59 04:59 WBC 3.5 L (3.8-10.6) k/uL Plt Count 135 L (150-450) k/uL Creatinine 1.12 H (0.52-1.04) mg/dL Glucose 106 H (74-99) mg/dL Microbiology - Last 24 Hours (Table) 11/19/22 10:41 Blood Culture - Preliminary Blood Assessment and Plan Time with Patient: Less than 30
[2022-11-21 17:16] LABS: Glucose,Whole Blood 108 mg/dL (70-110)
[2022-11-21] MEDS: HYDROmorphone 1 MG/ML 1 ML SYRINGE IVP PRN (19:46)
[2022-11-21 20:20] LABS: Glucose,Whole Blood 117 mg/dL (70-110)
[2022-11-22] MEDS: PIPERACILLIN-TAZOBACTAM 3.375 GM in SODIUM CHLORIDE 0.9% 100 ML IVPB SCH ×2 (00:28→08:11)
[2022-11-22] MEDS: HYDROmorphone 1 MG/ML 1 ML SYRINGE IVP PRN (00:49)
[2022-11-22 06:09] LABS: Glucose,Whole Blood 82 mg/dL (70-110)
[2022-11-22] MEDS: INSULIN ASPART (NovoLOG) 100 UNIT/ML VIAL SQ SCH ×2 (06:18→12:30)
[2022-11-22 06:20] LABS: HCT 34.9 % (34.0-46.0); HGB 11.1 gm/dL (11.4-16.0); MCH 26.3 pg (25.0-35.0); MCHC 31.8 g/dL (31.0-37.0); MCV 82.8 fL (80.0-100.0); Mean Platelet Volume 7.8; Platelet Count 136 k/uL (150-450); RBC 4.21 m/uL (3.80-5.40); RDW 15.6 % (11.5-15.5); WBC 3.2 k/uL (3.8-10.6)
[2022-11-22] MEDS: HYDROmorphone 0.5 MG/0.5 ML SYRINGE IVP PRN ×2 (06:22→15:17)
[2022-11-22 06:36] LABS: African American GFR (CKD) 69 (>60 ml/min/1.73 sqM); Anion Gap 4 mmol/L; Blood Urea Nitrogen 6 mg/dL (7-17); Calcium 8.1 mg/dL (8.4-10.2); Carbon Dioxide 27 mmol/L (22-30); Chloride 109 mmol/L (98-107); Glucose 90 mg/dL (74-99); Non-African American GFR(CKD) 60 (>60 ml/min/1.73 sqM); Potassium 3.6 mmol/L (3.5-5.1); Sodium 140 mmol/L (137-145)
[2022-11-22] MEDS: ENOXAPARIN 40 MG/0.4 ML SYRINGE SQ SCH (08:11)
[2022-11-22] MEDS: FAMOTIDINE 20 MG TAB PO SCH (08:12)
[2022-11-22] MEDS: ASPIRIN 81 MG PO SCH (08:12)
[2022-11-22] MEDS: HYDROcodone/APAP 5-325MG 1 EACH TAB PO SCH (08:12)
[2022-11-22] MEDS: SERTRALINE 50 MG TAB PO SCH (08:12)
[2022-11-22] MEDS: PANTOPRAZOLE 40 MG/10 ML VIAL IVP SCH (08:12)
[2022-11-22] MEDS ORDERED: PROPOFOL 10 MG/ML 20 ML VIAL IV ONE (08:53)
[2022-11-22] MEDS ORDERED: IV FLUID CONTINUATION 1,000 ML IV ONE (08:56)
--- NOTE | 2022-11-22 09:07 | P.OP ---
Date of Procedure: 11/22/22 Preoperative Diagnosis: Gastritis Postoperative Diagnosis: Mild antral gastritis Small sliding hiatal hernia Procedure(s) Performed: EGD Anesthesia: MAC Surgeon: Cristopher Browne Pathology: other (Antrum, esophagus) Condition: stable Disposition: PACU Description of Procedure: The patient's placed on the endoscopy table in the lateral position. She received IV sedation. The gastroscope placed oropharynx passed in the esophagus into the stomach. Scope was placed through the pylorus. The first and second portion of duodenum appeared normal. Scope summer back the antrum this mildly inflamed. A biopsies performed. The scope was retroflexed and remainder the stomach appeared normal. There was a small sliding hiatal hernia. The GE junction was at 3838 cm per the distal esophagus appeared normal. The proximal esophagus appeared normal. Scope withdrawn for patient.
[2022-11-22 11:19] VITALS: PULSE 61
[2022-11-22 12:27] LABS: Glucose,Whole Blood 75 mg/dL (70-110)
[2022-11-22] MEDS: SODIUM CHLORIDE 0.9% 1,000 ML IV SCH (12:55)
[2022-11-22 16:06] VITALS: BP 158/71; TEMP 98.1
--- NOTE | 2022-11-24 00:03 | P.DS ---
Providers Date of admission: 11/20/22 13:07 Attending physician: Rohini Andrade Consults: 11/19/22 10:27 Consult Physician Urgent Consulting Provider: Cristopher Browne Consult Reason/Comments: diverticulitis Do you want consulting provider notified?: Yes Primary care physician: Yolanda [facility] Course: Final Diagnosis -Acute mild diverticulitis: Patient received IV antibiotics -Recent low anterior resection due to bowel obstruction/diverticulitis -Epigastric pain with EGD revealing mild antral gastritis and small sliding hiatal hernia -Type 2 diabetes mellitus -Gastroesophageal reflux disease -hyperlipidemia -Hypertension Full Code Discharge Disposition Patient is stable for discharge home. Recommending to follow up with Dr. Browne in 1 to 2 weeks. Patient completed short course of IV antibiotics for the mild diverticulitis and abdominal pain had resolved patient has been tolerated full liquid/regular diet. Recommending to follow up with known GI specialist. Patient encouraged to take metamucil over the counter to avoid constipation. Follow up with PCP in 1 to 2 days. Hospital Course This is a pleasant 66-year-old female with history of diabetes, GERD, hypertension, hyperlipidemia with recent lower anterior resection for diverticulitis. Patient came amaris the emergency department with complaints of right middle and lower quadrant abdominal pain mostly just just below the mid abdomen below the epigastric area going on for about 3-4 days denied any diarrhea may have seen mild blood in the stools denied any nausea vomiting. Patient is found to have colitis in the hepatic flexure area. Patient's pain is severe at 9/10. Nonradiating sharp in nature. Patient was admitted for mild acute diverticulitis and treated with IV antibiotics. General surgery has been following the patient and patient was placed on liquid diet. The lower quadrant abdominal pain had improved. Patient had persistent middle abdominal pain and Discussed with surgery possible EGD. Patient underwent upper endoscopy which reveals mild antral gastritis and small sliding hiatal hernia. Patient did not have elevated white count the creatinine was normal on admission did increased to 1.12 has now normalized. Sodium, potassium have remained normal. Troponin level negative. LFT's amylase lipase are all within normal limits. Patient does state she follows with a GI oncologist and states she had a scope down last year which revealed a precancerous area. Patient was unable to provide location or physician name for this and reports were unable to be obtained. Patient has been advised to follow up with GI on discharge and also with Dr. Browne in 1 to 2 weeks. Discharged home with the above mentioned recommendations. Denying chest pain, no shortness of breath. Abdomen has mild epigastric tenderness which has improved. Tolerating diet. Please see medication reconciliation for a list of current medication. Thank you for allowing us to participate in the care of this patient. The impression and plan of care has been dictated by Natalee Traore, Nurse Practitioner as directed. Dr. Lupe MD I have performed a history and physical examination and medical decision making of this patient, discussed the same with the dictator, and agree with the dictators assessment and plan as written, documented as a scribe. Based on total visit time, I have performed more than 50% of this visit. Patient Condition at Discharge: Stable Plan - Discharge Summary Discharge Rx Participant: No New Discharge Prescriptions: New lisinopriL [Prinivil] 20 mg PO DAILY #30 tablet Continue Aspirin EC [Ecotrin Low Dose] 81 mg PO DAILY Pioglitazone [Actos] 30 mg PO DAILY Ezetimibe [Zetia] 10 mg PO DAILY Ascorbic Acid [Vitamin C] 500 mg PO DAILY Biotin [Pbeu-Oysm-Jsrww] 10,000 mcg PO DAILY HYDROcodone/APAP 5-325MG [[place] 5-325] 1 tab PO BID Sertraline HCl [Zoloft] 50 mg PO BID Semaglutide [Ozempic] 1 mg SQ TU Multivitamins, Thera [Multivitamin (formulary)] 1 tab PO DAILY Cholecalciferol [Vitamin D3 (25 Mcg = 1000 Iu)] 50 mcg PO DAILY ALPRAZolam [Xanax] 0.25 mg PO DAILY PRN PRN Reason: Anxiety Discontinued Famotidine [Pepcid] 20 mg PO BID Omeprazole 20 mg PO BID 30 Days #60 cap Lisinopril-Hctz 20-25 mg [Zestoretic 20-25] 1 tab PO DAILY No Action Pantoprazole [Protonix] See Taper PO DIRECTED Discharge Medication List Aspirin EC [Ecotrin Low Dose] 81 mg PO DAILY 11/12/13 [History] Ezetimibe [Zetia] 10 mg PO DAILY 07/14/22 [History] Pioglitazone [Actos] 30 mg PO DAILY 07/14/22 [History] Semaglutide [Ozempic] 1 mg SQ TU 07/14/22 [History] Ascorbic Acid [Vitamin C] 500 mg PO DAILY 08/02/22 [History] Biotin [Dpjx-Auaa-Egvyn] 10,000 mcg PO DAILY 08/02/22 [History] Multivitamins, Thera [Multivitamin (formulary)] 1 tab PO DAILY 08/02/22 [History] ALPRAZolam [Xanax] 0.25 mg PO DAILY PRN 09/18/22 [History] Cholecalciferol [Vitamin D3 (25 Mcg = 1000 Iu)] 50 mcg PO DAILY 09/18/22 [History] HYDROcodone/APAP 5-325MG [[place] 5-325] 1 tab PO BID 11/19/22 [History] Sertraline HCl [Zoloft] 50 mg PO BID 11/19/22 [History] lisinopriL [Prinivil] 20 mg PO DAILY #30 tablet 11/22/22 [Rx] Pantoprazole [Protonix] See Taper PO DIRECTED 11/23/22 [History] Follow up Appointment(s)/Referral(s): Yolanda Young MD [Primary Care Provider] - 1-2 days Cristopher Browne MD [STAFF PHYSICIAN] - 11/29/22 1:00 pm Ambulatory/Diagnostic Orders: Basic Metabolic Panel [LAB.AMB] Location: None Selected Complete Blood Count w/diff [LAB.AMB] Time Frame: 3 Days, Location: None [facility] Patient Instructions/Handouts: Diverticulitis (DC), Diet for Stomach Ulcers and Gastritis (ED) Activity/Diet/Wound Care/Special Instructions: Advance diet as tolerated Metamucil recommending over the counter to avoid constipation Follow up with your known GI specialist on discharge Discharge Disposition: HOME SELF-CARE
== END 2022-11-22 17:10 | disposition home or self-care (01) | DRG 392 ==
LOC: EC 05:50 → 6NMEDSUR 11:37 → OBSVTOIN 11-20 13:07 → 6NMEDSUR 11-21 23:31
PROVIDERS: ADMIT Internal Medicine; ATTEND Internal Medicine
PROC: 0DB78ZX Excision of Stomach, Pylorus, Via Natural or Artificial Opening Endoscopic, Diagnostic (ICD-10-PCS; principal; 2022-11-22 09:35)
DX: K57.32 Diverticulitis of large intestine without perforation or abscess without bleeding (principal); M50.20 Other cervical disc displacement, unspecified cervical region; E11.9 Type 2 diabetes mellitus without complications; I10 Essential (primary) hypertension; K29.70 Gastritis, unspecified, without bleeding; K44.9 Diaphragmatic hernia without obstruction or gangrene; K21.9 Gastro-esophageal reflux disease without esophagitis; E78.5 Hyperlipidemia, unspecified; G47.30 Sleep apnea, unspecified; M51.26 Other intervertebral disc displacement, lumbar region; F41.9 Anxiety disorder, unspecified; Z79.82 Long term (current) use of aspirin; Z79.891 Long term (current) use of opiate analgesic; Z79.84 Long term (current) use of oral hypoglycemic drugs; Z79.899 Other long term (current) drug therapy; Z87.891 Personal history of nicotine dependence; Z86.79 Personal history of other diseases of the circulatory system; Z85.42 Personal history of malignant neoplasm of other parts of uterus; Z87.440 Personal history of urinary (tract) infections; Z98.84 Bariatric surgery status; Z88.6 Allergy status to analgesic agent; Z91.040 Latex allergy status; Z91.030 Bee allergy status; Z91.018 Allergy to other foods; Z88.1 Allergy status to other antibiotic agents
CPT/HCPCS: 36415; 43239; 74177; 80048; 80053; 82150; 83605; 83690; 84484; 85025; 85027; 87040; 88305; 93005; 96365; 96366; 96375; 96376; 99285

== ENCOUNTER 2022-11-23 14:04 | Emergency (ER) | payer MEDICARE ==
[2022-11-23 14:45] VITALS: BP 158/91; PULSE 81; RESP 18; TEMP 98.2
[2022-11-23] MEDS ORDERED: SODIUM CHLORIDE 0.9% 500 ML 500 ML IV STA (15:50)
[2022-11-23 16:26] LABS: Anisocytosis Slight; Basophils % (A) 0 %; Eosinophils # (A) 0.2 k/uL (0-0.7); Eosinophils % (A) 3 %; HCT 37.6 % (34.0-46.0); HGB 12.1 gm/dL (11.4-16.0); Lymphocytes # (A) 1.6 k/uL (1.0-4.8); Lymphocytes % (A) 35 %; MCH 26.3 pg (25.0-35.0); MCHC 32.1 g/dL (31.0-37.0); MCV 82.1 fL (80.0-100.0); Mean Platelet Volume 7.6; Monocytes # (A) 0.2 k/uL (0-1.0); Monocytes % (A) 5 %; Neutrophils # (A) 2.5 k/uL (1.3-7.7); Neutrophils % (A) 54 %; Platelet Count 157 k/uL (150-450); RBC 4.58 m/uL (3.80-5.40); WBC 4.6 k/uL (3.8-10.6)
--- NOTE | 2022-11-23 16:28 | ED ---
Recheck HPI - General Chief Complaint: Abdominal Pain Stated Complaint: poss GI bleed Time Seen by Provider: 11/23/22 15:47 Source: patient, RN notes reviewed, old records reviewed Mode of arrival: ambulatory Limitations: no limitations - History of Present Illness Initial Comments: This is a 66-year-old female presenting for evaluation of GI bleed in blood in her stool. Patient was recently have inpatient hospitalization the past week discharged yesterday. At that time she was having normal bowel movements. Patient states she was in the grocery store today that she was going to pass gas and found to have blood per rectum. Patient hasn't had this one time. Patient denies abdominal pain. She states she always feels lightheaded and dizzy. No chest pain or shortness of breath. Patient is on blood thinners. Patient did have an upper GI while in the hospital this past week, and is scheduled for outpatient colonoscopy MD Complaint: wound re-check (Recheck recurrent GI bleed) -: hour(s) Returns Today for: other (No pain) Symptoms Since Prior Visit: no new symptoms Context: other (Patient presents to ER for reevaluation of blood persists) Associated Symptoms: none Treatments Prior to Arrival: other (0) - Related Data Home Medications Medication Instructions Recorded Confirmed Aspirin EC [Ecotrin Low Dose] 81 mg PO DAILY 11/12/13 11/23/22 Ezetimibe [Zetia] 10 mg PO DAILY 07/14/22 11/23/22 Pioglitazone [Actos] 30 mg PO DAILY 07/14/22 11/23/22 Semaglutide [Ozempic] 1 mg SQ TU 07/14/22 11/23/22 Ascorbic Acid [Vitamin C] 500 mg PO DAILY 08/02/22 11/23/22 Biotin [Grvi-Shoc-Cswcz] 10,000 mcg PO DAILY 08/02/22 11/23/22 Multivitamins, Thera [Multivitamin 1 tab PO DAILY 08/02/22 11/23/22 (formulary)] ALPRAZolam [Xanax] 0.25 mg PO DAILY PRN 09/18/22 11/23/22 Cholecalciferol [Vitamin D3 (25 50 mcg PO DAILY 09/18/22 11/23/22 Mcg = 1000 Iu)] HYDROcodone/APAP 5-325MG [[place] 1 tab PO BID 11/19/22 11/23/22 5-325] Sertraline HCl [Zoloft] 50 mg PO BID 11/19/22 11/23/22 Pantoprazole [Protonix] See Taper PO DIRECTED 11/23/22 11/23/22 Previous Rx's Medication Instructions Recorded lisinopriL [Prinivil] 20 mg PO DAILY #30 tablet 11/22/22 Allergies Allergy/AdvReac Type Severity Reaction Status Date / Time banana Allergy BLISTERS Verified 11/23/22 17:18 IN MOUTH bee pollen Allergy Anaphylaxis Verified 11/23/22 17:18 bee venom protein (honey bee) Allergy Anaphylaxis Verified 11/23/22 17:18 kiwi Allergy BLISTERS Verified 11/23/22 17:18 IN MOUTH latex Allergy Anaphylaxis, Verified 11/23/22 17:18 Blisters ibuprofen AdvReac Unknown Upset Verified 11/23/22 17:18 Stomach metronidazole [From Flagyl] AdvReac Nausea & Verified 11/23/22 17:18 Vomiting & Diarrhea Review of Systems ROS Statement: Those systems with pertinent positive or pertinent negative responses have been documented in the HPI. ROS Other: All systems not noted in ROS Statement are negative. Past Medical History Past Medical History: Cancer, Diabetes Mellitus, GERD/Reflux, GI Bleed, Hype rlipidemia, Hypertension Additional Past Medical History / Comment(s): Hx diverticulitis., AAA- states not visible now., UTI's., mild sleep apnea-no machine., Gout., barretts esophagus (egd 2018)., herniated discs with neck and back pain., uterine cancer with partial hysterectomy., recent vertigo-improved with antibiotic. History of Any Multi-Drug Resistant Organisms: None Reported Past Surgical History: Bariatric Surgery, Heart Catheterization, Hysterectomy Additional Past Surgical History / Comment(s): lap band 2009 () , R kidney tumor removed, sheyla carpal tunnel, bone spurs removed from hip and neck, 05/14/14 lap band port replacement (Dr. Jenkins). Lap band removal in 07/08/2017., egd & colonoscopy (07/16/22)., Heart cath (2006) Past Anesthesia/Blood Transfusion Reactions: No Reported Reaction Additional Past Anesthesia/Blood Transfusion Reaction / Comment(s): no hx blood transfusion Past Psychological History: Anxiety Smoking Status: Former smoker Past Alcohol Use History: None Reported Past Drug Use History: None Reported - Past Family History Mother Family Medical History: Cancer Additional Family Medical History / Comment(s): Poss CA, at age 67 Father Family Medical History: CVA/TIA, Deep Vein Thrombosis (DVT) Additional Family Medical History / Comment(s): from aneurysm at age 62 General Exam Limitations: no limitations General appearance: alert, in no apparent distress Head exam: Present: atraumatic, normocephalic, normal inspection Eye exam: Present: normal appearance, PERRL, EOMI. Absent: scleral icterus, conjunctival injection, periorbital swelling ENT exam: Present: normal exam, mucous membranes moist Neck exam: Present: normal inspection. Absent: tenderness, meningismus, lymp hadenopathy Respiratory exam: Present: normal lung sounds bilaterally. Absent: respiratory distress, wheezes, rales, rhonchi, stridor Cardiovascular Exam: Present: regular rate, normal rhythm, normal heart sounds. Absent: systolic murmur, diastolic murmur, rubs, gallop, clicks GI/Abdominal exam: Present: soft, normal bowel sounds. Absent: distended, tenderness, guarding, rebound, rigid Extremities exam: Present: normal inspection, full ROM, normal capillary refill. Absent: tenderness, pedal edema, joint swelling, calf tenderness Back exam: Present: normal inspection Neurological exam: Present: alert, oriented X3, CN II-XII intact Psychiatric exam: Present: normal affect, normal mood Skin exam: Present: warm, dry, intact, normal color. Absent: rash Course Vital Signs 11/23/22 14:41 Temperature 98.2 F Pulse Rate 81 Respiratory 18 Rate Blood Pressure 158/91 O2 Sat by Pulse 97 Oximetry - Reevaluation(s) Reevaluation #1: 11/23/22 16:54 Medical records reviewed Reevaluation #2: 11/23/22 16:54 No bloody bowel movement here in the ER Reevaluation #3: 11/23/22 16:54 Patient informed of results Reevaluation #4: 11/23/22 16:54 Was pt. sent in by a medical professional or institution? @ -no Did you speak to anyone other than the patient for history? @ -no Did you review nursing and triage notes? @ -agree Were old charts reviewed? @ -yes she has prior ER visit for similar complaint Differential Diagnosis? @ -prior EKG interpreted by me (3pts min.)? @ -no X-rays interpreted by me (1pt min.)? @ -no CT interpreted by me (1pt min.)? @ -no U/S interpreted by me (1pt. min.)? @ -no What testing was considered but not performed? (CT, X-rays, U/S, labs)? Why? @ -no What meds were considered but not given? Why? @ -no Did you discuss the management of the patient with other professionals? @ -no Did you reconcile home meds? @ -no Was smoking cessation discussed for >3mins.? @ -no Was critical care preformed (if so, how long)? @ -no Were there social determinants of health that impacted care today? How? (Homelessness, low income, unemployed, alcoholism, drug addiction, transpo rtation, low edu. Level, literacy, decrease access to med. care, fpc, rehab)? @ -no Was there de-escalation of care discussed even if they declined? (Discuss DNR or withdrawal of care, Hospice)? @ -no What co-morbidities impacted this encounter? (DM, HTN, Smoking, COPD, CAD, Cancer, CVA, Hep., AIDS, mental health diagnosis, sleep apnea, morbid obesity)? @ -none Was patient admitted / discharged? @ -66 female to the emergency department for evaluation of a recheck. Patient's recheck for blood per rectum concern for hemorrhoids alone nonvisible. He did have blood in her stool prior to arrival but no bloody bowel movements here in the ER no current abdominal pain. No nausea vomiting. No other complaints Discharge Undiagnosed new problem with uncertain prognosis? @ -no Drug Therapy requiring intensive monitoring for toxicity (Heparin, Nitro, Insulin, Cardizem)? @ -no Were any procedures done? @ -no Diagnosis/symptom? @ - Acute, or Chronic, or Acute on Chronic? @ -no Uncomplicated (without systemic symptoms) or Complicated (systemic symptoms)? @ -uncomplicated Side effects of treatment? @ -no Exacerbation, Progression, or Severe Exacerbation] @ -no Poses a threat to life or bodily function? @ -yno 12/04/22 02:01 Reevaluation #5: 11/23/22 16:54 Differential GI Bleed: Esophageal varices, aortoenteric fistula, Arianne-Kaye, gastritis, peptic ulcer disease, diverticulosis, inflammatory bowel disease, hemorrhoids, fissure, colitis, malignancy, Meckels diverticulum, this is not meant to be an all- inclusive list. Medical Decision Making - Medical Decision Making 66 female to the emergency department for evaluation of a recheck. Patient's recheck for blood per rectum concern for hemorrhoids alone nonvisible. He did have blood in her stool prior to arrival but no bloody bowel movements here in the ER no current abdominal pain. No nausea vomiting. No other complaints - Lab Data Result diagrams: 11/23/22 16:10 11/23/22 16:10 Lab Results 11/23/22 11/23/22 11/23/22 Range/Units 16:08 16:10 16:10 WBC 4.6 (3.8-10.6) k/uL RBC 4.58 (3.80-5.40) m/uL Hgb 12.1 (11.4-16.0) gm/dL Hct 37.6 (34.0-46.0) % MCV 82.1 (80.0-100.0) fL MCH 26.3 (25.0-35.0) pg MCHC 32.1 (31.0-37.0) g/dL RDW 16.0 H (11.5-15.5) % Plt Count 157 (150-450) k/uL MPV 7.6 Neutrophils % 54 % Lymphocytes % 35 % Monocytes % 5 % Eosinophils % 3 % Basophils % 0 % Neutrophils # 2.5 (1.3-7.7) k/uL Lymphocytes # 1.6 (1.0-4.8) k/uL Monocytes # 0.2 (0-1.0) k/uL Eosinophils # 0.2 (0-0.7) k/uL Basophils # 0.0 (0-0.2) k/uL Anisocytosis Slight PT 11.1 (9.0-12.0) sec INR 1.1 (<1.2) APTT 24.8 (22.0-30.0) sec Sodium (137-145) mmol/L Potassium (3.5-5.1) mmol/L Chloride (98-107) mmol/L Carbon Dioxide (22-30) mmol/L Anion Gap mmol/L BUN (7-17) mg/dL Creatinine (0.52-1.04) mg/dL Est GFR (CKD-EPI)AfAm (>60 ml/min/1.73 sqM) Est GFR (CKD-EPI)NonAf (>60 ml/min/1.73 sqM) Glucose (74-99) mg/dL Calcium (8.4-10.2) mg/dL Phosphorus (2.5-4.5) mg/dL Magnesium (1.6-2.3) mg/dL Total Bilirubin (0.2-1.3) mg/dL AST (14-36) U/L ALT (4-34) U/L Alkaline Phosphatase (38-126) U/L Total Protein (6.3-8.2) g/dL Albumin (3.5-5.0) g/dL Amylase (30-110) U/L Lipase (23-300) U/L Blood Type A Positive Blood Type Recheck A Pos Bld Type Recheck Status No Antibody Screen NEGATIVE Spec Expiration Date 11/26/2022 - 230711/23/22 Range/Units 16:10 WBC (3.8-10.6) k/uL RBC (3.80-5.40) m/uL Hgb (11.4-16.0) gm/dL Hct (34.0-46.0) % MCV (80.0-100.0) fL MCH (25.0-35.0) pg MCHC (31.0-37.0) g/dL RDW (11.5-15.5) % Plt Count (150-450) k/uL MPV Neutrophils % % Lymphocytes % % Monocytes % % Eosinophils % % Basophils % % Neutrophils # (1.3-7.7) k/uL Lymphocytes # (1.0-4.8) k/uL Monocytes # (0-1.0) k/uL Eosinophils # (0-0.7) k/uL Basophils # (0-0.2) k/uL Anisocytosis PT (9.0-12.0) sec INR (<1.2) APTT (22.0-30.0) sec Sodium 140 (137-145) mmol/L Potassium 4.5 (3.5-5.1) mmol/L Chloride 108 H (98-107) mmol/L Carbon Dioxide 23 (22-30) mmol/L Anion Gap 9 mmol/L BUN 6 L (7-17) mg/dL Creatinine 0.69 (0.52-1.04) mg/dL Est GFR (CKD-EPI)AfAm >90 (>60 ml/min/1.73 sqM) Est GFR (CKD-EPI)NonAf >90 (>60 ml/min/1.73 sqM) Glucose 139 H (74-99) mg/dL Calcium 8.9 (8.4-10.2) mg/dL Phosphorus 2.9 (2.5-4.5) mg/dL Magnesium 1.5 L (1.6-2.3) mg/dL Total Bilirubin 0.7 (0.2-1.3) mg/dL AST 37 H (14-36) U/L ALT 24 (4-34) U/L Alkaline Phosphatase 81 (38-126) U/L Total Protein 7.8 (6.3-8.2) g/dL Albumin 4.0 (3.5-5.0) g/dL Amylase 46 (30-110) U/L Lipase 57 (23-300) U/L Blood Type Blood Type Recheck Bld Type Recheck Status Antibody Screen Spec Expiration Date Disposition Clinical Impression: Colitis, Bright red blood per rectum Disposition: HOME SELF-CARE Condition: Good Instructions (If sedation given, give patient instructions): Rectal Bleeding (ED) Is patient prescribed a controlled substance at d/c from ED?: No Referrals: Yolanda Young MD [Primary Care Provider] - 1-2 days Time of Disposition: 17:30
[2022-11-23 16:36] LABS: ALT 24 U/L (4-34); AST 37 U/L (14-36); African American GFR (CKD) >90 (>60 ml/min/1.73 sqM); Alkaline Phosphatase 81 U/L (38-126); Amylase 46 U/L (30-110); Anion Gap 9 mmol/L; Blood Urea Nitrogen 6 mg/dL (7-17); Calcium 8.9 mg/dL (8.4-10.2); Carbon Dioxide 23 mmol/L (22-30); Chloride 108 mmol/L (98-107); Lipase 57 U/L (23-300); Magnesium 1.5 mg/dL (1.6-2.3); Non-African American GFR(CKD) >90 (>60 ml/min/1.73 sqM); Phosphorus 2.9 mg/dL (2.5-4.5); Potassium 4.5 mmol/L (3.5-5.1); Sodium 140 mmol/L (137-145); Total Bilirubin 0.7 mg/dL (0.2-1.3); Total Protein 7.8 g/dL (6.3-8.2)
[2022-11-23 16:44] LABS: Glucose 139 mg/dL (74-99)
[2022-11-23 17:08] LABS: INR 1.1 (<1.2); Partial Thromboplastin Time 24.8 sec (22.0-30.0); Prothrombin Time 11.1 sec (9.0-12.0)
== END 2022-11-23 18:00 | disposition home or self-care (01) ==
LOC: EC 14:04
DX: K52.9 Noninfective gastroenteritis and colitis, unspecified (principal); K62.5 Hemorrhage of anus and rectum; E11.9 Type 2 diabetes mellitus without complications; E78.5 Hyperlipidemia, unspecified; K21.9 Gastro-esophageal reflux disease without esophagitis; I10 Essential (primary) hypertension; F41.9 Anxiety disorder, unspecified; Z87.891 Personal history of nicotine dependence; Z91.040 Latex allergy status; Z91.030 Bee allergy status; Z88.6 Allergy status to analgesic agent; Z88.1 Allergy status to other antibiotic agents; Z91.018 Allergy to other foods; Z79.82 Long term (current) use of aspirin; Z79.899 Other long term (current) drug therapy
CPT/HCPCS: 36415; 80053; 82150; 83690; 83735; 84100; 85025; 85610; 85730; 86850; 86900; 86901; 96360; 99284

== ENCOUNTER → 2022-12-03 | Outpatient (CLI) | payer MEDICARE ==
[2022-12-03 16:32] LABS: Basophils # (A) 0.01 X 10*3/uL (0.00-0.10); Basophils % (A) 0.2 %; Eosinophils # (A) 0.81 X 10*3/uL (0.04-0.35); Eosinophils % (A) 13.9 %; HCT 38.3 % (37.2-46.3); HGB 11.5 d/dL (12.0-15.0); Immature Grans, Automated 0 %; Lymphocytes # (A) 1.44 X 10*3/uL (0.90-5.00); Lymphocytes % (A) 24.7 %; MCH 25.4 pg (27.0-32.0); MCV 84.5 FL (80.0-97.0); Mean Platelet Volume 10.8 FL (9.5-12.2); Monocytes # (A) 0.41 X 10*3/uL (0.20-1.00); NRBC Per 100 WBC 0 X 10*3/uL (0.00-0.01); Neutrophils # (A) 3.15 X 10*3/uL (1.80-7.70); Neutrophils % (A) 54.2 %; Platelet Count 164 X 10*3/uL (140-440); RBC 4.53 X 10*6/uL (4.10-5.20); RDW 16.5 % (11.5-14.5); WBC 5.82 X 10*3/uL (4.50-10.00)
[2022-12-03 16:46] LABS: BUN/Creat Ratio 20.18 Ratio (12.00-20.00); Blood Urea Nitrogen 22.2 mg/dL (9.0-27.0); Calcium 9.9 mg/dL (8.7-10.3); Carbon Dioxide 25.9 mmol/L (21.6-31.8); Chloride 103 mmol/L (96-109); Glucose 140 mg/dL (70-110); Potassium 4.3 mmol/L (3.5-5.5); Sodium 141 mmol/L (135-145)
== END | disposition home or self-care (01) ==
LOC: LABWHC1 09:55
PROVIDERS: ATTEND Nurse Practitioner Family
DX: K57.92 Diverticulitis of intestine, part unspecified, without perforation or abscess without bleeding (principal)
CPT/HCPCS: 36415; 80048; 85025

== ENCOUNTER → 2022-12-22 | Outpatient (CLI) | payer MEDICARE ==
[2022-12-23 10:29] LABS: Chol/HDL Ratio 4.69 Ratio; LDL Cholesterol,Calculated 150.1 mg/dL (0.0-131.0)
== END | disposition home or self-care (01) ==
LOC: LABWHC1 09:37
PROVIDERS: ATTEND Family Medicine
DX: E78.5 Hyperlipidemia, unspecified (principal)
CPT/HCPCS: 36415; 80061

== ENCOUNTER 2023-01-21 11:09 | Day surgery (SDC) | payer MEDICARE ==
[2023-01-14 10:11] VITALS: BMI 24.7
[~2023-01-21 11:09] MED LIST changes: -ACETAMINOPHEN TAB 500 MG TAB PO PRN; +ALPRAZolam 0.25 MG TAB PO PRN; +ALPRAZolam 0.5 MG TAB PO PRN; -DEXAMETHASONE SOD PHOSPHATE 4 MG/ML 1 ML VIAL IV ONE; -HYDROmorphone 0.5 MG/0.5 ML SYRINGE IVP PRN; -MIDAZOLAM 2 MG/2 ML VIAL IV PRN; +NITROGLYCERIN SL TABS 0.4 MG TAB SUBLINGUAL PRN; -ONDANSETRON 4 MG/2 ML VIAL IVP ONE; +SODIUM CHLORIDE 0.9% 1,000 ML in EMPTY BAG 1 BAG IV SCH; -metroNIDAZOLE-NS PMX 500 MG in SALINE 1 100ML.BAG IVPB PRN
[2023-01-21 11:40] VITALS: RESP 18; TEMP 97.9
[2023-01-21 11:44] LABS: Glucose,Whole Blood 97 mg/dL (70-110)
[2023-01-21] MEDS ORDERED: fentaNYL (PF) 50 MCG/ML 2 ML AMP ONE (12:16)
[2023-01-21] MEDS ORDERED: LIDOCAINE 1% INJ 10MG/ML (5 ML VIAL-PF) SQ ONE (12:25)
[2023-01-21] MEDS ORDERED: VERAPAMIL SYRINGE (5 MG/10 ML) INTRAARTER ONE (12:29)
[2023-01-21] MEDS ORDERED: fentaNYL (PF) 50 MCG/1 ML VIAL IVP ONE (12:30)
[2023-01-21] MEDS ORDERED: MIDAZOLAM 2 MG/2 ML VIAL IVP ONE (12:30)
[2023-01-21] MEDS ORDERED: IOPAMIDOL-370 100ML BTL INJ ONE (12:34)
--- NOTE | 2023-01-21 12:40 | P.CARDCATH ---
Description of Procedure: PROCEDURES PERFORMED: Left heart catheterization, bilateral coronary angiography, ultrasound guided arterial access INDICATION: Chest pain with exertion concerning for unstable angina CONSENT:I have discussed the risks, benefits and alternative therapies for the above-mentioned procedure and for both sedation/analgesia as well as necessary blood product administration, if indicated, as they pertain to this patient. The patient has indicated understanding and acceptance of the risks and procedures discussed. PROCEDURE: After the risks, benefits and alternatives of the above mentioned procedure explained in detail with the patient, informed consent was obtained. Patient was taken to the catheterization lab and prepped and draped in usual fashion. Ultrasound guidance was used to assess for arterial access. 1% lidocaine was used to anesthetize the right radial artery. A 6-Iranian sheath was placed in the right radial artery using modified Seldinger technique and ultrasound guidance. Left coronary angiography was performed with a 5-Iranian JL 3.5 catheter and right coronary angiography was performed with a 5-Iranian JR5 catheter in various views. A 5-Iranian FR5 catheter was inserted into the left ventricle and pressure measurements were obtained. The right radial sheath was removed and a TR band was placed with hemostasis achieved. The patient tolerated the procedure well. Patient was transported back to the post catheterization holding area in stable condition. Conscious Sedation: Patient was monitored under the direct supervision of myself for conscious sedation using Versed and fentanyl for a total duration of 13 minutes HEMODYNAMICS: Aorta: 121/55 LV: 133/80, LVEDP 14 SELECTIVE CORONARY ARTERIOGRAPHY: LEFT MAIN: The left main is a large caliber vessel which bifurcates into the LAD and circumflex. There is no significant stenosis. LEFT ANTERIOR DESCENDING CORONARY ARTERY: LAD is a large caliber vessel which wraps around to the apex. There are mild luminal irregularities LEFT CIRCUMFLEX CORONARY ARTERY: Left circumflex is a moderate caliber vessel mild luminal irregularities RIGHT CORONARY ARTERY: The right coronary artery is a large caliber vessel which gives off a PDA and PLV branch and is the dominant vessel. There mild luminal irregularities up to 20%. FINAL IMPRESSION: 1. Relatively normal coronary arteries with only mild luminal irregularities up to 20% RCA. 2. Normal left sided filling pressures PLAN: 1. Aggressive risk factor modification per most recent ACC/AHA guidelines. 2. Follow-up in the office in 1-2 weeks.
[2023-01-21 16:03] VITALS: BP 126/58; PULSE 60
== END 2023-01-21 16:38 | disposition home or self-care (01) ==
LOC: CATHCVL 11:09
PROVIDERS: ATTEND Internal Medicine
DX: I25.10 Atherosclerotic heart disease of native coronary artery without angina pectoris (principal); I10 Essential (primary) hypertension; E78.5 Hyperlipidemia, unspecified; E11.9 Type 2 diabetes mellitus without complications; Z79.899 Other long term (current) drug therapy
CPT/HCPCS: 93458; 76937; C1769; C1894; J2250; J2001; Q9967; J3010

== ENCOUNTER → 2023-04-02 | Outpatient (CLI) | payer MEDICARE ==
[2023-04-02 17:39] LABS: Basophils # (A) 0.03 X 10*3/uL (0.00-0.10); Basophils % (A) 0.8 %; Eosinophils # (A) 0.07 X 10*3/uL (0.04-0.35); Eosinophils % (A) 1.9 %; HCT 37.8 % (37.2-46.3); HGB 11.7 d/dL (12.0-15.0); Lymphocytes % (A) 38.9 %; MCH 26.4 pg (27.0-32.0); MCV 85.1 FL (80.0-97.0); Mean Platelet Volume 10.7 FL (9.5-12.2); Monocytes % (A) 8.3 %; NRBC Per 100 WBC 0 X 10*3/uL (0.00-0.01); Neutrophils # (A) 1.79 X 10*3/uL (1.80-7.70); Neutrophils % (A) 49.8 %; Platelet Count 205 X 10*3/uL (140-440); RBC 4.44 X 10*6/uL (4.10-5.20); RDW 13.8 % (11.5-14.5)
== END | disposition home or self-care (01) ==
LOC: LABPAT 10:39
PROVIDERS: ATTEND Surgery
DX: Z01.818 Encounter for other preprocedural examination (principal); K21.00 Gastro-esophageal reflux disease with esophagitis, without bleeding
CPT/HCPCS: 85025; 93005

== ENCOUNTER 2023-04-12 05:30 | Observation (INO) | payer MEDICARE ==
[~2023-04-12 05:30] MED LIST changes: +ACETAMINOPHEN TAB 500 MG TAB PO PRN; -ALPRAZolam 0.25 MG TAB PO PRN; -ALPRAZolam 0.5 MG TAB PO PRN; +HEPARIN SODIUM,PORCINE/PF 5,000 UNIT/0.5 ML SYRINGE SQ PRN; -NITROGLYCERIN SL TABS 0.4 MG TAB SUBLINGUAL PRN; -SODIUM CHLORIDE 0.9% 1,000 ML in EMPTY BAG 1 BAG IV SCH
[2023-04-12] MEDS ORDERED: DEXAMETHASONE SOD PHOSPHATE 4 MG/ML 1 ML VIAL IV ONE (06:00)
[2023-04-12] MEDS ORDERED: ONDANSETRON 4 MG/2 ML VIAL IVP ONE (06:00)
[2023-04-12] MEDS ORDERED: LIDOCAINE 1% (10MG/ML) FOR IV START INTRADERMA ONE (06:30)
[2023-04-12] MEDS: LACTATED RINGERS 1,000 ML IV SCH (06:30)
[2023-04-12 06:49] LABS: Glucose,Whole Blood 103 mg/dL (70-110)
[2023-04-12] MEDS ORDERED: diphenhydrAMINE 50 MG/ML 1 ML VIAL ONE (06:59)
[2023-04-12] MEDS ORDERED: SUCCINYLCHOLINE CHLORIDE 200 MG/10 ML VIAL IV ONE (06:59)
[2023-04-12] MEDS ORDERED: ROCURONIUM 10 MG/ML (5 ML VIAL) IV ONE (06:59)
[2023-04-12] MEDS ORDERED: NEOSTIGMINE 1 MG/ML 10 ML VIAL ONE (06:59)
[2023-04-12] MEDS ORDERED: WATER FOR INJECTION, STERILE 10 ML VIAL IV ONE (06:59)
[2023-04-12] MEDS ORDERED: LIDOCAINE 1% INJ 10MG/ML (20 ML MDV) ONE (06:59)
[2023-04-12] MEDS ORDERED: ePHEDrine 50 MG/ML 1 ML VIAL ONE (06:59)
[2023-04-12] MEDS ORDERED: PROPOFOL 10 MG/ML 20 ML VIAL IV ONE (06:59)
[2023-04-12] MEDS ORDERED: fentaNYL (PF) 50 MCG/ML 2 ML AMP ONE (06:59)
[2023-04-12] MEDS ORDERED: GLYCOPYRROLATE 0.2 MG/ML 2 ML VIAL ONE (06:59)
[2023-04-12] MEDS ORDERED: MIDAZOLAM 2 MG/2 ML VIAL IV PRN (07:00)
[2023-04-12] MEDS ORDERED: BUPIVACAINE (PF) 0.25% 30 ML VIAL SQ ONE (07:29)
[2023-04-12] MEDS ORDERED: LACTATED RINGERS 1,000 ML IV ONE ×2 (08:06→09:46)
[2023-04-12 08:21] LABS: Glucose,Whole Blood 140 mg/dL (70-110)
[2023-04-12] MEDS: HYDROmorphone 0.5 MG/0.5 ML SYRINGE IVP PRN ×4 (08:30→10:22)
[2023-04-12] MEDS ORDERED: NALOXONE 0.4 MG/ML 1 ML VIAL IV PRN (09:46)
[2023-04-12] MEDS ORDERED: ONDANSETRON 4 MG/2 ML VIAL IVP PRN (09:46)
[2023-04-12] MEDS ORDERED: HYDROmorphone 0.5 MG/0.5 ML SYRINGE IVP PRN (09:46)
--- NOTE | 2023-04-12 09:53 | P.OP ---
Date of Procedure: 04/12/23 Preoperative Diagnosis: Paraesophageal hiatal hernia Postoperative Diagnosis: Same Procedure(s) Performed: Laparoscopic repair of paraesophageal hiatal hernia with mesh Anesthesia: CINDY Surgeon: Cristopher Browne Estimated Blood Loss (ml): 5 Pathology: none sent Condition: stable Disposition: PACU Description of Procedure: The patient was placed on the operating table in the supine position. She received general anesthesia. She was then placed in dorsal lithotomy position. Her abdomen was prepped and draped in the usual sterile fashion. The skin incision sites were anesthetized with 1% local Xylocaine. The skin was incised in the left periumbilical area with an 11 scalpel. Using a 5 mm blade was trocar under direct visitation the peritoneal cavity was entered. And then insufflated. After adequate insufflation the laparoscope was placed back into the peritoneal cavity. Next a 5 mm trocar was placed in the right epigastric and then the right lateral position. Another 5 mm trochars placed in the left lateral position. Another 5 mm trocar placed in the left epigastric position. And the original left periumbilical trocar was exchanged for a 10 mm trocar. The left lateral lobe liver was retracted. The patient had a large hiatal hernia. Using the Harmonic scissors the crural defect was dissected in the Harmonic scissors were used to dissect the hiatal hernia sac. The fundus of the stomach was completely mobilized by using the Harmonic scissors to divide short gastric vessels. The stomach was reduced into the peritoneal cavity. The crura was dissected with the Harmonic scissors. And then the crural repair was performed using 2-0 Ethibond suture. The Wayne bio A mesh was then placed over top of the repair and secured with 2-0 Ethibond suture. . The stomach and esophagus were inspected there is known to any injury to the stomach or es ophagus. The abdomen was irrigated there is no bleeding seen. The trochars are withdrawn. Skin was closed interrupted 3-0 Monocryl suture. Dermabond was applied. Patient tolerated procedure well and was sent to recovery in stable condition.
[2023-04-12] MEDS ORDERED: IV FLUID CONTINUATION 1,000 ML IV ONE (13:43)
[2023-04-12] MEDS: HYDROmorphone 1 MG/ML 1 ML SYRINGE IVP PRN ×3 (14:24→23:07)
[2023-04-12] MEDS ORDERED: DEXTROSE 50% SYRINGE 50 ML IVP PRN ×2 (16:05)
[2023-04-12 16:31] LABS: Glucose,Whole Blood 113 mg/dL (70-110)
[2023-04-12] MEDS: INSULIN ASPART (NovoLOG) 100 UNIT/ML VIAL SQ SCH ×2 (17:55→22:10)
[2023-04-12 19:49] LABS: Glucose,Whole Blood 110 mg/dL (70-110)
[2023-04-12] MEDS: SERTRALINE 50 MG TAB PO SCH (20:53)
--- NOTE | 2023-04-13 00:56 | P.CONS ---
History of Present Illness - Reason for Consult Consult date: 04/12/23 Medical management - Chief Complaint Repair of paraesophageal hernia - History of Present Illness Patient is a 67-year-old female with a past medical history of hypertension, hyperlipidemia, obstructive sleep apnea, history of lap band and removal, recent history of diverticulitis and chronic GERD, paraesophageal hiatal hernia and other multiple medical problems was admitted to the hospital for laparoscopic repair of paraesophageal hiatal hernia with mesh. Patient tolerated the procedure very well. Currently lying in the bed. Awake alert and oriented x3 no complaints of chest pain or shortness of breath. No nausea or vomiting. No cough or sputum production. Patient has been afebrile. No complaints of abdominal pain. Postoperatively blood sugars 140. Blood pressure 101/69 pulse ox 97% on 2 L oxygen via nasal cannula. Laboratory data is not available at this time. Review of Systems Constitutional: Patient denies any fever or chills . no Generalized weakness. Abdomen: Patient denied any nausea or vomiting or abd. pain Cardiovascular: Patient denies any chest pain or short of breath no palpitations. Respiratory: patient denied any cough . no sputum production. No shortness of breath Neurologic: Patient denied any numbness or tingling or headache. Musculoskeletal: Patient denies any complaints of joint swelling or deformity. Skin: Negative Psychiatric: Negative Endocrine: No heat or cold intolerance. No recent weight gain. Genitourinary: No dysuria or hematuria. All other 14 point ROS negative except the above Past Medical History Past Medical History: Cancer, Diabetes Mellitus, GERD/Reflux, GI Bleed, Hyperlipidemia, Hypertension, Sleep Apnea/CPAP/BIPAP Additional Past Medical History / Comment(s): Hx diverticulitis, AAA- states not visible now, UTI's, mild sleep apnea-no machine., Gout, barretts esophagus, herniated discs with neck and back pain, uterine cancer with partial hysterectomy, vertigo History of Any Multi-Drug Resistant Organisms: None Reported Past Surgical History: Bariatric Surgery, Heart Catheterization, Hysterectomy Additional Past Surgical History / Comment(s): lap band 2009 () , R kidney tumor removed, sheyla carpal tunnel, bone spurs removed from hip and neck, 1 07/15/13 lap band port replacement (Dr. Jenkins), Lap band removal in 07/08/2017, egd & colonoscopy (07/16/22), Heart cath (2006) Past Anesthesia/Blood Transfusion Reactions: No Reported Reaction Additional Past Anesthesia/Blood Transfusion Reaction / Comm: no hx blood transfusion Past Psychological History: Anxiety Additional Psychological History / Comment(s): mood swings Smoking Status: Former smoker Past Alcohol Use History: None Reported Additional Past Alcohol Use History / Comment(s): quit smoking ,smoked approx 25 yrs , 1 1/2 ppd Past Drug Use History: None Reported - Past Family History Mother Family Medical History: Cancer Additional Family Medical History / Comment(s): Poss CA, at age 67 Father Family Medical History: CVA/TIA, Deep Vein Thrombosis (DVT) Additional Family Medical History / Comment(s): from aneurysm at age 62 Medications and Allergies Home Medications Medication Instructions Recorded Confirmed Type Aspirin EC [Ecotrin Low Dose] 81 mg PO DAILY 11/12/13 04/09/23 History Ezetimibe [Zetia] 10 mg PO DAILY 07/14/22 04/09/23 History Pioglitazone [Actos] 30 mg PO DAILY 07/14/22 04/09/23 History Semaglutide [Ozempic] 1 mg SQ Q7D 07/14/22 04/09/23 History Ascorbic Acid [Vitamin C] 500 mg PO DAILY 08/02/22 04/09/23 History Biotin [Hrsy-Vvsr-Dxdhj] 10,000 mcg PO DAILY 08/02/22 04/09/23 History Multivitamins, Thera [Multivitamin 1 tab PO DAILY 08/02/22 04/09/23 History (formulary)] ALPRAZolam [Xanax] 0.25 mg PO DAILY PRN 09/18/22 04/09/23 History Cholecalciferol [Vitamin D3 (25 50 mcg PO DAILY 09/18/22 04/09/23 History Mcg = 1000 Iu)] HYDROcodone/APAP 5-325MG [[place] 1 tab PO BID PRN 11/19/22 04/09/23 History 5-325] Sertraline HCl [Zoloft] 50 mg PO BID 11/19/22 04/09/23 History Pantoprazole [Protonix] 40 mg PO HS 11/23/22 04/09/23 History Evolocumab [Repatha Syringe] 0 mg SQ Q14D 01/11/23 04/09/23 History Lisinopril-Hctz 10-12.5 mg 1 tab PO QAM 04/09/23 04/09/23 History [Zestoretic 10-12.5] Metoprolol Succinate (ER) [Toprol 12.5 mg PO QAM 04/09/23 04/09/23 History Xl] Acetaminophen Tab [Tylenol] 650 mg PO Q6H #30 tab 04/12/23 Rx Docusate [Colace] 100 mg PO BID #20 capsule 04/12/23 Rx Ibuprofen [Motrin] 600 mg PO Q6HR PRN #40 tab 04/12/23 Rx oxyCODONE HCL [OxyIR] 5 mg PO Q6H PRN 3 Days #10 tab 04/12/23 Rx Allergies Allergy/AdvReac Type Severity Reaction Status Date / Time banana Allergy BLISTERS Verified 04/12/23 06:18 IN MOUTH bee pollen Allergy Anaphylaxis Verified 04/12/23 06:18 bee venom protein (honey bee) Allergy Anaphylaxis Verified 04/12/23 06:18 kiwi Allergy BLISTERS Verified 04/12/23 06:18 IN MOUTH latex Allergy Anaphylaxis, Verified 04/12/23 06:18 Blisters strawberry Allergy blisters Verified 04/12/23 06:18 in mouth ibuprofen AdvReac Unknown Upset Verified 04/12/23 06:18 Stomach metronidazole [From Flagyl] AdvReac Nausea & Verified 04/12/23 06:18 Vomiting & Diarrhea Physical Exam Vitals: Vital Signs Temp Pulse Pulse Pulse Resp BP BP 04/12/23 20:59 97.3 F L 67 16 122/67 04/12/23 16:58 98.2 F 67 16 111/67 04/12/23 15:38 62 119/70 04/12/23 15:16 98.3 F 94 16 126/71 04/12/23 14:30 71 16 117/62 04/12/23 14:00 75 18 118/58 04/12/23 13:30 72 17 101/60 04/12/23 13:00 69 17 119/60 04/12/23 12:30 65 16 113/52 04/12/23 12:01 68 17 116/47 04/12/23 11:30 70 15 111/54 04/12/23 11:15 62 16 111/50 04/12/23 11:00 65 16 117/50 04/12/23 10:45 65 16 04/12/23 10:30 63 16 04/12/23 10:15 66 16 04/12/23 10:00 66 18 04/12/23 09:45 65 16 04/12/23 09:30 65 15 04/12/23 09:15 68 16 04/12/23 09:00 71 15 04/12/23 08:45 73 16 04/12/23 08:30 78 15 04/12/23 08:16 97.1 F L 92 12 04/12/23 06:30 96.7 F L 57 L 16 126/58 BP Pulse Ox 04/12/23 20:59 96 04/12/23 16:58 95 04/12/23 15:38 04/12/23 15:16 99 04/12/23 14:30 98 04/12/23 14:00 97 04/12/23 13:30 97 04/12/23 13:00 98 04/12/23 12:30 98 04/12/23 12:01 97 04/12/23 11:30 98 04/12/23 11:15 99 04/12/23 11:00 95 04/12/23 10:45 119/53 93 L 04/12/23 10:30 112/48 94 L 04/12/23 10:15 114/46 95 04/12/23 10:00 118/56 95 04/12/23 09:45 118/53 94 L 04/12/23 09:30 114/51 95 04/12/23 09:15 125/52 92 L 04/12/23 09:00 123/48 96 04/12/23 08:45 124/57 96 04/12/23 08:30 131/51 98 04/12/23 08:16 128/58 100 04/12/23 06:30 99 Intake and Output 04/12/23 04/12/23 04/13/23 14:59 22:59 06:59 Intake Total 1850 Output Total 155 400 Balance 1695 -400 Intake: IV 1850 Output: Urine 150 400 Estimated Blood Loss 5 Other: Voiding Method Toilet # Voids 1 Weight 63.6 kg PHYSICAL EXAMINATION: Patient is lying in the bed comfortably, no acute distress, awake alert and oriented.. HEENT: Normocephalic. Neck is supple. Pupils reactive. Nostrils clear. Oral cavity is moist. Neck reveals no JVD, carotid bruits, or thyromegaly. CHEST EXAMINATION: Trachea is central. Symmetrical expansion. Lung quigley clear to auscultation and percussion. CARDIAC: Normal S1, S2 with no gallops. No murmurs ABDOMEN: Soft. Bowel sounds present. Mild tenderness at the surgical sites. No organomegaly. No abdominal bruits. Extremities: reveal no edema. No clubbing or cyanosis Neurologically awake, alert, oriented x3 with well-coordinated movements. No focal deficits noted Skin: No rash or skin lesions. Psychiatric: Coperative. Nonsuicidal, Musculoskeletal: No joint swelling or deformity. Normal range of motion. Results Labs: Abnormal Lab Results - Last 24 Hours (Table) 04/12/23 04/12/23 Range/Units 08:19 16:30 POC Glucose (mg/dL) 140 H 113 H (70-110) mg/dL Assessment and Plan Assessment: S/p laparoscopic repair of paraesophageal hiatal hernia with mesh. Postoperative day 0 GERD Hypertension Hyperlipidemia Diabetes type 2 [id number] Recent history of diverticulitis Mild obstructive sleep apnea not on CPAP at home Chronic back pain and neck pain History of uterine cancer with partial hysterectomy History of lap band and removal Anxiety Prior history of smoking DVT prophylaxis. Patient on Lovenox subcu Plan: Patient will be continued on IV hydration. Continue with pain management, encourage incentive spirometry. Started on insulin sliding scale while in the hospital for better blood sugar control. Continue with metoprolol and hold hydrochlorothiazide/lisinopril at this time due to low blood pressure. Follow-up CBC and BMP tomorrow. Continue to follow closely. Thank you for your consult.
[2023-04-13] MEDS: HYDROmorphone 1 MG/ML 1 ML SYRINGE IVP PRN ×5 (03:30→23:58)
[2023-04-13 06:09] LABS: Glucose,Whole Blood 117 mg/dL (70-110)
[2023-04-13] MEDS: LACTATED RINGERS 1,000 ML IV SCH (06:43)
[2023-04-13] MEDS: INSULIN ASPART (NovoLOG) 100 UNIT/ML VIAL SQ SCH ×4 (07:54→20:46)
[2023-04-13 08:03] LABS: Basophils % (A) 0 %; Eosinophils # (A) 0.1 k/uL (0-0.7); Eosinophils % (A) 2 %; HCT 33.6 % (34.0-46.0); HGB 10.6 gm/dL (11.4-16.0); Hypochromasia Slight; Lymphocytes # (A) 1.9 k/uL (1.0-4.8); Lymphocytes % (A) 36 %; MCH 26.7 pg (25.0-35.0); MCHC 31.6 g/dL (31.0-37.0); MCV 84.5 fL (80.0-100.0); Mean Platelet Volume 7.6; Monocytes # (A) 0.3 k/uL (0-1.0); Monocytes % (A) 5 %; Neutrophils # (A) 2.9 k/uL (1.3-7.7); Neutrophils % (A) 55 %; Platelet Count 177 k/uL (150-450); RBC 3.98 m/uL (3.80-5.40); RDW 14.2 % (11.5-15.5); WBC 5.2 k/uL (3.8-10.6)
[2023-04-13 08:26] LABS: African American GFR (CKD) >90 (>60 ml/min/1.73 sqM); Anion Gap 7 mmol/L; Blood Urea Nitrogen 12 mg/dL (7-17); Calcium 8.9 mg/dL (8.4-10.2); Carbon Dioxide 29 mmol/L (22-30); Chloride 102 mmol/L (98-107); Glucose 118 mg/dL (74-99); Non-African American GFR(CKD) 78 (>60 ml/min/1.73 sqM); Potassium 4.9 mmol/L (3.5-5.1); Sodium 138 mmol/L (137-145)
[2023-04-13] MEDS: METOPROLOL SUCCINATE (ER) 25 MG TAB.ER.24H PO SCH (09:43)
[2023-04-13] MEDS: EZETIMIBE 10 MG TAB PO SCH (09:43)
[2023-04-13] MEDS: ENOXAPARIN 40 MG/0.4 ML SYRINGE SQ SCH (09:43)
[2023-04-13] MEDS: SERTRALINE 50 MG TAB PO SCH ×2 (09:43→20:46)
--- NOTE | 2023-04-13 10:22 | P.PN ---
Subjective Progress Note Date: 04/13/23 (Surgery) Postoperatively one from this copy repair of a paraesophageal hernia. Patient still has some chest pain and shoulder pain mostly with deep breaths. Explained that it is expected. Tolerating liquids. Plan: Patient is not ready for discharge. Still has pain. Continue liquid diet. Ambulate, ISS. Chemical DVT prophylaxis. Objective - Vital Signs Vital signs: Vital Signs Temp 98.3 F 04/13/23 07:18 Pulse 68 04/13/23 07:18 Resp 18 04/13/23 07:18 BP 113/56 04/13/23 07:18 Pulse Ox 94 L 04/13/23 07:18 FiO2 Intake & Output 04/12/23 04/13/23 04/13/23 18:59 06:59 18:59 Intake Total 1850 Output Total 405 150 Balance 1445 -150 Weight 63.6 kg Intake: IV 1850 Output: Urine 400 150 Estimated Blood Loss 5 Other: Voiding Method Toilet # Voids 1 1 - Labs CBC & Chem 7: 04/13/23 07:39 04/13/23 07:39 Labs: Abnormal Lab Results - Last 24 Hours (Table) 04/12/23 04/13/23 04/13/23 Range/Units 16:30 06:07 07:39 Hgb 10.6 L (11.4-16.0) gm/dL Hct 33.6 L (34.0-46.0) % Glucose (74-99) mg/dL POC Glucose (mg/dL) 113 H 117 H (70-110) mg/dL 04/13/23 Range/Units 07:39 Hgb (11.4-16.0) gm/dL Hct (34.0-46.0) % Glucose 118 H (74-99) mg/dL POC Glucose (mg/dL) (70-110) mg/dL
[2023-04-13 11:31] LABS: Glucose,Whole Blood 99 mg/dL (70-110)
[2023-04-13 12:20] VITALS: BMI 26.4
[2023-04-13 16:41] LABS: Glucose,Whole Blood 113 mg/dL (70-110)
[2023-04-13 20:02] LABS: Glucose,Whole Blood 122 mg/dL (70-110)
--- NOTE | 2023-04-13 23:00 | P.PN ---
Subjective Progress Note Date: 04/13/23 Patient is a 67-year-old female with a past medical history of hypertension, hyperlipidemia, obstructive sleep apnea, history of lap band and removal, recent history of diverticulitis and chronic GERD, paraesophageal hiatal hernia and other multiple medical problems was admitted to the hospital for laparoscopic repair of paraesophageal hiatal hernia with mesh. Patient tolerated the procedure very well. Currently lying in the bed. Awake alert and oriented x3 no complaints of chest pain or shortness of breath. No nausea or vomiting. No cough or sputum production. Patient has been afebrile. No complaints of abdominal pain. Postoperatively blood sugars 140. Blood pressure 101/69 pulse ox 97% on 2 L oxygen via nasal cannula. Laboratory data is not available at this time. 04/13/2023 Patient is currently resting in the bed. Awake alert and oriented x3. On room air. He was able to walk to the bathroom. Pain is fairly controlled. No involvement today. No flatus yet. Patient has been afebrile.. No headache or dizziness or lightheadedness. No nausea or vomiting. Laboratory data showed WBC 5.2 hemoglobin 10.6 and platelets 177, sodium 138 potassium 4.9, chloride 102 BUN 12 and creatinine 0.79 and blood sugar is 118 and A1c is 6.6. Current medications reviewed. Objective - Vital Signs Vital signs: Vital Signs Temp 98.3 F 04/13/23 07:18 Pulse 68 04/13/23 07:18 Resp 18 04/13/23 07:18 BP 113/56 04/13/23 07:18 Pulse Ox 94 L 04/13/23 07:18 FiO2 Intake & Output 04/12/23 04/13/23 04/13/23 18:59 06:59 18:59 Intake Total 1850 Output Total 405 150 Balance 1445 -150 Weight 63.6 kg Intake: IV 1850 Output: Urine 400 150 Estimated Blood Loss 5 Other: Voiding Method Toilet # Voids 1 1 - Exam PHYSICAL EXAMINATION: Patient is lying in the bed comfortably, no acute distress, awake alert and oriented.. HEENT: Normocephalic. Neck is supple. Pupils reactive. Nostrils clear. Oral cavity is moist. Neck reveals no JVD, carotid bruits, or thyromegaly. CHEST EXAMINATION: Trachea is central. Symmetrical expansion. Lung quigley clear to auscultation and percussion. CARDIAC: Normal S1, S2 with no gallops. No murmurs ABDOMEN: Soft. Bowel sounds present. Mild tenderness at the surgical sites. No organomegaly. No abdominal bruits. Extremities: reveal no edema. No clubbing or cyanosis Neurologically awake, alert, oriented x3 with well-coordinated movements. No focal deficits noted Skin: No rash or skin lesions. Psychiatric: Coperative. Nonsuicidal, Musculoskeletal: No joint swelling or deformity. Normal range of motion. - Labs CBC & Chem 7: 04/13/23 07:39 04/13/23 07:39 Labs: Abnormal Lab Results - Last 24 Hours (Table) 04/12/23 04/13/23 04/13/23 Range/Units 16:30 06:07 07:39 Hgb 10.6 L (11.4-16.0) gm/dL Hct 33.6 L (34.0-46.0) % Glucose (74-99) mg/dL POC Glucose (mg/dL) 113 H 117 H (70-110) mg/dL 04/13/23 Range/Units 07:39 Hgb (11.4-16.0) gm/dL Hct (34.0-46.0) % Glucose 118 H (74-99) mg/dL POC Glucose (mg/dL) (70-110) mg/dL Assessment and Plan Assessment: S/p laparoscopic repair of paraesophageal hiatal hernia with mesh. Postoperative day 1 GERD Hypertension Hyperlipidemia Diabetes type 2 [id number]. Uncontrolled with A1c 6.6. Recent history of diverticulitis Mild obstructive sleep apnea not on CPAP at home Chronic back pain and neck pain History of uterine cancer with partial hysterectomy History of lap band and removal Anxiety Prior history of smoking DVT prophylaxis. Patient on Lovenox subcu Plan: Patient will be continued on IV hydration. Continue with pain management, encourage incentive spirometry. Started on insulin sliding scale while in the hospital for better blood sugar control. Continue with metoprolol and hold hydrochlorothiazide/lisinopril at this time due to low blood pressure. A1c 6.6. Encourage ambulation. Patient is tolerating liquid diet. Continue to follow closely.
[2023-04-14] MEDS: HYDROmorphone 1 MG/ML 1 ML SYRINGE IVP PRN ×4 (02:46→21:20)
[2023-04-14 05:35] LABS: Glucose,Whole Blood 218 mg/dL (70-110)
[2023-04-14] MEDS: INSULIN ASPART (NovoLOG) 100 UNIT/ML VIAL SQ SCH ×4 (06:10→21:20)
[2023-04-14] MEDS: LACTATED RINGERS 1,000 ML IV SCH (06:32)
[2023-04-14] MEDS: ENOXAPARIN 40 MG/0.4 ML SYRINGE SQ SCH (08:33)
[2023-04-14] MEDS: METOPROLOL SUCCINATE (ER) 25 MG TAB.ER.24H PO SCH (08:34)
[2023-04-14] MEDS: SERTRALINE 50 MG TAB PO SCH ×2 (08:34→21:20)
[2023-04-14] MEDS: EZETIMIBE 10 MG TAB PO SCH (08:34)
--- NOTE | 2023-04-14 11:42 | P.PN ---
Subjective Progress Note Date: 04/14/23 Principal diagnosis: Guerda Patient complaining of mild left upper quadrant discomfort. Mild left shoulder pain. Says it is better than yesterday. She is afebrile. No tachycardia. She is tolerating clear liquids. Objective - Vital Signs Vital signs: Vital Signs Temp 97.7 F 04/14/23 07:23 Pulse 74 04/14/23 07:23 Resp 18 04/14/23 07:23 BP 126/73 04/14/23 07:23 Pulse Ox 93 L 04/14/23 07:23 FiO2 Intake & Output 04/13/23 04/14/23 04/14/23 19:59 06:59 18:59 Weight Other: # Voids - Exam Abdomen: Soft, nondistended, incisions clean and dry, mild tenderness - Labs CBC & Chem 7: 04/13/23 07:39 04/13/23 07:39 Labs: Abnormal Lab Results - Last 24 Hours (Table) 04/13/23 04/13/23 04/13/23 Range/Units 07:39 16:40 20:02 POC Glucose (mg/dL) 113 H 122 H (70-110) mg/dL Hemoglobin A1c 6.6 H (<=6.0) % 04/14/23 Range/Units 05:34 POC Glucose (mg/dL) 218 H (70-110) mg/dL Hemoglobin A1c (<=6.0) % Assessment and Plan Plan: Patient having mild discomfort. She states she is not ready to go home yet. Continue clear liquids. Continue analgesics. Ambulate. Anticipate discharge tomorrow if doing well.
[2023-04-14 11:45] LABS: Glucose,Whole Blood 126 mg/dL (70-110)
[2023-04-14] MEDS ORDERED: diphenhydrAMINE 25 MG CAP PO STA (14:53)
[2023-04-14 16:48] LABS: Glucose,Whole Blood 94 mg/dL (70-110)
[2023-04-14 19:36] LABS: Glucose,Whole Blood 165 mg/dL (70-110)
--- NOTE | 2023-04-15 01:22 | P.PN ---
Subjective Progress Note Date: 04/14/23 Patient is a 67-year-old female with a past medical history of hypertension, hyperlipidemia, obstructive sleep apnea, history of lap band and removal, recent history of diverticulitis and chronic GERD, paraesophageal hiatal hernia and other multiple medical problems was admitted to the hospital for laparoscopic repair of paraesophageal hiatal hernia with mesh. Patient tolerated the procedure very well. Currently lying in the bed. Awake alert and oriented x3 no complaints of chest pain or shortness of breath. No nausea or vomiting. No cough or sputum production. Patient has been afebrile. No complaints of abdominal pain. Postoperatively blood sugars 140. Blood pressure 101/69 pulse ox 97% on 2 L oxygen via nasal cannula. Laboratory data is not available at this time. 04/13/2023 Patient is currently resting in the bed. Awake alert and oriented x3. On room air. He was able to walk to the bathroom. Pain is fairly controlled. No involvement today. No flatus yet. Patient has been afebrile.. No headache or dizziness or lightheadedness. No nausea or vomiting. Laboratory data showed WBC 5.2 hemoglobin 10.6 and platelets 177, sodium 138 potassium 4.9, chloride 102 BUN 12 and creatinine 0.79 and blood sugar is 118 and A1c is 6.6. 04/14/2023 Patient is sitting on the side of the bed. Awake alert and oriented x3. Itching over the surgical site otherwise abdominal pain is much better. Patient is able to ambulate to the bathroom. Able to pass flatus with no bowel movement yet. Patient was started on clear liquid diet. Blood sugar is controlled. No complaints of chest pain or shortness of breath. No headache or dizziness or lightheadedness. Current medications reviewed. Current medications reviewed. Objective - Vital Signs Vital signs: Vital Signs Temp 97.7 F 04/14/23 07:23 Pulse 74 04/14/23 07:23 Resp 18 04/14/23 07:23 BP 126/73 04/14/23 07:23 Pulse Ox 93 L 04/14/23 07:23 FiO2 Intake & Output 04/13/23 04/14/23 04/14/23 19:59 06:59 18:59 Weight Other: # Voids - Exam PHYSICAL EXAMINATION: Patient is lying in the bed comfortably, no acute distress, awake alert and oriented.. HEENT: Normocephalic. Neck is supple. Pupils reactive. Nostrils clear. Oral cavity is moist. Neck reveals no JVD, carotid bruits, or thyromegaly. CHEST EXAMINATION: Trachea is central. Symmetrical expansion. Lung quigley clear to auscultation and percussion. CARDIAC: Normal S1, S2 with no gallops. No murmurs ABDOMEN: Soft. Bowel sounds present. Mild tenderness at the surgical sites. No organomegaly. No abdominal bruits. Extremities: reveal no edema. No clubbing or cyanosis Neurologically awake, alert, oriented x3 with well-coordinated movements. No focal deficits noted Skin: No rash or skin lesions. Psychiatric: Coperative. Nonsuicidal, Musculoskeletal: No joint swelling or deformity. Normal range of motion. - Labs CBC & Chem 7: 04/13/23 07:39 04/13/23 07:39 Labs: Abnormal Lab Results - Last 24 Hours (Table) 04/13/23 04/13/23 04/13/23 Range/Units 07:39 16:40 20:02 POC Glucose (mg/dL) 113 H 122 H (70-110) mg/dL Hemoglobin A1c 6.6 H (<=6.0) % 04/14/23 Range/Units 05:34 POC Glucose (mg/dL) 218 H (70-110) mg/dL Hemoglobin A1c (<=6.0) % Assessment and Plan Assessment: S/p laparoscopic repair of paraesophageal hiatal hernia with mesh. Postope rative day 2 GERD Hypertension Hyperlipidemia Diabetes type 2 [id number]-[id number]. Uncontrolled with A1c 6.6. Recent history of diverticulitis Mild obstructive sleep apnea not on CPAP at home Chronic back pain and neck pain History of uterine cancer with partial hysterectomy History of lap band and removal Anxiety Prior history of smoking DVT prophylaxis. Patient on Lovenox subcu Plan: Started on oral diet and advance as tolerated. Continue with pain management, encourage incentive spirometry. Started on insulin sliding scale while in the hospital for better blood sugar control. Continue with metoprolol and hold hydrochlorothiazide/lisinopril at this time due to low blood pressure. A1c 6.6. Encourage ambulation. Patient is tolerating liquid diet. Continue to follow closely.
[2023-04-15 05:17] LABS: Glucose,Whole Blood 100 mg/dL (70-110)
[2023-04-15] MEDS: HYDROmorphone 1 MG/ML 1 ML SYRINGE IVP PRN (05:25)
[2023-04-15] MEDS: INSULIN ASPART (NovoLOG) 100 UNIT/ML VIAL SQ SCH ×2 (06:07→13:44)
[2023-04-15] MEDS: LACTATED RINGERS 1,000 ML IV SCH (06:07)
[2023-04-15] MEDS: EZETIMIBE 10 MG TAB PO SCH (10:35)
[2023-04-15] MEDS: METOPROLOL SUCCINATE (ER) 25 MG TAB.ER.24H PO SCH (10:35)
[2023-04-15] MEDS: ENOXAPARIN 40 MG/0.4 ML SYRINGE SQ SCH (10:35)
[2023-04-15] MEDS: SERTRALINE 50 MG TAB PO SCH (10:35)
[2023-04-15 11:06] LABS: Glucose,Whole Blood 119 mg/dL (70-110)
--- NOTE | 2023-04-15 12:53 | P.DS ---
Providers Date of admission: 04/15/23 07:29 Expected date of discharge: 04/15/23 Attending physician: Cristopher Browne Consults: 04/12/23 09:46 Consult Physician Routine Consulting Provider: Rohini Andrade Consult Reason/Comments: Medical management Do you want consulting provider notified?: Yes Primary care physician: Yolanda Chandler Hector Hospital Course: Discharge diagnosis 1. Paraesophageal hiatal hernia status post laparoscopic repair with mesh Hospital course This is a 67-year-old female with a history of paraesophageal hiatal hernia. She is status post left scapular repair of the paraesophageal hiatal hernia with mesh. Patient is tolerating diet. Her pain is controlled. She has been up and ambulating. She is afebrile. She is having flatus. She is stable for discharge. Please refer to chart for any further details. Physician Tail Worker note has been reviewed by physician. Signing provider agrees with the documented findings, assessment, and plan of care. Patient Condition at Discharge: Stable Plan - Discharge Summary Discharge Rx Participant: Yes New Discharge Prescriptions: New Docusate [Colace] 100 mg PO BID #20 capsule Ibuprofen [Motrin] 600 mg PO Q6HR PRN #40 tab PRN Reason: Pain oxyCODONE HCL [OxyIR] 5 mg PO Q6H PRN 3 Days #10 tab PRN Reason: Pain Acetaminophen Tab [Tylenol] 650 mg PO Q6H #30 tab Continue Aspirin EC [Ecotrin Low Dose] 81 mg PO DAILY Pioglitazone [Actos] 30 mg PO DAILY Ezetimibe [Zetia] 10 mg PO DAILY Biotin [Fhzb-Dupx-Ewhhe] 10,000 mcg PO DAILY Sertraline HCl [Zoloft] 50 mg PO BID Metoprolol Succinate (ER) [Toprol XL] 12.5 mg PO QAM Semaglutide [Ozempic] 1 mg SQ Q7D Multivitamins, Thera [Multivitamin (formulary)] 1 tab PO DAILY ALPRAZolam [Xanax] 0.25 mg PO DAILY PRN PRN Reason: Anxiety Pantoprazole [Protonix] 40 mg PO HS Evolocumab [Repatha Syringe] 0 mg SQ Q14D Discontinued Ascorbic Acid [Vitamin C] 500 mg PO DAILY HYDROcodone/APAP 5-325MG [[place] 5-325] 1 tab PO BID PRN PRN Reason: Pain Cholecalciferol [Vitamin D3 (25 Mcg = 1000 Iu)] 50 mcg PO DAILY No Action Lisinopril-Hctz 10-12.5 mg [Zestoretic 10-12.5] 1 tab PO QAM Discharge Medication List Aspirin EC [Ecotrin Low Dose] 81 mg PO DAILY 11/12/13 [History] Ezetimibe [Zetia] 10 mg PO DAILY 07/14/22 [History] Pioglitazone [Actos] 30 mg PO DAILY 07/14/22 [History] Semaglutide [Ozempic] 1 mg SQ Q7D 07/14/22 [History] Biotin [Zndb-Xilk-Pkhey] 10,000 mcg PO DAILY 08/02/22 [History] Multivitamins, Thera [Multivitamin (formulary)] 1 tab PO DAILY 08/02/22 [History] ALPRAZolam [Xanax] 0.25 mg PO DAILY PRN 09/18/22 [History] Sertraline HCl [Zoloft] 50 mg PO BID 11/19/22 [History] Pantoprazole [Protonix] 40 mg PO HS 11/23/22 [History] Evolocumab [Repatha Syringe] 0 mg SQ Q14D 01/11/23 [History] Lisinopril-Hctz 10-12.5 mg [Zestoretic 10-12.5] 1 tab PO QAM 04/09/23 [History] Metoprolol Succinate (ER) [Toprol XL] 12.5 mg PO QAM 04/09/23 [History] Acetaminophen Tab [Tylenol] 650 mg PO Q6H #30 tab 04/12/23 [Rx] Docusate [Colace] 100 mg PO BID #20 capsule 04/12/23 [Rx] Ibuprofen [Motrin] 600 mg PO Q6HR PRN #40 tab 04/12/23 [Rx] oxyCODONE HCL [OxyIR] 5 mg PO Q6H PRN 3 Days #10 tab 04/12/23 [Rx] Follow up Appointment(s)/Referral(s): Cristopher Browne MD [STAFF PHYSICIAN] - 1 Week Activity/Diet/Wound Care/Special Instructions: No driving while taking OxyIR No lifting over 10 pounds Shower daily. No soaking or tub baths for 2 weeks Very light activity until you are reevaluated at your follow up appointment with your surgeon Continue a full liquid diet until seen by surgeon Discharge Disposition: HOME SELF-CARE
[2023-04-15 14:06] VITALS: BP 133/73; PULSE 70; RESP 17; TEMP 98.1
== END 2023-04-15 16:31 | disposition home or self-care (01) ==
LOC: OR 05:30 → 4SSUR 08:20 → OR 04-15 07:25 → 4SSUR 04-15 07:29
PROVIDERS: ADMIT Surgery; ATTEND Surgery
DX: K44.9 Diaphragmatic hernia without obstruction or gangrene (principal); R07.9 Chest pain, unspecified; M25.512 Pain in left shoulder; I10 Essential (primary) hypertension; E78.5 Hyperlipidemia, unspecified; G47.33 Obstructive sleep apnea (adult) (pediatric); K21.9 Gastro-esophageal reflux disease without esophagitis; E11.9 Type 2 diabetes mellitus without complications; F41.9 Anxiety disorder, unspecified; G89.29 Other chronic pain; M54.2 Cervicalgia; M54.9 Dorsalgia, unspecified; Z85.42 Personal history of malignant neoplasm of other parts of uterus; Z87.19 Personal history of other diseases of the digestive system; Z87.891 Personal history of nicotine dependence; Z90.711 Acquired absence of uterus with remaining cervical stump; Z98.84 Bariatric surgery status; Z79.82 Long term (current) use of aspirin; Z79.899 Other long term (current) drug therapy; Z79.84 Long term (current) use of oral hypoglycemic drugs; Z91.040 Latex allergy status; Z88.6 Allergy status to analgesic agent
CPT/HCPCS: 43282; 96376 ×4; 96361 ×2; 96372 ×3; 96374; 94760; 80048; 85025; 83036; G0378; C1781; J0330; J1200; J1100; J2710; J0690; J2405; J2001; J1650 ×3; J3010; J1170 ×5; J2704; J1644; J0665; 96375

== ENCOUNTER → 2023-08-20 | Outpatient (CLI) | payer MEDICARE ==
--- NOTE | 2023-08-20 15:07 | MM ---
Reason for Exam: Screening (asymptomatic). Last mammogram was performed 4 year(s) and 10 month(s) ago. Patient History: Menarche at age 10. First Full-Term at age 14. Hysterectomy at age 25. Postmenopausal. 2019, Stereotactic Core Biopsy on the Right side. Risk Values: Tia 5 year model risk: 1.6%. NCI Lifetime model risk: 5.4%. Prior Study Comparison: 10/13/2018 Bilateral Screening Mammogram, [facility]. Tissue Density: There are scattered areas of fibroglandular density. Findings: Analyzed By CAD. There is no suspicious group of microcalcifications or new suspicious mass. Benign-appearing calcifications bilaterally. Overall Assessment: Benign, BI-RAD 2 Management: Screening Mammogram of both breasts in [address] [facility] will attempt to contact patient to return for supplemental views and ultrasound if indicated. Patient should continue monthly self-breast exams. A clinical breast exam by your physician is recommended on an annual basis. This exam should not preclude additional follow-up of suspicious palpable abnormalities. Note on Tia scores and lifetime risk: 1. A Tia score greater than 3% is considered moderate risk. If this is the case, consider specialist referral to assess eligibility for a risk reducing agent. 2. If overall lifetime risk for the development of breast cancer is 20% or higher, the patient may qualify for future screening with alternating mammogram and breast MRI. Electronically signed and approved by: Vito Thibodeaux DO
== END | disposition home or self-care (01) ==
LOC: RADMAMWWP 08:56
PROVIDERS: ATTEND Family Medicine
DX: Z12.31 Encounter for screening mammogram for malignant neoplasm of breast (principal); Z78.0 Asymptomatic menopausal state
CPT/HCPCS: 77063; 77067

== ENCOUNTER 2023-09-26 17:40 | Emergency (ER) | payer MEDICARE ==
--- NOTE | 2023-09-26 18:24 | ED ---
Weakness HPI - General Source: patient, RN notes reviewed Mode of arrival: ambulatory Limitations: no limitations <Lara Montoya - Last Filed: 09/26/23 18:21> - General Source: patient, family, RN notes reviewed <Johnson Amato - Last Filed: 09/28/23 21:15> <Dexter Knutson - Last Filed: 10/06/23 19:30> - General Chief complaint: Weakness Stated complaint: Abd pain/weakness Time Seen by Provider: 09/26/23 17:55 - History of Present Illness Initial comments: Quick notethis is a 67-year-old female presents emergency department chief complaint of weakness. Patient states that she finished an antibiotic on Saturday for a kidney and bladder infection. She denies fevers, nausea, or vomiting. endorses diarrhea. (Lara Montoya) Patient is a 67-year-old female who presents to the emergency department complaining of weakness, generalized abdominal discomfort with diarrhea. Recently diagnosed with UTI and completed course of antibiotics. Completed the course on Saturday, and is still feeling bad. Presents for further evaluation. Denies nausea or vomiting. Denies chest pain or shortness of breath. No other acute complaints at this time. Presents for further evaluation. (Johnson Amato) - Related Data Home Medications Medication Instructions Recorded Confirmed Ezetimibe [Zetia] 10 mg PO DAILY 07/14/22 04/09/23 Pioglitazone [Actos] 30 mg PO DAILY 07/14/22 04/09/23 Semaglutide [Ozempic] 1 mg SQ Q7D 07/14/22 04/09/23 Biotin [Vylw-Zlgy-Eqbyw] 10,000 mcg PO DAILY 08/02/22 04/09/23 Multivitamins, Thera [Multivitamin 1 tab PO DAILY 08/02/22 04/09/23 (formulary)] ALPRAZolam [Xanax] 0.25 mg PO DAILY PRN 09/18/22 04/09/23 Sertraline HCl [Zoloft] 50 mg PO BID 11/19/22 04/09/23 Pantoprazole [Protonix] 40 mg PO HS 11/23/22 04/09/23 Evolocumab [Repatha Syringe] 0 mg SQ Q14D 01/11/23 04/09/23 Lisinopril-Hctz 10-12.5 mg 1 tab PO QAM 04/09/23 04/09/23 [Zestoretic 10-12.5] Metoprolol Succinate (ER) [Toprol 12.5 mg PO QAM 04/09/23 04/09/23 XL] Previous Rx's Medication Instructions Recorded Acetaminophen Tab [Tylenol] 650 mg PO Q6H #30 tab 04/12/23 Docusate [Colace] 100 mg PO BID #20 capsule 04/12/23 Ibuprofen [Motrin] 600 mg PO Q6HR PRN #40 tab 04/12/23 oxyCODONE HCL [OxyIR] 5 mg PO Q6H PRN 3 Days #10 tab 04/12/23 Dicyclomine [Bentyl] 20 mg PO QID PRN #15 tablet 10/06/23 Allergies Allergy/AdvReac Type Severity Reaction Status Date / Time banana Allergy BLISTERS Verified 10/06/23 08:19 IN MOUTH bee pollen Allergy Anaphylaxis Verified 10/06/23 08:19 bee venom protein (honey bee) Allergy Anaphylaxis Verified 10/06/23 08:19 kiwi Allergy BLISTERS Verified 10/06/23 08:19 IN MOUTH latex Allergy Anaphylaxis, Verified 10/06/23 08:19 Blisters strawberry Allergy blisters Verified 10/06/23 08:19 in mouth ibuprofen AdvReac Unknown Upset Verified 10/06/23 08:19 Stomach metronidazole [From Flagyl] AdvReac Nausea & Verified 10/06/23 08:19 Vomiting & Diarrhea Review of Systems ROS Other: All systems not noted in ROS Statement are negative. <Lara Montoya - Last Filed: 09/26/23 18:21> ROS Other: All systems not noted in ROS Statement are negative. <Johnson Amato - Last Filed: 09/28/23 21:15> ROS Other: All systems not noted in ROS Statement are negative. <Dexter Knutson - Last Filed: 10/06/23 19:30> ROS Statement: Those systems with pertinent positive or pertinent negative responses have been documented in the HPI. Review of Systems: CONST: Denies fever EYES: Denies blurry vision ENT: Denies nasal congestion C/V: Denies Chest pain RESP: Denies shortness of breath GI: Endorses somewhat generalized abdominal pain. : Denies dysuria SKIN: Denies rash. MSK: Denies joint pain. NEURO: Denies headache (Johnson Amato) Past Medical History Past Medical History: Cancer, Diabetes Mellitus, GERD/Reflux, GI Bleed, Hyperli pidemia, Hypertension Additional Past Medical History / Comment(s): Hx diverticulitis, AAA- states not visible now, UTI's, mild sleep apnea-no machine., Gout, barretts esophagus, herniated discs with neck and back pain, uterine cancer with partial hysterectomy, vertigo History of Any Multi-Drug Resistant Organisms: None Reported Past Surgical History: Bariatric Surgery, Heart Catheterization, Hysterectomy Additional Past Surgical History / Comment(s): lap band 2010 () , R kidney tumor removed, sheyla carpal tunnel, bone spurs removed from hip and neck, 05/14/14 lap band port replacement (Dr. Jenkins), Lap band removal in 07/08/2017, egd & colonoscopy (07/16/22), Heart cath (2006) Past Anesthesia/Blood Transfusion Reactions: No Reported Reaction Additional Past Anesthesia/Blood Transfusion Reaction / Comment(s): no hx blood transfusion Past Psychological History: Anxiety Smoking Status: Former smoker Past Alcohol Use History: None Reported Past Drug Use History: None Reported - Past Family History Mother Family Medical History: Cancer Additional Family Medical History / Comment(s): Poss CA, at age 67 Father Family Medical History: CVA/TIA, Deep Vein Thrombosis (DVT) Additional Family Medical History / Comment(s): from aneurysm at age 62 <Lara Montoya - Last Filed: 09/26/23 18:21> General Exam Limitations: no limitations <Lara Montoya - Last Filed: 09/26/23 18:21> <Johnson Amato - Last Filed: 09/28/23 21:15> - General Exam Comments Initial Comments: Visual Physical Exam Vital signs reviewed General: Well-appearing, nontoxic, no acute distress. Head: Normocephalic, atraumatic Eyes: PERRLA, EOMI ENT: Airway patent Chest: Nonlabored breathing Skin: No visual rash, normal skin tone Neuro: Alert and oriented 3 Musculoskeletal: No gross abnormalities (Lara Montoya) General: Appears in no acute distress. HEAD: Normal with no signs of head trauma. EYES: PERRLA, EOMI, conjunctiva normal, no discharge. ENT: Hearing grossly intact, normal oropharynx. RESPIRATORY: Clear breath sounds bilaterally. No wheezes, rales, or rhonchi. C/V: Regular rate and rhythm. S1 and S2 auscultated, no edema, peripheral pulses 2+ and intact throughout ABD: Abdomen soft, nondistended. Tenderness palpation the mid abdomen left lower quadrant. No guarding. No rebound tenderness. No peritoneal signs. EXT: Normal range of motion, no obvious deformity SKIN: No rashes or lesions observed on exposed skin. NEURO: Alert and oriented x 4. (Johnson Amato) Course Vital Signs 09/26/23 09/26/23 09/26/23 17:56 20:00 21:00 Temperature 97.9 F Pulse Rate 71 59 L 63 Respiratory 18 18 18 Rate Blood Pressure 125/72 114/53 120/75 O2 Sat by Pulse 97 96 95 Oximetry 09/26/23 09/26/23 09/26/23 22:00 23:00 23:39 Temperature 97.0 F L Pulse Rate 63 61 Respiratory 16 18 Rate Blood Pressure 129/51 134/62 O2 Sat by Pulse 95 96 Oximetry Medical Decision Making <Lara Montoya - Last Filed: 09/26/23 18:21> - Lab Data Result diagrams: 09/26/23 19:50 09/26/23 19:50 - EKG Data -: EKG Interpreted by Me <Johnson Amato - Last Filed: 09/28/23 21:15> - Lab Data Result diagrams: 09/26/23 19:50 09/26/23 19:50 - EKG Data -: EKG Interpreted by Me (EKG is sinus 59 OK 151 QRS 101 QTc 421) - Radiology Data Radiology results: report reviewed (CT pelvis and chest x-rays are negative for acute disease), image reviewed <Dexter Knutson - Last Filed: 10/06/23 19:30> - Medical Decision Making I completed the quick note portion of this chart signed Lara Montoya PA-C (Lara Montoya) Was pt. sent in by a medical professional or institution ([facility], RRT, urgent care, hospital, or care home...) When possible be specific @ -No Did you speak to anyone other than the patient for history (EMS, parent, family, police, friend...)? What history was obtained from this source @ -No Did you review nursing and triage notes (agree or disagree)? Why? @ -I reviewed and agree with nursing and triage notes Were old charts reviewed (outside hosp., previous admission, EMS record, old EKG, old radiological studies, urgent care reports/EKG's, care home records)? Report findings @ -Old charts reviewed Differential Diagnosis (chest pain, altered mental status, abdominal pain women, abdominal pain men, vaginal bleeding, weakness, fever, dyspnea, syncope, headache, dizziness, GI bleed, back pain, seizure, CVA, palpatations, mental health, musculoskeletal)? @ -Differential Weakness: Hypoglycemia, shock, sepsis, hyponatremia, anemia, infection, MD, ETOH, adverse medicine reaction, overdose, stroke, this is not meant to be an all-inclusive list. EKG interpreted by me (3pts min.). @ -As above X-rays interpreted by me (1pt min.). @ -Chest x-ray reveals no obvious acute cardiopulmonary process. CT interpreted by me (1pt min.). @ -Pending U/S interpreted by me (1pt. min.). @ -None done What testing was considered but not performed or refused? (CT, X-rays, U/S, labs)? Why? @ -None What meds were considered but not given or refused? Why? @ -None Did you discuss the management of the patient with other professionals (professionals i.e. , PA, RRT, lab, RT, psych nurse, social work msw, cotton candy maker, teacher, light armored reconnaissance officer, case assembler)? Give summary @ -No Was smoking cessation discussed for >3mins.? @ -No Was critical care preformed (if so, how long)? @ -No Were there social determinants of health that impacted care today? How? (Homele ssness, low income, unemployed, alcoholism, drug addiction, transportation, low edu. Level, literacy, decrease access to med. care, halfway, rehab)? @ -No Was there de-escalation of care discussed even if they declined (Discuss DNR or withdrawal of care, Hospice)? DNR status @ -No What co-morbidities impacted this encounter? (DM, HTN, Smoking, COPD, CAD, Cancer, CVA, ARF, Chemo, Hep., AIDS, mental health diagnosis, sleep apnea, morbid obesity)? @ -None Was patient admitted / discharged? Hospital course, mention meds given and route, prescriptions, significant lab abnormalities, going to OR and other pertinent info. @ -Based on the patient's presentation and physical exam, presents emergency department for weakness and nonfocal abdominal pain. We we will obtain abdominal workup as well as screening EKG. Offered CT imaging at this time however they wish to obtain labs initially. We also obtain a urinalysis. Recently completed a course of antibiotics. Vital signs are within acceptable limits. EKG shows no signs of acute ischemia. Chest x-ray shows no signs of acute cardiopulmonary process. Laboratory studies are unremarkable. At this time I updated the patient. Recommended CT imaging. She was in agreement this plan. Still no stool production at this time. Patient signed out to Dr. Knutson Pending results of imaging. Following my shift, imaging did return. Patient was discharged home by Dr. Knutson. CT imaging interpreted by radiology at that time was unremarkable. No acute process. Undiagnosed new problem with uncertain prognosis? @ -No Drug Therapy requiring intensive monitoring for toxicity (Heparin, Nitro, Insulin, Cardizem)? @ -No Were any procedures done? @ -No Diagnosis/symptom? @ -Abdominal pain of unknown etiology Acute, or Chronic, or Acute on Chronic? @ -Acute Uncomplicated (without systemic symptoms) or Complicated (systemic symptoms)? @ -Complicated Side effects of treatment? @ -None Exacerbation, Progression, or Severe Exacerbation] @ -No Poses a threat to life or bodily function? @ -Unlikely (Johnson Amato) 67 female with a complex medical history for weakness and nonfocal abdominal pain. Patient has negative imaging here in the ER feels well and can be discharged home (Dexter Knutson) - Lab Data Lab Results 09/26/23 09/26/23 09/26/23 Range/Units 19:50 19:50 19:50 WBC 5.8 (3.8-10.6) k/uL RBC 4.23 (3.80-5.40) m/uL Hgb 11.4 (11.4-16.0) gm/dL Hct 36.3 (34.0-46.0) % MCV 85.7 (80.0-100.0) fL MCH 27.0 (25.0-35.0) pg MCHC 31.5 (31.0-37.0) g/dL RDW 13.8 (11.5-15.5) % Plt Count 185 (150-450) k/uL MPV 8.1 Neutrophils % 55 % Lymphocytes % 37 % Monocytes % 4 % Eosinophils % 1 % Basophils % 1 % Neutrophils # 3.2 (1.3-7.7) k/uL Lymphocytes # 2.1 (1.0-4.8) k/uL Monocytes # 0.2 (0-1.0) k/uL Eosinophils # 0.1 (0-0.7) k/uL Basophils # 0.0 (0-0.2) k/uL PT 10.5 (10.0-12.5) sec INR 0.9 (<1.2) APTT 23.6 (22.0-30.0) sec Sodium 141 (137-145) mmol/L Potassium 5.3 H (3.5-5.1) mmol/L Chloride 107 (98-107) mmol/L Carbon Dioxide 26 (22-30) mmol/L Anion Gap 8 mmol/L BUN 31 H (7-17) mg/dL Creatinine 1.03 (0.52-1.04) mg/dL Est GFR (CKD-EPI)AfAm 65 (>60 ml/min/1.73 sqM) Est GFR (CKD-EPI)NonAf 56 (>60 ml/min/1.73 sqM) Glucose 127 H (74-99) mg/dL Plasma Lactic Acid Ej (0.7-2.0) mmol/L Calcium 10.0 (8.4-10.2) mg/dL Total Bilirubin 0.3 (0.2-1.3) mg/dL AST 26 (14-36) U/L ALT 16 (4-34) U/L Alkaline Phosphatase 85 (38-126) U/L Total Protein 8.3 H (6.3-8.2) g/dL Albumin 4.4 (3.5-5.0) g/dL Amylase 72 (30-110) U/L Lipase 98 (23-300) U/L Urine Color Urine Appearance (Clear) Urine pH (5.0-8.0) Ur Specific [place] (1.001-1.035) Urine Protein (Negative) Urine Glucose (UA) (Negative) Urine Ketones (Negative) Urine Blood (Negative) Urine Nitrite (Negative) Urine Bilirubin (Negative) Urine Urobilinogen (<2.0) mg/dL Ur Leukocyte Esterase (Negative) Urine RBC (0-5) /hpf Urine WBC (0-5) /hpf Ur Squamous Epith Cells (0-4) /hpf Hyaline Casts (0-2) /lpf Urine Mucus (None) /hpf 09/26/23 09/26/23 Range/Units 19:50 19:50 WBC (3.8-10.6) k/uL RBC (3.80-5.40) m/uL Hgb (11.4-16.0) gm/dL Hct (34.0-46.0) % MCV (80.0-100.0) fL MCH (25.0-35.0) pg MCHC (31.0-37.0) g/dL RDW (11.5-15.5) % Plt Count (150-450) k/uL MPV Neutrophils % % Lymphocytes % % Monocytes % % Eosinophils % % Basophils % % Neutrophils # (1.3-7.7) k/uL Lymphocytes # (1.0-4.8) k/uL Monocytes # (0-1.0) k/uL Eosinophils # (0-0.7) k/uL Basophils # (0-0.2) k/uL PT (10.0-12.5) sec INR (<1.2) APTT (22.0-30.0) sec Sodium (137-145) mmol/L Potassium (3.5-5.1) mmol/L Chloride (98-107) mmol/L Carbon Dioxide (22-30) mmol/L Anion Gap mmol/L BUN (7-17) mg/dL Creatinine (0.52-1.04) mg/dL Est GFR (CKD-EPI)AfAm (>60 ml/min/1.73 sqM) Est GFR (CKD-EPI)NonAf (>60 ml/min/1.73 sqM) Glucose (74-99) mg/dL Plasma Lactic Acid Ej 1.0 (0.7-2.0) mmol/L Calcium (8.4-10.2) mg/dL Total Bilirubin (0.2-1.3) mg/dL AST (14-36) U/L ALT (4-34) U/L Alkaline Phosphatase (38-126) U/L Total Protein (6.3-8.2) g/dL Albumin (3.5-5.0) g/dL Amylase (30-110) U/L Lipase (23-300) U/L Urine Color Light Yellow Urine Appearance Clear (Clear) Urine pH 5.5 (5.0-8.0) Ur Specific [place] 1.021 (1.001-1.035) Urine Protein Negative (Negative) Urine Glucose (UA) Negative (Negative) Urine Ketones Negative (Negative) Urine Blood Negative (Negative) Urine Nitrite Negative (Negative) Urine Bilirubin Negative (Negative) Urine Urobilinogen <2.0 (<2.0) mg/dL Ur Leukocyte Esterase Small H (Negative) Urine RBC <1 (0-5) /hpf Urine WBC 4 (0-5) /hpf Ur Squamous Epith Cells 2 (0-4) /hpf Hyaline Casts 26 H (0-2) /lpf Urine Mucus Rare H (None) /hpf - EKG Data EKG Comments: 12-lead Electrocardiogram Interpretation Note EKG was reviewed and interpreted by myself. 12-lead ECG performed at 2002 is interpreted by me as revealing sinus bradycardia at a rate of 59 beats per minute. [place] is normal. OK interval is 151 ms, QRS duration is 101 ms, QTc is 421 ms.. There were no ST or T wave abnormalities to suggest myocardial ischemia or injury. R wave progression across the precordium was satisfactory. By my interpretation this EKG is non-diagnostic for acute ischemia. (Johnson Amato) Disposition <Lara Montoya - Last Filed: 09/26/23 18:21> <Johnson Amato - Last Filed: 09/28/23 21:15> Is patient prescribed a controlled substance at d/c from ED?: No Time of Disposition: 23:15 <Dexter Knutson - Last Filed: 10/06/23 19:30> Clinical Impression: Abdominal pain, Epigastric abdominal pain Disposition: HOME SELF-CARE Condition: Good Instructions (If sedation given, give patient instructions): Abdominal Pain (ED) Referrals: Yolanda Young MD [Primary Care Provider] - 1-2 days
--- NOTE | 2023-09-26 18:27 | XR ---
EXAMINATION TYPE: XR chest 2V DATE OF EXAM: 09/26/2023 COMPARISON: 10/19/2020 HISTORY: Pain following fall TECHNIQUE: Frontal and lateral views of the chest are obtained. FINDINGS: There is no focal air space opacity, pleural effusion, or pneumothorax seen. The cardiac silhouette size is within normal limits. The osseous structures are intact. IMPRESSION: No acute cardiopulmonary process. No fracture or focal osseous abnormality.
[2023-09-26 18:34] VITALS: RESP 18
[2023-09-26 20:17] LABS: Basophils % (A) 1 %; Eosinophils # (A) 0.1 k/uL (0-0.7); Eosinophils % (A) 1 %; HCT 36.3 % (34.0-46.0); HGB 11.4 gm/dL (11.4-16.0); Lymphocytes # (A) 2.1 k/uL (1.0-4.8); Lymphocytes % (A) 37 %; MCHC 31.5 g/dL (31.0-37.0); MCV 85.7 fL (80.0-100.0); Mean Platelet Volume 8.1; Monocytes # (A) 0.2 k/uL (0-1.0); Monocytes % (A) 4 %; Neutrophils # (A) 3.2 k/uL (1.3-7.7); Neutrophils % (A) 55 %; Platelet Count 185 k/uL (150-450); RBC 4.23 m/uL (3.80-5.40); RDW 13.8 % (11.5-15.5); WBC 5.8 k/uL (3.8-10.6)
[2023-09-26 20:27] LABS: INR 0.9 (<1.2); Partial Thromboplastin Time 23.6 sec (22.0-30.0); Prothrombin Time 10.5 sec (10.0-12.5)
[2023-09-26 20:32] LABS: Appearance,Urine Clear (Clear); Bilirubin,Urine Negative (Negative); Blood,Urine Negative (Negative); Color,Urine Light Yellow; Glucose,Urine (UA) Negative (Negative); Hyaline Casts,Urine 26 /lpf (0-2); Ketones,Urine Negative (Negative); Leukocyte Esterase,Urine Small (Negative); Mucus,Urine Rare /hpf; Nitrite,Urine Negative (Negative); PH, Urine 5.5 (5.0-8.0); Protein,Urine Negative (Negative); RBC,Urine <1 /hpf (0-5); Specific Gravity,Urine 1.021 (1.001-1.035); Squamous Epithelial Cell,Urine 2 /hpf (0-4); Urobilinogen,Urine <2.0 mg/dL (<2.0); WBC,Urine 4 /hpf (0-5)
[2023-09-26 20:35] LABS: ALT 16 U/L (4-34); AST 26 U/L (14-36); African American GFR (CKD) 65 (>60 ml/min/1.73 sqM); Albumin 4.4 g/dL (3.5-5.0); Alkaline Phosphatase 85 U/L (38-126); Amylase 72 U/L (30-110); Anion Gap 8 mmol/L; Blood Urea Nitrogen 31 mg/dL (7-17); Carbon Dioxide 26 mmol/L (22-30); Chloride 107 mmol/L (98-107); Glucose 127 mg/dL (74-99); Lipase 98 U/L (23-300); Non-African American GFR(CKD) 56 (>60 ml/min/1.73 sqM); Potassium 5.3 mmol/L (3.5-5.1); Sodium 141 mmol/L (137-145); Total Bilirubin 0.3 mg/dL (0.2-1.3); Total Protein 8.3 g/dL (6.3-8.2)
[2023-09-26] MEDS: ONDANSETRON 4 MG/2 ML VIAL IVP STA (21:31)
[2023-09-26] MEDS: PANTOPRAZOLE 40 MG/10 ML VIAL IVP STA (21:31)
[2023-09-26] MEDS: MORPHINE SULFATE 2 MG/ML SYRINGE IVP STA (21:35)
[2023-09-26] MEDS: SODIUM CHLORIDE 0.9% 1,000 ML IV STA (21:36)
--- NOTE | 2023-09-26 22:06 | CT ---
EXAMINATION TYPE: CT abdomen pelvis w con DATE OF EXAM: 09/26/2023 COMPARISON: 11/19/2022 HISTORY: Pt c/o abdominal pain and weakness, worsening for 8 days, recent UTI CT DLP: 626.1 mGycm Automated exposure control for dose reduction was used. TECHNIQUE: Helical acquisition of images was performed from the lung bases through the pelvis. CONTRAST: Performed without Oral Contrast and with IV Contrast, patient injected with 80 mL of Isovue 300. FINDINGS: The lung bases are clear. There are surgical gallbladder. There is no focal mass or organomegaly liver, pancreas, spleen or adrenal glands. There are postsurgical changes in the upper pole right kidney which are stable. There is no solid levy al mass, calculus or process. Caliber of the abdominal aorta is normal. Bowel loops are normal in caliber and no dilatation or obstruction. No inflammatory changes are ident ified along the mesentery and there is no free intraperitoneal air or fluid. There is no pelvic mass or adenopathy. There are surgical absence of the uterus. There are anastomoti c sutures in the rectosigmoid junction. No focal osseous lesions are seen. IMPRESSION: 1. Postsurgical changes as described above. 2. No acute changes within the abdomen or pelvis.
[2023-09-26 23:50] VITALS: BP 134/62; PULSE 61; TEMP 97
== END 2023-09-26 23:47 | disposition home or self-care (01) ==
LOC: EC 17:40
DX: R10.13 Epigastric pain (principal); Z91.010 Allergy to peanuts; Z91.018 Allergy to other foods; Z91.030 Bee allergy status; Z91.040 Latex allergy status; Z88.6 Allergy status to analgesic agent; Z88.8 Allergy status to other drugs, medicaments and biological substances
CPT/HCPCS: 36415; 80053; 82150; 83605; 83690; 85025; 85610; 85730; 81001; 71046; 74177; 99285; 96374; 96375 ×2; 96361; J2405; J2270; C9113; Q9967

== ENCOUNTER 2023-10-06 08:13 | Emergency (ER) | payer MEDICARE ==
[2023-10-06 08:34] VITALS: RESP 18; TEMP 98
--- NOTE | 2023-10-06 08:40 | ED ---
General Adult HPI - General Chief complaint: Nausea/Vomiting/Diarrhea Stated complaint: Diarrhea Time Seen by Provider: 10/06/23 08:27 Source: patient, family, RN notes reviewed, old records reviewed Mode of arrival: ambulatory Limitations: no limitations - History of Present Illness Initial comments: Patient is a 67-year-old female present to the emergency department with concerns for diarrhea. Onset of symptoms was 2 days ago. Patient has had some nausea without vomiting. Patient has had over 10 episodes of diarrhea since last night. Patient questions if she had a syncopal episode with diarrhea 1 time. Patient did fall and hurt her wrist and ankle on the right side. Patient does not feel these are severe and does not want x-rays. Patient does have chronic abdominal pain that is unchanged. - Related Data Home Medications Medication Instructions Recorded Confirmed Ezetimibe [Zetia] 10 mg PO DAILY 07/14/22 04/09/23 Pioglitazone [Actos] 30 mg PO DAILY 07/14/22 04/09/23 Semaglutide [Ozempic] 1 mg SQ Q7D 07/14/22 04/09/23 Biotin [Npqq-Rndg-Wasck] 10,000 mcg PO DAILY 08/02/22 04/09/23 Multivitamins, Thera [Multivitamin 1 tab PO DAILY 08/02/22 04/09/23 (formulary)] ALPRAZolam [Xanax] 0.25 mg PO DAILY PRN 09/18/22 04/09/23 Sertraline HCl [Zoloft] 50 mg PO BID 11/19/22 04/09/23 Pantoprazole [Protonix] 40 mg PO HS 11/23/22 04/09/23 Evolocumab [Repatha Syringe] 0 mg SQ Q14D 01/11/23 04/09/23 Lisinopril-Hctz 10-12.5 mg 1 tab PO QAM 04/09/23 04/09/23 [Zestoretic 10-12.5] Metoprolol Succinate (ER) [Toprol 12.5 mg PO QAM 04/09/23 04/09/23 XL] Previous Rx's Medication Instructions Recorded Acetaminophen Tab [Tylenol] 650 mg PO Q6H #30 tab 04/12/23 Docusate [Colace] 100 mg PO BID #20 capsule 04/12/23 Ibuprofen [Motrin] 600 mg PO Q6HR PRN #40 tab 04/12/23 oxyCODONE HCL [OxyIR] 5 mg PO Q6H PRN 3 Days #10 tab 04/12/23 Dicyclomine [Bentyl] 20 mg PO QID PRN #15 tablet 10/06/23 Allergies Allergy/AdvReac Type Severity Reaction Status Date / Time banana Allergy BLISTERS Verified 10/06/23 08:19 IN MOUTH bee pollen Allergy Anaphylaxis Verified 10/06/23 08:19 bee venom protein (honey bee) Allergy Anaphylaxis Verified 10/06/23 08:19 kiwi Allergy BLISTERS Verified 10/06/23 08:19 IN MOUTH latex Allergy Anaphylaxis, Verified 10/06/23 08:19 Blisters strawberry Allergy blisters Verified 10/06/23 08:19 in mouth ibuprofen AdvReac Unknown Upset Verified 10/06/23 08:19 Stomach metronidazole [From Flagyl] AdvReac Nausea & Verified 10/06/23 08:19 Vomiting & Diarrhea Review of Systems ROS Statement: Those systems with pertinent positive or pertinent negative responses have been documented in the HPI. ROS Other: All systems not noted in ROS Statement are negative. Constitutional: Denies: fever Eyes: Denies: eye pain ENT: Denies: ear pain Respiratory: Denies: cough, dyspnea Cardiovascular: Denies: chest pain Endocrine: Denies: fatigue Gastrointestinal: Reports: as per HPI, diarrhea Genitourinary: Denies: dysuria Musculoskeletal: Denies: back pain Past Medical History Past Medical History: Cancer, Diabetes Mellitus, GERD/Reflux, GI Bleed, Hyperlipidemia, Hypertension Additional Past Medical History / Comment(s): Hx diverticulitis, AAA- states not visible now, UTI's, mild sleep apnea-no machine., Gout, barretts esophagus, herniated discs with neck and back pain, uterine cancer with partial hysterectomy, vertigo History of Any Multi-Drug Resistant Organisms: None Reported Past Surgical History: Bariatric Surgery, Heart Catheterization, Hysterectomy Additional Past Surgical History / Comment(s): lap band 2009 () , R kidney tumor removed, sheyla carpal tunnel, bone spurs removed from hip and neck, 05/14/14 lap band port replacement (Dr. Jenkins), Lap band removal in 07/08/2017, egd & colonoscopy (07/16/22), Heart cath (2006) Past Anesthesia/Blood Transfusion Reactions: No Reported Reaction Additional Past Anesthesia/Blood Transfusion Reaction / Comment(s): no hx blood transfusion Past Psychological History: Anxiety Smoking Status: Former smoker Past Alcohol Use History: None Reported Past Drug Use History: None Reported - Past Family History Mother Family Medical History: Cancer Additional Family Medical History / Comment(s): Poss CA, at age 67 Father Family Medical History: CVA/TIA, Deep Vein Thrombosis (DVT) Additional Family Medical History / Comment(s): from aneurysm at age 62 General Exam Limitations: no limitations General appearance: alert, in no apparent distress Head exam: Present: atraumatic, normocephalic Eye exam: Present: normal appearance, PERRL, EOMI ENT exam: Present: mucous membranes dry Neck exam: Present: normal inspection. Absent: tenderness, meningismus Respiratory exam: Present: normal lung sounds bilaterally Cardiovascular Exam: Present: regular rate, normal rhythm Expanded Peripheral pulses: 2+: Radial (R), Radial (L), Dorsalis Pedis (R), Dorsalis Pedis (L) GI/Abdominal exam: Present: soft. Absent: distended, tenderness, guarding, rebound, rigid, pulsatile mass Extremities exam: Present: normal inspection Neurological exam: Present: alert Psychiatric exam: Present: normal affect, normal mood Skin exam: Present: normal color Course Vital Signs 10/06/23 10/06/23 08:15 09:09 Temperature 98 F Pulse Rate 72 64 Respiratory 18 18 Rate Blood Pressure 117/71 117/49 O2 Sat by Pulse 98 96 Oximetry EKG Findings - EKG Results: EKG: interpreted by ERMD (Nonspecific T wave), sinus rhythm, normal axis, normal QRS Medical Decision Making - Medical Decision Making Was pt. sent in by a medical professional or institution (, PA, LADIES ATTENDANT, urgent care, hospital, or senior living...) When possible be specific @ -No Did you speak to anyone other than the patient for history (EMS, parent, family, police, friend...)? What history was obtained from this source @ -Family is present helps provide history including onset of patient's symptoms Did you review nursing and triage notes (agree or disagree)? Why? @ -I reviewed and agree with nursing and triage notes Were old charts reviewed (outside hosp., previous admission, EMS record, old EKG, old radiological studies, urgent care reports/EKG's, senior living records)? Report findings @ -[Previous visit and imaging reviewed Differential Diagnosis (chest pain, altered mental status, abdominal pain women, abdominal pain men, vaginal bleeding, weakness, fever, dyspnea, syncope, headache, dizziness, GI bleed, back pain, seizure, CVA, palpatations, mental health, musculoskeletal)? @ -differential Abdominal Pain Women: Appendicitis, Cholecystitis, diverticulosis, ischemic bowel, pancreatitis, hepatitis, UTI, gastroenteritis, AAA, incarcerated hernia, bowel obstruction, constipation, inflammatory bowel, hepatitis, peptic ulcer disease, splenic infarction, perforated viscus, vulvitis, ovarian torsion, PID, kidney stone, placenta abruption, this is not meant to be an all-inclusive list EKG interpreted by me (3pts min.). @ -As above X-rays interpreted by me (1pt min.). @ -None done CT interpreted by me (1pt min.). @ -None done U/S interpreted by me (1pt. min.). @ -None done What testing was considered but not performed or refused? (CT, X-rays, U/S, labs)? Why? @ -Considered imaging however patient is significantly improved and nontender on exam What meds were considered but not given or refused? Why? @ -None Did you discuss the management of the patient with other professionals (professionals i.e. , PA, LADIES ATTENDANT, lab, RT, psych nurse, social media coordinator, volunteer services manager, teacher, operations officer, case packer)? Give summary @ -No Was smoking cessation discussed for >3mins.? @ -No Was critical care preformed (if so, how long)? @ -No Were there social determinants of health that impacted care today? How? (Homelessness, low income, unemployed, alcoholism, drug addiction, transportation, low edu. Level, literacy, decrease access to med. care, long-term, rehab)? @ -No Was there de-escalation of care discussed even if they declined (Discuss DNR or withdrawal of care, Hospice)? DNR status @ -No What co-morbidities impacted this encounter? (DM, HTN, Smoking, COPD, CAD, Cancer, CVA, ARF, Chemo, Hep., AIDS, mental health diagnosis, sleep apnea, morbid obesity)? @ -History of chronic abdominal pain Was patient admitted / discharged? Hospital course, mention meds given and route, prescriptions, significant lab abnormalities, going to OR and other pertinent info. @ -Patient reevaluated and feeling much better. Patient and family are updated on results and need for follow-up. Patient will be discharged with follow-up primary care physician Undiagnosed new problem with uncertain prognosis? @ -No Drug Therapy requiring intensive monitoring for toxicity (Heparin, Nitro, Insulin, Cardizem)? @ -No Were any procedures done? @ -No Diagnosis/symptom? @ -Vomiting and diarrhea Acute, or Chronic, or Acute on Chronic? @ -Acute Uncomplicated (without systemic symptoms) or Complicated (systemic symptoms)? @ -Complicated with possible syncopal episode Side effects of treatment? @ -No Exacerbation, Progression, or Severe Exacerbation? @ -No Poses a threat to life or bodily function? How? (Chest pain, [place], [place], pneumonia, PE, COPD, DKA, ARF, appy, cholecystitis, CVA, Diverticulitis, Homicidal, Nelson icidal, threat to staff... and all critical care pts) @ -No - Lab Data Result diagrams: 10/06/23 08:48 10/06/23 08:48 Lab Results 10/06/23 10/06/23 10/06/23 Range/Units 08:48 08:48 08:48 WBC 6.3 (3.8-10.6) k/uL RBC 4.24 (3.80-5.40) m/uL Hgb 11.4 (11.4-16.0) gm/dL Hct 36.0 (34.0-46.0) % MCV 85.0 (80.0-100.0) fL MCH 26.8 (25.0-35.0) pg MCHC 31.5 (31.0-37.0) g/dL RDW 13.3 (11.5-15.5) % Plt Count 168 (150-450) k/uL MPV 8.6 Neutrophils % 78 % Lymphocytes % 14 % Monocytes % 5 % Eosinophils % 1 % Basophils % 0 % Neutrophils # 4.9 (1.3-7.7) k/uL Lymphocytes # 0.9 L (1.0-4.8) k/uL Monocytes # 0.3 (0-1.0) k/uL Eosinophils # 0.1 (0-0.7) k/uL Basophils # 0.0 (0-0.2) k/uL PT 10.6 (10.0-12.5) sec INR 1.0 (<1.2) APTT 22.9 (22.0-30.0) sec Sodium 141 (137-145) mmol/L Potassium 4.9 (3.5-5.1) mmol/L Chloride 106 (98-107) mmol/L Carbon Dioxide 24 (22-30) mmol/L Anion Gap 11 mmol/L BUN 33 H (7-17) mg/dL Creatinine 1.31 H (0.52-1.04) mg/dL Est GFR (CKD-EPI)AfAm 49 (>60 ml/min/1.73 sqM) Est GFR (CKD-EPI)NonAf 42 (>60 ml/min/1.73 sqM) Glucose 142 H (74-99) mg/dL Calcium 9.7 (8.4-10.2) mg/dL Total Bilirubin 0.4 (0.2-1.3) mg/dL AST 25 (14-36) U/L ALT 14 (4-34) U/L Alkaline Phosphatase 78 (38-126) U/L Troponin I (0.000-0.034) ng/mL Total Protein 7.9 (6.3-8.2) g/dL Albumin 4.2 (3.5-5.0) g/dL Amylase 71 (30-110) U/L Lipase 76 (23-300) U/L 10/06/23 Range/Units 08:48 WBC (3.8-10.6) k/uL RBC (3.80-5.40) m/uL Hgb (11.4-16.0) gm/dL Hct (34.0-46.0) % MCV (80.0-100.0) fL MCH (25.0-35.0) pg MCHC (31.0-37.0) g/dL RDW (11.5-15.5) % Plt Count (150-450) k/uL MPV Neutrophils % % Lymphocytes % % Monocytes % % Eosinophils % % Basophils % % Neutrophils # (1.3-7.7) k/uL Lymphocytes # (1.0-4.8) k/uL Monocytes # (0-1.0) k/uL Eosinophils # (0-0.7) k/uL Basophils # (0-0.2) k/uL PT (10.0-12.5) sec INR (<1.2) APTT (22.0-30.0) sec Sodium (137-145) mmol/L Potassium (3.5-5.1) mmol/L Chloride (98-107) mmol/L Carbon Dioxide (22-30) mmol/L Anion Gap mmol/L BUN (7-17) mg/dL Creatinine (0.52-1.04) mg/dL Est GFR (CKD-EPI)AfAm (>60 ml/min/1.73 sqM) Est GFR (CKD-EPI)NonAf (>60 ml/min/1.73 sqM) Glucose (74-99) mg/dL Calcium (8.4-10.2) mg/dL Total Bilirubin (0.2-1.3) mg/dL AST (14-36) U/L ALT (4-34) U/L Alkaline Phosphatase (38-126) U/L Troponin I <0.012 (0.000-0.034) ng/mL Total Protein (6.3-8.2) g/dL Albumin (3.5-5.0) g/dL Amylase (30-110) U/L Lipase (23-300) U/L Disposition Clinical Impression: Diarrhea, Vomiting Disposition: HOME SELF-CARE Condition: Stable Instructions (If sedation given, give patient instructions): Acute Nausea and Vomiting (ED), Acute Diarrhea (ED) Additional Instructions: Prescription has been sent to pharmacy. Please do follow-up with your primary care physician in the next 1 or 2 days for recheck. Return for abdominal pain, fevers, uncontrolled vomiting, worsening symptoms or other concerns. Prescriptions: Dicyclomine [Bentyl] 20 mg PO QID PRN #15 tablet PRN Reason: Pain Is patient prescribed a controlled substance at d/c from ED?: No Referrals: Yolanda Young MD [Primary Care Provider] - 1-2 days
[2023-10-06] MEDS: SODIUM CHLORIDE 0.9% 1,000 ML IV STA (09:03)
[2023-10-06] MEDS: ONDANSETRON 4 MG/2 ML VIAL IVP STA (09:03)
[2023-10-06] MEDS: DICYCLOMINE 10 MG/ML 2 ML AMP IM STA (09:04)
[2023-10-06] MEDS: FAMOTIDINE 20 MG/2 ML VIAL IV STA (09:07)
[2023-10-06 09:24] LABS: ALT 14 U/L (4-34); AST 25 U/L (14-36); African American GFR (CKD) 49 (>60 ml/min/1.73 sqM); Albumin 4.2 g/dL (3.5-5.0); Alkaline Phosphatase 78 U/L (38-126); Amylase 71 U/L (30-110); Anion Gap 11 mmol/L; Blood Urea Nitrogen 33 mg/dL (7-17); Calcium 9.7 mg/dL (8.4-10.2); Carbon Dioxide 24 mmol/L (22-30); Chloride 106 mmol/L (98-107); Glucose 142 mg/dL (74-99); Lipase 76 U/L (23-300); Non-African American GFR(CKD) 42 (>60 ml/min/1.73 sqM); Potassium 4.9 mmol/L (3.5-5.1); Sodium 141 mmol/L (137-145); Total Bilirubin 0.4 mg/dL (0.2-1.3); Total Protein 7.9 g/dL (6.3-8.2)
[2023-10-06 10:02] LABS: Partial Thromboplastin Time 22.9 sec (22.0-30.0); Prothrombin Time 10.6 sec (10.0-12.5)
[2023-10-06 10:08] LABS: Basophils % (A) 0 %; Eosinophils # (A) 0.1 k/uL (0-0.7); Eosinophils % (A) 1 %; HGB 11.4 gm/dL (11.4-16.0); Lymphocytes # (A) 0.9 k/uL (1.0-4.8); Lymphocytes % (A) 14 %; MCH 26.8 pg (25.0-35.0); MCHC 31.5 g/dL (31.0-37.0); Mean Platelet Volume 8.6; Monocytes # (A) 0.3 k/uL (0-1.0); Monocytes % (A) 5 %; Neutrophils # (A) 4.9 k/uL (1.3-7.7); Neutrophils % (A) 78 %; Platelet Count 168 k/uL (150-450); RBC 4.24 m/uL (3.80-5.40); RDW 13.3 % (11.5-15.5); WBC 6.3 k/uL (3.8-10.6)
[2023-10-06 11:51] VITALS: BP 136/62; PULSE 73
== END 2023-10-06 11:40 | disposition home or self-care (01) ==
LOC: EC 08:13
DX: R19.7 Diarrhea, unspecified (principal); R11.10 Vomiting, unspecified; Z87.891 Personal history of nicotine dependence; Z88.1 Allergy status to other antibiotic agents; Z88.6 Allergy status to analgesic agent; Z91.030 Bee allergy status; Z91.040 Latex allergy status; Z91.018 Allergy to other foods
CPT/HCPCS: 36415; 93005; 80053; 82150; 83690; 84484; 85025; 85610; 85730; 99284; 96374; 96375 ×2; 96361 ×2; J0500; J2405; J3490; 99285

== ENCOUNTER 2023-12-01 12:23 | Emergency (ER) | payer MEDICARE, BC ==
--- NOTE | 2023-12-01 13:09 | ED ---
General Adult HPI - General Chief complaint: Back Pain/Injury Stated complaint: Right flank pain, back pain Time Seen by Provider: 12/01/23 12:25 Source: patient Mode of arrival: ambulatory Limitations: no limitations - History of Present Illness Initial comments: Dictation was produced using [employer] dictation software. please excuse any grammatical, word or spelling errors. Chief Complaint: 67-year-old female with right-sided flank pain History of Present Illness: Patient is a 67-year-old female presents emergency department for several days of right-sided flank pain. Patient has extensive abdominal surgical history. Patient also reports history of kidney stones. She has history of cholecystectomy and right partial nephrectomy. Denies any fever. Patient complains of some mild nausea. The ROS documented in this emergency department record has been reviewed and confirmed by me. Those systems with pertinent positive or negative responses have been documented in the HPI. All other systems are other negative and/or noncontributory. - Related Data Home Medications Medication Instructions Recorded Confirmed Ezetimibe [Zetia] 10 mg PO DAILY 07/14/22 04/09/23 Pioglitazone [Actos] 30 mg PO DAILY 07/14/22 04/09/23 Semaglutide [Ozempic] 1 mg SQ Q7D 07/14/22 04/09/23 Biotin [Vwem-Uesd-Xzihx] 10,000 mcg PO DAILY 08/02/22 04/09/23 Multivitamins, Thera [Multivitamin 1 tab PO DAILY 08/02/22 04/09/23 (formulary)] ALPRAZolam [Xanax] 0.25 mg PO DAILY PRN 09/18/22 04/09/23 Sertraline HCl [Zoloft] 50 mg PO BID 11/19/22 04/09/23 Pantoprazole [Protonix] 40 mg PO HS 11/23/22 04/09/23 Evolocumab [Repatha Syringe] 0 mg SQ Q14D 01/11/23 04/09/23 Lisinopril-Hctz 10-12.5 mg 1 tab PO QAM 04/09/23 04/09/23 [Zestoretic 10-12.5] Metoprolol Succinate (ER) [Toprol 12.5 mg PO QAM 04/09/23 04/09/23 XL] Previous Rx's Medication Instructions Recorded Acetaminophen Tab [Tylenol] 650 mg PO Q6H #30 tab 04/12/23 Docusate [Colace] 100 mg PO BID #20 capsule 04/12/23 Ibuprofen [Motrin] 600 mg PO Q6HR PRN #40 tab 04/12/23 oxyCODONE HCL [OxyIR] 5 mg PO Q6H PRN 3 Days #10 tab 04/12/23 Dicyclomine [Bentyl] 20 mg PO QID PRN #15 tablet 10/06/23 Allergies Allergy/AdvReac Type Severity Reaction Status Date / Time banana Allergy BLISTERS Verified 12/01/23 12:31 IN MOUTH bee pollen Allergy Anaphylaxis Verified 12/01/23 12:31 bee venom protein (honey bee) Allergy Anaphylaxis Verified 12/01/23 12:31 kiwi Allergy BLISTERS Verified 12/01/23 12:31 IN MOUTH latex Allergy Anaphylaxis, Verified 12/01/23 12:31 Blisters strawberry Allergy blisters Verified 12/01/23 12:31 in mouth ibuprofen AdvReac Unknown Upset Verified 12/01/23 12:31 Stomach metronidazole [From Flagyl] AdvReac Nausea & Verified 12/01/23 12:31 Vomiting & Diarrhea Review of Systems ROS Statement: Those systems with pertinent positive or pertinent negative responses have been documented in the HPI. ROS Other: All systems not noted in ROS Statement are negative. Past Medical History Past Medical History: Cancer, Diabetes Mellitus, GERD/Reflux, GI Bleed, Hy perlipidemia, Hypertension Additional Past Medical History / Comment(s): Hx diverticulitis, AAA- states not visible now, UTI's, mild sleep apnea-no machine., Gout, barretts esophagus, herniated discs with neck and back pain, uterine cancer with partial hysterectomy, vertigo History of Any Multi-Drug Resistant Organisms: None Reported Past Surgical History: Bariatric Surgery, Heart Catheterization, Hysterectomy Additional Past Surgical History / Comment(s): lap band 2010 () , R kidney tumor removed, sheyla carpal tunnel, bone spurs removed from hip and neck, 05/14/14 lap band port replacement (Dr. Jenkins), Lap band removal in 07/08/2017, egd & colonoscopy (07/16/22), Heart cath (2006) Past Anesthesia/Blood Transfusion Reactions: No Reported Reaction Additional Past Anesthesia/Blood Transfusion Reaction / Comment(s): no hx blood transfusion Past Psychological History: Anxiety Smoking Status: Former smoker Past Alcohol Use History: None Reported Past Drug Use History: None Reported - Past Family History Mother Family Medical History: Cancer Additional Family Medical History / Comment(s): Poss CA, at age 67 Father Family Medical History: CVA/TIA, Deep Vein Thrombosis (DVT) Additional Family Medical History / Comment(s): from aneurysm at age 62 General Exam - General Exam Comments Initial Comments: PHYSICAL EXAM: General Impression: Alert and oriented x3, distress secondary to pain HEENT: Normocephalic atraumatic, extra-ocular movements intact, pupils equal and reactive to light bilaterally, mucous membranes moist. Cardiovascular: Heart regular rate and rhythm Chest: Able to complete full sentences, no retractions, no tachypnea Abdomen: abdomen soft, palpatory tenderness to the right abdomen r, non- distended, no organomegaly Musculoskeletal: Pulses present and equal in all extremities, no peripheral edema Motor: no focal deficits noted Neurological: CN II-XII grossly intact, no focal motor or sensory deficits noted Skin: Intact with no visualized rashes Psych: Normal affect and mood Limitations: no limitations Course Vital Signs 12/01/23 12:28 Temperature 97.7 F Pulse Rate 66 Respiratory 18 Rate Blood Pressure 105/55 O2 Sat by Pulse 99 Oximetry Medical Decision Making - Medical Decision Making Was pt. sent in by a medical professional or institution (KWAME Kruse, LACROSSE COACH, urgent care, hospital, or usp...) When possible be specific @ -No Did you speak to anyone other than the patient for history (EMS, parent, family, police, friend...)? What history was obtained from this source @ -No Did you review nursing and triage notes (agree or disagree)? Why? @ -I reviewed and agree with nursing and triage notes Were old charts reviewed (outside hosp., previous admission, EMS record, old EKG, old radiological studies, urgent care reports/EKG's, usp records)? Report findings @ -No old charts were reviewed Differential Diagnosis (chest pain, altered mental status, abdominal pain women, abdominal pain men, vaginal bleeding, musculoskeletal, weakness, fever, dyspnea, syncope, headache, dizziness, GI bleed, back pain, seizure, CVA, palpatations, mental health)? @ -Differential Abdominal Pain Women: Appendicitis, Cholecystitis, diverticulosis, ischemic bowel, pancreatitis, hepatitis, UTI, gastroenteritis, AAA, incarcerated hernia, bowel obstruction, constipation, inflammatory bowel, hepatitis, peptic ulcer disease, splenic infarction, perforated viscus, vulvitis, ovarian torsion, PID, kidney stone, placenta abruption, this is not meant to be an all-inclusive list EKG interpreted by me (3pts min.). @ -None done X-rays interpreted by me (1pt min.). @ -None done CT interpreted by me (1pt min.). @ -Pending, ordered U/S interpreted by me (1pt. min.). @ -None done What testing was considered but not performed or refused? (CT, X-rays, U/S, labs)? Why? @ -None What meds were considered but not given or refused? Why? @ -None Was smoking cessation discussed for >3mins.? @ -No Were there social determinants of health that impacted care today? How? (Homelessness, low income, unemployed, alcoholism, drug addiction, transportation, low edu. Level, literacy, decrease access to med. care, penitentiary, rehab)? @ -No Was there de-escalation of care discussed even if they declined (Discuss DNR or withdrawal of care, Hospice)? DNR status @ -No What co-morbidities impacted this encounter? (DM, HTN, Smoking, COPD, CAD, Cancer, CVA, ARF, Chemo, Hep., AIDS, mental health diagnosis, sleep apnea, morbid obesity)? @ -Extensive abdominal surgical history Was patient admitted / discharged? Hospital course, mention meds given and route, prescriptions, significant lab abnormalities, going to OR and other pertinent info. @ -67-year-old female presents to the emergency department for acute abdominal pain. Vital signs are stable. Patient distressed with palpatory tenderness along the right side of the abdomen. Patient has extensive abdominal surgical history. Patient given analgesics. Labs and imaging obtained. Labs and imaging are unremarkable. CT ab pelvis shows no acute processes. Patient reevaluated bedside at 3:30 PM found to be in stable condition. States her pain is completely resolved after Dilaudid. Patient discharged told to follow-up with a surgeon for concerns of possible Tylenol adhesions Did you discuss the management of the patient with other professionals (professionals i.e. , PA, LACROSSE COACH, lab, RT, psych nurse, social sciences lecturer, faculty research physician, teacher, aerospace engineer officer armament, gearcase assembler)? Give summary @ -No Was critical care preformed (if so, how long)? @ -No Undiagnosed new problem with uncertain prognosis? @ -No Drug Therapy requiring intensive monitoring for toxicity (Heparin, Nitro, Insulin, Cardizem)? @ -No Were any procedures done? @ -No Diagnosis/symptom? Acute, or Chronic, or Acute on Chronic? Uncomplicated (without systemic symptoms) or Complicated (systemic symptoms)? @ -Flank pain Side effects of treatment? @ -No Exacerbation, Progression, or Severe Exacerbation? @ -No Poses a threat to life or bodily function? How? (Chest pain, [place], [place], pneumonia, PE, COPD, DKA, ARF, appy, cholecystitis, CVA, Diverticulitis, Homicidal, Suicidal, threat to staff... and all critical care pts) @ -yes - Lab Data Result diagrams: 12/01/23 13:15 12/01/23 13:15 Lab Results 12/01/23 12/01/23 12/01/23 Range/Units 13:15 13:15 13:15 WBC 3.9 (3.8-10.6) k/uL RBC 4.00 (3.80-5.40) m/uL Hgb 10.6 L (11.4-16.0) gm/dL Hct 34.7 (34.0-46.0) % MCV 86.7 (80.0-100.0) fL MCH 26.4 (25.0-35.0) pg MCHC 30.5 L (31.0-37.0) g/dL RDW 13.9 (11.5-15.5) % Plt Count 136 L (150-450) k/uL MPV 8.2 Neutrophils % 37 % Lymphocytes % 49 % Monocytes % 7 % Eosinophils % 4 % Basophils % 1 % Neutrophils # 1.4 (1.3-7.7) k/uL Lymphocytes # 1.9 (1.0-4.8) k/uL Monocytes # 0.3 (0-1.0) k/uL Eosinophils # 0.1 (0-0.7) k/uL Basophils # 0.0 (0-0.2) k/uL Hypochromasia Slight Sodium 140 (137-145) mmol/L Potassium 5.2 H (3.5-5.1) mmol/L Chloride 105 (98-107) mmol/L Carbon Dioxide 28 (22-30) mmol/L Anion Gap 7 mmol/L BUN 30 H (7-17) mg/dL Creatinine 1.11 H (0.52-1.04) mg/dL Est GFR (CKD-EPI)AfAm 60 (>60 ml/min/1.73 sqM) Est GFR (CKD-EPI)NonAf 52 (>60 ml/min/1.73 sqM) Glucose 110 H (74-99) mg/dL Calcium 9.3 (8.4-10.2) mg/dL Urine Color Colorless Urine Appearance Clear (Clear) Urine pH 6.5 (5.0-8.0) Ur Specific [place] 1.017 (1.001-1.035) Urine Protein Negative (Negative) Urine Glucose (UA) Negative (Negative) Urine Ketones Negative (Negative) Urine Blood Negative (Negative) Urine Nitrite Negative (Negative) Urine Bilirubin Negative (Negative) Urine Urobilinogen <2.0 (<2.0) mg/dL Ur Leukocyte Esterase Large H (Negative) Urine RBC 1 (0-5) /hpf Urine WBC 2 (0-5) /hpf Ur Squamous Epith Cells 6 H (0-4) /hpf Urine Bacteria Rare H (None) /hpf Disposition Clinical Impression: Flank pain Disposition: HOME SELF-CARE Condition: Good Instructions (If sedation given, give patient instructions): Flank Pain (ED) Is patient prescribed a controlled substance at d/c from ED?: No Referrals: Yolanda Young MD [Primary Care Provider] - 1-2 days Time of Disposition: 15:29
[2023-12-01 13:14] VITALS: RESP 18
[2023-12-01] MEDS: MORPHINE SULFATE 4 MG/ML SYRINGE IV STA (13:19)
[2023-12-01 13:44] LABS: Basophils % (A) 1 %; Eosinophils # (A) 0.1 k/uL (0-0.7); Eosinophils % (A) 4 %; HCT 34.7 % (34.0-46.0); HGB 10.6 gm/dL (11.4-16.0); Hypochromasia Slight; Lymphocytes # (A) 1.9 k/uL (1.0-4.8); Lymphocytes % (A) 49 %; MCH 26.4 pg (25.0-35.0); MCHC 30.5 g/dL (31.0-37.0); MCV 86.7 fL (80.0-100.0); Mean Platelet Volume 8.2; Monocytes # (A) 0.3 k/uL (0-1.0); Monocytes % (A) 7 %; Neutrophils # (A) 1.4 k/uL (1.3-7.7); Neutrophils % (A) 37 %; Platelet Count 136 k/uL (150-450); RDW 13.9 % (11.5-15.5); WBC 3.9 k/uL (3.8-10.6)
[2023-12-01 14:02] LABS: Appearance,Urine Clear (Clear); Bacteria,Urine Rare /hpf; Bilirubin,Urine Negative (Negative); Blood,Urine Negative (Negative); Color,Urine Colorless; Glucose,Urine (UA) Negative (Negative); Ketones,Urine Negative (Negative); Leukocyte Esterase,Urine Large (Negative); Nitrite,Urine Negative (Negative); PH, Urine 6.5 (5.0-8.0); Protein,Urine Negative (Negative); RBC,Urine 1 /hpf (0-5); Specific Gravity,Urine 1.017 (1.001-1.035); Squamous Epithelial Cell,Urine 6 /hpf (0-4); Urobilinogen,Urine <2.0 mg/dL (<2.0); WBC,Urine 2 /hpf (0-5)
[2023-12-01 14:04] LABS: African American GFR (CKD) 60 (>60 ml/min/1.73 sqM); Anion Gap 7 mmol/L; Blood Urea Nitrogen 30 mg/dL (7-17); Calcium 9.3 mg/dL (8.4-10.2); Carbon Dioxide 28 mmol/L (22-30); Chloride 105 mmol/L (98-107); Glucose 110 mg/dL (74-99); Non-African American GFR(CKD) 52 (>60 ml/min/1.73 sqM); Potassium 5.2 mmol/L (3.5-5.1); Sodium 140 mmol/L (137-145)
--- NOTE | 2023-12-01 14:43 | CT ---
EXAMINATION TYPE: CT abdomen pelvis w con DATE OF EXAM: 12/01/2023 COMPARISON: 09/26/2023 HISTORY: right side abd pain CT DLP: 630.8 mGycm CONTRAST: CT scan of the abdomen and pelvis is performed without Oral Contrast and with IV Contrast, patient in jected with 80ml mL of Isovue 300. FINDINGS: LUNG BASES-: No visible nodule. No infiltrate. LIVER/GB: No calcified gallstones. No space occupying hepatic lesion. Biliary tree is of normal ca liber. PANCREAS: No inflammation. No distinct mass. SPLEEN: No splenic enlargement. No lesion seen. ADRENALS: No nodule. No thickening. KIDNEYS/BLADDER: Prior insult upper pole right kidney. No hydronephrosis. No nephrolithiasis. No d istinct renal mass. Urinary bladder grossly unremarkable. BOWEL: Nonvisualization of the appendix. No inflammatory process right lower quadrant. Normal bowel c aliber. No inflammation. Mild scattered fecal stasis. GENITAL ORGANS: Hysterectomy changes seen. No evidence for vaginal cuff mass. No adnexal masses noted . LYMPH NODES: No greater than 1cm abdominal or pelvic lymph nodes are appreciated. AORTA: No significant abnormality. OSSEOUS STRUCTURES: No significant abnormality is seen. OTHER: No significant additional abnormality is seen. IMPRESSION: 1. No acute process seen. Other chronic findings as discussed above.
[2023-12-01 15:43] VITALS: BP 146/71; PULSE 60; TEMP 98.1
== END 2023-12-01 15:43 | disposition home or self-care (01) ==
LOC: EC 12:23
DX: R10.9 Unspecified abdominal pain (principal); Z87.891 Personal history of nicotine dependence; Z88.1 Allergy status to other antibiotic agents; Z88.6 Allergy status to analgesic agent; Z91.030 Bee allergy status; Z91.040 Latex allergy status; Z90.49 Acquired absence of other specified parts of digestive tract
CPT/HCPCS: 36415; 80048; 85025; 81001; 74177; 99284; 96374; J2270; Q9967

== ENCOUNTER 2024-03-05 06:37 | Day surgery (SDC) | payer MEDICARE ==
[2024-03-05] MEDS: IV FLUID CONTINUATION 1,000 ML IV ONE (07:25)
[2024-03-05] MEDS: LACTATED RINGERS 1,000 ML IV SCH (07:25)
[2024-03-05] MEDS: LIDOCAINE 1% (10MG/ML) FOR IV START INTRADERMA PRN (07:25)
[2024-03-05 07:36] VITALS: TEMP 97.3
[2024-03-05] MEDS ORDERED: PROPOFOL 10 MG/ML 20 ML VIAL IV ONE (07:38)
[2024-03-05 07:42] LABS: Glucose,Whole Blood 98 mg/dL (70-110)
--- NOTE | 2024-03-05 08:06 | P.OP ---
Date of Procedure: 03/05/24 Preoperative Diagnosis: GI bleed, constipation Postoperative Diagnosis: Diverticulosis Procedure(s) Performed: Colonoscopy Anesthesia: MAC Surgeon: Cristopher Browne Pathology: none sent Condition: stable Disposition: PACU Description of Procedure: The patient was placed on the endoscopy table in the lateral position. She received IV sedation. Digital rectal exams performed which revealed no abnormalities. The flexible colonoscope was then placed patient anus and passed throughout the entire colon. The ileocecal valve was visualized. The cecum, ascending and transverse colon appeared normal except for few scattered diverticuli. The scope was brought back to the descending and sigmoid colon and there was a few more diverticuli seen. Scope was brought back to the rectum this appeared normal. Scope withdrawn for the patient. There was no evidence of any GI bleed. Presumed patient may have had bleeding from diverticuli.
[2024-03-05 08:28] VITALS: BP 113/73; PULSE 60; RESP 18
== END 2024-03-05 09:10 | disposition home or self-care (01) ==
LOC: ORWHC2ENDO 06:37
PROVIDERS: ATTEND Surgery
DX: K57.31 Diverticulosis of large intestine without perforation or abscess with bleeding (principal); K59.00 Constipation, unspecified; E11.9 Type 2 diabetes mellitus without complications; K21.00 Gastro-esophageal reflux disease with esophagitis, without bleeding; K44.9 Diaphragmatic hernia without obstruction or gangrene; Z79.85 Long-term (current) use of injectable non-insulin antidiabetic drugs; Z79.84 Long term (current) use of oral hypoglycemic drugs; Z91.040 Latex allergy status; Z98.84 Bariatric surgery status
CPT/HCPCS: 45378

== ENCOUNTER → 2024-03-09 | Outpatient (CLI) | payer MEDICARE ==
--- NOTE | 2024-03-09 21:49 | MR ---
EXAMINATION TYPE: MR lumbar spine wo con DATE OF EXAM: 03/09/2024 9:20 PM CLINICAL INDICATION: Female, 68 years old with history of M47.812, M62.81, M65.50; PHH, low back pain , right hip pain COMPARISON: None TECHNIQUE: Multi planar, multi sequence imaging was performed utilizing: T1-weighted, T2-weighted, a nd turbo inversion recovery imaging of the lumbar spine. IV Contrast: cc . (None if empty) FINDINGS: Alignment: The lumbar vertebral bodies have preserved heights with grade 1 anterolisthesis of L4 on L 5. Cord: The conus medullaris and the distal spinal cord appear unremarkable with regards to their signa l intensity and morphology. Bones/Discs: Mild degeneration changes throughout the spine with osteophyte formation and facet joint arthropathy. Intervertebral disc signal is maintained. No abnormal inversion recovery signal to sugg est bony edema. T12-L1: No evidence of significant spinal canal stenosis or neural foraminal stenosis. L1-L2: No evidence of significant spinal canal stenosis or neural foraminal stenosis. L2-L3: No evidence of significant spinal canal stenosis or neural foraminal stenosis. L3-L4: No evidence of significant spinal canal stenosis or neural foraminal stenosis. L4-L5: Disc uncovering from grade 1 anterolisthesis and facet joint arthropathy with mild spinal mehran l stenosis and mild bilateral neural foraminal stenosis. L5-S1: The disc has a rounded posterior morphology without significant spinal canal stenosis. Facet j oint arthropathy with mild bilateral neural foraminal stenosis. No significant spinal canal or neural foraminal stenosis in the remainder of the visualized levels. Other findings: Partially atrophic right kidney. Ectasia of the ascending thoracic aorta 23 mm. IMPRESSION: 1. No definitive evidence of disc herniation or significant spinal canal stenosis. 2. Mild disc degeneration with associated osteoarthritic changes. 3. Grade 1 anterolisthesis of L4 and L5 without significant spinal canal or neural foraminal stenosi lisette [facility], , 03/09/2024 9:47 PM
== END | disposition home or self-care (01) ==
LOC: RADMRIMAIN 20:45
PROVIDERS: ATTEND Orthopaedic Surgery
DX: M43.16 Spondylolisthesis, lumbar region (principal); M62.81 Muscle weakness (generalized); M47.816 Spondylosis without myelopathy or radiculopathy, lumbar region; M51.36 Other intervertebral disc degeneration, lumbar region
CPT/HCPCS: 72148

== ENCOUNTER 2024-04-18 23:11 | Emergency (ER) | payer MEDICARE ==
[2024-04-18 23:20] VITALS: RESP 18
[2024-04-19 00:21] LABS: ALT 19 U/L (4-34); AST 43 U/L (14-36); African American GFR (CKD) 64 (>60 ml/min/1.73 sqM); Albumin 4.4 g/dL (3.5-5.0); Alkaline Phosphatase 55 U/L (38-126); Amylase 73 U/L (30-110); Anion Gap 6 mmol/L; Blood Urea Nitrogen 38 mg/dL (7-17); Carbon Dioxide 26 mmol/L (22-30); Chloride 108 mmol/L (98-107); Glucose 103 mg/dL (74-99); Lipase 161 U/L (23-300); Non-African American GFR(CKD) 56 (>60 ml/min/1.73 sqM); Sodium 140 mmol/L (137-145); Total Protein 8.3 g/dL (6.3-8.2)
[2024-04-19 00:22] LABS: Basophils % (A) 1 %; Eosinophils # (A) 0.1 k/uL (0-0.7); Eosinophils % (A) 2 %; HCT 37.9 % (34.0-46.0); HGB 12.3 gm/dL (11.4-16.0); Lymphocytes # (A) 2.3 k/uL (1.0-4.8); Lymphocytes % (A) 43 %; MCH 28.3 pg (25.0-35.0); MCHC 32.4 g/dL (31.0-37.0); MCV 87.4 fL (80.0-100.0); Mean Platelet Volume 7.2; Monocytes # (A) 0.3 k/uL (0-1.0); Monocytes % (A) 6 %; Neutrophils # (A) 2.4 k/uL (1.3-7.7); Neutrophils % (A) 45 %; Platelet Count 158 k/uL (150-450); RBC 4.34 m/uL (3.80-5.40); RDW 13.7 % (11.5-15.5); WBC 5.3 k/uL (3.8-10.6)
[2024-04-19 00:29] LABS: NT-Pro-B-Type Natriuretic Pept 41 pg/mL
[2024-04-19] MEDS: chlorproMAZINE 25 MG/ML 2 ML AMP IM ONE (00:46)
[2024-04-19 01:08] LABS: Potassium 5.4 mmol/L (3.5-5.1)
[2024-04-19 01:28] LABS: INR 0.9 (<1.2); Prothrombin Time 10.3 sec (10.0-12.5)
[2024-04-19 01:34] LABS: Partial Thromboplastin Time 21.5 sec (22.0-30.0)
--- NOTE | 2024-04-19 01:48 | XR ---
EXAM: XR Chest, 2 Views CLINICAL HISTORY: ITS.REASON XR Reason: Chest Pain TECHNIQUE: Frontal and lateral views of the chest. COMPARISON: No relevant prior studies available. FINDINGS: Lungs: No consolidation or mass. Pleural space: No effusion. Heart: No cardiomegaly. Bones/joints: No acute findings. IMPRESSION: No acute cardiopulmonary process.
--- NOTE | 2024-04-19 02:01 | ED ---
Chest Pain HPI - General Chief Complaint: Chest Pain Stated Complaint: chest pain Time Seen by Provider: 04/19/24 00:08 Source: EMS Mode of arrival: EMS - History of Present Illness Initial Comments: Patient is a 68-year-old woman who presents for evaluation of left-sided chest pains that had come on approximately 9 PM while she was just relaxing. She states the pain lasts a second or 2. It is severe and episodic. She states that it is probably 20 to 30 seconds between episodes. She has not noted worsening or relieving factors. No associated symptoms. MD Complaint: chest pain Onset/Timin -: hour(s) Onset: during rest Pain Location: left chest Pain Radiation: none Severity: severe Quality: other (Sharp spasms) Consistency: intermittent Improves With: nothing Worsens With: nothing Treatments Prior to Arrival: aspirin, nitroglycerin - Related Data Home Medications Medication Instructions Recorded Confirmed Ezetimibe [Zetia] 10 mg PO DAILY 07/14/22 03/03/24 Pioglitazone [Actos] 30 mg PO DAILY 07/14/22 03/03/24 Semaglutide [Ozempic] 2 mg SQ WE 07/14/22 03/03/24 Biotin [Rpic-Naut-Inlkp] 10,000 mcg PO DAILY 08/02/22 03/03/24 Multivitamins, Thera [Multivitamin 1 tab PO DAILY 08/02/22 03/03/24 (formulary)] ALPRAZolam [Xanax] 0.25 mg PO DAILY PRN 09/18/22 03/03/24 Sertraline HCl [Zoloft] 50 mg PO BID 11/19/22 03/03/24 Evolocumab [Repatha Syringe] 0 mg SQ Q14D 01/11/23 03/03/24 Lisinopril-Hctz 10-12.5 mg 1 tab PO QAM 04/09/23 03/03/24 [Zestoretic 10-12.5] Metoprolol Succinate (ER) [Toprol 12.5 mg PO QAM 04/09/23 03/03/24 XL] HYDROcodone/APAP 5-325MG [[place] 1 tab PO HS 03/03/24 03/03/24 5-325] Previous Rx's Medication Instructions Recorded Acetaminophen Tab [Tylenol] 650 mg PO Q6H #30 tab 04/12/23 chlorproMAZINE [Thorazine] 25 mg PO Q6H PRN #12 tablet 04/19/24 diazePAM [Valium] 5 mg PO DAILY PRN 1 Days #2 tab 04/27/24 Allergies Allergy/AdvReac Type Severity Reaction Status Date / Time banana Allergy BLISTERS Verified 04/18/24 23:20 IN MOUTH bee pollen Allergy Anaphylaxis Verified 04/18/24 23:20 bee venom protein (honey bee) Allergy Anaphylaxis Verified 04/18/24 23:20 kiwi Allergy BLISTERS Verified 04/18/24 23:20 IN MOUTH latex Allergy Anaphylaxis, Verified 04/18/24 23:20 Blisters strawberry Allergy blisters Verified 04/18/24 23:20 in mouth ibuprofen AdvReac Unknown Upset Verified 04/18/24 23:20 Stomach metronidazole [From Flagyl] AdvReac Nausea & Verified 04/18/24 23:20 Vomiting & Diarrhea Review of Systems ROS Statement: Those systems with pertinent positive or pertinent negative responses have been documented in the HPI. ROS Other: All systems not noted in ROS Statement are negative. Constitutional: Denies: fever, chills Respiratory: Denies: cough, dyspnea Cardiovascular: Reports: chest pain. Denies: palpitations, edema, syncope Gastrointestinal: Denies: abdominal pain, nausea, vomiting Genitourinary: Denies: dysuria, hematuria Musculoskeletal: Denies: back pain Skin: Denies: rash Neurological: Denies: headache, weakness Past Medical History Past Medical History: Cancer, Diabetes Mellitus, GERD/Reflux, GI Bleed, Hyperlipidemia, Hypertension Additional Past Medical History / Comment(s): Hx diverticulitis, AAA- states not visible now, UTI's, mild sleep apnea-no machine., Gout, barretts esophagus, herniated discs with neck and back pain, uterine cancer with partial hysterectomy, vertigo History of Any Multi-Drug Resistant Organisms: None Reported Past Surgical History: Bariatric Surgery, Bowel Resection, Heart Catheterization , Hysterectomy Additional Past Surgical History / Comment(s): lap band 2009 () , R kidney tumor removed, sheyla carpal tunnel, bone spurs removed from hip and neck, 05/14/14 lap band port replacement (Dr. Jenkins), Lap band removal in 07/08/2017, egd & colonoscopy (07/16/22), Heart cath (2006), Past Anesthesia/Blood Transfusion Reactions: No Reported Reaction Additional Past Anesthesia/Blood Transfusion Reaction / Comment(s): no hx blood transfusion Past Psychological History: Anxiety Smoking Status: Former smoker - Past Family History Mother Family Medical History: Cancer Additional Family Medical History / Comment(s): Poss CA, at age 67 Father Family Medical History: CVA/TIA, Deep Vein Thrombosis (DVT) Additional Family Medical History / Comment(s): from aneurysm at age 62 General Exam General appearance: alert, in no apparent distress Head exam: Present: atraumatic, normocephalic Eye exam: Present: normal appearance. Absent: scleral icterus, conjunctival injection ENT exam: Present: normal oropharynx Neck exam: Present: normal inspection Respiratory exam: Present: normal lung sounds bilaterally. Absent: respiratory distress, wheezes, rales, rhonchi, stridor, chest wall tenderness, accessory muscle use Cardiovascular Exam: Present: regular rate, normal rhythm, normal heart sounds. Absent: systolic murmur, diastolic murmur, rubs, gallop GI/Abdominal exam: Present: soft. Absent: distended, tenderness, guarding, rebound, rigid, mass Extremities exam: Present: normal inspection, normal capillary refill. Absent: pedal edema, calf tenderness Back exam: Present: normal inspection. Absent: CVA tenderness (R), CVA tendern ess (L) Neurological exam: Present: alert Skin exam: Present: warm, dry, intact, normal color. Absent: rash Course Vital Signs 04/18/24 04/19/24 23:15 02:51 Temperature 97.7 F 97.8 F Pulse Rate 67 59 L Respiratory 18 18 Rate Blood Pressure 145/85 122/72 O2 Sat by Pulse 100 98 Oximetry Chest Pain MDM - MDM I did observe the patient have multiple episodes of hiccups or spasm during the exam which brought the patient's pain. These lasted less than a second. The patient is given dose of Thorazine which did resolve the episodes and the patient had no further pains. The patient had chest x-ray that I interpreted as negative for acute infiltrate, pneumothorax, congestive heart failure Was pt. sent in by a medical professional or institution (, PA, OCCUPATIONAL HEALTH NURSE SUPERVISOR, urgent care, hospital, or fpc...) When possible be specific @ -[No] Did you speak to anyone other than the patient for history (EMS, parent, family, police, friend...)? What history was obtained from this source @ -[No] Did you review nursing and triage notes (agree or disagree)? Why? @ -[I reviewed and agree with nursing and triage notes] Were old charts reviewed (outside hosp., previous admission, EMS record, old EKG, old radiological studies, urgent care reports/EKG's, fpc records)? Report findings @ -[No old charts were reviewed] Differential Diagnosis (chest pain, altered mental status, abdominal pain women, abdominal pain men, vaginal bleeding, weakness, fever, dyspnea, syncope, headache, dizziness, GI bleed, back pain, seizure, CVA, palpatations, mental health, musculoskeletal)? @ -[Differential Chest Pain: Stable Angina, Unstable Angina, STEMI, NSTEMI Aortic Dissection, Pneumothorax, Musculoskeletal, Esophageal Spasm GERD, Cholecystitis, Pancreatitis, Zoster, this is not meant to be an all-inclusive list. EKG interpreted by me (3pts min.). @ -[I interpreted as above] X-rays interpreted by me (1pt min.). @ -[I interpreted as above CT interpreted by me (1pt min.). @ -[None done] U/S interpreted by me (1pt. min.). @ -[None done] What testing was considered but not performed or refused? (CT, X-rays, U/S, labs)? Why? @ -[None] What meds were considered but not given or refused? Why? @ -[None] Did you discuss the management of the patient with other professionals (professionals i.e. , PA, OCCUPATIONAL HEALTH NURSE SUPERVISOR, lab, RT, psych nurse, director social welfare, pharmacist manager, teacher, correction officer, case sealer)? Give summary @ -[No] Was smoking cessation discussed for >3mins.? @ -[No] Was critical care preformed (if so, how long)? @ -[No] Were there social determinants of health that impacted care today? How? (Homelessness, low income, unemployed, alcoholism, drug addiction, transportation, low edu. Level, literacy, decrease access to med. care, [place] [facility], rehab)? @ -[No] Was there de-escalation of care discussed even if they declined (Discuss DNR or withdrawal of care, Hospice)? DNR status @ -[No] What co-morbidities impacted this encounter? (DM, HTN, Smoking, COPD, CAD, Cancer, CVA, ARF, Chemo, Hep., AIDS, mental health diagnosis, sleep apnea, morbid obesity)? @ -[None] Was patient admitted / discharged? Hospital course, mention meds given and route, prescriptions, significant lab abnormalities, going to OR and other pertinent info. @ -[As above Undiagnosed new problem with uncertain prognosis? @ -[No] Drug Therapy requiring intensive monitoring for toxicity (Heparin, Nitro, Insulin, Cardizem)? @ -[No] Were any procedures done? @ -[No] Diagnosis/symptom? @ -[Acute chest pain Hiccups Acute, or Chronic, or Acute on Chronic? @ -[Acute Uncomplicated (without systemic symptoms) or Complicated (systemic symptoms)? @ -[Uncomplicated Side effects of treatment? @ -[No] Exacerbation, Progression, or Severe Exacerbation? @ -[No] Poses a threat to life or bodily function? How? (Chest pain, USA, DC, pneumonia, PE, COPD, DKA, ARF, appy, cholecystitis, CVA, Diverticulitis, Homicidal, Suicidal, threat to staff... and all critical care pts) @ -[No] Disposition Clinical Impression: Chest pain Disposition: HOME SELF-CARE Condition: Good Instructions (If sedation given, give patient instructions): Chest Pain (ED) Prescriptions: chlorproMAZINE [Thorazine] 25 mg PO Q6H PRN #12 tablet PRN Reason: Spasms Is patient prescribed a controlled substance at d/c from ED?: No Referrals: Yolanda Young MD [Primary Care Provider] - 1-2 days
[2024-04-19 02:53] VITALS: BP 122/72; PULSE 59; TEMP 97.8
== END 2024-04-19 02:53 | disposition home or self-care (01) ==
LOC: EC 23:11
DX: R07.89 Other chest pain (principal); Z87.891 Personal history of nicotine dependence; Z88.6 Allergy status to analgesic agent; Z88.1 Allergy status to other antibiotic agents; Z91.030 Bee allergy status; Z91.040 Latex allergy status; Z91.018 Allergy to other foods
CPT/HCPCS: 36415 ×2; 93005; 85379; 83880; 80053; 82150; 83690; 83735; 84484; 85025; 85610; 85730; 71046; 99285; 96372; J3230

== ENCOUNTER → 2024-04-27 | Outpatient (CLI) | payer MEDICARE ==
[2024-04-27 12:36] VITALS: BP 114/74; PULSE 86; RESP 16
--- NOTE | 2024-04-27 15:09 | P.PAINPG ---
PQRS Measure Charge Sheet Comment: HISTORY OF PRESENT ILLNESS: A 68 yr old female as a referral from [facility] presents today w severe and chronic LBP > 3 mo secondary to radiculopathy, spondylosis and facet arthropathy without myelopathy for evaluation. Pt states pain level is provoked at 9/10 in intensity, constant, localized in the lower lumbar ppine, predominantly axial, dull in character w occasional shooting pain towards the RLE. Pain is provoked by walking for periods > 20 min. Pain is alleviated by PT x 6 wks which ended in Jan 2024, physician guided home exercises 4 times weekly since Jan 2024, heat, ice, medications ([place]), topical BioFreeze, repositioning and rest . Oswestry axial pain score at 29. PMH: OA, Uterine CA, NIDDM II, GERD, Wilson's Esophagitis, Hyperlipidemia, HTN, Anxiety PSH: LapBand (2009) and removal (2017), R Renal Tumor Resection, BL CTR, Cervical laminectomy (2013), Bowel Resection, Heart Catheterization (2006), Partial Hysterectomy, EGD/ Colonoscopy (2022) SH: Former tobacco user, No ETOH use, No illicit drug use FH: Fa- DVT/ Aneurysm/ at age 62. Mo- CA/ at age 67 All: See list Meds: See list REVIEW OF ORGAN SYSTEMS: CONSTITUTIONAL: No fevers or chills. No recent weight loss. NEUROLOGICAL: + numbness and tingling along the distal extremities. No seizure disorders or headaches. MUSCULOSKELETAL: + pain PSYCHIATRIC: Denies current depression or suicidal thoughts. Physical Examinations : Constitutional : Cooperative , not in acute distress . Neurologic : Cranial nerve II to XII intact. No focal neurological deficits. Psychiatric : alert & oriented x 3. Matching mood & appropriate affect. Judgment & insight intact. Musculoskeletal : Cervical Spine Motor strength in the deltoid and biceps: Normal right side. Normal Left side Motor strength biceps and the wrist extensors: Normal right side . Normal left side Motor strength in the triceps muscle: Normal right side. Normal left side Deep tendon reflexes: Normal at the biceps. Normal at Brachioradialis. Normal at triceps Vertebral body tenderness to deep palpation over Cervical facet loading test: positive bilaterally Spurling test: positive bilaterally Neck distraction test: positive bilaterally Raymond sign: positive bilaterally Lumbar spine Motor strength lower extremities ,thigh and legs 5/5 Right side , 5/5 Left side Deep tendon reflexes : Normal Knee Jerk. Normal Ankle Jerk Vertebral body tenderness over L4 Vargas Test positive BL L4-L5 Lumbar facet Loading Test: positive Right / positive Left Range of motion of the lumbar spine Flexion 30 degrees, extension 10 degrees Straight Leg Raise test: Left/ Right positive at degrees Christie test: positive right / positive left. Severe tenderness over the Sacroiliac joint on the Right / Left sides Gaenslen test: positive bilaterally Seated flexion test: positive bilaterally. Sacral spine : Severe tenderness over the Sacroiliac joint: right side / left side Range of motion: Flexion of the lumbar spine <60 degrees Range of motion: Extension of the lumbar spine <20 degrees Gaenslen's Test positive Christie test: positive right side / left side Thigh Thrust Test Sacral Thrust Test Imaging: MRI no contrast lumbar spine from 03/09/24 reviewed Assessment/ Plan : Lumbar anterolisthesis & radiculopathy Recommendation of BL TFESI L4-L5 #1. Risks, benefits of procedure discussed and patient verbalized understanding. Admits to anti- coagulant use or medical history of diabetes. Protocol for discontinuation/ continuation of medications dorie procedure discussed. All questions answered. I have spent greater than 30 minutes on patient care today. Dr Phillips was available by phone for the evaluation of this patient. The time was used to review the medical records including relevant urine studies and Prescription history (MAPs), review of the available imaging, evaluation and examination of the patient, coordination of care with the medical staff and if applicable referring physicians, as well as creation of the medical record - Pain Location Lower Back Non-Pharmacological Interventions: Heat, Ice, Physical Therapy Pharmacological Interventions: PRN Medication, Scheduled Medication, Topical Medication PQRS Narrative: Smoking Status Former smoker Home Medications: Ambulatory Orders Ezetimibe [Zetia] 10 mg PO DAILY 07/14/22 Pioglitazone [Actos] 30 mg PO DAILY 07/14/22 Semaglutide [Ozempic] 2 mg SQ WE 07/14/22 Biotin [Zwts-Sxhc-Cvxnd] 10,000 mcg PO DAILY 08/02/22 Multivitamins, Thera [Multivitamin (formulary)] 1 tab PO DAILY 08/02/22 ALPRAZolam [Xanax] 0.25 mg PO DAILY PRN 09/18/22 Sertraline HCl [Zoloft] 50 mg PO BID 11/19/22 Evolocumab [Repatha Syringe] 0 mg SQ Q14D 01/11/23 Lisinopril-Hctz 10-12.5 mg [Zestoretic 10-12.5] 1 tab PO QAM 04/09/23 Metoprolol Succinate (ER) [Toprol XL] 12.5 mg PO QAM 04/09/23 Acetaminophen Tab [Tylenol] 650 mg PO Q6H #30 tab 04/12/23 HYDROcodone/APAP 5-325MG [[place] 5-325] 1 tab PO HS 03/03/24 chlorproMAZINE [Thorazine] 25 mg PO Q6H PRN #12 tablet 04/19/24 diazePAM [Valium] 5 mg PO DAILY PRN 1 Days #2 tab 04/27/24 Controlled Substance Measures - Controlled Substance Measures Is patient prescribed a controlled substance at discharge?: Yes When asked, does pt state using other controlled substances?: Yes If prescribed controlled substance>3 days was MAPS reviewed?: Prescribed <3 Days
== END ==
LOC: PNWHC3 11:19
PROVIDERS: ATTEND Specialist
DX: M47.26 Other spondylosis with radiculopathy, lumbar region (principal); M43.16 Spondylolisthesis, lumbar region; Z87.891 Personal history of nicotine dependence; Z91.018 Allergy to other foods; Z91.030 Bee allergy status; Z91.040 Latex allergy status; Z88.6 Allergy status to analgesic agent; Z88.8 Allergy status to other drugs, medicaments and biological substances
CPT/HCPCS: 99211

== ENCOUNTER 2024-05-12 12:42 | Day surgery (SDC) | payer MEDICARE ==
[2024-05-05 16:21] VITALS: BMI 25.4
[~2024-05-12 12:42] MED LIST changes: -ACETAMINOPHEN TAB 500 MG TAB PO PRN; -HEPARIN SODIUM,PORCINE/PF 5,000 UNIT/0.5 ML SYRINGE SQ PRN; +LACTATED RINGERS 1,000 ML IV SCH
[2024-05-12 13:33] VITALS: TEMP 97.2
[2024-05-12 13:34] LABS: Glucose,Whole Blood 124 mg/dL (70-110)
[2024-05-12] MEDS ORDERED: methylPREDNISolone ACETATE 80 MG/ML 1 ML VIAL ONE (14:14)
[2024-05-12] MEDS ORDERED: IOPAMIDOL M200 10 ML VIAL ONE (14:14)
--- NOTE | 2024-05-12 14:28 | P.PCN ---
Date of Procedure: 05/12/24 Procedure(s) Performed: PREOPERATIVE DIAGNOSIS: 1-Lumbar radiculopathy . 2-lumbar degenerative disc disease. 3-lumbar spondylosis with lumbar facet arthropathy without myelopathy. 4-lumbar spinal stenosis POSTOPERATIVE DIAGNOSIS: 1-lumbar radiculopathy. 2-lumbar degenerative disc disease. 3-lumbar spondylosis with facet arthropathy without myelopathy 4-lumbar spinal stenosis PROCEDURE 1. Transforaminal epidural steroid injection under fluoroscopic guidance at bilateral L4-5 level. (Fluoroscopy images stored on file in the radiology Department ) 2. Lumbar epidurogram . ANESTHESIA: Local with 1% lidocaine 3 ml. EBL: Minimal PROCEDURE INDICATION: The patient with low back pain and radiculopathy symptoms unresponsive to conservative treatment. PROCEDURE DESCRIPTION / TECHNIQUE: The patient was seen and identified in the preoperative area. Risks, benefits, complications, and alternatives were discussed with the patient. The patient agreed to proceed with the procedure and signed the consent. IV was started, and vital signs were stable. Patient was taken to the OR and time out was completed. The patient was placed in the prone position on procedure table and a pillow was placed under the abdomen to reduce lumbar lordosis. The lumbosacral area was prepped and draped in the usual sterile fashion. Critical pause was taken. Vital signs were closely monitored during the procedure. Using oblique fluoroscopy, the chin of the `Mee dog at L4-5 level was identified, and the skin and deeper tissues just below was localized with 1% lidocaine. Subsequently, a 22-gauge 3.5-inch spinal needle was advanced under a tunneled view fluoroscopic guidance just underneath the chin of the `Mee dog at the right/left L4-5 Under lateral fluoroscopy, the needle was then advanced to the posterior border of the interforaminal space. After negative aspiration of CSF and blood and with no paresthesias, 1 mL Isovue 200 contrast dye was injected excellent epidurogram and outlining of the nerve root Subsequently, 3 mL of block solution containing 30 mg Depo-Medrol and 2 mL of 0 .9% normal saline PF was injected. Needle was removed and the same procedure was repeated at the Left L4-5 level . At the end of the procedure, skin was cleansed, and bandages were applied. COMPLICATIONS:none DISPOSITION / PLANS: The patient was placed in a supine position and transferred to the recovery area in a stable condition for observation. There was no evidence of lower extremity motor or sensory deficit after the procedure. Patient was discharged from the recovery room after meeting discharge criteria. Home discharge instructions were given to the patient by the staff. The patient was reexamined prior to discharge.
[2024-05-12 14:42] LABS: Glucose,Whole Blood 84 mg/dL (70-110)
[2024-05-12 14:51] VITALS: RESP 14
[2024-05-12 14:55] VITALS: BP 123/62; PULSE 71
--- NOTE | 2024-05-12 15:11 | FL ---
EXAMINATION TYPE: FL guided pain mgmt statistic DATE OF EXAM: 05/12/2024 2:32 PM COMPARISON: Pre Operative Images if available both CT/MRI or plain film CLINICAL INDICATION: Female, 68 years old with history of PAIN; TECHNIQUE: FL guided pain mgmt statistic, multiple fluoroscopic images provided for procedure. Total fluoroscopy time: 7 seconds Total submitted images to PACS: 1 DAP: [id number] mGym2 Gycm2 uGym2 cGycm2 or equivalent. FINDINGS: Fluoroscopic images during injection for pain management demonstrate multilevel degeneration changes throughout the spine. No evidence for fracture. No acute process identified. IMPRESSION: 1. No evidence for intraoperative complication. 2. Please see the operative/procedural note for further details. [facility], Workstation: [facility], 05/12/2024 3:09 PM
== END 2024-05-12 15:20 | disposition home or self-care (01) ==
LOC: ORPAIN 12:42
PROVIDERS: ATTEND Specialist
DX: M51.16 Intervertebral disc disorders with radiculopathy, lumbar region (principal); M47.26 Other spondylosis with radiculopathy, lumbar region; M48.061 Spinal stenosis, lumbar region without neurogenic claudication
CPT/HCPCS: 64483; Q9966; J1010

== ENCOUNTER → 2024-05-13 | Outpatient (CLI) | payer MEDICARE ==
--- NOTE | 2024-05-13 16:45 | MR ---
EXAMINATION TYPE: MR cervical spine wo con DATE OF EXAM: 05/13/2024 4:09 PM COMPARISON: None. CLINICAL INDICATION: Female, 68 years old with history of M50.022 DISC BULGE C5 C6, C5/C6 disc bulge, Neck surgery to remove spurs off left side of neck and Right shoulder 2019 TECHNIQUE: Multiplanar multiecho imaging on a 3.0 Linda magnet is performed through the cervical spin e. IV Contrast: mL (None, if empty) FINDINGS: The craniovertebral junction is normal. Vertebral body alignment is normal. C7-T1: No focal disc herniation or significant disc bulge is evident. No spinal canal stenosis or n eural foraminal stenosis is present. C6-7: Broad-based disc bulge has moderate anterior thecal sac compression. Cord contact along the rig ht paracentral region may be present. No cord deformity is evident. No spinal canal stenosis is prese nt. Moderate bilateral foraminal narrowing is present. C5-6: Anterior cervical fusion C5-6 is evident. No spinal canal stenosis is present. No residual disc bulge is evident. Mild bilateral foraminal narrowing is present. C4-5: No focal disc herniation or significant disc bulge is evident. No spinal canal stenosis or trevor ral foraminal stenosis is present. C3-4: There is a right paracentral disc bulge with mild anterior thecal sac compression. No cord cont act is evident. No spinal canal stenosis is present. Neural foramen are patent. C2-3: There is a right paracentral disc bulge with mild anterior thecal sac compression. No cord cont act is evident. No spinal canal stenosis is present. Neural foramen are patent. IMPRESSION: 1. Broad-based disc bulge at C6-7 is moderate anterior thecal sac compression with possible cord cont act. No cord deformity or spinal canal stenosis is evident. 2. Bilateral foraminal narrowing present at C6-7, C5-6. 3. Mild right paracentral disc bulging with mild anterior thecal sac compression C3-4 and C2-3. No co rd contact or stenosis is evident. [facility], Workstation: [facility], 05/13/2024 4:43 PM
== END | disposition home or self-care (01) ==
LOC: RADMRIMAIN 15:01
PROVIDERS: ATTEND Family Medicine
DX: M50.022 Cervical disc disorder at C5-C6 level with myelopathy (principal); M99.71 Connective tissue and disc stenosis of intervertebral foramina of cervical region
CPT/HCPCS: 72141

== ENCOUNTER 2024-06-08 15:58 | Emergency (ER) | payer MEDICARE ==
[2024-06-08 16:05] VITALS: TEMP 97.7
--- NOTE | 2024-06-08 17:50 | XR ---
EXAMINATION TYPE: XR shoulder complete RT DATE OF EXAM: 06/08/2024 5:41 PM COMPARISON: 06/07/2020 CLINICAL INDICATION: Female, 68 years old with history of fall, TECHNIQUE: XR shoulder complete RT 3 view(s) obtained. FINDINGS: The humeral head articulates with the glenoid. The acromio-clavicular junction is normal. No acute fractures or dislocations are evident. A follow up study can be performed 7-10 days from acute trauma for continued pain. MRI can be perfor med if soft tissue evaluation would be of benefit. IMPRESSION: 1. No acute osseous right shoulder abnormality. [facility], , 06/08/2024 5:48 PM
--- NOTE | 2024-06-08 18:27 | XR ---
EXAMINATION TYPE: XR ribs RT w pa chest xray DATE OF EXAM: 06/08/2024 5:48 PM COMPARISON: 04/19/2024 CLINICAL INDICATION: Female, 68 years old with history of fall, pain TECHNIQUE: 2 view(s) obtained right ribs supplemented with AP chest. FINDINGS: No pneumothorax is evident. There is some streak opacity within the left midlung may be related to so me atelectasis. Heart size is normal. Right ribs appear intact. No displaced rib fractures are identified. IMPRESSION: 1. No acute right rib fractures evident. 2. Atelectasis left mid lung. [facility], , 06/08/2024 6:25 PM
--- NOTE | 2024-06-08 18:29 | XR ---
EXAMINATION TYPE: XR humerus RT DATE OF EXAM: 06/08/2024 5:50 PM COMPARISON: None. CLINICAL INDICATION: Female, 68 years old with history of fall, pain TECHNIQUE: 2 view(s) obtained. FINDINGS: No acute fractures of the humerus are evident. Shoulder and elbow joint spaces appear unremarkable. Follow up exams can be performed 7-10 days from acute trauma for continued pain. IMPRESSION: 1. No acute osseous abnormality right humerus [facility], , 06/08/2024 6:26 PM
--- NOTE | 2024-06-08 19:18 | ED ---
Fall HPI - General Chief Complaint: Fall Stated Complaint: Fall-R arm injury Time Seen by Provider: 06/08/24 18:50 Source: patient Mode of arrival: ambulatory - History of Present Illness Initial Comments: 68-year-old female presenting with chief complaint of right shoulder pain. Patient states that last Saturday she fell onto her shoulder. She did not have much pain afterwards, however she has noticed throughout the week that she is unable to lift it above shoulder height. She denies any numbness tingling or weakness. She gets severe pain from the shoulder to the elbow when she tries to lift her arm. No obvious deformity. She is also having some right-sided rib pain. No difficulty breathing. No cough or fever. No other chest pain. - Related Data Home Medications Medication Instructions Recorded Confirmed Ezetimibe [Zetia] 10 mg PO DAILY 07/14/22 05/12/24 Pioglitazone [Actos] 30 mg PO DAILY 07/14/22 05/12/24 Semaglutide [Ozempic] 2 mg SQ FR 07/14/22 05/12/24 Biotin [Xpbs-Ewin-Glwch] 10,000 mcg PO DAILY 08/02/22 05/12/24 Multivitamins, Thera [Multivitamin 1 tab PO DAILY 08/02/22 05/12/24 (formulary)] ALPRAZolam [Xanax] 0.25 mg PO DAILY PRN 09/18/22 05/12/24 Sertraline HCl [Zoloft] 50 mg PO BID 11/19/22 05/12/24 Evolocumab [Repatha Syringe] 140 mg SQ Q14D 01/11/23 05/12/24 Lisinopril-Hctz 10-12.5 mg 1 tab PO QAM 04/09/23 05/12/24 [Zestoretic 10-12.5] Metoprolol Succinate (ER) [Toprol 12.5 mg PO QAM 04/09/23 05/12/24 XL] HYDROcodone/APAP 5-325MG [[place] 1 tab PO HS 03/03/24 05/12/24 5-325] Acetaminophen Tab [Tylenol] 650 mg PO Q6H PRN 05/06/24 05/12/24 Aspirin [Adult Low Dose Aspirin EC] 81 mg PO DAILY 05/06/24 05/06/24 Previous Rx's Medication Instructions Recorded diazePAM [Valium] 5 mg PO DAILY PRN 1 Days #2 tab 04/27/24 Allergies Allergy/AdvReac Type Severity Reaction Status Date / Time banana Allergy BLISTERS Verified 06/08/24 16:05 IN MOUTH bee pollen Allergy Anaphylaxis Verified 06/08/24 16:05 bee venom protein (honey bee) Allergy Anaphylaxis Verified 06/08/24 16:05 kiwi Allergy BLISTERS Verified 06/08/24 16:05 IN MOUTH latex Allergy Anaphylaxis, Verified 06/08/24 16:05 Blisters strawberry Allergy blisters Verified 06/08/24 16:05 in mouth ibuprofen AdvReac Unknown Upset Verified 06/08/24 16:05 Stomach metronidazole [From Flagyl] AdvReac Nausea & Verified 06/08/24 16:05 Vomiting & Diarrhea Review of Systems ROS Statement: Those systems with pertinent positive or pertinent negative responses have been documented in the HPI. ROS Other: All systems not noted in ROS Statement are negative. Past Medical History Past Medical History: Cancer, Diabetes Mellitus, GERD/Reflux, GI Bleed, Hyperlipidemia, Hypertension, Sleep Apnea/CPAP/BIPAP Additional Past Medical History / Comment(s): Hx diverticulitis, AAA- states not visible now, hx UTI's, mild sleep apnea-no machine, gout, barretts esophagus, herniated discs with neck and back pain, hx uterine cancer with partial hysterectomy, vertigo. History of Any Multi-Drug Resistant Organisms: None Reported Past Surgical History: Bariatric Surgery, Bowel Resection, Heart Catheterization, Hysterectomy Additional Past Surgical History / Comment(s): Partial hysterectomy, lap band 2010, right kidney tumor removed, bilateral carpal tunnel, bone spurs removed from hip and neck, 05/14/14 lap band port replacement, 07/08/27 lap band removal, EGD, colonoscopy. Past Anesthesia/Blood Transfusion Reactions: No Reported Reaction Additional Past Anesthesia/Blood Transfusion Reaction / Comment(s): No hx blood transfusion. Past Psychological History: Anxiety Smoking Status: Former smoker - Past Family History Mother Additional Family Medical History / Comment(s): Possible cancer, at age 67. Father Family Medical History: CVA/TIA, Deep Vein Thrombosis (DVT) Additional Family Medical History / Comment(s): from aneurysm at age 63. General Exam Limitations: no limitations General appearance: alert, in no apparent distress Head exam: Present: atraumatic, normocephalic, normal inspection Eye exam: Present: normal appearance, EOMI Neck exam: Present: normal inspection. Absent: meningismus Respiratory exam: Absent: respiratory distress Cardiovascular Exam: Present: regular rate Right Shoulder Exam: Present: normal inspection, tenderness. Absent: full ROM, swelling Neurological exam: Present: alert, oriented X3 Psychiatric exam: Present: normal affect, normal mood Skin exam: Present: warm, dry Course Vital Signs 06/08/24 06/08/24 16:04 19:55 Temperature 97.7 F Pulse Rate 67 62 Respiratory 18 16 Rate Blood Pressure 105/49 127/68 O2 Sat by Pulse 99 97 Oximetry Medical Decision Making - Medical Decision Making Previous patient of Dr. De La Rosa, she will follow-up with his office Was pt. sent in by a medical professional or institution (, PA, GLAZIER SUPERVISOR, urgent care, hospital, or usp...) When possible be specific @ -No Did you speak to anyone other than the patient for history (EMS, parent, family, police, friend...)? What history was obtained from this source @ -No Did you review nursing and triage notes (agree or disagree)? Why? @ -I reviewed and agree with nursing and triage notes Were old charts reviewed (outside hosp., previous admission, EMS record, old EKG, old radiological studies, urgent care reports/EKG's, usp records)? Report findings @ -No old charts were reviewed Differential Diagnosis (chest pain, altered mental status, abdominal pain women, abdominal pain men, vaginal bleeding, weakness, fever, dyspnea, syncope, headache, dizziness, GI bleed, back pain, seizure, CVA, palpatations, mental health, musculoskeletal)? @ -Differential Musculoskeletal Muscular strain, contusion, ligament sprain, fracture, arthritis, septic arthritis, bursitis, cellulitis, muscle spasm, nerve compression, DVT, arterial occlusion, herpes zoster, electrolyte abnormality, tumor.... This is not meant to be in all inclusive list EKG interpreted by me (3pts min.). @ -As above X-rays interpreted by me (1pt min.). @ -No acute osseous abnormality of the shoulder or humerus. Rib and chest x-ray shows no acute right rib fractures. Atelectasis left midlung CT interpreted by me (1pt min.). @ -None done U/S interpreted by me (1pt. min.). @ -None done What testing was considered but not performed or refused? (CT, X-rays, U/S, labs)? Why? @ -None What meds were considered but not given or refused? Why? @ -None Did you discuss the management of the patient with other professionals (professionals i.e. , PA, GLAZIER SUPERVISOR, lab, RT, psych nurse, vp digital marketing social media and crm, technical support intern, teacher, operations officer trust department, case management associate)? Give summary @ -No Was smoking cessation discussed for >3mins.? @ -No Was critical care preformed (if so, how long)? @ -No Were there social determinants of health that impacted care today? How? (Homelessness, low income, unemployed, alcoholism, drug addiction, transportation, low edu. Level, literacy, decrease access to med. care, half-way, rehab)? @ -No Was there de-escalation of care discussed even if they declined (Discuss DNR or withdrawal of care, Hospice)? DNR status @ -No What co-morbidities impacted this encounter? (DM, HTN, Smoking, COPD, CAD, Cancer, CVA, ARF, Chemo, Hep., AIDS, mental health diagnosis, sleep apnea, morbid obesity)? @ -None Was patient admitted / discharged? Hospital course, mention meds given and route, prescriptions, significant lab abnormalities, going to OR and other pertinent info. @ -68-year-old female presenting with chief complaint of right shoulder pain with limited range of motion after a fall last Saturday. No weakness on exam. She does have increased pain when trying to lift above shoulder height. X-rays are negative for fracture or dislocation. No rib fractures evident on x-ray. Patient is educated on today's findings. She is provided with a shoulder sling and instructed to follow-up with orthopedics. Follow-up with PCP. Report back to ER with any new or worsening symptoms. Discussed return parameters and answered all questions. Patient conveyed verbal understanding and agreed to the plan. I discussed this case in detail with my attending Dr. Giron Undiagnosed new problem with uncertain prognosis? @ -No Drug Therapy requiring intensive monitoring for toxicity (Heparin, Nitro, Insulin, Cardizem)? @ -No Were any procedures done? @ -No Diagnosis/symptom? @ -Shoulder injury Acute, or Chronic, or Acute on Chronic? @ -Acute Uncomplicated (without systemic symptoms) or Complicated (systemic symptoms)? @ -Complicated Side effects of treatment? @ -No Exacerbation, Progression, or Severe Exacerbation? @ -No Poses a threat to life or bodily function? How? (Chest pain, [place], [place], pneumonia, PE, COPD, DKA, ARF, appy, cholecystitis, CVA, Diverticulitis, Homicidal, Suicidal, threat to staff... and all critical care pts) @ -There is a threat to regaining full function if proper follow-up is not adhered to Disposition Clinical Impression: Shoulder injury Disposition: HOME SELF-CARE Condition: Good Instructions (If sedation given, give patient instructions): Rotator Cuff Injury (ED) Additional Instructions: Follow-up with your orthopedist. Report back to ER with any new or worsening symptoms. Is patient prescribed a controlled substance at d/c from ED?: No Referrals: Yolanda Young MD [Primary Care Provider] - 1-2 days Miguelito De La Rosa MD [STAFF PHYSICIAN] - 1-2 days Time of Disposition: 19:17
[2024-06-08] MEDS: ACETAMINOPHEN TAB 325 MG TAB PO STA (19:50)
[2024-06-08 20:01] VITALS: BP 127/68; PULSE 62; RESP 16
== END 2024-06-08 19:55 | disposition home or self-care (01) ==
LOC: EC 15:58
DX: S49.91XA Unspecified injury of right shoulder and upper arm, initial encounter (principal); Z87.891 Personal history of nicotine dependence; Z91.030 Bee allergy status; Z91.018 Allergy to other foods; Z88.6 Allergy status to analgesic agent; Z88.8 Allergy status to other drugs, medicaments and biological substances; W19.XXXA Unspecified fall, initial encounter
CPT/HCPCS: 71101; 73030; 73060; 99283; L3670

== ENCOUNTER → 2024-06-15 | Outpatient (CLI) | payer MEDICARE ==
[2024-06-15 11:53] VITALS: BP 105/57; PULSE 69; RESP 16; TEMP 97.2
--- NOTE | 2024-06-15 17:18 | P.PAINPG ---
PQRS Measure Charge Sheet Comment: HISTORY OF PRESENT ILLNESS: A 68 yr old female presents today w severe and chronic LBP > 3 mo secondary to radiculopathy, spondylosis and facet arthropathy without myelopathy for evaluation s/p BL TFESI L4-L5 #1. Pt states she experienced 90 % pain relief x 3-4 wks s/p procedure. Pt states pain level is provoked at 2 /10 in intensity, constant, localized in the lower lumbar ppine, predominantly axial, dull in character w occasional shooting pain towards the RLE. Pain is provoked by walking for periods > 20 min. Pain is alleviated by PT x 6 wks which ended in Jan 2024, physician guided home exercises 4 times weekly since Jan 2024, heat, ice, medications, topical, repositioning and rest . Interventional procedures include BL TFESI L4-L5 x1 Medications include Carleton, BioFreeze REVIEW OF ORGAN SYSTEMS: CONSTITUTIONAL: No fevers or chills. No recent weight loss. NEUROLOGICAL: + numbness and tingling along the distal extremities. No seizure disorders or headaches. MUSCULOSKELETAL: + pain PSYCHIATRIC: Denies current depression or suicidal thoughts. Physical Examinations : Constitutional : Cooperative , not in acute distress . Neurologic : Cranial nerve II to XII intact. No focal neurological deficits. Psychiatric : alert & oriented x 3. Matching mood & appropriate affect. Judgment & insight intact. Musculoskeletal : Cervical Spine Motor strength in the deltoid and biceps: Normal right side. Normal Left side Motor strength biceps and the wrist extensors: Normal right side . Normal left side Motor strength in the triceps muscle: Normal right side. Normal left side Deep tendon reflexes: Normal at the biceps. Normal at Brachioradialis. Normal at triceps Vertebral body tenderness to deep palpation over Cervical facet loading test: positive bilaterally Spurling test: positive bilaterally Neck distraction test: positive bilaterally Raymond sign: positive bilaterally Lumbar spine Motor strength lower extremities ,thigh and legs 5/5 Right side , 5/5 Left side Deep tendon reflexes : Normal Knee Jerk. Normal Ankle Jerk Vertebral body tenderness over L4 Vargas Test positive BL L4-L5 Lumbar facet Loading Test: positive Right / positive Left Range of motion of the lumbar spine Flexion 30 degrees, extension 10 degrees Straight Leg Raise test: Left/ Right positive at degrees Christie test: positive right / positive left. Severe tenderness over the Sacroiliac joint on the Right / Left sides Gaenslen test: positive bilaterally Seated flexion test: positive bilaterally. Sacral spine : Severe tenderness over the Sacroiliac joint: right side / left side Range of motion: Flexion of the lumbar spine <60 degrees Range of motion: Extension of the lumbar spine <20 degrees Gaenslen's Test positive Christie test: positive right side / left side Thigh Thrust Test Sacral Thrust Test Imaging: MRI no contrast lumbar spine from 03/09/24 reviewed Assessment/ Plan : Lumbar anterolisthesis & radiculopathy Will manage residual pain and may RTC on an as needed basis. All questions answered. I have spent greater than 30 minutes on patient care today. Dr Phillips was available by phone for the evaluation of this patient. The time was used to review the medical records including relevant urine studies and Prescription history (MAPs), review of the available imaging, evaluation and examination of the patient, coordination of care with the medical staff and if applicable referring physicians, as well as creation of the medical record PQRS Narrative: Smoking Status Former smoker Hx Alcohol Use (MH) No Home Medications: Ambulatory Orders Ezetimibe [Zetia] 10 mg PO DAILY 07/14/22 Pioglitazone [Actos] 30 mg PO DAILY 07/14/22 Semaglutide [Ozempic] 2 mg SQ FR 07/14/22 Biotin [Heya-Bhes-Djmdq] 10,000 mcg PO DAILY 08/02/22 Multivitamins, Thera [Multivitamin (formulary)] 1 tab PO DAILY 08/02/22 ALPRAZolam [Xanax] 0.25 mg PO DAILY PRN 09/18/22 Sertraline HCl [Zoloft] 50 mg PO BID 11/19/22 Evolocumab [Repatha Syringe] 140 mg SQ Q14D 01/11/23 Lisinopril-Hctz 10-12.5 mg [Zestoretic 10-12.5] 1 tab PO QAM 04/09/23 Metoprolol Succinate (ER) [Toprol XL] 12.5 mg PO QAM 04/09/23 HYDROcodone/APAP 5-325MG [Carleton 5-325] 1 tab PO HS 03/03/24 diazePAM [Valium] 5 mg PO DAILY PRN 1 Days #2 tab 04/27/24 Acetaminophen Tab [Tylenol] 650 mg PO Q6H PRN 05/06/24 Aspirin [Adult Low Dose Aspirin EC] 81 mg PO DAILY 05/06/24 Controlled Substance Measures - Controlled Substance Measures Is patient prescribed a controlled substance at discharge?: No
== END ==
LOC: PNWHC3 09:57
PROVIDERS: ATTEND Specialist
DX: M43.16 Spondylolisthesis, lumbar region (principal); M54.16 Radiculopathy, lumbar region; Z91.018 Allergy to other foods; Z91.030 Bee allergy status; Z91.040 Latex allergy status; Z88.6 Allergy status to analgesic agent; Z88.8 Allergy status to other drugs, medicaments and biological substances; Z87.891 Personal history of nicotine dependence
CPT/HCPCS: 99211

== ENCOUNTER → 2024-06-30 | Outpatient (CLI) | payer MEDICARE ==
--- NOTE | 2024-06-30 11:00 | MR ---
EXAMINATION TYPE: MR shoulder RT wo con DATE OF EXAM: 06/30/2024 10:33 AM COMPARISON: None. CLINICAL INDICATION: Female, 68 years old with history of M25.511 PAIN IN RIGHT SHOULDER, Right shoul gabriel pain, S/P fall on ice 3 weeks ago. TECHNIQUE: Multiplanar, multisequence imaging of the right shoulder is performed without contrast. FINDINGS: Rotator Cuff: There is a partial through thickness tear at the musculotendinous junction of the supra spinatus tendon measuring 6 mm. There is a full-thickness partial tear of the anterior fibers of the supraspinatus tendon at its insertion measuring 11 mm. Diffuse tendinopathy is seen distally. Small a mount of fluid in the subacromial subdeltoid bursa. Subscapularis is intact. Infraspinatus demonstrates no through thickness tear but there is increased edema at the anterior fibers near the conjoined portion of the tendon compatible with mild tendinosis . Acromioclavicular Joint: Mild hypertrophic AC joint arthropathy. Glenohumeral Joint: Somewhat high riding position of the humeral head can be a secondary indicator of rotator cuff disease. Inferior glenohumeral ligament intact. No sizable joint effusion. Labrum: The labrum appears grossly intact given limitation of non-arthrogram study. Biceps Tendon: The long head of biceps is in normal location within bicipital groove. Small amount of fluid surrounding the tendon could be associated with bicipital tendinosis. Bone marrow signal: Area of marrow edema is somewhat linear in configuration involving the humeral he ad may be related to prior trauma or surgery. IMPRESSION: 1. There is a partial through thickness tear measuring 11 mm in the anterior fibers of the supraspina tus tendon. There is an additional 6 mm partial through thickness tear of the musculotendinous juncti on of the supraspinatus tendon. 2. Mild tendinosis distal anterior fibers infraspinatus tendon with no evidence of through thickness tear. 3. Nonspecific edema involving the humeral head likely in the basis of either prior surgery or trauma . Mild flattening of the superolateral humeral head may be related to the impaction microtrabecular f racture correlate clinically. 4. Bicipital tendinosis. [facility], , 06/30/2024 10:58 AM
== END | disposition home or self-care (01) ==
LOC: RADMRIMAIN 09:54
PROVIDERS: ATTEND Family Medicine
DX: M75.111 Incomplete rotator cuff tear or rupture of right shoulder, not specified as traumatic (principal); M67.813 Other specified disorders of tendon, right shoulder; R60.9 Edema, unspecified

== ENCOUNTER → 2024-09-04 | Outpatient (CLI) | payer MEDICARE ==
--- NOTE | 2024-09-04 10:17 | XR ---
EXAMINATION TYPE: XR chest 2V DATE OF EXAM: 09/04/2024 9:47 AM COMPARISON: Chest radiographs from 06/08/2024, 09/26/2023 TECHNIQUE: XR chest 2V Frontal and lateral views of the chest. CLINICAL INDICATION:Female, 68 years old with history of PRE OP CLEARANCE; FINDINGS: Lungs/Pleura: There is no evidence of pleural effusion, focal consolidation, or pneumothorax. Pulmonary vascularity: Unremarkable. Heart/mediastinum: Cardiomediastinal silhouette is unremarkable. Atherosclerotic calcifications are seen in the aorta. Musculoskeletal: No acute osseous pathology. Cervical fusion hardware. Other: Cholecystectomy clips in the right upper quadrant. IMPRESSION: No acute cardiopulmonary disease/process. [facility], , 09/04/2024 10:15 AM
--- NOTE | 2024-09-04 11:11 | CT ---
EXAMINATION TYPE: CT shoulder RT wo con DATE OF EXAM: 09/04/2024 COMPARISON: None. CLINICAL INDICATION: Female, 68 years old with history of R shoulder OA; [facility], RT SHOULDER ARTHREX PRO TOCOL. CT DLP: 291 mGycm Automated exposure control for dose reduction was used. FINDINGS: Mild to moderate narrowing at the acromioclavicular joint is present with mild/moderate capsular hype rtrophy. Some underlying impingement may be present. Correlate clinically. Glenohumeral joint shows normal version. No significant spurring is seen. No large effusion is presen t. There appears to be moderate generalized atrophy of the supraspinatus muscle bulk. Remainder rotator cuff muscle bulk is preserved. Axillary region is unremarkable. Visualized right lung is unremarkable. There is anterior fusion plate and artificial disc material at the C6-C7 level. There is moderate disc space narrowing and anterior spurring at the C7-T1 level. IMPRESSION: As above. [facility], , 09/04/2024 11:09 AM
== END | disposition home or self-care (01) ==
LOC: RADCTMAIN 08:53
PROVIDERS: ATTEND Student in an Organized Health Care Education/Training Program
DX: M75.121 Complete rotator cuff tear or rupture of right shoulder, not specified as traumatic (principal); I70.0 Atherosclerosis of aorta
CPT/HCPCS: 71046

== ENCOUNTER 2024-11-13 11:39 | Emergency (ER) | payer MEDICARE ==
--- NOTE | 2024-11-13 12:23 | ED ---
General Adult HPI - General Chief complaint: Weakness Stated complaint: Weakness Time Seen by Provider: 11/13/24 11:57 Source: patient, RN notes reviewed Mode of arrival: ambulatory Limitations: no limitations - History of Present Illness Initial comments: This is a 68-year-old female with history including DM, diverticulitis, GI bleed and bowel resection presenting for lower abdominal pain (03/19) x 2 weeks. Patient states pain is intermittent with associated diarrhea, weakness, decreased urinary output and decreased appetite. Patient states she had a fever last night. Denies chills, chest pain, dyspnea, hematochezia, melena, dysuria. Onset/Timin -: week(s) Location: abdomen Severity scale (1-10): 10 Associated Symptoms: fever/chills, loss of appetite, weakness - Related Data Home Medications Medication Instructions Recorded Confirmed Ezetimibe [Zetia] 10 mg PO DAILY 07/14/22 11/13/24 Pioglitazone [Actos] 30 mg PO DAILY 07/14/22 11/13/24 Semaglutide [Ozempic] 2 mg SQ MO 07/14/22 11/13/24 Sertraline HCl [Zoloft] 50 mg PO BID 11/19/22 11/13/24 Evolocumab [Repatha Syringe] 140 mg SQ Q14D 01/11/23 11/13/24 Metoprolol Succinate (ER) [Toprol 12.5 mg PO DAILY 04/09/23 11/13/24 XL] HYDROcodone/APAP 5-325MG [[place] 1 tab PO TID PRN 03/03/24 11/13/24 5-325] Aspirin [Adult Low Dose Aspirin EC] 81 mg PO DAILY 05/06/24 11/13/24 Isosorbide Mononitrate ER [Imdur] 30 mg PO DAILY 11/13/24 11/13/24 lisinopriL [Zestril] 20 mg PO HS 11/13/24 11/13/24 Allergies Allergy/AdvReac Type Severity Reaction Status Date / Time banana Allergy BLISTERS Verified 11/13/24 14:48 IN MOUTH bee pollen Allergy Anaphylaxis Verified 11/13/24 14:48 bee venom protein (honey bee) Allergy Anaphylaxis Verified 11/13/24 14:48 kiwi Allergy BLISTERS Verified 11/13/24 14:48 IN MOUTH latex Allergy Anaphylaxis, Verified 11/13/24 14:48 Blisters strawberry Allergy blisters Verified 11/13/24 14:48 in mouth ibuprofen AdvReac Unknown Upset Verified 11/13/24 14:48 Stomach metronidazole [From Flagyl] AdvReac Nausea & Verified 11/13/24 14:48 Vomiting & Diarrhea Review of Systems ROS Statement: Those systems with pertinent positive or pertinent negative responses have been documented in the HPI. ROS Other: All systems not noted in ROS Statement are negative. Past Medical History Past Medical History: Cancer, Diabetes Mellitus, GERD/Reflux, GI Bleed, Hyperlipidemia, Hypertension, Sleep Apnea/CPAP/BIPAP Additional Past Medical History / Comment(s): Hx diverticulitis, AAA- states not visible now, hx UTI's, mild sleep apnea-no machine, gout, barretts esophagus, herniated discs with neck and back pain, hx uterine cancer with partial hyst erectomy, vertigo. History of Any Multi-Drug Resistant Organisms: None Reported Past Surgical History: Bariatric Surgery, Bowel Resection, Heart Rabia terization, Hysterectomy Additional Past Surgical History / Comment(s): Partial hysterectomy, lap band 2010, right kidney tumor removed, bilateral carpal tunnel, bone spurs removed from hip and neck, 05/14/14 lap band port replacement, 07/08/27 lap band removal, EGD, colonoscopy. Pain clinic Procedure Past Anesthesia/Blood Transfusion Reactions: No Reported Reaction Additional Past Anesthesia/Blood Transfusion Reaction / Comment(s): No hx blood transfusion. Past Psychological History: Anxiety Smoking Status: Former smoker Past Alcohol Use History: None Reported Past Drug Use History: None Reported - Past Family History Mother Additional Family Medical History / Comment(s): Possible cancer, at age 67. Father Family Medical History: CVA/TIA, Deep Vein Thrombosis (DVT) Additional Family Medical History / Comment(s): from aneurysm at age 63. General Exam Limitations: no limitations General appearance: alert, in no apparent distress Head exam: Present: atraumatic, normocephalic, normal inspection Eye exam: Present: normal appearance, PERRL, EOMI. Absent: scleral icterus, conjunctival injection, periorbital swelling ENT exam: Present: normal exam, mucous membranes moist Neck exam: Present: normal inspection. Absent: tenderness, meningismus, lymphadenopathy Respiratory exam: Present: normal lung sounds bilaterally. Absent: respiratory distress, wheezes, rales, rhonchi, stridor Cardiovascular Exam: Present: regular rate, normal rhythm, normal heart sounds. Absent: systolic murmur, diastolic murmur, rubs, gallop, clicks GI/Abdominal exam: Present: soft, tenderness (Positive LLQ and suprapubic TTP with voluntary guarding), guarding (Voluntary), rebound, normal bowel sounds. Absent: distended, rigid Extremities exam: Present: normal inspection, full ROM, normal capillary refill. Absent: tenderness, pedal edema, joint swelling, calf tenderness Back exam: Present: normal inspection Neurological exam: Present: alert, oriented X3, CN II-XII intact Psychiatric exam: Present: normal affect, normal mood Skin exam: Present: warm, dry, intact, normal color. Absent: rash Course Vital Signs 11/13/24 11/13/24 11/13/24 11:56 13:51 14:27 Temperature 97.7 F 98.5 F 97.9 F Pulse Rate 84 75 64 Respiratory 18 18 18 Rate Blood Pressure 98/63 88/61 106/55 O2 Sat by Pulse 97 99 100 Oximetry 11/13/24 15:08 Temperature 98.0 F Pulse Rate 63 Respiratory 14 Rate Blood Pressure 104/53 O2 Sat by Pulse 97 Oximetry Medical Decision Making - Medical Decision Making Was pt. sent in by a medical professional or institution (KWAME Kruse, RUG RECEIVING CLERK, urgent care, hospital, or [facility]...) When possible be specific @ -No Did you speak to anyone other than the patient for history (EMS, parent, family, police, friend...)? What history was obtained from this source @ -No Did you review nursing and triage notes (agree or disagree)? Why? @ -I reviewed and agree with nursing and triage notes Were old charts reviewed (outside hosp., previous admission, EMS record, old EKG, old radiological studies, urgent care reports/EKG's, [facility] records)? Report findings @ -No old charts were reviewed Differential Diagnosis (chest pain, altered mental status, abdominal pain women, abdominal pain men, vaginal bleeding, weakness, fever, dyspnea, syncope, headache, dizziness, GI bleed, back pain, seizure, CVA, palpatations, mental health, musculoskeletal)? @ -Differential Abdominal Pain Women: Appendicitis, Cholecystitis, diverticulosis, ischemic bowel, pancreatitis, hepatitis, UTI, gastroenteritis, AAA, incarcerated hernia, bowel obstruction, constipation, inflammatory bowel, hepatitis, peptic ulcer disease, splenic infarction, perforated viscus, vulvitis, ovarian torsion, PID, kidney stone, placenta abruption, this is not meant to be an all-inclusive list EKG interpreted by me (3pts min.). @ -Not done X-rays interpreted by me (1pt min.). @ -None done CT interpreted by me (1pt min.). @ -AP CT shows postsurgical changes without evidence of acute abdominal/pelvic process with scattered colonic diverticula without diverticulitis. U/S interpreted by me (1pt. min.). @ -None done What testing was considered but not performed or refused? (CT, X-rays, U/S, labs)? Why? @ -None What meds were considered but not given or refused? Why? @ -None Did you discuss the management of the patient with other professionals (professionals i.e. , PA, RUG RECEIVING CLERK, lab, RT, psych nurse, social work assistant, deputy director of nursing, teacher, tactical response group officer, case hardener)? Give summary @ -No Was smoking cessation discussed for >3mins.? @ -No Was critical care preformed (if so, how long)? @ -No Were there social determinants of health that impacted care today? How? (Homelessness, low income, unemployed, alcoholism, drug addiction, transportation, low edu. Level, literacy, decrease access to med. care, fci, rehab)? @ -No Was there de-escalation of care discussed even if they declined (Discuss DNR or withdrawal of care, Hospice)? DNR status @ -No What co-morbidities impacted this encounter? (DM, HTN, Smoking, COPD, CAD, Cancer, CVA, ARF, Chemo, Hep., AIDS, mental health diagnosis, sleep apnea, morbid obesity)? @ -None Was patient admitted / discharged? Hospital course, mention meds given and route, prescriptions, significant lab abnormalities, going to OR and other pertinent info. @ -Lab work shows stable CKD, glucose 132. Unremarkable WBC 4.70, LFT, lactic acid, amylase/lipase. UA shows contaminated urine. AP CT shows postsurgical changes without evidence of acute abdominal/pelvic process with scattered colonic diverticula without diverticulitis. Patient provided IV normal saline for dehydration. Advised brat diet and increase oral rehydration with water and Gatorade/Pedialyte. Follow-up with PCP for any ongoing symptoms. Discussed patient with Dr. Coyle. Undiagnosed new problem with uncertain prognosis? @ -No Drug Therapy requiring intensive monitoring for toxicity (Heparin, Nitro, Insulin, Cardizem)? @ -No Were any procedures done? @ -No Diagnosis/symptom? @ -Enteritis, dehydration Acute, or Chronic, or Acute on Chronic? @ -Acute Uncomplicated (without systemic symptoms) or Complicated (systemic symptoms)? @ -Complicated Side effects of treatment? @ -No Exacerbation, Progression, or Severe Exacerbation? @ -No Poses a threat to life or bodily function? How? (Chest pain, [place], [place], pneumonia, PE, COPD, DKA, ARF, appy, cholecystitis, CVA, Diverticulitis, Homicidal, Suicidal, threat to staff... and all critical care pts) @ -No - Lab Data Result diagrams: 11/13/24 12:38 11/13/24 12:38 Lab Results 11/13/24 11/13/24 11/13/24 Range/Units 12:38 12:38 12:38 WBC 4.70 (4.50-10.00) 10*3/uL RBC 4.35 (4.10-5.20) 10*6/uL Hgb 11.8 L (12.0-15.0) g/dL Hct 36.7 L (37.2-46.3) % MCV 84.4 (80.0-97.0) fL MCH 27.1 (27.0-32.0) pg MCHC 32.2 (32.0-37.0) g/dL Plt Count 197 (140-440) 10*3/uL MPV 10.6 (9.5-12.2) fL Immature Gran % (Auto) 0.2 % Neutrophils % 57.7 % Lymphocytes % 33.2 % Monocytes % 7.2 % Eosinophils % 1.3 % Basophils % 0.4 % Immature Gran # 0.01 (0.00-0.04) 10*3/uL Neutrophils # 2.71 (1.80-7.70) 10*3/uL Lymphocytes # 1.56 (0.90-5.00) 10*3/uL Monocytes # 0.34 (0.20-1.00) 10*3/uL Eosinophils # 0.06 (0.04-0.35) 10*3/uL Basophils # 0.02 (0.00-0.10) 10*3/uL Sodium 138 (137-145) mmol/L Potassium 4.4 (3.5-5.1) mmol/L Chloride 100 (98-107) mmol/L Carbon Dioxide 28 (22-30) mmol/L Anion Gap 10 mmol/L BUN 35 H (7-17) mg/dL Creatinine 1.09 H (0.52-1.04) mg/dL Est GFR (CKD-EPI)AfAm 61 (>60 ml/min/1.73 sqM) Est GFR (CKD-EPI)NonAf 53 (>60 ml/min/1.73 sqM) Glucose 132 H (74-99) mg/dL Plasma Lactic Acid Ej 0.7 (0.7-2.0) mmol/L Calcium 10.1 (8.4-10.2) mg/dL Total Bilirubin 0.4 (0.2-1.3) mg/dL AST 26 (14-36) U/L ALT 13 (4-34) U/L Alkaline Phosphatase 64 (38-126) U/L Total Protein 8.2 (6.3-8.2) g/dL Albumin 4.5 (3.5-5.0) g/dL Amylase 70 (30-110) U/L Lipase 137 (23-300) U/L Urine Color Urine Appearance (Clear) Urine pH (5.0-8.0) Ur Specific [place] (1.001-1.035) Urine Protein (Negative) Urine Glucose (UA) (Negative) Urine Ketones (Negative) Urine Blood (Negative) Urine Nitrite (Negative) Urine Bilirubin (Negative) Urine Urobilinogen (<2.0) mg/dL Ur Leukocyte Esterase (Negative) Urine RBC (0-5) /hpf Urine WBC (0-5) /hpf Ur Squamous Epith Cells (0-4) /hpf Urine Bacteria (None) /hpf Hyaline Casts (0-2) /lpf Urine Mucus (None) /hpf 11/13/24 Range/Units 13:04 WBC (4.50-10.00) 10*3/uL RBC (4.10-5.20) 10*6/uL Hgb (12.0-15.0) g/dL Hct (37.2-46.3) % MCV (80.0-97.0) fL MCH (27.0-32.0) pg MCHC (32.0-37.0) g/dL Plt Count (140-440) 10*3/uL MPV (9.5-12.2) fL Immature Gran % (Auto) % Neutrophils % % Lymphocytes % % Monocytes % % Eosinophils % % Basophils % % Immature Gran # (0.00-0.04) 10*3/uL Neutrophils # (1.80-7.70) 10*3/uL Lymphocytes # (0.90-5.00) 10*3/uL Monocytes # (0.20-1.00) 10*3/uL Eosinophils # (0.04-0.35) 10*3/uL Basophils # (0.00-0.10) 10*3/uL Sodium (137-145) mmol/L Potassium (3.5-5.1) mmol/L Chloride (98-107) mmol/L Carbon Dioxide (22-30) mmol/L Anion Gap mmol/L BUN (7-17) mg/dL Creatinine (0.52-1.04) mg/dL Est GFR (CKD-EPI)AfAm (>60 ml/min/1.73 sqM) Est GFR (CKD-EPI)NonAf (>60 ml/min/1.73 sqM) Glucose (74-99) mg/dL Plasma Lactic Acid Ej (0.7-2.0) mmol/L Calcium (8.4-10.2) mg/dL Total Bilirubin (0.2-1.3) mg/dL AST (14-36) U/L ALT (4-34) U/L Alkaline Phosphatase (38-126) U/L Total Protein (6.3-8.2) g/dL Albumin (3.5-5.0) g/dL Amylase (30-110) U/L Lipase (23-300) U/L Urine Color Light Yellow Urine Appearance Cloudy H (Clear) Urine pH 5.5 (5.0-8.0) Ur Specific [place] 1.018 (1.001-1.035) Urine Protein Negative (Negative) Urine Glucose (UA) Negative (Negative) Urine Ketones Negative (Negative) Urine Blood Negative (Negative) Urine Nitrite Negative (Negative) Urine Bilirubin Negative (Negative) Urine Urobilinogen <2.0 (<2.0) mg/dL Ur Leukocyte Esterase Large H (Negative) Urine RBC 5 (0-5) /hpf Urine WBC 9 H (0-5) /hpf Ur Squamous Epith Cells 41 H (0-4) /hpf Urine Bacteria Rare H (None) /hpf Hyaline Casts 6 H (0-2) /lpf Urine Mucus Rare H (None) /hpf Disposition Clinical Impression: Dehydration, Enteritis Disposition: HOME SELF-CARE Condition: Fair Instructions (If sedation given, give patient instructions): Dehydration (ED), Acute Diarrhea (ED) Additional Instructions: Increase intake of water and Gatorade/Pedialyte. Bananas, rice, applesauce, tea, toast. Follow-up with PCP for any ongoing symptoms. Return to ER if experiencing worsening symptoms. Is patient prescribed a controlled substance at d/c from ED?: No Referrals: Yolanda Young MD [Primary Care Provider] - 1-2 days Time of Disposition: 15:21
[2024-11-13 12:54] LABS: Basophils # (A) 0.02 10*3/uL (0.00-0.10); Basophils % (A) 0.4 %; Eosinophils # (A) 0.06 10*3/uL (0.04-0.35); Eosinophils % (A) 1.3 %; HCT 36.7 % (37.2-46.3); HGB 11.8 g/dL (12.0-15.0); Lymphocytes # (A) 1.56 10*3/uL (0.90-5.00); Lymphocytes % (A) 33.2 %; MCH 27.1 pg (27.0-32.0); MCHC 32.2 g/dL (32.0-37.0); MCV 84.4 fL (80.0-97.0); Mean Platelet Volume 10.6 fL (9.5-12.2); Monocytes # (A) 0.34 10*3/uL (0.20-1.00); Monocytes % (A) 7.2 %; Neutrophils # (A) 2.71 10*3/uL (1.80-7.70); Neutrophils % (A) 57.7 %; Platelet Count 197 10*3/uL (140-440); RBC 4.35 10*6/uL (4.10-5.20); RDW 12.8 % (11.5-14.5)
[2024-11-13 13:07] LABS: ALT 13 U/L (4-34); AST 26 U/L (14-36); African American GFR (CKD) 61 (>60 ml/min/1.73 sqM); Albumin 4.5 g/dL (3.5-5.0); Alkaline Phosphatase 64 U/L (38-126); Amylase 70 U/L (30-110); Anion Gap 10 mmol/L; Blood Urea Nitrogen 35 mg/dL (7-17); Calcium 10.1 mg/dL (8.4-10.2); Carbon Dioxide 28 mmol/L (22-30); Chloride 100 mmol/L (98-107); Glucose 132 mg/dL (74-99); Lipase 137 U/L (23-300); Non-African American GFR(CKD) 53 (>60 ml/min/1.73 sqM); Potassium 4.4 mmol/L (3.5-5.1); Sodium 138 mmol/L (137-145); Total Bilirubin 0.4 mg/dL (0.2-1.3); Total Protein 8.2 g/dL (6.3-8.2)
[2024-11-13 13:23] LABS: Appearance,Urine Cloudy (Clear); Bacteria,Urine Rare /hpf; Bilirubin,Urine Negative (Negative); Blood,Urine Negative (Negative); Color,Urine Light Yellow; Glucose,Urine (UA) Negative (Negative); Hyaline Casts,Urine 6 /lpf (0-2); Ketones,Urine Negative (Negative); Leukocyte Esterase,Urine Large (Negative); Mucus,Urine Rare /hpf; Nitrite,Urine Negative (Negative); PH, Urine 5.5 (5.0-8.0); Protein,Urine Negative (Negative); RBC,Urine 5 /hpf (0-5); Specific Gravity,Urine 1.018 (1.001-1.035); Squamous Epithelial Cell,Urine 41 /hpf (0-4); Urobilinogen,Urine <2.0 mg/dL (<2.0); WBC,Urine 9 /hpf (0-5)
[2024-11-13] MEDS: SODIUM CHLORIDE 0.9% 1,000 ML IV STA (13:56)
--- NOTE | 2024-11-13 13:56 | CT ---
EXAMINATION TYPE: CT abdomen pelvis w con CT DLP: 673.8 mGycm, Automated exposure control for dose reduction was used. DATE OF EXAM: 11/13/2024 1:44 PM COMPARISON: CT abdomen pelvis 12/01/2023, 09/26/2023 CLINICAL INDICATION:Female, 68 years old with history of Lower abdominal pain, history of diverticuli tis; abdominal pain, diarrhea and hx of diverticulitis. TECHNIQUE: Standard CT of the abdomen and pelvis following the administration of 80 cc of Isovue 30 0 IV contrast material. Coronal and sagittal reformats were performed. FINDINGS: LOWER CHEST: Bilateral lower lobe linear scarring and/or atelectasis. Right middle lobe stable 3.1 mm pulmonary nodule. Consider benign due to stability. No follow-up recommended. ABDOMEN LIVER: Unremarkable GALLBLADDER AND BILE DUCTS: The gallbladder is surgically absent. PANCREAS: Unremarkable. SPLEEN: Unremarkable. ADRENAL GLANDS: Unremarkable. KIDNEYS AND URETERS: No evidence of hydronephrosis or renal calculus. Similar postsurgical changes ve rsus insult with atrophic appearance of the superior pole of the right kidney. No new suspicious mass . Contrast is demonstrated within both collecting systems on the delayed phase. PELVIS BLADDER: Underdistended but grossly unremarkable. REPRODUCTIVE: The uterus is surgically absent. ABDOMEN & PELVIS STOMACH AND BOWEL: Postsurgical changes of the GE junction from hiatal hernia repair. No evidence for recurrent hernia.Postsurgical changes with anastomosis involving the rectosigmoid junction. No suspi cious soft tissue within this region. Few scattered colonic diverticula without evidence for acute di verticulitis. No focal bowel wall thickening or surrounding inflammatory changes. No evidence of adwoa l obstruction. PERITONEUM: No evidence of pneumoperitoneum or free fluid. VASCULATURE: Mild to moderate atherosclerotic calcifications are present throughout the abdominal aor ta and its branches. No evidence of aortic aneurysm. MUSCULOSKELETAL: No acute osseous abnormalities. Few scattered stable benign bone islands. LYMPH NODES: No evidence for lymphadenopathy. SOFT TISSUE/ABDOMINAL WALL: Similar postsurgical changes of the anterior abdominal wall. No evidence for sizable ventral hernia. IMPRESSION: 1. Postsurgical changes without evidence for acute abdominal/pelvic process. 2. Few scattered colonic diverticula without evidence for acute diverticulitis. [facility], , 11/13/2024 1:54 PM
[2024-11-13 15:08] VITALS: BP 104/53; PULSE 63; RESP 14; TEMP 98
== END 2024-11-13 15:43 | disposition home or self-care (01) ==
LOC: EC 11:39
DX: K52.9 Noninfective gastroenteritis and colitis, unspecified (principal); Z87.891 Personal history of nicotine dependence; Z91.030 Bee allergy status; Z88.6 Allergy status to analgesic agent; Z91.040 Latex allergy status; Z91.018 Allergy to other foods; Z88.1 Allergy status to other antibiotic agents
CPT/HCPCS: 36415; 80053; 82150; 83605; 83690; 85025; 81001; 74177; 99285; 96360; Q9967

== ENCOUNTER → 2024-12-31 | Outpatient (CLI) | payer MEDICARE ==
[2024-12-31 14:27] LABS: African American GFR (CKD) 40 (>60 ml/min/1.73 sqM); Blood Urea Nitrogen 29 mg/dL (7-17); Non-African American GFR(CKD) 35 (>60 ml/min/1.73 sqM)
--- NOTE | 2025-01-01 11:02 | CT ---
EXAMINATION TYPE: CT abdomen pelvis wo con DATE OF EXAM: 12/31/2024 3:42 PM COMPARISON: 11/13/2024 CLINICAL INDICATION: Female, 69 years old with history of R10.13 EPIGASTRIC PAIN, R10.32 LLQ PAIN; h x of 3 inches of colon removed, LLQ pain, TECHNIQUE: CT of the abdomen and pelvis without IV contrast. Sagittal and coronal reformats were crea faith on a separate workstation. Technologist notes: pt only able to finish 1 drink, original order changed from w/ contrast to w/o du e to low GFR Oral contrast used: with Oral Contrast (none if empty) CT DLP: 255.80 mGycm, Automated exposure control for dose reduction was used. FINDINGS: LOWER CHEST: Strandy atelectasis or scarring in the lower lungs. No pleural effusion. ABDOMEN LIVER: Unremarkable GALLBLADDER AND BILE DUCTS: Cholecystectomy clips. PANCREAS: Unremarkable. SPLEEN: Unremarkable. ADRENAL GLANDS: Unremarkable. KIDNEYS AND URETERS: Right kidney shows atrophic upper pole possibly due to a stenotic accessory bran ch. Some surgical clips are present here in the right retroperitoneum. PELVIS BLADDER: No evidence for wall thickening or mass given limitations of exam. REPRODUCTIVE: There is pelvic floor relaxation. Uterus surgically absent. Left-sided pelvic phlebolit h. Neither ovary clearly seen. No abnormal fluid collection in the pelvis. ABDOMEN & PELVIS STOMACH AND BOWEL: Similar postsurgical change at the GE junction and proximal stomach likely reflect ing prior hiatal hernia repair. No evidence of bowel obstruction. There is generalized colonic divert iculosis. Scattered moderate stool burden. Staple line relating to previous resection and re-anastomo sis of the distal sigmoid colon. There is mild circumferential wall thickening descending colon. PERITONEUM/RETROPERITONEUM: No evidence of pneumoperitoneum or free fluid. VASCULATURE: Moderate atherosclerotic calcifications abdominal aorta. There is fusiform ectasia mid a bdominal aorta to 2.4 cm and followed by a mild to moderate focal aortic stenosis just below the dila tation. MUSCULOSKELETAL: Facet arthropathy mid to lower lumbar spine with degenerative grade 1 anterolisthesi s L4-L5. LYMPH NODES: No gross evidence for lymphadenopathy. SOFT TISSUE/ABDOMINAL WALL: Unchanged 1.8 cm partially calcified nodularity overlying the superficial fascia of the epigastric anterior abdominal wall probably scarring. Additional postsurgical change a long the anterior abdominal wall. IMPRESSION: 1. Mild circumferential wall thickening descending colon. Consider a nonspecific mild infectious or inflammatory colitis. 2. Additional generalized colonic diverticulosis without evidence for acute diverticulitis. Staple li ne distal sigmoid colon from prior resection and reanastomosis. 3. Status post hysterectomy. Pelvic floor relaxation. [facility], Workstation: [facility], 01/01/2025 11:00 AM
== END | disposition home or self-care (01) ==
LOC: RADCTMAIN 13:29
PROVIDERS: ATTEND Surgery
DX: K57.30 Diverticulosis of large intestine without perforation or abscess without bleeding (principal); K63.89 Other specified diseases of intestine
CPT/HCPCS: 36415; 74176; 82565; 84520